=== PATIENT | female | born 1945 | race Caucasian/White ===

== ENCOUNTER 2018-12-11 18:58 | Inpatient (IN) | payer MEDICARE ==
[~2018-12-11] VITALS: Ht 154.9 cm; Wt 41.8 kg
[2018-12-11] MEDS ORDERED: Sodium Chloride 1,400 ML IVLG ONE (19:15)
--- NOTE | 2018-12-11 19:53 | Emergency Room Report ---
History of Present Illness General Chief Complaint: Altered Level of Consciousness Source: Patient Present Illness HPI Patient present from nursing facility with reports of altered mental status Upon arrival the patient is confused Decreased responsiveness After Tony placement and further initial care patient is now awake Asking watch was brought to the emergency room Denies any headache denies any chest pain Patient's medical history is reviewed and shows history of COPD Cardiac disease Paroxysmal nature fibrillation and patient is on Eliquis Allergies: Coded Allergies: CYCLOBENZAPRINE (Verified Allergy, Unknown, 12/11/18) IBUPROFEN (Verified Allergy, Unknown, 12/11/18) MELATONIN (Verified Allergy, Unknown, 12/11/18) SULFA (SULFONAMIDE ANTIBIOTICS) (Verified Allergy, Unknown, 12/11/18) Patient History Limited by: medical condition Past Medical History: see triage record Pertinent Family History: none Now: No - UNK Reviewed Nursing Documentation: PMH: Agreed; PSxH: Agreed Nursing Documentation-PMH Past Medical History: Deferred Review of Systems All Other Systems: limited - Other than the ones mentioned in the history of present illness all others are reviewed however they do stay limited due to the patient's mental status Physical Exam Vital Signs Date Time Temp Pulse Resp B/P (MAP) Pulse Ox O2 Delivery O2 Flow Rate FiO2 12/11/18 19:02 99.0 90 26 110/67 98 Non-Rebreather 15.0 Sp02 EP Interpretation: reviewed, normal General Appearance: moderate distress - Appears short of breath Head: normocephalic, atraumatic Procedures Critical Care Time Critical Care Time 50 minutes for multiple re-evaluations initial critical presentation concerning for respiratory failure not including any procedural time Medical Decision Making Diagnostic Impression: Primary Impression: Hypercapnemia Additional Impressions: Dyspnea Altered level of consciousness ER Course Patient is a fairly complex patient with multiple differential to consideration including but not limited to cardiac cardiopulmonary and vascular emergencies Neurological, infectious, metabolic pathology also entertained Patient appears to have done better on BiPAP Appears to have some signs of CO2 retention as well Patient requires further inpatient care in improved yet serious condition Labs Test 12/11/18 19:32 12/11/18 19:35 12/11/18 19:56 12/11/18 22:20 Arterial Blood pH 7.315 (7.350-7.450) 7.310 (7.350-7.450) Arterial Blood Partial Pressure CO2 65.2 mmHg (35.0-45.0) 56.5 mmHg (35.0-45.0) Arterial Blood Partial Pressure O2 352.3 mmHg (75.0-100.0) 158.1 mmHg (75.0-100.0) Arterial Blood HCO3 32.5 mmol/L (22.0-26.0) 27.8 mmol/L (22.0-26.0) Arterial Blood Oxygen Saturation 99.0 % (95-100) 98.5 % (95-100) Arterial Blood Base Excess 4.8 (-2-2) 0.7 (-2-2) Domingo Test Positive Positive White Blood Count 8.8 K/UL (4.8-10.8) Red Blood Count 3.92 M/UL (4.20-5.40) Hemoglobin 11.4 G/DL (12.0-16.0) Hematocrit 35.6 % (37.0-47.0) Mean Corpuscular Volume 91 FL (80-99) Mean Corpuscular Hemoglobin 28.9 PG (27.0-31.0) Mean Corpuscular Hemoglobin Concent 31.9 G/DL (32.0-36.0) Red Cell Distribution Width 15.7 % (11.6-14.8) Platelet Count 261 K/UL (150-450) Mean Platelet Volume 5.0 FL (6.5-10.1) Neutrophils (%) (Auto) 62.4 % (45.0-75.0) Lymphocytes (%) (Auto) 26.4 % (20.0-45.0) Monocytes (%) (Auto) 9.6 % (1.0-10.0) Eosinophils (%) (Auto) 0.6 % (0.0-3.0) Basophils (%) (Auto) 1.0 % (0.0-2.0) Prothrombin Time 11.5 SEC (9.30-11.50) Prothromb Time International Ratio 1.1 (0.9-1.1) Activated Partial Thromboplast Time 34 SEC (23-33) Sodium Level 140 MMOL/L (136-145) Potassium Level 4.5 MMOL/L (3.5-5.1) Chloride Level 104 MMOL/L (98-107) Carbon Dioxide Level 33 MMOL/L (21-32) Anion Gap 4 mmol/L (5-15) Blood Urea Nitrogen 24 mg/dL (7-18) Creatinine 1.0 MG/DL (0.55-1.30) Estimat Glomerular Filtration Rate mL/min (>60) Glucose Level 106 MG/DL (74-106) Lactic Acid Level 0.80 mmol/L (0.4-2.0) Calcium Level 8.0 MG/DL (8.5-10.1) Total Bilirubin 0.2 MG/DL (0.2-1.0) Aspartate Amino Transf (AST/SGOT) 37 U/L (15-37) Alanine Aminotransferase (ALT/SGPT) 23 U/L (12-78) Alkaline Phosphatase 125 U/L (46-116) Ammonia 21 umol/L (11-32) Total Creatine Kinase 166 U/L (26-308) Creatine Kinase MB 2.7 NG/ML (0.0-3.6) Creatine Kinase MB Relative Index 1.6 Troponin I 0.020 ng/mL (0.000-0.056) Pro-B-Type Natriuretic Peptide 3563 pg/mL (0-125) Total Protein 7.0 G/DL (6.4-8.2) Albumin 2.3 G/DL (3.4-5.0) Globulin 4.7 g/dL Albumin/Globulin Ratio 0.5 (1.0-2.7) Lipase 30 U/L (73-393) Urine Color Yellow Urine Appearance Clear Urine pH 5 (4.5-8.0) Urine Specific [place] 1.015 (1.005-1.035) Urine Protein 3+ (NEGATIVE) Urine Glucose (UA) Negative (NEGATIVE) Urine Ketones Negative (NEGATIVE) Urine Blood 5+ (NEGATIVE) Urine Nitrite Negative (NEGATIVE) Urine Bilirubin Negative (NEGATIVE) Urine Urobilinogen Normal MG/DL (0.0-1.0) Urine Leukocyte Esterase 1+ (NEGATIVE) Urine RBC 5-10 /HPF (0 - 2) Urine WBC 2-4 /HPF (0 - 2) Urine Squamous Epithelial Cells Few /LPF (NONE/OCC) Urine Bacteria Few /HPF (NONE) Test 12/12/18 04:00 12/12/18 07:40 White Blood Count 8.0 K/UL (4.8-10.8) Red Blood Count 3.88 M/UL (4.20-5.40) Hemoglobin 11.0 G/DL (12.0-16.0) Hematocrit 35.8 % (37.0-47.0) Mean Corpuscular Volume 92 FL (80-99) Mean Corpuscular Hemoglobin 28.4 PG (27.0-31.0) Mean Corpuscular Hemoglobin Concent 30.7 G/DL (32.0-36.0) Red Cell Distribution Width 16.4 % (11.6-14.8) Platelet Count 281 K/UL (150-450) Mean Platelet Volume 5.7 FL (6.5-10.1) Neutrophils (%) (Auto) % (45.0-75.0) Lymphocytes (%) (Auto) % (20.0-45.0) Monocytes (%) (Auto) % (1.0-10.0) Eosinophils (%) (Auto) % (0.0-3.0) Basophils (%) (Auto) % (0.0-2.0) Sodium Level 143 MMOL/L (136-145) Potassium Level 4.7 MMOL/L (3.5-5.1) Chloride Level 107 MMOL/L (98-107) Carbon Dioxide Level 31 MMOL/L (21-32) Anion Gap 6 mmol/L (5-15) Blood Urea Nitrogen 22 mg/dL (7-18) Creatinine 0.8 MG/DL (0.55-1.30) Estimat Glomerular Filtration Rate mL/min (>60) Glucose Level 130 MG/DL (74-106) Calcium Level 7.7 MG/DL (8.5-10.1) Arterial Blood pH 7.310 (7.350-7.450) Arterial Blood Partial Pressure CO2 57.4 mmHg (35.0-45.0) Arterial Blood Partial Pressure O2 193.2 mmHg (75.0-100.0) Arterial Blood HCO3 28.7 mmol/L (22.0-26.0) Arterial Blood Oxygen Saturation 98.9 % (95-100) Arterial Blood Base Excess 1.6 (-2-2) Domingo Test Positive Rhythm Strip Diag. Results EP Interpretation: yes Rate: 88 Rhythm: NSR, no PVC's, no ectopy Chest X-Ray Diagnostic Results Chest X-Ray Diagnostic Results : Chest X-Ray Ordered: Yes # of Views/Limited/Complete: 1 View Indication: Shortness of Breath EP Interpretation: Yes Interpretation: no consolidation, no effusion, other - Questionable interstitial disease Impression: No acute disease - questionable interstitial disease Electronically Signed by: Gini Lopez DO Last Vital Signs Date Time Temp Pulse Resp B/P (MAP) Pulse Ox O2 Delivery O2 Flow Rate FiO2 12/11/18 19:02 99.0 90 26 110/67 98 Non-Rebreather 15.0 Status: improved Disposition: ADMITTED INPATIENT Condition: Critical Gini Lopez DO Dec 11, 2018 19:53
[2018-12-11 19:57] LABS: EOSINOPHILS % (AUTO) 0.6 % (0.0-3.0); HEMATOCRIT 35.6 % (37.0-47.0); HEMOGLOBIN 11.4 G/DL (12.0-16.0); LYMPHOCYTES % (AUTO) 26.4 % (20.0-45.0); MEAN CORPUSCULAR VOLUME 91 FL (80-99); MONOCYTES % (AUTO) 9.6 % (1.0-10.0); NEUTROPHILS % (AUTO) 62.4 % (45.0-75.0); PLATELET COUNT 261 K/UL (150-450); RED BLOOD COUNT 3.92 M/UL (4.20-5.40); RED CELL DISTRIBUTION WIDTH 15.7 % (11.6-14.8); WHITE BLOOD COUNT 8.8 K/UL (4.8-10.8)
[2018-12-11 19:58] LABS: ANION GAP 4 mmol/L (5-15); BLOOD UREA NITROGEN 24 mg/dL (7-18); CARBON DIOXIDE 33 MMOL/L (21-32); CHLORIDE 104 MMOL/L (98-107); POTASSIUM 4.5 MMOL/L (3.5-5.1); SODIUM 140 MMOL/L (136-145)
[2018-12-11 20:01] LABS: AMMONIA 21 umol/L (11-32)
[2018-12-11 20:04] LABS: INR 1.1 (0.9-1.1)
[2018-12-11 20:09] LABS: APPEARANCE,URINE CLEAR; BILIRUBIN, URINE NEGATIVE (NEGATIVE); GLUCOSE, URINE (UA) NEGATIVE (NEGATIVE); KETONES,URINE NEGATIVE (NEGATIVE); LEUKOCYTE ESTERASE ,URINE 1+ (NEGATIVE); NITRITE,URINE NEGATIVE (NEGATIVE); PH,URINE 5 (4.5-8.0); PROTEIN,URINE 3+ (NEGATIVE); UROBILINOGEN,URINE NORMAL MG/DL (0.0-1.0)
[2018-12-11 20:12] LABS: ALANINE AMINOTRANSFERASE 23 U/L (12-78); ALBUMIN 2.3 G/DL (3.4-5.0); ALBUMIN/GLOBULIN RATIO 0.5 (1.0-2.7); ALKALINE PHOSPHATASE 125 U/L (46-116); ASPARTATE AMINO TRANSFERASE 37 U/L (15-37); BILIRUBIN,TOTAL 0.2 MG/DL (0.2-1.0); CKMB 2.7 NG/ML (0.0-3.6); CREATINE KINASE 166 U/L (26-308)
[2018-12-11 20:13] LABS: COLOR,URINE YELLOW
[2018-12-11] MEDS ORDERED: Solu-MEDROL 125mg Inj IVP ONE (20:30)
[2018-12-11 20:40] VITALS: BP 110/67
--- NOTE | 2018-12-11 20:59 | NUR ---
ER Nurse Note: Pt [facility] from [facility] c/o resp distress r/t aloc. Pt was at mid 80% at room air. Pt a&ox2 to name and birthday; VSS with 100% on BiPap. Pt was following commands but had episodes of agiation after she took her non-rebreather off. Pt on Bipap, pt is calm, cooperative, no signs of distress. Pt has multiple bruises on arms prior to admission. Pt has full strength in all extremities. Pt has 22 gauge on LT FA SL; started by AM nurse; 20 IV LT lower leg; started by charge nurse. All orders completed per ERMD orders. Will continue to [facility].
[2018-12-11] MEDS ORDERED: GABAPENTIN600 MG ORAL (21:44)
[2018-12-11] MEDS ORDERED: ELIQUIS5 MG PO (21:44)
[2018-12-11] MEDS ORDERED: MULTIVITAMINS1 EAC8 ORAL (21:44)
[2018-12-11] MEDS ORDERED: FLECAINIDE ACET50 M1 PO (21:44)
[2018-12-11] MEDS ORDERED: SPIRIVA INHALE1 PUF1 INH (21:44)
[2018-12-11] MEDS ORDERED: ATORVASTATIN CA20 MG ORAL (21:44)
[2018-12-11] MEDS ORDERED: VENTOLIN HFA18 GM INH (21:44)
[2018-12-11] MEDS ORDERED: ASPIRIN81 MG ORAL (21:44)
[2018-12-11] MEDS ORDERED: MORPHINE S10 MG/5 ML ORAL (21:44)
[2018-12-11] MEDS ORDERED: OMEPRAZOLE40 M1 ORAL (21:44)
[2018-12-11] MEDS ORDERED: NORVASC5 MG ORAL (21:44)
[2018-12-11] MEDS ORDERED: LIDOCAINE700 M1 TP (21:44)
[2018-12-11 21:53] VITALS: BP 123/81
--- NOTE | 2018-12-11 21:55 | NUR ---
ER Nurse Note: Report given to SIVAN Elder in [place] for continuity of care.
--- NOTE | 2018-12-11 22:42 | NUR ---
NURSE NOTES: Patient arrived to SDU, room 243-2 via stretcher accompanied by 2 RNs from ER. Report received from SIVAN Ibrahim at bed side. Patient is alert, verbally responsive, able to make needs known. Denies any pain at this time. Patient is on Bipap with setting of 12/5 at 50%, sp02 is 100%. Noted with burgess cath and intact, urine is draining. Noted IV site to left FA 22G and left leg 20G and is intact. Noted with scatted bruises to BLE, skin remains intact. Bed is in lowest position. Call light is within easy reach while in bed. will continue to monitor.
[2018-12-11 22:45] VITALS: BP 140/70
--- NOTE | 2018-12-11 23:04 | NUR ---
NURSE NOTES: Paged Dr Mancilla for admission order. currently awaiting for call back
[2018-12-12] VITALS: BP 132/72
[2018-12-12] MEDS: Albuterol 90mcg Inhaler 8gm INH SCH ×4 (00:30→19:22)
--- NOTE | 2018-12-12 01:00 | NUR ---
RESPIRATORY NOTE: MDI not in patients cassette, will contact pharmacy.
[2018-12-12 04:00] VITALS: BP 100/65
[2018-12-12 05:05] LABS: HEMATOCRIT 35.8 % (37.0-47.0); MEAN CORPUSCULAR VOLUME 92 FL (80-99); PLATELET COUNT 281 K/UL (150-450); RED BLOOD COUNT 3.88 M/UL (4.20-5.40); RED CELL DISTRIBUTION WIDTH 16.4 % (11.6-14.8)
[2018-12-12 05:17] LABS: ANION GAP 6 mmol/L (5-15); BLOOD UREA NITROGEN 22 mg/dL (7-18); CALCIUM 7.7 MG/DL (8.5-10.1); CARBON DIOXIDE 31 MMOL/L (21-32); CHLORIDE 107 MMOL/L (98-107); CREATININE 0.8 MG/DL (0.55-1.30); POTASSIUM 4.7 MMOL/L (3.5-5.1); SODIUM 143 MMOL/L (136-145)
--- NOTE | 2018-12-12 07:28 | NUR ---
HAND-OFF: Report given to Lucia Stovall RN.
[2018-12-12 08:00] VITALS: BP 109/72
--- NOTE | 2018-12-12 08:15 | NUR ---
NURSE NOTES: received pt in the bed, awake, alert, vital signs stable, no co pain, no SOB, pt on Bipap 15/5, skin warm and dry to touch, Tony catheter with yellow urine, ABG done, PCO2 still high, bed in low position, call light within reach.
[2018-12-12] MEDS ORDERED: Morphine IR 15mg tab ORAL PRN (09:00)
[2018-12-12] MEDS: Metoprolol Succinate XL 25mg tab ORAL SCH (09:20)
[2018-12-12] MEDS: Eliquis 2.5mg tablet ORAL SCH ×2 (09:20→17:51)
[2018-12-12] MEDS: Flonase Nasal Inhaler 16gm NASAL SCH ×2 (09:20→17:49)
[2018-12-12] MEDS: Multivitamin w/Minerals tab ORAL SCH (09:21)
[2018-12-12] MEDS: MS Contin 15mg tab ORAL SCH ×3 (09:56→17:50)
--- NOTE | 2018-12-12 10:53 | NUR ---
RD ASSESSMENT & RECOMMENDATIONS SEE CARE ACTIVITY FOR COMPLETE ASSESSMENT DAILY ESTIMATED NEEDS: Needs based on Underweight, pulmonary 42kg 30-35 kcals/kg 3982-0881 total kcals 1.0-1.5 g protein/kg 42-63 g total protein 25-30 mL/kg 3500-7442 total fluid mLs NUTRITION DIAGNOSIS: Increased kcal and protein needs r/t wasting and underweight status as evidenced by pt is 88% of [place] Body Weight, presents w/ generalized moderate wasting. PO DIET RECOMMENDATIONS: [place] Regular diet (texture per CLINICAL LAB SPECIALIST) ADDITIONAL RECOMMENDATIONS: 1) Obtain a calibrated bed scale wt 2) Non oral feeds if indicated, part of POC 3) Ensure TID w/ meals w/ oral diet 4) CLINICAL LAB SPECIALIST eval for appropriate texture
--- NOTE | 2018-12-12 11:39 | NUR ---
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 HYPERCAPNIA VS: BP 123/81, P 90, T 99.0, RR 26, SpO2 100 on Bi-pap 15.0L O2 FiO2 50 RBC 3.88, Hgb 11.0, Hct 35.8, pCO2 65.2, BUN 24, URINE: Protein 3+, Blood 5+, Bacteria FEW IS:NS x1.4L SOLU-MEDROL 125mg IVP ADMITTED TO SDU DCP: RETURN TO [facility]
[2018-12-12 12:00] VITALS: BP 110/59
--- NOTE | 2018-12-12 12:01 | NUR ---
NURSE NOTES: pt refuse Bipap, now pt on venturi mask 40%, dr Mancilla aware.
--- NOTE | 2018-12-12 15:01 | Diagnostic Imaging Report ---
Indication: Chest pain Technique: XRAY Chest 1v Comparison: None Findings: Heart size within the upper limits for normal. Mediastinal contours are sharp. There are atherosclerotic gastric calcifications. There is evidence of prior median sternotomy. Right sided pacemaker is noted. Increased interstitial markings are noted be some subtle patchy bilateral airspace opacities. There is no pleural effusion or pneumothorax. Surgical clips noted in the upper abdomen. High attenuation material is noted within the lower thoracic spine likely representing bone cement from prior kyphoplasty. IMPRESSION: Increased interstitial markings with areas of peribronchial thickening and some subtle bilateral opacities which may be related to small airway disease/bronchitis. Suspect underlying chronic disease as well.
[2018-12-12 16:00] VITALS: BP 117/77
[2018-12-12] MEDS ORDERED: Albuterol/Ipratropium 3ml neb HHN PRN ×2 (16:00)
[2018-12-12] MEDS ORDERED: traMADol 50mg tab ORAL PRN (16:30)
--- NOTE | 2018-12-12 16:48 | General Progress Note ---
Assessment/Plan Status: stable Assessment: 1. COPD Exacerbation - on Prednisone 40 mg daily and breathing txt. improving. 2, HTN - cont amlodipine 5 mg daily and toprol XL 25 mg one po daily. 3. Paroxysmal A Fib - On eliquis 5 mg one po bid. 4. CAD with hx of [place] 5. HLD 6. Neuropathy 7. Chronic Low Back Pain 8. h/o Lt shoulder rotator cuff tear Subjective Date patient seen: Dec 12, 2018 Time patient seen: 16:00 Constitutional: Reports: weakness HEENT: Reports: no symptoms Cardiovascular: Reports: no symptoms Respiratory: Reports: shortness of breath Gastrointestinal/Abdominal: Reports: no symptoms Genitourinary: Reports: no symptoms Neurologic/Psychiatric: Reports: no symptoms Endocrine: Reports: no symptoms Hematologic/Lymphatic: Reports: no symptoms Allergies: Coded Allergies: CYCLOBENZAPRINE (Verified Allergy, Unknown, 12/11/18) IBUPROFEN (Verified Allergy, Unknown, 12/11/18) MELATONIN (Verified Allergy, Unknown, 12/11/18) SULFA (SULFONAMIDE ANTIBIOTICS) (Verified Allergy, Unknown, 12/11/18) Subjective Patient is in [place]. she is on face mask and confortable. afebrile. No chest pain. Objective Last 24 Hour Vital Signs Date Time Temp Pulse Resp B/P (MAP) Pulse Ox O2 Delivery O2 Flow Rate FiO2 12/12/18 16:00 40 12/12/18 16:00 Venturi Mask 12/12/18 14:38 84 22 97 12/12/18 13:18 97.6 12/12/18 12:48 81 20 96 12/12/18 12:31 75 20 94 Venturi Mask 8.0 40 12/12/18 12:31 75 20 94 Venturi Mask 8.0 40 12/12/18 12:00 40 12/12/18 12:00 69 12/12/18 12:00 97.6 98 16 110/59 (76) 100 12/12/18 12:00 Venturi Mask 12/12/18 11:16 78 20 98 12/12/18 09:20 72 109/72 12/12/18 09:00 78 109/72 12/12/18 08:50 83 20 100 12/12/18 08:49 72 20 100 Bi-pap 40 12/12/18 08:49 72 20 100 Bi-pap 40 12/12/18 08:00 97.6 69 15 109/72 (84) 100 12/12/18 08:00 50 12/12/18 08:00 Bi-pap 12/12/18 08:00 72 12/12/18 07:20 61 14 100 Facial 50 12/12/18 05:20 63 16 100 Facial 50 12/12/18 04:00 50 12/12/18 04:00 97.7 62 16 100/65 (77) 100 12/12/18 04:00 Bi-pap 12/12/18 03:41 76 12/12/18 02:52 66 16 100 Facial 50 12/12/18 01:08 64 17 99 Facial 50 12/12/18 00:00 50 12/12/18 00:00 Bi-pap 12/12/18 00:00 98.0 97 21 132/72 (92) 100 12/11/18 23:50 84 21 100 Facial 50 12/11/18 23:24 98 12/11/18 23:06 Bi-pap 12/11/18 22:45 50 12/11/18 22:45 98.1 105 22 140/70 (93) 100 12/11/18 21:53 99.0 88 17 123/81 100 15.0 50 12/11/18 21:53 99.0 88 17 123/81 100 15.0 50 12/11/18 20:48 80 17 100 Facial 50 12/11/18 20:40 99.0 90 26 110/67 98 Non-Rebreather 15.0 12/11/18 20:40 90 26 Bi-pap 15.0 12/11/18 19:58 105 18 Bi-pap 50 12/11/18 19:58 105 18 100 Facial 50 12/11/18 19:02 99.0 90 26 110/67 98 Non-Rebreather 15.0 Intake and Output 12/11/18 12/12/18 19:00 07:00 Intake Total 2800 ml Output Total 1150 ml Balance 1650 ml Intake Oral 0 ml IV Total 2800 ml Output Urine Total 1150 ml # Voids 1 Laboratory Tests 12/11/18 19:32: Arterial Blood pH 7.315L, Arterial Blood Partial Pressure CO2 65.2*H, Arterial Blood Partial Pressure O2 352.3H, Arterial Blood HCO3 32.5H, Arterial Blood Oxygen Saturation 99.0, Arterial Blood Base Excess 4.8H, Domingo Test Positive 12/11/18 19:35: White Blood Count 8.8, Red Blood Count 3.92L, Hemoglobin 11.4L, Hematocrit 35.6L , Mean Corpuscular Volume 91, Mean Corpuscular Hemoglobin 28.9, Mean Corpuscular Hemoglobin Concent 31.9L, Red Cell Distribution Width 15.7H, Platelet Count 261, Mean Platelet Volume 5.0L, Neutrophils (%) (Auto) 62.4, Lymphocytes (%) (Auto) 26.4, Monocytes (%) (Auto) 9.6, Eosinophils (%) (Auto) 0.6, Basophils (%) (Auto) 1.0, Prothrombin Time 11.5, Prothromb Time International Ratio 1.1, Activated Partial Thromboplast Time 34H, Sodium Level 140, Potassium Level 4.5, Chloride Level 104, Carbon Dioxide Level 33H, Anion Gap 4L, Blood Urea Nitrogen 24H, Creatinine 1.0, Estimat Glomerular Filtration Rate , Glucose Level 106, Lactic Acid Level 0.80, Calcium Level 8.0L, Total Bilirubin 0.2, Aspartate Amino Transf (AST/SGOT) 37, Alanine Aminotransferase ( ALT/SGPT) 23, Alkaline Phosphatase 125H, Ammonia 21, Total Creatine Kinase 166, Creatine Kinase MB 2.7, Creatine Kinase MB Relative Index 1.6, Troponin I 0.020 , Pro-B-Type Natriuretic Peptide 3563H, Total Protein 7.0, Albumin 2.3L, Globulin 4.7, Albumin/Globulin Ratio 0.5L, Lipase 30L 12/11/18 19:56: Urine Color Yellow, Urine Appearance Clear, Urine pH 5, Urine Specific [place] 1.015, Urine Protein 3+H, Urine Glucose (UA) Negative, Urine Ketones Negative, Urine Blood 5+H, Urine Nitrite Negative, Urine Bilirubin Negative, Urine Urobilinogen Normal, Urine Leukocyte Esterase 1+H, Urine RBC 5-10H, Urine WBC 2- 4, Urine Squamous Epithelial Cells Few, Urine Bacteria Few 12/11/18 22:20: Arterial Blood pH 7.310L, Arterial Blood Partial Pressure CO2 56.5*H, Arterial Blood Partial Pressure O2 158.1H, Arterial Blood HCO3 27.8H, Arterial Blood Oxygen Saturation 98.5, Arterial Blood Base Excess 0.7, Domingo Test Positive 4/18/19 04:00: White Blood Count 8.0, Red Blood Count 3.88L, Hemoglobin 11.0L, Hematocrit 35.8L , Mean Corpuscular Volume 92, Mean Corpuscular Hemoglobin 28.4, Mean Corpuscular Hemoglobin Concent 30.7L, Red Cell Distribution Width 16.4H, Platelet Count 281, Mean Platelet Volume 5.7L, Neutrophils (%) (Auto) , Lymphocytes (%) (Auto) , Monocytes (%) (Auto) , Eosinophils (%) (Auto) , Basophils (%) (Auto) , Sodium Level 143, Potassium Level 4.7, Chloride Level 107 , Carbon Dioxide Level 31, Anion Gap 6, Blood Urea Nitrogen 22H, Creatinine 0.8 , Estimat Glomerular Filtration Rate , Glucose Level 130H, Calcium Level 7.7L 12/12/18 07:40: Arterial Blood pH 7.310L, Arterial Blood Partial Pressure CO2 57.4*H, Arterial Blood Partial Pressure O2 193.2H, Arterial Blood HCO3 28.7H, Arterial Blood Oxygen Saturation 98.9, Arterial Blood Base Excess 1.6, Domingo Test Positive Height (Feet): 5 Height (Inches): 1.00 Weight (Pounds): 92 General Appearance: no apparent distress, alert EENT: normal ENT inspection Neck: non-tender, supple Cardiovascular: normal rate, regular rhythm Respiratory/Chest: lungs clear, normal breath sounds Abdomen: normal bowel sounds, non tender, soft Extremities: normal range of motion, non-tender Edema: no edema noted Arm (L), no edema noted Arm (R), no edema noted Leg (L), no edema noted Leg (R), no edema noted Pedal (L), no edema noted Pedal (R), no edema noted Generalized Neurologic: no motor/sensory deficits, alert, responsive Skin: warm/dry Lymphatic: normal anterior cervical (L), normal anterior cervical (R), normal posterior cervical (L), normal posterior cervical (R), normal submandibular (L) , normal submandibular (R), normal supraclavicular (L), normal supraclavicular ( R), normal axillary (L), normal axillary (R), normal inguinal (L), normal inguinal (R), normal other Wally Mancilla MD Dec 12, 2018 16:48
--- NOTE | 2018-12-12 17:00 | NUR ---
NURSE NOTES: pt still on venturi mask 40%, tolerate will, son in the room, dr. Salmon, dr. Valdez saw pt.
--- NOTE | 2018-12-12 19:10 | NUR ---
NURSE NOTES: Report received from Minoo Stovall RN. Patient seen in bed, appears to be sleeping at this time, family member by bedside. Patient is alert, verbally responsive, able to make needs known. Denies any pain at this time. Currently on venturi mask at 40% with sp02 at 98%. IV site is to left FA 22g and right low leg 20G, both is intact. Tony cath is in place and is intact, urine is draining. Bed is in lowest position. call light is within easy reach while in bed. will continue to monitor.
--- NOTE | 2018-12-12 19:19 | NUR ---
HAND-OFF: Report given to ERNESTO FINNEGAN, no distress noted.
[2018-12-12] MEDS: Albuterol/Ipratropium 3ml neb HHN SCH ×2 (19:22→23:26)
--- NOTE | 2018-12-12 19:22 | NUR ---
RESPIRATORY NOTE: PT. RECEIVED ON VENTI MASK @ 8LPM 40% FIO2. ALL VS WNL. HOWEVER; PT. APPEARS CONFUSED AND IS REFUSING TO BE PLACED ON BIPAP. PT'S SON IS AT BEDSIDE. BENEFITS AND RISK OF BIPAP WERE EXPLAINED TO PT AND SON. PT CONTINUES TO REFUSE BIPAP AFTER BENEFITS WERE EXPLAINED. RN. ALSTON WAS NOTIFIED OF PT'S REFUSAL. HHN TX AND MDI TOLERATED WELL. WILL CONTINUE TO MONITOR.
--- NOTE | 2018-12-12 19:30 | History and Physical Report ---
DATE OF ADMISSION: 12/11/2018 CHIEF COMPLAINT: Altered mental status. HISTORY OF PRESENT ILLNESS: This is a 72-year-old female with history of hypertension, chronic obstructive pulmonary disease, SVT, paroxysmal atrial fibrillation, mitral regurgitation, and chronic back and left shoulder pain, who was brought in to the emergency room for chronic obstructive pulmonary disease exacerbation with altered mental status and increased CO2. She also has a history of coronary artery disease and the patient is a current smoker. In the ER, the patient received Solu-Medrol and BiPAP in the emergency room and the patient's breathing improved. The patient was admitted in the [facility] for further treatment of chronic obstructive pulmonary disease exacerbation. PAST MEDICAL HISTORY: Includes history of chronic obstructive pulmonary disease, hypertension, SVT, paroxysmal atrial fibrillation, mitral regurgitation, chronic back and left shoulder pain, coronary artery disease, and chronic pain syndrome. PAST SURGICAL HISTORY: History of back surgery, history of cervical steroid epidural, history of gastric resection, history of hiatal hernia repair, history of pacemaker placement, history of shoulder joint injection, history of left shoulder joint injection under fluoroscopy. ALLERGIES: Include cyclobenzaprine, ibuprofen, melatonin, and sulfa. FAMILY HISTORY: Noncontributory. SOCIAL HISTORY: The patient is a current long-time smoker. No alcohol or drug use. PHYSICAL EXAMINATION: VITAL SIGNS: Temperature 99.0, pulse 90, respirations 26, blood pressure 110/67, and pulse ox 98 percent on non-breather. GENERAL APPEARANCE: Moderate distress. Appears short of breath. HEENT: Normocephalic and normochromic. Extraocular muscles intact. Throat is clear. CARDIOVASCULAR SYSTEM: Regular rate and rhythm. No murmur. No gallop. ABDOMEN: Soft, nontender, and nondistended. LUNGS: Clear to auscultation, but tachypneic. EXTREMITY: No edema, cyanosis, or clubbing. NEUROLOGIC: The patient responds to commands. LABORATORY AND DIAGNOSTIC DATA: Include WBC 8.8, hemoglobin 11.4, hematocrit 35.6, and platelet count 261,000. Neutrophils 62, lymphocytes 26, and mono 9.6. Sodium 140, potassium 4.4, chloride 104, bicarb is 33, BUN 24, creatinine 1, and glucose 106. Lactic acid 0.8. Calcium 8. AST 37, ALT 23, and alkaline phosphatase 125. Ammonia 21. Creatine kinase 166. BNP 3563. Albumin 2.3. Lipase 30. PT 11.5, INR 1.1, and PTT 34. UA showed +3 urine protein and +5 urine blood. Urine rbc is 5 to 10 and urine wbc 2 to 4. Blood gas showed pH of 7.315, pCO2 65, pO2 252, bicarb is 32.5, base excess is 4.8, and O2 saturation 99%. Chest x-ray showed increased interstitial marking, the area of peribronchial thickening, and some septal bronchial opacity, which may be related to small airway disease, and also suspect underlying chronic disease. EKG showed normal sinus rhythm and old Q-wave in the inferior leads. IMPRESSION AND PLAN: 1. Chronic obstructive pulmonary disease exacerbation. We will have the patient continue on Solu-Medrol and we will have Pulmonary see the patient. We will also cover the patient on antibiotics for possible bronchitis based on a chest x-ray. 2. Paroxysmal atrial fibrillation. We will continue the patient on home medication Eliquis 5 mg b.i.d. 3. Hypertension. We will continue on Norvasc 5 mg daily and Toprol 25 daily. 4. Coronary artery disease with history of myocardial infarction. Currently, on beta-blockers. 5. The patient will be admitted for a minimum of 2-night stay for diagnosis of chronic obstructive pulmonary disease exacerbation. Wally Mancilla M.D. DR: TAMIR JOB#: [id number] CC:
[2018-12-12 20:00] VITALS: BP 104/62
[2018-12-12] MEDS: Doxycycline Monohydrate 100mg ORAL SCH (20:40)
--- NOTE | 2018-12-12 21:31 | Pulmonology Progress Note ---
Assessment/Plan Assessment/Plan Pulmonary Consultation Note HPI: Patient is a 72-year-old female with history of chronic obstructive pulmonary disease hypertension, previous SVT, paroxysmal atrial fibrillation (on AC), mitral regurgitation, and chronic back and left shoulder pain, admitted with chronic obstructive pulmonary disease exacerbation with altered mental status and increased CO2. She also has a history of coronary artery disease and the patient is a current smoker. The patient received Solu-Medrol and BiPAP in the emergency room and the patient's breathing improved. PAST MEDICAL HISTORY: Includes history of chronic obstructive pulmonary disease, hypertension, SVT, paroxysmal atrial fibrillation, mitral regurgitation, chronic back and left shoulder pain, coronary artery disease, and chronic pain syndrome. PAST SURGICAL HISTORY: History of back surgery, history of cervical steroid epidural, history of gastric resection, history of hiatal hernia repair, history of pacemaker placement, history of shoulder joint injection, history of left shoulder joint injection under fluoroscopy. ALLERGIES: Include cyclobenzaprine, ibuprofen, melatonin, and sulfa. FAMILY HISTORY: Noncontributory. SOCIAL HISTORY: The patient is a current long-time smoker. No alcohol or drug use. PHYSICAL EXAMINATION: VITAL SIGNS NOTED, on NC O2 GENERAL APPEARANCE: Not distressed. HEENT: Normocephalic and normochromic. Extraocular muscles intact. Throat is clear. CARDIOVASCULAR SYSTEM: Regular rate and rhythm. No murmur. No gallop. ABDOMEN: Soft, nontender, and nondistended. LUNGS: Clear to auscultation, reduced BS. EXTREMITY: No edema, cyanosis, or clubbing. NEUROLOGIC: The patient responds to commands. LABORATORY AND DIAGNOSTIC DATA: Include WBC 8.8, hemoglobin 11.4, hematocrit 35.6, and platelet count 261,000. Neutrophils 62, lymphocytes 26, and mono 9.6. Sodium 140, potassium 4.4, chloride 104, bicarb is 33, BUN 24, creatinine 1, and glucose 106. Lactic acid 0.8. Calcium 8. AST 37, ALT 23, and alkaline phosphatase 125. Ammonia 21. Creatine kinase 166. BNP 3563. Albumin 2.3. Lipase 30. PT 11.5, INR 1.1, and PTT 34. UA showed +3 urine protein and +5 urine blood. Urine rbc is 5 to 10 and urine wbc 2 to 4. Blood gas showed pH of 7.315, pCO2 65, pO2 252, bicarb is 32.5, base excess is 4.8, and O2 saturation 99%. Chest x-ray showed increased interstitial marking, the area of peribronchial thickening, and some septal bronchial opacity, which may be related to small airway disease, and also suspect underlying chronic disease. EKG showed normal sinus rhythm and old Q-wave in the inferior leads. IMPRESSION AND PLAN: 1. Chronic obstructive pulmonary disease exacerbation. Continue HHN, Solu- Medrol, BiPAP PRN . Doxycycline for possible bronchitis. O2 sats 90-94% 2. Paroxysmal atrial fibrillation. Continue the patient on Eliquis 5 mg b.i.d. 3. Hypertension. Norvasc 5 mg daily and Toprol 25 daily. 4. Coronary artery disease with history of myocardial infarction. Currently, on beta-blockers. 5 Subjective ROS Limited/Unobtainable: No Respiratory: Reports: shortness of breath Allergies: Coded Allergies: CYCLOBENZAPRINE (Verified Allergy, Unknown, 12/11/18) IBUPROFEN (Verified Allergy, Unknown, 12/11/18) MELATONIN (Verified Allergy, Unknown, 12/11/18) SULFA (SULFONAMIDE ANTIBIOTICS) (Verified Allergy, Unknown, 12/11/18) Objective Last 24 Hour Vital Signs Date Time Temp Pulse Resp B/P (MAP) Pulse Ox O2 Delivery O2 Flow Rate FiO2 12/12/18 20:00 98.0 87 24 104/62 (76) 96 12/12/18 20:00 Venturi Mask 12/12/18 20:00 40 12/12/18 19:40 80 20 97 Venturi Mask 8.0 40 12/12/18 19:22 82 20 95 12/12/18 19:22 82 20 95 Venturi Mask 8.0 40 12/12/18 19:09 86 12/12/18 18:20 98.2 12/12/18 17:28 89 20 94 12/12/18 16:00 70 12/12/18 16:00 40 12/12/18 16:00 Venturi Mask 12/12/18 16:00 98.2 105 17 117/77 (90) 95 12/12/18 14:38 84 22 97 12/12/18 12:48 81 20 96 12/12/18 12:31 75 20 94 Venturi Mask 8.0 40 12/12/18 12:31 75 20 94 Venturi Mask 8.0 40 12/12/18 12:00 40 12/12/18 12:00 69 12/12/18 12:00 97.6 98 16 110/59 (76) 100 12/12/18 12:00 Venturi Mask 12/12/18 11:16 78 20 98 12/12/18 09:20 72 109/72 12/12/18 09:00 78 109/72 12/12/18 08:50 83 20 100 12/12/18 08:49 72 20 100 Bi-pap 40 12/12/18 08:49 72 20 100 Bi-pap 40 12/12/18 08:00 97.6 69 15 109/72 (84) 100 12/12/18 08:00 50 12/12/18 08:00 Bi-pap 12/12/18 08:00 72 12/12/18 07:20 61 14 100 Facial 50 12/12/18 05:20 63 16 100 Facial 50 12/12/18 04:00 50 12/12/18 04:00 97.7 62 16 100/65 (77) 100 12/12/18 04:00 Bi-pap 12/12/18 03:41 76 12/12/18 02:52 66 16 100 Facial 50 12/12/18 01:08 64 17 99 Facial 50 12/12/18 00:00 50 12/12/18 00:00 Bi-pap 12/12/18 00:00 98.0 97 21 132/72 (92) 100 12/11/18 23:50 84 21 100 Facial 50 12/11/18 23:24 98 12/11/18 23:06 Bi-pap 12/11/18 22:45 50 12/11/18 22:45 98.1 105 22 140/70 (93) 100 12/11/18 21:53 99.0 88 17 123/81 100 15.0 50 12/11/18 21:53 99.0 88 17 123/81 100 15.0 50 Intake and Output 12/11/18 12/12/18 18:59 06:59 Intake Total 2800 ml Output Total 1150 ml Balance 1650 ml Intake Oral 0 ml IV Total 2800 ml Output Urine Total 1150 ml # Voids 1 Microbiology Date/Time Source Procedure Growth Status 12/11/18 19:56 Rectum Received Laboratory Tests 12/11/18 22:20: Arterial Blood pH 7.310L, Arterial Blood Partial Pressure CO2 56.5*H, Arterial Blood Partial Pressure O2 158.1H, Arterial Blood HCO3 27.8H, Arterial Blood Oxygen Saturation 98.5, Arterial Blood Base Excess 0.7, Domingo Test Positive 12/12/18 04:00: White Blood Count 8.0, Red Blood Count 3.88L, Hemoglobin 11.0L, Hematocrit 35.8L , Mean Corpuscular Volume 92, Mean Corpuscular Hemoglobin 28.4, Mean Corpuscular Hemoglobin Concent 30.7L, Red Cell Distribution Width 16.4H, Platelet Count 281, Mean Platelet Volume 5.7L, Neutrophils (%) (Auto) , Lymphocytes (%) (Auto) , Monocytes (%) (Auto) , Eosinophils (%) (Auto) , Basophils (%) (Auto) , Sodium Level 143, Potassium Level 4.7, Chloride Level 107 , Carbon Dioxide Level 31, Anion Gap 6, Blood Urea Nitrogen 22H, Creatinine 0.8 , Estimat Glomerular Filtration Rate , Glucose Level 130H, Calcium Level 7.7L 12/12/18 07:40: Arterial Blood pH 7.310L, Arterial Blood Partial Pressure CO2 57.4*H, Arterial Blood Partial Pressure O2 193.2H, Arterial Blood HCO3 28.7H, Arterial Blood Oxygen Saturation 98.9, Arterial Blood Base Excess 1.6, Domingo Test Positive Current Medications Medications (Trade) Dose Ordered Sig/Sonny Route PRN Reason Start Time Stop Time Status Last Admin Dose Admin Albuterol Sulfate (Proventil MDI) 1 puff Q6H INH 12/12/18 00:30 01/11/19 00:29 12/12/18 19:22 Albuterol/ Ipratropium (Albuterol/ Ipratropium) 3 ml Q4HRT HHN 12/12/18 19:00 12/17/18 18:59 12/12/18 19:22 Albuterol/ Ipratropium (Albuterol/ Ipratropium) 3 ml Q4HRT PRN HHN Shortness of Breath 12/12/18 16:00 12/17/18 00:00 Amlodipine Besylate (Norvasc) 5 mg DAILY ORAL 12/12/18 09:00 01/11/19 08:59 Apixaban (Eliquis) 5 mg BID ORAL 12/12/18 09:00 01/11/19 08:59 12/12/18 17:51 Doxycycline Monohydrate (Vibramycin) 100 mg EVERY 12 HOURS ORAL 12/12/18 21:00 12/19/18 20:59 12/12/18 20:40 Fluticasone Propionate (Flonase) 1 spray TWICE A DAY NASAL 12/12/18 09:00 01/11/19 08:59 12/12/18 17:49 Gabapentin (Neurontin) 900 mg THREE TIMES A DAY ORAL 12/12/18 09:00 01/11/19 08:59 12/12/18 17:50 Metoprolol Succinate (Toprol XL) 25 mg DAILY ORAL 12/12/18 09:00 01/11/19 08:59 12/12/18 09:20 Morphine Sulfate (MS Contin) 45 mg TID ORAL 12/12/18 09:00 12/19/18 08:59 12/12/18 17:50 Multivitamins Therapeutic (Therapeutic Multivitamin) 1 ea DAILY ORAL 12/12/18 09:00 01/11/19 08:59 12/12/18 09:21 Prednisone (predniSONE) 40 mg DAILY ORAL 12/12/18 16:00 01/11/19 15:59 12/12/18 16:19 Tiotropium Andrews (Spiriva Inhaler) 1 puff DAILY INH 12/12/18 09:00 01/11/19 08:59 12/12/18 10:01 Tramadol HCl (Ultram) 50 mg Q8H PRN ORAL Severe Pain (Pain Scale 7-10) 12/12/18 16:30 12/19/18 16:29 Juancho Salmon MD Dec 12, 2018 21:31
[2018-12-13] VITALS (7 sets, daily range): BP systolic 100–110; BP diastolic 58–68
[2018-12-13] MEDS: Albuterol 90mcg Inhaler 8gm INH SCH ×2 (01:36→07:01)
[2018-12-13] MEDS: Albuterol/Ipratropium 3ml neb HHN SCH ×4 (03:34→19:41)
--- NOTE | 2018-12-13 04:56 | NUR ---
RESPIRATORY NOTE: PT. REMAINED STABLE ON BIPAP WITH CURRENT SETTINGS. FOAM TAPE IN PLACE. NO FACIAL WOUNDS NOTED. BIPAP CIRCUIT AND BIPAP MASK SECURE AND OUT OF THE WAY. NO S/S OF RESPIRATORY DISTRESS NOTED AT THIS TIME.
--- NOTE | 2018-12-13 07:10 | NUR ---
NURSE NOTES: Received pt from SIVAN Maldonado. Patient is alert and oriented. Currently on BIPAP 15/5, 50%. Requesting to have BIPAP taken off. Notified RT. labored breathing noted using accessory muscles, SPO2 100%. Right upper chest pacemaker, NSR w/PVC's. Multiple discolorations noted on bilateral arms. C/O of back and shoulder pain 10/10, scheduled pain medication to be given at 0900. Pt is aware. IV on LFA 22G noted, asymptomatic and patent. Bed locked, alarmed and in lowest position. semi cagle's position. Will contine plan of care.
--- NOTE | 2018-12-13 07:26 | NUR ---
HAND-OFF: Report given to Brianne Smith RN.
[2018-12-13] MEDS: Metoprolol Succinate XL 25mg tab ORAL SCH (09:00)
[2018-12-13] MEDS: MS Contin 15mg tab ORAL SCH ×3 (09:00→17:26)
[2018-12-13] MEDS: Doxycycline Monohydrate 100mg ORAL SCH ×2 (09:00→21:47)
[2018-12-13] MEDS: Multivitamin w/Minerals tab ORAL SCH (09:00)
[2018-12-13] MEDS: Eliquis 2.5mg tablet ORAL SCH ×2 (09:00→17:25)
[2018-12-13] MEDS: Flonase Nasal Inhaler 16gm NASAL SCH ×2 (09:00→17:24)
--- NOTE | 2018-12-13 09:00 | NUR ---
NURSE NOTES: Held Toprol XL due to decreased low BP. 100/68, HR 80. Patient refused flonase. risks and benefits explained x3 but pt still refused.
--- NOTE | 2018-12-13 10:54 | NUR ---
SWALLOW/SPEECH THERAPY NOTE: REFERRED BY DR JONES (PRIMARY DR ALFREDO AND DR REYNA WROTE DIET 12/12/18) FOR A SWALLOW EVALUATION. COMPLETED CHART REVIEW, SEE FULL REPORT IN THE CARE ACTIVITY SECTION. DYSPHAGIA RISK FACTORS FOR THIS 72 Y.O.F.: ACUTE ALOC, ENCEPHALOPATHY, COPD EXACERBATION, POSSIBLE BRONCHITIS, DYSPNEA WITH INCREASED C02 BETTER ON BIPAP BUT NOW REFUSING AND ON 3 LITERS 02 NC. LUNGS NEG FOR ACUTE ISSUES BUT HAS CHRONIC INTERSTITIAL INFILTRATE THROUGHOUT LUNGS UNCHANGED AND SUB BILATERAL OPACITIES MAY BE RELATED TO SMALL AIRWAY DZ/BRONCHITIS SUSPECT UNDERLYING CHRONIC DZ. CURRENT RELEVANT MEDS: ALBUTEROL, MORPHINE, WAS ON OMEPRAZOLE FOR GERD AT [facility]). H/O PNA 6 MONTHS AGO PER PATIENT, GERD (AT SNF ON OMEPRAZOLE NOT NOW), GASTRIC RESECTION, HIATAL HERNIA, COPD, OTHER RESP DZ, RETIREMENT SMOKER CURRENT (NO ETOH), SVT, PAROXYSMAL AF, CHRONIC PAIN SYNDROME. POLST STATES OK FOR TUBE FEEDINGS IF NEEDS. AT SNF ON A FORTIFIED REGULAR TEXTURE DIET AND THIN LIQUIDS. CURRENTLY ON SAME DIET AT THE SNF WITH VARIABLE INTAKE REFUSED/25/75/100% W/O OVERT ASPIRATION PER RN. PER RD, LIBERALIZE DIET AND SEND ENSURE TID. PATIENT UNDERWEIGHT. PER PATIENT, SHE DOES SOMETIMES COUGH WITH THIN LIQUIDS BUT DENIES OTHER SWALLOWING PROBLEMS. DOES NOT WANT NECTAR THICK LIQUIDS NOR OTHER DIET DOWNGRADES. ALERT, SOFT VOICE BUT SPEECH IS INTELLIGIBLE. FOLLOW COMMANDS AND ABLE TO COMMUNICATE NEEDS. ON 3 LITERS OF 02 VIA NC. INITIAL IMPRESSIONS: S/S OF A MILD OROPHARYNGEAL DYSPHAGIA WITH MILD INCREASE IN ORAL PREP AND OROPHARYNGEAL TRANSIT TIMES. LIPS AND TONGUE FUNCTIONAL, LOWER JAW TREMOR, VOICE SOFT, AND WEAK COUGH VOLITIONAL AND SPONTANEOUS. RR VARIABLE (HIGHEST 22 BUT INCREASES WITH SEQUENTIAL SIPS AND CHEWING). GROSSLY FUNCTIONAL WITH TSP OF PUREED. S/S OF SOB AND NEEDED TO TAKE A BREATH AFTER DRINKING SEQUENTIAL SIPS OF THIN LIQUIDS VIA CUP ([place]BLEBORO SWALLOW PROTOCOL). ALTHOUGH NO OVERT ASPIRATION HAS RISK DUE TO SOB AND RESPIRATORY/SWALLOW INCOORDINATION (COULD INHALE LIQUIDS). BETTER WITH ONE SIP AT A TIME. GIVEN MASTICATED SOLIDS (1/2 CRACKER), SLOWER CHEWING AND SOME INCREASE IN SOB, NO ORAL RESIDUE NOR OVERT ASPIRATION. QUESTIONABLE SILENT ASPIRATION RISK. RECOMMENDATIONS: MODIFIED BARIUM SWALLOW STUDY TO FURTHER ASSESS SWALLOW, DETERMINE SILENT ASPIRATION RISK/ETIOLOGY, AND ATTEMPT TRIAL TX TECHNIQUES. IF PO CONTINUES FOR QUALITY OF LIFE, CONTINUE WITH CURRENT FORTIFIED REGULAR TEXTURE DIET AND THIN LIQUIDS (NO DOWNGRADES PER PT), WITH POSTED ASPIRATION AND REFLUX PRECAUTIONS WITH SUPERVISION. MEDS TOLERATED (NOT A PROBLEM PER RN) PER RD LIBERALIZE DIET AND SENT ENSURE TID. D/W VIOLETTE CHAWLA. LEFT MESSAGE WITH MD DYSPHAGIA MANAGEMENT/TX (SEE EVAL) SPEECH/COG-COM EVAL/TX IF NEEDS EDUCATED/TRAINED RN (BRIGIDA) AND PATIENT IN POSTED ASP/REFLUX PRECAUTIONS
--- NOTE | 2018-12-13 12:58 | NUR ---
NURSE NOTES: O.K. to transfer to tele per Dr. Mancilla
[2018-12-13] MEDS ORDERED: Albuterol/Ipratropium 3ml neb HHN SCH (13:00)
--- NOTE | 2018-12-13 13:20 | NUR ---
RESPIRATORY NOTE: Duoneb not given at 1300 due to a Duoneb prn given at 1100
--- NOTE | 2018-12-13 14:57 | General Progress Note ---
Assessment/Plan Status: stable Assessment: 1. COPD Exacerbation - on Prednisone 30 mg daily and breathing txt. improving. 2, HTN - cont amlodipine 5 mg daily and toprol XL 25 mg one po daily. 3. Paroxysmal A Fib - On eliquis 5 mg one po bid. 4. CAD with hx of MD 5. HLD 6. Neuropathy 7. Chronic Low Back Pain 8. h/o Lt shoulder rotator cuff tear 9. Pacemaker - will have cardiology eval. Subjective Date patient seen: Dec 13, 2018 Time patient seen: 14:45 Constitutional: Reports: weakness HEENT: Reports: no symptoms Cardiovascular: Reports: no symptoms Respiratory: Reports: no symptoms Gastrointestinal/Abdominal: Reports: no symptoms Genitourinary: Reports: no symptoms Neurologic/Psychiatric: Reports: no symptoms Endocrine: Reports: no symptoms Hematologic/Lymphatic: Reports: no symptoms Allergies: Coded Allergies: CYCLOBENZAPRINE (Verified Allergy, Unknown, 12/11/18) IBUPROFEN (Verified Allergy, Unknown, 12/11/18) MELATONIN (Verified Allergy, Unknown, 12/11/18) SULFA (SULFONAMIDE ANTIBIOTICS) (Verified Allergy, Unknown, 12/11/18) Subjective Patient is in [facility]. she is on NC at 3 liters and comfortable. afebrile. No chest pain. Objective Last 24 Hour Vital Signs Date Time Temp Pulse Resp B/P (MAP) Pulse Ox O2 Delivery O2 Flow Rate FiO2 12/13/18 13:37 97.3 12/13/18 13:16 102 20 99 12/13/18 12:00 77 12/13/18 12:00 3.0 12/13/18 12:00 Nasal Cannula 3.0 12/13/18 12:00 97.3 77 19 110/60 (77) 100 12/13/18 11:09 82 16 100 Nasal Cannula 4.0 36 12/13/18 10:59 71 16 97 12/13/18 10:59 71 16 97 Nasal Cannula 4.0 36 12/13/18 09:01 80 100/67 12/13/18 09:00 80 100/67 12/13/18 08:00 3.0 12/13/18 08:00 98.1 80 22 100/68 (79) 100 12/13/18 08:00 Nasal Cannula 3.0 12/13/18 08:00 80 12/13/18 06:59 76 14 100 Bi-pap 40 12/13/18 06:50 65 15 99 Bi-pap 40 12/13/18 06:50 72 16 98 Facial 40 12/13/18 04:56 73 12 98 Facial 40 12/13/18 04:00 97.6 95 16 110/58 (75) 98 12/13/18 04:00 Venturi Mask 12/13/18 04:00 50 12/13/18 03:39 68 15 98 Bi-pap 40 12/13/18 03:33 75 12/13/18 03:31 64 17 97 Bi-pap 40 12/13/18 03:29 69 16 97 Facial 40 12/13/18 01:29 83 15 95 Facial 40 12/13/18 00:00 Venturi Mask 12/13/18 00:00 97.4 78 24 107/64 (78) 94 12/12/18 23:43 71 12/12/18 23:37 73 18 98 Venturi Mask 8.0 40 12/12/18 23:26 76 16 96 12/12/18 23:26 76 16 96 Venturi Mask 8.0 40 12/12/18 21:08 74 20 94 12/12/18 20:00 98.0 87 24 104/62 (76) 96 12/12/18 20:00 Venturi Mask 12/12/18 20:00 40 12/12/18 19:40 80 20 97 Venturi Mask 8.0 40 12/12/18 19:22 82 20 95 12/12/18 19:22 82 20 95 Venturi Mask 8.0 40 12/12/18 19:09 86 12/12/18 17:28 89 20 94 12/12/18 16:00 70 12/12/18 16:00 40 12/12/18 16:00 Venturi Mask 12/12/18 16:00 98.2 105 17 117/77 (90) 95 Intake and Output 12/12/18 12/13/18 19:00 07:00 Intake Total 220 ml Output Total 375 ml 300 ml Balance -155 ml -300 ml Intake Oral 220 ml Output Urine Total 375 ml 300 ml Height (Feet): 5 Height (Inches): 1.00 Weight (Pounds): 92 Wally Mancilla MD Dec 13, 2018 14:57
--- NOTE | 2018-12-13 15:10 | Cardiac Electrophysiology PN ---
Subjective Subjective [id number] Objective Last 24 Hour Vital Signs Date Time Temp Pulse Resp B/P (MAP) Pulse Ox O2 Delivery O2 Flow Rate FiO2 12/13/18 13:37 97.3 12/13/18 13:16 102 20 99 12/13/18 12:00 77 12/13/18 12:00 3.0 12/13/18 12:00 Nasal Cannula 3.0 12/13/18 12:00 97.3 77 19 110/60 (77) 100 12/13/18 11:09 82 16 100 Nasal Cannula 4.0 36 12/13/18 10:59 71 16 97 12/13/18 10:59 71 16 97 Nasal Cannula 4.0 36 12/13/18 09:01 80 100/67 12/13/18 09:00 80 100/67 12/13/18 08:00 3.0 12/13/18 08:00 98.1 80 22 100/68 (79) 100 12/13/18 08:00 Nasal Cannula 3.0 12/13/18 08:00 80 12/13/18 06:59 76 14 100 Bi-pap 40 12/13/18 06:50 65 15 99 Bi-pap 40 12/13/18 06:50 72 16 98 Facial 40 12/13/18 04:56 73 12 98 Facial 40 12/13/18 04:00 97.6 95 16 110/58 (75) 98 12/13/18 04:00 Venturi Mask 12/13/18 04:00 50 12/13/18 03:39 68 15 98 Bi-pap 40 12/13/18 03:33 75 12/13/18 03:31 64 17 97 Bi-pap 40 12/13/18 03:29 69 16 97 Facial 40 12/13/18 01:29 83 15 95 Facial 40 12/13/18 00:00 Venturi Mask 12/13/18 00:00 97.4 78 24 107/64 (78) 94 12/12/18 23:43 71 12/12/18 23:37 73 18 98 Venturi Mask 8.0 40 12/12/18 23:26 76 16 96 12/12/18 23:26 76 16 96 Venturi Mask 8.0 40 12/12/18 21:08 74 20 94 12/12/18 20:00 98.0 87 24 104/62 (76) 96 12/12/18 20:00 Venturi Mask 12/12/18 20:00 40 12/12/18 19:40 80 20 97 Venturi Mask 8.0 40 12/12/18 19:22 82 20 95 12/12/18 19:22 82 20 95 Venturi Mask 8.0 40 12/12/18 19:09 86 12/12/18 17:28 89 20 94 12/12/18 16:00 70 12/12/18 16:00 40 12/12/18 16:00 Venturi Mask 12/12/18 16:00 98.2 105 17 117/77 (90) 95 Intake and Output 12/12/18 12/13/18 19:00 07:00 Intake Total 220 ml Output Total 375 ml 300 ml Balance -155 ml -300 ml Intake Oral 220 ml Output Urine Total 375 ml 300 ml Microbiology Date/Time Source Procedure Growth Status 12/11/18 19:30 Blood Blood Culture - Preliminary NO GROWTH AFTER 24 HOURS Resulted 12/11/18 19:20 Blood Blood Culture - Preliminary NO GROWTH AFTER 24 HOURS Resulted 12/11/18 19:56 Rectum Received Jarrod Gutierrez MD Dec 13, 2018 15:10
--- NOTE | 2018-12-13 15:33 | NUR ---
HAND-OFF: Report given to Brianne Mancini RN using SBAR.
--- NOTE | 2018-12-13 15:34 | NUR ---
NURSE NOTES: Received patient from Brianne Smith RN. Patient sleeping at this time. Patient is on 4L NC at this time. Patient reported to be alert and oriented times 4 when awake. Patient showing sinus rhythm on the monitor at this time. Patient has burgess for urine retention. Patient in no acute distress. Patient has bruising on bilateral upper extremities. Patient is on eliquis. patient has a right upper extremity pacemaker. Patient has a left forearm 22G PIV that is patent, asymptomatic, and saline locked at this time. Patient has an order to transfer to telemetry. Will follow up when bed available.
--- NOTE | 2018-12-13 16:00 | NUR ---
NURSE NOTES: Patient's son called to check on her. Patient sleeping at this time. I informed the son that the patient would be transferred to telemetry today. I gave him the room number.
[2018-12-13] MEDS ORDERED: Albuterol/Ipratropium 3ml neb HHN PRN (17:53)
--- NOTE | 2018-12-13 17:55 | NUR ---
NURSE NOTES: Patient received from [facility] and report received from Brianne Mancini RN. Patient oriented to the room and the use of the call light. Bed in the lowest position and call light within reach. Nasal canula on the patient and set at 4L. Vital signs are stable. Patient does not display any signs of distress or SOB.
--- NOTE | 2018-12-13 17:56 | NUR ---
TRANSFER TO FLOOR: Patient transferred to Telemetry, per Dr Mancilla. Report given to SIVAN Trevino. Medications given to SIVAN Trevino and belongings remain with patient. Family and or S/O informed of transfer by Brianne FINNEGAN.
--- NOTE | 2018-12-13 18:00 | NUR ---
RESPIRATORY NOTE: Pt received on 4l/min NC. Patient is refusing to be put on BIPAP, Will continue to monitor.
--- NOTE | 2018-12-13 19:07 | NUR ---
NURSE NOTES: Notified Dr Gutierrez regarding the episode of Paroxysmal atrial tachycardia. No new orders at this time.
--- NOTE | 2018-12-13 19:25 | NUR ---
HAND-OFF: Report given to Rebekah Anthony RN.
--- NOTE | 2018-12-13 19:27 | NUR ---
NURSE NOTES: Received report from Lelo Dukes RN. Pt is sitting in the bed eating dinner. No respiratory distress in 4L NC. Endorsed taht she refused Bipap. Tony cath. is applied, patent and draining. Call light and side table are w/in reach. Bed alarm on, bed in lowest position, and breaks are engaged. Will follow plans of care.
--- NOTE | 2018-12-13 19:36 | Pulmonology Progress Note ---
Assessment/Plan Assessment/Plan Pulmonary Consultation Note HPI: Patient is a 72-year-old female with history of chronic obstructive pulmonary disease hypertension, previous SVT, paroxysmal atrial fibrillation (on AC), mitral regurgitation, and chronic back and left shoulder pain, admitted with chronic obstructive pulmonary disease exacerbation with altered mental status and increased CO2. She also has a history of coronary artery disease and the patient is a current smoker. The patient received Solu-Medrol and BiPAP in the emergency room and the patient's breathing improved. PAST MEDICAL HISTORY: Includes history of chronic obstructive pulmonary disease, hypertension, SVT, paroxysmal atrial fibrillation, mitral regurgitation, chronic back and left shoulder pain, coronary artery disease, and chronic pain syndrome. PAST SURGICAL HISTORY: History of back surgery, history of cervical steroid epidural, history of gastric resection, history of hiatal hernia repair, history of pacemaker placement, history of shoulder joint injection, history of left shoulder joint injection under fluoroscopy. ALLERGIES: Include cyclobenzaprine, ibuprofen, melatonin, and sulfa. FAMILY HISTORY: Noncontributory. SOCIAL HISTORY: The patient is a current long-time smoker. No alcohol or drug use. PHYSICAL EXAMINATION: VITAL SIGNS NOTED, on NC O2 GENERAL APPEARANCE: Not distressed. HEENT: Normocephalic and normochromic. Extraocular muscles intact. Throat is clear. CARDIOVASCULAR SYSTEM: Regular rate and rhythm. No murmur. No gallop. ABDOMEN: Soft, nontender, and nondistended. LUNGS: Clear to auscultation, reduced BS. EXTREMITY: No edema, cyanosis, or clubbing. NEUROLOGIC: The patient responds to commands. LABORATORY AND DIAGNOSTIC DATA: Include WBC 8.8, hemoglobin 11.4, hematocrit 35.6, and platelet count 261,000. Neutrophils 62, lymphocytes 26, and mono 9.6. Sodium 140, potassium 4.4, chloride 104, bicarb is 33, BUN 24, creatinine 1, and glucose 106. Lactic acid 0.8. Calcium 8. AST 37, ALT 23, and alkaline phosphatase 125. Ammonia 21. Creatine kinase 166. BNP 3563. Albumin 2.3. Lipase 30. PT 11.5, INR 1.1, and PTT 34. UA showed +3 urine protein and +5 urine blood. Urine rbc is 5 to 10 and urine wbc 2 to 4. Blood gas showed pH of 7.315, pCO2 65, pO2 252, bicarb is 32.5, base excess is 4.8, and O2 saturation 99%. Chest x-ray showed increased interstitial marking, the area of peribronchial thickening, and some septal bronchial opacity, which may be related to small airway disease, and also suspect underlying chronic disease. EKG showed normal sinus rhythm and old Q-wave in the inferior leads. IMPRESSION AND PLAN: 1. Chronic obstructive pulmonary disease exacerbation. Continue HHN, Solu- Medrol, BiPAP PRN . Doxycycline for possible bronchitis. O2 sats 90-94% 2. Paroxysmal atrial fibrillation. Continue the patient on Eliquis 5 mg b.i.d. 3. Hypertension. Norvasc 5 mg daily and Toprol 25 daily. 4. Coronary artery disease with history of myocardial infarction. Currently, on beta-blockers. 5 Subjective ROS Limited/Unobtainable: No Allergies: Coded Allergies: CYCLOBENZAPRINE (Verified Allergy, Unknown, 12/11/18) IBUPROFEN (Verified Allergy, Unknown, 12/11/18) MELATONIN (Verified Allergy, Unknown, 12/11/18) SULFA (SULFONAMIDE ANTIBIOTICS) (Verified Allergy, Unknown, 12/11/18) Objective Last 24 Hour Vital Signs Date Time Temp Pulse Resp B/P (MAP) Pulse Ox O2 Delivery O2 Flow Rate FiO2 12/13/18 17:56 98.2 12/13/18 17:52 98.2 81 19 106/58 (74) 97 12/13/18 16:00 3.0 12/13/18 16:00 97.2 90 18 103/62 (76) 94 12/13/18 16:00 Nasal Cannula 3.0 12/13/18 16:00 96 12/13/18 13:16 102 20 99 12/13/18 12:00 77 12/13/18 12:00 3.0 12/13/18 12:00 Nasal Cannula 3.0 12/13/18 12:00 97.3 77 19 110/60 (77) 100 12/13/18 11:09 82 16 100 Nasal Cannula 4.0 36 12/13/18 10:59 71 16 97 12/13/18 10:59 71 16 97 Nasal Cannula 4.0 36 12/13/18 09:01 80 100/67 12/13/18 09:00 80 100/67 12/13/18 08:00 3.0 12/13/18 08:00 98.1 80 22 100/68 (79) 100 12/13/18 08:00 Nasal Cannula 3.0 12/13/18 08:00 80 12/13/18 06:59 76 14 100 Bi-pap 40 12/13/18 06:50 65 15 99 Bi-pap 40 12/13/18 06:50 72 16 98 Facial 40 12/13/18 04:56 73 12 98 Facial 40 12/13/18 04:00 97.6 95 16 110/58 (75) 98 12/13/18 04:00 Venturi Mask 12/13/18 04:00 50 12/13/18 03:39 68 15 98 Bi-pap 40 12/13/18 03:33 75 12/13/18 03:31 64 17 97 Bi-pap 40 12/13/18 03:29 69 16 97 Facial 40 12/13/18 01:29 83 15 95 Facial 40 12/13/18 00:00 Venturi Mask 12/13/18 00:00 97.4 78 24 107/64 (78) 94 12/12/18 23:43 71 12/12/18 23:37 73 18 98 Venturi Mask 8.0 40 12/12/18 23:26 76 16 96 12/12/18 23:26 76 16 96 Venturi Mask 8.0 40 12/12/18 21:08 74 20 94 12/12/18 20:00 98.0 87 24 104/62 (76) 96 12/12/18 20:00 Venturi Mask 12/12/18 20:00 40 12/12/18 19:40 80 20 97 Venturi Mask 8.0 40 Intake and Output 12/12/18 12/13/18 19:00 07:00 Intake Total 220 ml Output Total 375 ml 300 ml Balance -155 ml -300 ml Intake Oral 220 ml Output Urine Total 375 ml 300 ml Microbiology Date/Time Source Procedure Growth Status 12/11/18 19:30 Blood Blood Culture - Preliminary NO GROWTH AFTER 24 HOURS Resulted 12/11/18 19:20 Blood Blood Culture - Preliminary NO GROWTH AFTER 24 HOURS Resulted 12/11/18 19:56 Rectum Received Current Medications Medications (Trade) Dose Ordered Sig/Sonny Route PRN Reason Start Time Stop Time Status Last Admin Dose Admin Albuterol/ Ipratropium (Albuterol/ Ipratropium) 3 ml Q4H PRN HHN Shortness of Breath 12/13/18 17:53 12/18/18 17:52 Albuterol/ Ipratropium (Albuterol/ Ipratropium) 3 ml Q6HRT HHN 12/13/18 19:00 12/18/18 12:59 Amlodipine Besylate (Norvasc) 5 mg DAILY ORAL 12/14/18 09:00 01/11/19 08:59 Apixaban (Eliquis) 5 mg BID ORAL 12/14/18 09:00 01/13/19 08:59 Doxycycline Monohydrate (Vibramycin) 100 mg EVERY 12 HOURS ORAL 12/13/18 21:00 12/19/18 20:59 Fluticasone Propionate (Flonase) 1 spray TWICE A DAY NASAL 12/14/18 09:00 01/13/19 08:59 Gabapentin (Neurontin) 900 mg THREE TIMES A DAY ORAL 12/14/18 09:00 01/13/19 08:59 Metoprolol Succinate (Toprol XL) 25 mg DAILY ORAL 12/14/18 09:00 01/11/19 08:59 Morphine Sulfate (MS Contin) 45 mg TID ORAL 12/14/18 09:00 12/21/18 08:59 Multivitamins Therapeutic (Therapeutic Multivitamin) 1 ea DAILY ORAL 12/14/18 09:00 01/11/19 08:59 Prednisone (predniSONE) 30 mg DAILY ORAL 12/14/18 09:00 01/13/19 08:59 Tiotropium [place] (Spiriva Inhaler) 1 puff DAILY INH 12/14/18 09:00 01/11/19 08:59 Tramadol HCl (Ultram) 50 mg Q8H PRN ORAL Severe Pain (Pain Scale 7-10) 12/13/18 17:54 12/20/18 17:53 Juancho Salmon MD Dec 13, 2018 19:36
--- NOTE | 2018-12-13 21:00 | Consultation ---
DATE OF CONSULTATION: 12/13/2018 CARDIOLOGY CONSULTATION CONSULTING PHYSICIAN: Jarrod Gutierrez M.D. REFERRING PHYSICIAN: Wally Mancilla M.D. REASON FOR CONSULTATION: Management of hypertension, atrial fibrillation, patient's pacemaker, and mitral regurgitation. HISTORY OF PRESENT ILLNESS: The patient is a 72-year-old lady with history of hypertension, paroxysmal atrial fibrillation, supraventricular tachycardia, mitral regurgitation, as well as history of pacemaker implantation, who was brought to the emergency room for altered mental status. The patient in the ER received Solu-Medrol and BiPAP and subsequently improved. The patient was admitted to [facility] and a Cardiology consultation was obtained for further evaluation and management. REVIEW OF SYSTEMS: Review of systems was negative other than what was mentioned in the history of present illness. PAST MEDICAL HISTORY: As mentioned above. MEDICATION: Per reconciliation. FAMILY HISTORY: Noncontributory. SOCIAL HISTORY: She lives at home. Currently smokes cigarettes. Does not drink alcohol or use any drugs. PHYSICAL EXAMINATION: VITAL SIGNS: Blood pressure is 110/60, pulse is 80, respirations 18, and temperature 97.3. HEAD AND NECK: Shows no JVD. LUNGS: Coarse rhonchi. CARDIOVASCULAR: Shows regular S1 and S2 with 2/6 systolic murmur. The pacemaker in the right subclavian. ABDOMEN: Soft. EXTREMITIES: No pitting edema. LABORATORY DATA: Her labs show white count of 8, hemoglobin of 11, hematocrit of 35.8, and platelet count of 281,000. Sodium 142, potassium 4.7, BUN of 22, creatinine 0.8 and glucose of 130. Troponin is negative. BNP 3563. INR is 1.1. ASSESSMENT AND PLAN: 1. Paroxysmal atrial fibrillation. The patient currently remains in sinus rhythm. The patient is on Eliquis 5 mg b.i.d. and Toprol-XL 25 mg daily. 2. History of hypertension. On Toprol. 3. Status post pacemaker implantation with unknown brand. We will try to find the brand and interrogate the pacemaker for further evaluation. 4. Hypertension. On Norvasc 5 and Toprol-XL 25 mg daily. 5. COPD. On nebulizer and prednisone. 6. Mitral regurgitation. The patient was supposed to have as an outpatient. Her echocardiogram will be repeated for further evaluation. 7. History of SVT. Thank you very much, Dr. Mancilla, for allowing me to participate in the care of this patient. Please do not hesitate to contact me for any questions regarding my evaluation. Jarrod Gutierrez M.D. DR: ANALI JOB#: [id number] CC:
[2018-12-13] MEDS: traMADol 50mg tab ORAL PRN (21:48)
[2018-12-14] VITALS: BP 109/65
[2018-12-14] MEDS: Albuterol/Ipratropium 3ml neb HHN SCH ×4 (00:47→18:55)
--- NOTE | 2018-12-14 02:09 | NUR ---
NURSE NOTES: Pt is sleeping w/o distress in 4L NC, arousable by voice stimuli. SR in the monitor. Will continue to monitor.
[2018-12-14 04:00] VITALS: BP 113/67
--- NOTE | 2018-12-14 05:28 | CDS Physician Query ---
PHYSICIAN DOCUMENTATION QUERY CLARIFICATION OF ALTERATION OF MENTAL STATUS DIAGNOSIS OR CAUSE Dear : azra : Date: MR #: Patient Name: Admit Date: _12/11/18 Documentation clarification is required to meet compliance, accuracy in coding and severity of illness reflection for your patient. There is clinical documentation of AMS with treatment and/or monitoring present in the medical record. Additional documentation is necessary to identify the underlying cause, if known (i.e., structural, cardiovascular, metabolic, environmental, behavioral, etc.) for this condition. Patient present from nursing facility with reports of altered mental status Upon arrival the patient is confused, Decreased responsiveness(ed note) Late in progress note(12/12) Neurologic: no motor/sensory deficits, alert, responsive Lab: Ca:8.1L,7.7L BUN:24,22H Rx: IV hydration and supplemental Oxygen Please document, if known, the appropriate diagnosis (cause of theAMS) on the progress notes or on this form as an addendum. (Sign and date all documentation) [ ] Metabolic Encephalopathy [ ] Toxic Encephalopathy [ ] Hypertensive Encephalopathy [x] other_Hypoxia and COPD exacerbation [ ] Unable to determine MD Signature: Wally Mancilla MD Date: 12/14/18 If you have any questions, please contact the HIM Department . Thank You! This form is a permanent part of the medical record
[2018-12-14] MEDS: traMADol 50mg tab ORAL PRN ×2 (06:12→22:09)
--- NOTE | 2018-12-14 07:10 | NUR ---
HAND-OFF: Report given to Lelo Dukes RN.
--- NOTE | 2018-12-14 07:12 | NUR ---
NURSE NOTES: I received the patient awake and resting in bed. Patient alert and oriented x4. Bed in the lowest position and call light within reach. Patient does not display any signs of distress or SOB.
[2018-12-14 07:58] VITALS: BP 122/73
[2018-12-14] MEDS: Metoprolol Succinate XL 25mg tab ORAL SCH (09:03)
[2018-12-14] MEDS: Multivitamin w/Minerals tab ORAL SCH (09:04)
[2018-12-14] MEDS: Eliquis 2.5mg tablet ORAL SCH ×2 (09:04→17:59)
[2018-12-14] MEDS: Doxycycline Monohydrate 100mg ORAL SCH ×2 (09:05→20:40)
[2018-12-14] MEDS: MS Contin 15mg tab ORAL SCH ×3 (09:05→17:58)
[2018-12-14] MEDS: Flonase Nasal Inhaler 16gm NASAL SCH ×2 (09:09→17:59)
--- NOTE | 2018-12-14 09:45 | General Progress Note ---
Assessment/Plan Status: stable Assessment: 1. COPD Exacerbation - improving. D/C planning to [facility] rehab in 1-2 days. refused bipap. 2, HTN - cont amlodipine 5 mg daily and toprol XL 25 mg one po daily. 3. Paroxysmal A Fib - On eliquis 5 mg one po bid. 4. CAD with hx of [place] 5. HLD 6. Neuropathy 7. Chronic Low Back Pain 8. h/o Lt shoulder rotator cuff tear 9. Pacemaker - cardiology following. 10. Altered mental status due to Hypoxia and COPD exacerbation in ER on - resolved following txt in ER and improvement of patient Oxygen. Subjective Date patient seen: Dec 14, 2018 Time patient seen: 09:00 Constitutional: Reports: weakness HEENT: Reports: no symptoms Cardiovascular: Reports: no symptoms Respiratory: Reports: shortness of breath Gastrointestinal/Abdominal: Reports: no symptoms Genitourinary: Reports: no symptoms Neurologic/Psychiatric: Reports: no symptoms Endocrine: Reports: no symptoms Hematologic/Lymphatic: Reports: no symptoms Allergies: Coded Allergies: CYCLOBENZAPRINE (Verified Allergy, Unknown, 12/11/18) IBUPROFEN (Verified Allergy, Unknown, 12/11/18) MELATONIN (Verified Allergy, Unknown, 12/11/18) SULFA (SULFONAMIDE ANTIBIOTICS) (Verified Allergy, Unknown, 12/11/18) Subjective Patient is in Tele. she is on NC at 4 liters. She refused bipap. afebrile. No chest pain. Objective Last 24 Hour Vital Signs Date Time Temp Pulse Resp B/P (MAP) Pulse Ox O2 Delivery O2 Flow Rate FiO2 12/14/18 09:04 110 122/73 12/14/18 09:03 110 122/73 12/14/18 07:58 97.0 110 22 122/73 (89) 95 12/14/18 06:57 77 18 98 Nasal Cannula 4.0 36 12/14/18 06:48 71 16 98 Nasal Cannula 4.0 36 12/14/18 04:00 97.0 88 18 113/67 (82) 93 12/14/18 04:00 4.0 12/14/18 03:53 82 12/14/18 01:10 80 20 96 12/14/18 00:57 80 18 98 Nasal Cannula 4.0 36 12/14/18 00:47 86 20 94 Nasal Cannula 4.0 36 12/14/18 00:00 97.5 88 18 109/65 (80) 93 12/14/18 00:00 4.0 12/13/18 23:32 86 12/13/18 23:10 73 20 93 12/13/18 21:15 75 20 94 12/13/18 21:00 Nasal Cannula 4.0 12/13/18 20:00 97.9 89 18 107/63 (78) 92 12/13/18 20:00 4.0 12/13/18 19:51 73 18 98 Nasal Cannula 4.0 36 12/13/18 19:41 75 16 98 Nasal Cannula 4.0 36 12/13/18 19:22 94 12/13/18 17:56 98.2 12/13/18 17:52 98.2 81 19 106/58 (74) 97 12/13/18 16:00 3.0 12/13/18 16:00 97.2 90 18 103/62 (76) 94 12/13/18 16:00 Nasal Cannula 3.0 12/13/18 16:00 96 12/13/18 13:16 102 20 99 12/13/18 12:00 77 12/13/18 12:00 3.0 12/13/18 12:00 Nasal Cannula 3.0 12/13/18 12:00 97.3 77 19 110/60 (77) 100 12/13/18 11:09 82 16 100 Nasal Cannula 4.0 36 12/13/18 10:59 71 16 97 12/13/18 10:59 71 16 97 Nasal Cannula 4.0 36 Intake and Output 12/13/18 12/14/18 19:00 07:00 Output Total 300 ml Balance -300 ml Output Urine Total 300 ml Height (Feet): 5 Height (Inches): 1.00 Weight (Pounds): 92 General Appearance: no apparent distress, alert EENT: normal ENT inspection Neck: non-tender, supple Cardiovascular: normal rate, regular rhythm Respiratory/Chest: lungs clear, normal breath sounds Abdomen: non tender, soft Extremities: normal range of motion Edema: no edema noted Arm (L), no edema noted Arm (R), no edema noted Leg (L), no edema noted Leg (R), no edema noted Pedal (L), no edema noted Pedal (R), no edema noted Generalized Neurologic: alert, responsive Skin: warm/dry Lymphatic: normal anterior cervical (L), normal anterior cervical (R), normal posterior cervical (L), normal posterior cervical (R), normal submandibular (L) , normal submandibular (R), normal supraclavicular (L), normal supraclavicular ( R), normal axillary (L), normal axillary (R), normal inguinal (L), normal inguinal (R), normal other Wally Mancilla MD Dec 14, 2018 09:45
[2018-12-14 10:02] LABS: BASOPHILS % (AUTO) 0.5 % (0.0-2.0); HEMATOCRIT 32.4 % (37.0-47.0); HEMOGLOBIN 10.4 G/DL (12.0-16.0); LYMPHOCYTES % (AUTO) 7.4 % (20.0-45.0); MEAN CORPUSCULAR VOLUME 91 FL (80-99); MONOCYTES % (AUTO) 8.3 % (1.0-10.0); NEUTROPHILS % (AUTO) 83.8 % (45.0-75.0); PLATELET COUNT 320 K/UL (150-450); RED BLOOD COUNT 3.57 M/UL (4.20-5.40); RED CELL DISTRIBUTION WIDTH 16.7 % (11.6-14.8); WHITE BLOOD COUNT 14.8 K/UL (4.8-10.8)
[2018-12-14 10:33] LABS: ANION GAP 1 mmol/L (5-15); BLOOD UREA NITROGEN 26 mg/dL (7-18); CALCIUM 8.3 MG/DL (8.5-10.1); CARBON DIOXIDE 32 MMOL/L (21-32); CHLORIDE 101 MMOL/L (98-107); CREATININE 0.8 MG/DL (0.55-1.30); SODIUM 134 MMOL/L (136-145)
[2018-12-14 11:54] VITALS: BP 144/82
--- NOTE | 2018-12-14 13:49 | Cardiac Electrophysiology PN ---
Assessment/Plan Assessment/Plan 1. Paroxysmal atrial fibrillation. Remains in sinus rhythm on Eliquis 5 mg b.i.d. and Toprol-XL 25 mg daily. 2. History of hypertension. On Toprol. 3. Status post pacemaker implantation with unknown brand. We will try to find the brand and interrogate the pacemaker for further evaluation. 4. Hypertension. On Norvasc 5 and Toprol-XL 25 mg daily. 5. COPD. On nebulizer and prednisone. 6. Mitral regurgitation. Echocardiogramm pending 7. History of SVT. Subjective Subjective Feeling better. No CP or SOB. Intermittent pacing Objective Last 24 Hour Vital Signs Date Time Temp Pulse Resp B/P (MAP) Pulse Ox O2 Delivery O2 Flow Rate FiO2 12/14/18 12:12 Nasal Cannula 12/14/18 12:12 Nasal Cannula 12/14/18 11:54 97.2 65 20 144/82 (102) 96 12/14/18 09:35 97.0 12/14/18 09:04 110 122/73 12/14/18 09:03 110 122/73 12/14/18 09:00 Nasal Cannula 4.0 12/14/18 08:00 4.0 12/14/18 07:58 97.0 110 22 122/73 (89) 95 12/14/18 07:36 86 12/14/18 06:57 77 18 98 Nasal Cannula 4.0 36 12/14/18 06:48 71 16 98 Nasal Cannula 4.0 36 12/14/18 04:00 97.0 88 18 113/67 (82) 93 12/14/18 04:00 4.0 12/14/18 03:53 82 12/14/18 01:10 80 20 96 12/14/18 00:57 80 18 98 Nasal Cannula 4.0 36 12/14/18 00:47 86 20 94 Nasal Cannula 4.0 36 12/14/18 00:00 97.5 88 18 109/65 (80) 93 12/14/18 00:00 4.0 12/13/18 23:32 86 12/13/18 23:10 73 20 93 12/13/18 21:15 75 20 94 12/13/18 21:00 Nasal Cannula 4.0 12/13/18 20:00 97.9 89 18 107/63 (78) 92 12/13/18 20:00 4.0 12/13/18 19:51 73 18 98 Nasal Cannula 4.0 36 12/13/18 19:41 75 16 98 Nasal Cannula 4.0 36 12/13/18 19:22 94 12/13/18 17:56 98.2 12/13/18 17:52 98.2 81 19 106/58 (74) 97 12/13/18 16:00 3.0 12/13/18 16:00 97.2 90 18 103/62 (76) 94 12/13/18 16:00 Nasal Cannula 3.0 12/13/18 16:00 96 Intake and Output 12/13/18 12/14/18 19:00 07:00 Output Total 300 ml Balance -300 ml Output Urine Total 300 ml Laboratory Tests Test 12/14/18 09:50 White Blood Count 14.8 K/UL (4.8-10.8) H Red Blood Count 3.57 M/UL (4.20-5.40) L Hemoglobin 10.4 G/DL (12.0-16.0) L Hematocrit 32.4 % (37.0-47.0) L Mean Corpuscular Volume 91 FL (80-99) Mean Corpuscular Hemoglobin 29.3 PG (27.0-31.0) Mean Corpuscular Hemoglobin Concent 32.2 G/DL (32.0-36.0) Red Cell Distribution Width 16.7 % (11.6-14.8) H Platelet Count 320 K/UL (150-450) Mean Platelet Volume 5.4 FL (6.5-10.1) L Neutrophils (%) (Auto) 83.8 % (45.0-75.0) H Lymphocytes (%) (Auto) 7.4 % (20.0-45.0) L Monocytes (%) (Auto) 8.3 % (1.0-10.0) Eosinophils (%) (Auto) 0.0 % (0.0-3.0) Basophils (%) (Auto) 0.5 % (0.0-2.0) Sodium Level 134 MMOL/L (136-145) L Potassium Level 4.0 MMOL/L (3.5-5.1) Chloride Level 101 MMOL/L (98-107) Carbon Dioxide Level 32 MMOL/L (21-32) Anion Gap 1 mmol/L (5-15) L Blood Urea Nitrogen 26 mg/dL (7-18) H Creatinine 0.8 MG/DL (0.55-1.30) Estimat Glomerular Filtration Rate mL/min (>60) Glucose Level 137 MG/DL (74-106) H Calcium Level 8.3 MG/DL (8.5-10.1) L Pro-B-Type Natriuretic Peptide 1805 pg/mL (0-125) H Microbiology Date/Time Source Procedure Growth Status 12/11/18 19:30 Blood Blood Culture - Preliminary NO GROWTH AFTER 48 HOURS Resulted 12/11/18 19:20 Blood Blood Culture - Preliminary NO GROWTH AFTER 48 HOURS Resulted 12/11/18 19:56 Nasal Nares MRSA Culture - Final NO METHICILLIN RESISTANT STAPH AUREUS... Complete 12/11/18 19:56 Rectum - Final NO CARBAPENEM-RESISTANT ENTEROBACTERI... Complete 12/11/18 19:56 Rectum VRE Culture - Final NO VANCOMYCIN RESISTANT ENTEROCOCCUS ... Complete Objective HEAD AND NECK: No JVD. LUNGS: Coarse rhonchi. CARDIOVASCULAR: Shows regular S1 and S2 with 2/6 systolic murmur. The pacemaker in the right subclavian. ABDOMEN: Soft. EXTREMITIES: No pitting edema. Jarrod Gutierrez MD Dec 14, 2018 13:49
--- NOTE | 2018-12-14 14:59 | Infectious Diseases Prog Note ---
Assessment/Plan Problems: (1) Bronchitis, acute, with bronchospasm Assessment & Plan: add cefepime and continue Doxycycline empirically for now, with inhalers. repeat CXR (2) Leukocytosis Assessment & Plan: rule out sepsis , will send blood culture and start wide spectrum antibiotics pending results. taper steroids (3) COPD (chronic obstructive pulmonary disease) Assessment & Plan: with exacerbation, continue antibiotics, inhalers and steroids (4) Altered level of consciousness Assessment & Plan: suspect due to hypercapnia , improved. monitor ABG Subjective Constitutional: Reports: no symptoms Respiratory: Reports: no symptoms, shortness of breath, dry cough Breasts: Reports: no symptoms Cardiovascular: Reports: no symptoms Gastrointestinal/Abdominal: Reports: no symptoms Genitourinary: Reports: no symptoms Neurologic: Reports: no symptoms Psychiatric: Reports: no symptoms Skin: Reports: no symptoms Endocrine: Reports: no symptoms Hematologic: Reports: no symptoms Musculoskeletal: Reports: no symptoms Allergies: Coded Allergies: CYCLOBENZAPRINE (Verified Allergy, Unknown, 12/11/18) IBUPROFEN (Verified Allergy, Unknown, 12/11/18) MELATONIN (Verified Allergy, Unknown, 12/11/18) SULFA (SULFONAMIDE ANTIBIOTICS) (Verified Allergy, Unknown, 12/11/18) Objective Vital Signs Last 24 Hour Vital Signs Date Time Temp Pulse Resp B/P (MAP) Pulse Ox O2 Delivery O2 Flow Rate FiO2 12/14/18 13:33 97.2 12/14/18 12:12 Nasal Cannula 12/14/18 12:12 Nasal Cannula 12/14/18 12:00 4.0 12/14/18 11:59 97 12/14/18 11:54 97.2 65 20 144/82 (102) 96 12/14/18 09:04 110 122/73 12/14/18 09:03 110 122/73 12/14/18 09:00 Nasal Cannula 4.0 12/14/18 08:00 4.0 12/14/18 07:58 97.0 110 22 122/73 (89) 95 12/14/18 07:36 86 12/14/18 06:57 77 18 98 Nasal Cannula 4.0 36 12/14/18 06:48 71 16 98 Nasal Cannula 4.0 36 12/14/18 04:00 97.0 88 18 113/67 (82) 93 12/14/18 04:00 4.0 12/14/18 03:53 82 12/14/18 01:10 80 20 96 12/14/18 00:57 80 18 98 Nasal Cannula 4.0 36 12/14/18 00:47 86 20 94 Nasal Cannula 4.0 36 12/14/18 00:00 97.5 88 18 109/65 (80) 93 12/14/18 00:00 4.0 12/13/18 23:32 86 12/13/18 23:10 73 20 93 12/13/18 21:15 75 20 94 12/13/18 21:00 Nasal Cannula 4.0 12/13/18 20:00 97.9 89 18 107/63 (78) 92 12/13/18 20:00 4.0 12/13/18 19:51 73 18 98 Nasal Cannula 4.0 36 12/13/18 19:41 75 16 98 Nasal Cannula 4.0 36 12/13/18 19:22 94 12/13/18 17:56 98.2 12/13/18 17:52 98.2 81 19 106/58 (74) 97 12/13/18 16:00 3.0 12/13/18 16:00 97.2 90 18 103/62 (76) 94 12/13/18 16:00 Nasal Cannula 3.0 12/13/18 16:00 96 Height (Feet): 5 Height (Inches): 1.00 Weight (Pounds): 92 General Appearance: WD/WN, no acute distress HEENT: normocephalic, atraumatic, anicteric, mucous membranes moist, PERRL Respiratory/Chest: chest wall non-tender, no respiratory distress, no accessory muscle use, decreased breath sounds, expiratory wheezing Breasts: no masses Cardiovascular: normal peripheral pulses, normal rate, regular rhythm, no gallop/murmur, no JVD Abdomen: normal bowel sounds, soft, non tender, no organomegaly, non distended , no mass, no scars Genitourinary: normal external genitalia Extremities: no cyanosis, no clubbing Skin: no rash, no lesions, no ulcers Neurologic/Psychiatric: 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 Complete 12/11/18 19:56 Rectum - Final NO CARBAPENEM-RESISTANT ENTEROBACTERI... Complete 12/11/18 19:56 Rectum VRE Culture - Final NO VANCOMYCIN RESISTANT ENTEROCOCCUS ... Complete Laboratory Tests Test 12/14/18 09:50 White Blood Count 14.8 K/UL (4.8-10.8) H Red Blood Count 3.57 M/UL (4.20-5.40) L Hemoglobin 10.4 G/DL (12.0-16.0) L Hematocrit 32.4 % (37.0-47.0) L Mean Corpuscular Volume 91 FL (80-99) Mean Corpuscular Hemoglobin 29.3 PG (27.0-31.0) Mean Corpuscular Hemoglobin Concent 32.2 G/DL (32.0-36.0) Red Cell Distribution Width 16.7 % (11.6-14.8) H Platelet Count 320 K/UL (150-450) Mean Platelet Volume 5.4 FL (6.5-10.1) L Neutrophils (%) (Auto) 83.8 % (45.0-75.0) H Lymphocytes (%) (Auto) 7.4 % (20.0-45.0) L Monocytes (%) (Auto) 8.3 % (1.0-10.0) Eosinophils (%) (Auto) 0.0 % (0.0-3.0) Basophils (%) (Auto) 0.5 % (0.0-2.0) Sodium Level 134 MMOL/L (136-145) L Potassium Level 4.0 MMOL/L (3.5-5.1) Chloride Level 101 MMOL/L (98-107) Carbon Dioxide Level 32 MMOL/L (21-32) Anion Gap 1 mmol/L (5-15) L Blood Urea Nitrogen 26 mg/dL (7-18) H Creatinine 0.8 MG/DL (0.55-1.30) Estimat Glomerular Filtration Rate mL/min (>60) Glucose Level 137 MG/DL (74-106) H Calcium Level 8.3 MG/DL (8.5-10.1) L Pro-B-Type Natriuretic Peptide 1805 pg/mL (0-125) H Current Medications Medications (Trade) Dose Ordered Sig/Sonny Route PRN Reason Start Time Stop Time Status Last Admin Dose Admin Albuterol/ Ipratropium (Albuterol/ Ipratropium) 3 ml Q4H PRN HHN Shortness of Breath 12/13/18 17:53 12/18/18 17:52 Albuterol/ Ipratropium (Albuterol/ Ipratropium) 3 ml Q6HRT HHN 12/13/18 19:00 12/18/18 12:59 12/14/18 06:48 Amlodipine Besylate (Norvasc) 5 mg DAILY ORAL 12/14/18 09:00 01/11/19 08:59 12/14/18 09:04 Apixaban (Eliquis) 5 mg BID ORAL 12/14/18 09:00 01/13/19 08:59 12/14/18 09:04 Doxycycline Monohydrate (Vibramycin) 100 mg EVERY 12 HOURS ORAL 12/13/18 21:00 12/19/18 20:59 12/14/18 09:05 Fluticasone Propionate (Flonase) 1 spray TWICE A DAY NASAL 12/14/18 09:00 01/13/19 08:59 12/14/18 09:09 Gabapentin (Neurontin) 900 mg THREE TIMES A DAY ORAL 12/14/18 09:00 01/13/19 08:59 12/14/18 13:03 Metoprolol Succinate (Toprol XL) 25 mg DAILY ORAL 12/14/18 09:00 01/11/19 08:59 12/14/18 09:03 Morphine Sulfate (MS Contin) 45 mg TID ORAL 12/14/18 09:00 12/21/18 08:59 12/14/18 13:03 Multivitamins Therapeutic (Therapeutic Multivitamin) 1 ea DAILY ORAL 12/14/18 09:00 01/11/19 08:59 12/14/18 09:04 Prednisone (predniSONE) 30 mg DAILY ORAL 12/14/18 09:00 01/13/19 08:59 12/14/18 09:04 Tiotropium [place] (Spiriva Inhaler) 1 puff DAILY INH 12/14/18 09:00 01/11/19 08:59 Tramadol HCl (Ultram) 50 mg Q8H PRN ORAL Severe Pain (Pain Scale 7-10) 12/13/18 17:54 12/20/18 17:53 12/14/18 06:12 Saravanan Serrato M.D. Dec 14, 2018 14:59
--- NOTE | 2018-12-14 15:10 | Consultation ---
History of Present Illness General Date patient seen: Dec 13, 2018 Chief Complaint: Altered Level of Consciousness, leukocytosis rule out sepsis Referring physician: Wally Moura Reason for Consultation: leukocytosis , acute bronchitis rule out sepsis Present Illness HPI This is a 72-year-old female with history of hypertension, paroxysmal atrial fibrillation, supraventricular tachycardia, S/P pacemaker implantation, who was brought in to the emergency room at [facility] for altered mental status and acute exacerbation of her COPD. She had hypercapnia , CXR showed bronchitis , so she received steroids, and was placed on BIPAP , she was also given antibiotics with nebulizer treatment and she had improvement in her mental status, she was admitted to the [facility] unit for observation and further management . her WBC today was found to be elevated which was concerning for sepsis, so infectious disease consult was requested for antibiotics treatment and further management . Allergies: Coded Allergies: CYCLOBENZAPRINE (Verified Allergy, Unknown, 12/11/18) IBUPROFEN (Verified Allergy, Unknown, 12/11/18) MELATONIN (Verified Allergy, Unknown, 12/11/18) SULFA (SULFONAMIDE ANTIBIOTICS) (Verified Allergy, Unknown, 12/11/18) Medication History Scheduled Albuterol Sulfate (Ventolin Hfa), 1 PUFF INH EVERY 6 HOURS, (Reported) Amlodipine Besylate (Norvasc), 5 MG ORAL DAILY, (Reported) Aspirin* (Aspirin*), 81 MG ORAL DAILY, (Reported) Atorvastatin Calcium* (Atorvastatin Calcium*), 20 MG ORAL BEDTIME, (Reported) Gabapentin* (Gabapentin*), 600 MG ORAL THREE TIMES A DAY, (Reported) Multivitamin With Minerals (Multivitamins With Minerals*), 1 TAB ORAL DAILY, ( Reported) Omeprazole (Omeprazole), 40 MG ORAL DAILY, (Reported) Tiotropium [place] (Spiriva), 1 PUFF INH DAILY, (Reported) Scheduled PRN Morphine 10mg/5ml Oral Soln* (Morphine 10mg/5ml Oral Soln*), 15 MG ORAL for For Pain, (Reported) Miscellaneous Medications Apixaban (Eliquis), 5 MG PO, (Reported) Flecainide Acetate (Flecainide Acetate), 50 MG PO, (Reported) Lidocaine (Lidocaine), 700 MG TP, (Reported) Patient History Limited by: age History Provided By: Medical Record, EMS, PMD Healthcare decision maker Resuscitation status Full Code Advanced Directive on File Past Medical/Surgical History Past Medical/Surgical History: (1) Atrial fibrillation (2) COPD (chronic obstructive pulmonary disease) Review of Systems Constitutional: Reports: malaise, weakness Eye: Reports: no symptoms ENT: Reports: no symptoms Respiratory: Reports: cough, orthopnea, shortness of breath, wheezing Cardiovascular: Reports: no symptoms Gastrointestinal: Reports: no symptoms Genitourinary: Reports: no symptoms Musculoskeletal: Reports: no symptoms Skin: Reports: no symptoms Psychiatric: Reports: no symptoms Neurological: Reports: no symptoms Endocrine: Reports: no symptoms Hematologic/Lymphatic: Reports: no symptoms Physical Exam General Appearance: WD/WN, no apparent distress, alert, cachetic, thin Lines, tubes and drains: peripheral HEENT: normocephalic, atraumatic, anicteric, mucous membranes moist, PERRL, EOMI, pharynx normal, supple, no JVD Neck: non-tender, normal alignment, supple, normal inspection Respiratory/Chest: chest wall non-tender, no respiratory distress, no accessory muscle use, expiratory wheezing, inspiratory wheezing Cardiovascular/Chest: normal peripheral pulses, normal rate, regular rhythm, no gallop/murmur, no JVD Abdomen: normal bowel sounds, non tender, soft, no organomegaly, no mass, abnormal bowel sounds, hyperactive bowel sounds Genitourinary/Rectal: normal genital exam Extremities: normal range of motion, non-tender, normal inspection, no calf tenderness, normal capillary refill Skin Exam: normal pigmentation, warm/dry, cyanotic Neurologic: 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 normal, alert, responsive Musculoskeletal: normal muscle bulk, no effusion Last 24 Hour Vital Signs Date Time Temp Pulse Resp B/P (MAP) Pulse Ox O2 Delivery O2 Flow Rate FiO2 12/14/18 13:33 97.2 12/14/18 12:12 Nasal Cannula 12/14/18 12:12 Nasal Cannula 12/14/18 12:00 4.0 12/14/18 11:59 97 12/14/18 11:54 97.2 65 20 144/82 (102) 96 12/14/18 09:04 110 122/73 12/14/18 09:03 110 122/73 12/14/18 09:00 Nasal Cannula 4.0 12/14/18 08:00 4.0 12/14/18 07:58 97.0 110 22 122/73 (89) 95 12/14/18 07:36 86 12/14/18 06:57 77 18 98 Nasal Cannula 4.0 36 12/14/18 06:48 71 16 98 Nasal Cannula 4.0 36 12/14/18 04:00 97.0 88 18 113/67 (82) 93 12/14/18 04:00 4.0 12/14/18 03:53 82 12/14/18 01:10 80 20 96 12/14/18 00:57 80 18 98 Nasal Cannula 4.0 36 12/14/18 00:47 86 20 94 Nasal Cannula 4.0 36 12/14/18 00:00 97.5 88 18 109/65 (80) 93 12/14/18 00:00 4.0 12/13/18 23:32 86 12/13/18 23:10 73 20 93 12/13/18 21:15 75 20 94 12/13/18 21:00 Nasal Cannula 4.0 12/13/18 20:00 97.9 89 18 107/63 (78) 92 12/13/18 20:00 4.0 12/13/18 19:51 73 18 98 Nasal Cannula 4.0 36 12/13/18 19:41 75 16 98 Nasal Cannula 4.0 36 12/13/18 19:22 94 12/13/18 17:56 98.2 12/13/18 17:52 98.2 81 19 106/58 (74) 97 12/13/18 16:00 3.0 12/13/18 16:00 97.2 90 18 103/62 (76) 94 12/13/18 16:00 Nasal Cannula 3.0 12/13/18 16:00 96 Intake and Output 12/13/18 12/14/18 19:00 07:00 Output Total 300 ml Balance -300 ml Output Urine Total 300 ml Laboratory Tests Test 12/14/18 09:50 White Blood Count 14.8 K/UL (4.8-10.8) H Red Blood Count 3.57 M/UL (4.20-5.40) L Hemoglobin 10.4 G/DL (12.0-16.0) L Hematocrit 32.4 % (37.0-47.0) L Mean Corpuscular Volume 91 FL (80-99) Mean Corpuscular Hemoglobin 29.3 PG (27.0-31.0) Mean Corpuscular Hemoglobin Concent 32.2 G/DL (32.0-36.0) Red Cell Distribution Width 16.7 % (11.6-14.8) H Platelet Count 320 K/UL (150-450) Mean Platelet Volume 5.4 FL (6.5-10.1) L Neutrophils (%) (Auto) 83.8 % (45.0-75.0) H Lymphocytes (%) (Auto) 7.4 % (20.0-45.0) L Monocytes (%) (Auto) 8.3 % (1.0-10.0) Eosinophils (%) (Auto) 0.0 % (0.0-3.0) Basophils (%) (Auto) 0.5 % (0.0-2.0) Sodium Level 134 MMOL/L (136-145) L Potassium Level 4.0 MMOL/L (3.5-5.1) Chloride Level 101 MMOL/L (98-107) Carbon Dioxide Level 32 MMOL/L (21-32) Anion Gap 1 mmol/L (5-15) L Blood Urea Nitrogen 26 mg/dL (7-18) H Creatinine 0.8 MG/DL (0.55-1.30) Estimat Glomerular Filtration Rate mL/min (>60) Glucose Level 137 MG/DL (74-106) H Calcium Level 8.3 MG/DL (8.5-10.1) L Pro-B-Type Natriuretic Peptide 1805 pg/mL (0-125) H Height (Feet): 5 Height (Inches): 1.00 Weight (Pounds): 92 Medications Current Medications Medications (Trade) Dose Ordered Sig/Sonny Route PRN Reason Start Time Stop Time Status Last Admin Dose Admin Albuterol/ Ipratropium (Albuterol/ Ipratropium) 3 ml Q4H PRN HHN Shortness of Breath 12/13/18 17:53 12/18/18 17:52 Albuterol/ Ipratropium (Albuterol/ Ipratropium) 3 ml Q6HRT HHN 12/13/18 19:00 12/18/18 12:59 12/14/18 06:48 Amlodipine Besylate (Norvasc) 5 mg DAILY ORAL 12/14/18 09:00 01/11/19 08:59 12/14/18 09:04 Apixaban (Eliquis) 5 mg BID ORAL 12/14/18 09:00 01/13/19 08:59 12/14/18 09:04 Doxycycline Monohydrate (Vibramycin) 100 mg EVERY 12 HOURS ORAL 12/13/18 21:00 12/19/18 20:59 12/14/18 09:05 Fluticasone Propionate (Flonase) 1 spray TWICE A DAY NASAL 12/14/18 09:00 01/13/19 08:59 12/14/18 09:09 Gabapentin (Neurontin) 900 mg THREE TIMES A DAY ORAL 12/14/18 09:00 01/13/19 08:59 12/14/18 13:03 Metoprolol Succinate (Toprol XL) 25 mg DAILY ORAL 12/14/18 09:00 01/11/19 08:59 12/14/18 09:03 Morphine Sulfate (MS Contin) 45 mg TID ORAL 12/14/18 09:00 12/21/18 08:59 12/14/18 13:03 Multivitamins Therapeutic (Therapeutic Multivitamin) 1 ea DAILY ORAL 12/14/18 09:00 01/11/19 08:59 12/14/18 09:04 Prednisone (predniSONE) 30 mg DAILY ORAL 12/14/18 09:00 01/13/19 08:59 12/14/18 09:04 Tiotropium [place] (Spiriva Inhaler) 1 puff DAILY INH 12/14/18 09:00 01/11/19 08:59 Tramadol HCl (Ultram) 50 mg Q8H PRN ORAL Severe Pain (Pain Scale 7-10) 12/13/18 17:54 12/20/18 17:53 12/14/18 06:12 Assessment/Plan Problem List: (1) Bronchitis, acute, with bronchospasm Assessment & Plan: add cefepime and continue Doxycycline empirically for now, with inhalers. repeat CXR ICD Codes: J20.9 - Acute bronchitis, unspecified SNOMED: 01039495 (2) Leukocytosis Assessment & Plan: rule out sepsis , will send blood culture and start cefepime with doxycycline pending results. will order CXR to rule out new infiltrates, and UA . taper steroids ICD Codes: D72.829 - Elevated white blood cell count, unspecified SNOMED: 429820385, 939900480 (3) COPD (chronic obstructive pulmonary disease) Assessment & Plan: with exacerbation, continue antibiotics, inhalers and steroids ICD Codes: J44.9 - Chronic obstructive pulmonary disease, unspecified SNOMED: 96335187 (4) Altered level of consciousness Assessment & Plan: suspect due to hypercapnia , improved. monitor ABG ICD Codes: R40.4 - Transient alteration of awareness SNOMED: 1555619 Saravanan Serrato M.D. Dec 14, 2018 15:10
[2018-12-14 15:44] VITALS: BP 109/65
--- NOTE | 2018-12-14 15:57 | NUR ---
PT note PT nabeel completed, treatment initiated. Patient was able to take 3 small steps with the FWW. Patient is noted to have SOB with minimal activity and with continuous O2. Patient needs PT services to increase her muscle strength and instructions on proper breathing and energy conservation techniques to improve her functional mobility and gait. Addendum: 12/14/18 at 1558 by MEI BOSCH PT Amended: Links added.
--- NOTE | 2018-12-14 16:08 | Cardiology Report ---
APPROVED REPORT EXAM: Two-dimensional and M-mode echocardiogram with Doppler and color Doppler. INDICATION Atrial Fibrillation M-Mode DIMENSIONS IVSd1.4 (0.7-1.1cm)Left Atrium (MM)3.8 (1.6-4.0cm) LVDd3.8 (3.5-5.6cm)Aortic Root3.4 (2.0-3.7cm) PWd1.1 (0.7-1.1cm)Aortic Cusp Exc.1.7 (1.5-2.0cm) LVDs2.2 (2.5-4.0cm) PWs1.5 cm Normal left ventricular chamber size, systolic function and wall motion. Left ventricular ejection fraction estimated to be 55 %. Mild left ventricular hypertrophy. No evidence of pericardial effusion. All other cardiac chamber sizes are within normal limits. Focal aortic valve sclerosis with adequate cusp excursion. Thickened mitral valve leaflets with normal excursion. Mild mitral annulus and aortic root calcification. Normal pulmonic valve structure. Normal tricuspid valve structure. IVC dilated at 2.8 cm without physiological collapse, suggestive of increased RA pressure. A color flow and spectral Doppler study was performed and revealed: Trace aortic insufficiency. Moderate to severe mitral regurgitation. Mitral inflow velocities indicates possible pseudo normalization pattern implying significant left ventricular diastolic dysfunction (Grade II). Moderate tricuspid regurgitation. Tricuspid systolic velocities suggests peak right ventricular systolic pressure of 62 mmHg, consistent with severe pulmonary hypertension. Trace pulmonic regurgitation present.
[2018-12-14] MEDS: Cefepime HCl 2 GM in D5W 55 ML IVPB SCH (17:45)
--- NOTE | 2018-12-14 18:22 | Diagnostic Imaging Report ---
EXAM: XR Chest, 1 View CLINICAL HISTORY: COPD TECHNIQUE: Frontal view of the chest. COMPARISON: No relevant prior studies available. FINDINGS: Lungs: Accentuation of interstitial markings. Pleural space: Unremarkable. No pneumothorax. Heart: Cardiomegaly and pacemaker. Mediastinum: Unremarkable. Bones/joints: Surgical changes related to the spine. Upper abdomen: Surgical clips in the upper abdomen. IMPRESSION: Accentuation of interstitial markings. Could be from interstitial edema, pneumonia and/or component of chronic interstitial lung disease.
[2018-12-14 19:07] LABS: APPEARANCE,URINE CLEAR; BILIRUBIN, URINE NEGATIVE (NEGATIVE); GLUCOSE, URINE (UA) NEGATIVE (NEGATIVE); KETONES,URINE NEGATIVE (NEGATIVE); LEUKOCYTE ESTERASE ,URINE 1+ (NEGATIVE); NITRITE,URINE POSITIVE (NEGATIVE); PH,URINE 5 (4.5-8.0); PROTEIN,URINE 2+ (NEGATIVE); UROBILINOGEN,URINE NORMAL MG/DL (0.0-1.0)
--- NOTE | 2018-12-14 19:17 | NUR ---
HAND-OFF: Report given to Alonso Cota RN.
[2018-12-14 19:19] LABS: COLOR,URINE YELLOW
--- NOTE | 2018-12-14 19:25 | NUR ---
NURSE NOTES: Received patient from SIVAN Trevino. Will continue plan of care.
[2018-12-14 20:00] VITALS: BP_SYST 105; BP_SYST 97; BP_DIAS 63; BP_DIAS 66
[2018-12-15] VITALS: BP 101/60
--- NOTE | 2018-12-15 00:31 | Pulmonology Progress Note ---
Assessment/Plan Assessment/Plan Pulmonary Progress Note Patient seen 12/14/2018 HPI: Patient is a 72-year-old female with history of chronic obstructive pulmonary disease hypertension, previous SVT, paroxysmal atrial fibrillation (on AC), mitral regurgitation, and chronic back and left shoulder pain, admitted with chronic obstructive pulmonary disease exacerbation with altered mental status and increased CO2. She also has a history of coronary artery disease and the patient is a current smoker. The patient received Solu-Medrol and BiPAP in the emergency room and the patient's breathing improved. PAST MEDICAL HISTORY: Includes history of chronic obstructive pulmonary disease, hypertension, SVT, paroxysmal atrial fibrillation, mitral regurgitation, chronic back and left shoulder pain, coronary artery disease, and chronic pain syndrome. PAST SURGICAL HISTORY: History of back surgery, history of cervical steroid epidural, history of gastric resection, history of hiatal hernia repair, history of pacemaker placement, history of shoulder joint injection, history of left shoulder joint injection under fluoroscopy. ALLERGIES: Include cyclobenzaprine, ibuprofen, melatonin, and sulfa. FAMILY HISTORY: Noncontributory. SOCIAL HISTORY: The patient is a current long-time smoker. No alcohol or drug use. PHYSICAL EXAMINATION: VITAL SIGNS NOTED, on NC O2 GENERAL APPEARANCE: Not distressed. HEENT: Normocephalic and normochromic. Extraocular muscles intact. Throat is clear. CARDIOVASCULAR SYSTEM: Regular rate and rhythm. No murmur. No gallop. ABDOMEN: Soft, nontender, and nondistended. LUNGS: Clear to auscultation, reduced BS. EXTREMITY: No edema, cyanosis, or clubbing. NEUROLOGIC: The patient responds to commands. LABORATORY AND DIAGNOSTIC DATA: Include WBC 8.8, hemoglobin 11.4, hematocrit 35.6, and platelet count 261,000. Neutrophils 62, lymphocytes 26, and mono 9.6. Sodium 140, potassium 4.4, chloride 104, bicarb is 33, BUN 24, creatinine 1, and glucose 106. Lactic acid 0.8. Calcium 8. AST 37, ALT 23, and alkaline phosphatase 125. Ammonia 21. Creatine kinase 166. BNP 3563. Albumin 2.3. Lipase 30. PT 11.5, INR 1.1, and PTT 34. UA showed +3 urine protein and +5 urine blood. Urine rbc is 5 to 10 and urine wbc 2 to 4. Blood gas showed pH of 7.315, pCO2 65, pO2 252, bicarb is 32.5, base excess is 4.8, and O2 saturation 99%. Chest x-ray showed increased interstitial marking, the area of peribronchial thickening, and some septal bronchial opacity, which may be related to small airway disease, and also suspect underlying chronic disease. EKG showed normal sinus rhythm and old Q-wave in the inferior leads. IMPRESSION AND PLAN: 1. Chronic obstructive pulmonary disease exacerbation. Continue HHN, Solu- Medrol, BiPAP PRN . Doxycycline for possible bronchitis. O2 sats 90-94% 2. Paroxysmal atrial fibrillation. Continue the patient on Eliquis 5 mg b.i.d. 3. Hypertension. Norvasc 5 mg daily and Toprol 25 daily. 4. Coronary artery disease with history of myocardial infarction. Currently, on beta-blockers. 5 Subjective ROS Limited/Unobtainable: No Allergies: Coded Allergies: CYCLOBENZAPRINE (Verified Allergy, Unknown, 12/11/18) IBUPROFEN (Verified Allergy, Unknown, 12/11/18) MELATONIN (Verified Allergy, Unknown, 12/11/18) SULFA (SULFONAMIDE ANTIBIOTICS) (Verified Allergy, Unknown, 12/11/18) Objective Last 24 Hour Vital Signs Date Time Temp Pulse Resp B/P (MAP) Pulse Ox O2 Delivery O2 Flow Rate FiO2 12/15/18 00:00 4.0 12/15/18 00:00 98.5 80 18 101/60 (74) 96 12/14/18 21:00 Nasal Cannula 4.0 12/14/18 20:00 4.0 12/14/18 20:00 98.1 84 16 105/66 (79) 93 12/14/18 19:34 83 12/14/18 19:07 73 18 98 Nasal Cannula 4.0 36 12/14/18 18:56 76 18 94 Nasal Cannula 4.0 36 12/14/18 18:28 99.2 12/14/18 16:00 4.0 12/14/18 15:44 99.2 78 18 109/65 (80) 96 12/14/18 15:32 91 12/14/18 12:12 Nasal Cannula 12/14/18 12:12 Nasal Cannula 12/14/18 12:00 4.0 12/14/18 11:59 97 12/14/18 11:54 97.2 65 20 144/82 (102) 96 12/14/18 09:04 110 122/73 12/14/18 09:03 110 122/73 12/14/18 09:00 Nasal Cannula 4.0 12/14/18 08:00 4.0 12/14/18 07:58 97.0 110 22 122/73 (89) 95 12/14/18 07:36 86 12/14/18 06:57 77 18 98 Nasal Cannula 4.0 36 12/14/18 06:48 71 16 98 Nasal Cannula 4.0 36 12/14/18 04:00 97.0 88 18 113/67 (82) 93 12/14/18 04:00 4.0 12/14/18 03:53 82 12/14/18 01:10 80 20 96 12/14/18 00:57 80 18 98 Nasal Cannula 4.0 36 12/14/18 00:47 86 20 94 Nasal Cannula 4.0 36 Intake and Output 12/14/18 12/15/18 19:00 07:00 Intake Total 460 ml Output Total 1000 ml Balance -540 ml Intake Oral 460 ml Output Urine Total 1000 ml Laboratory Tests 12/14/18 09:50: White Blood Count 14.8H, Red Blood Count 3.57L, Hemoglobin 10.4L, Hematocrit 32.4L, Mean Corpuscular Volume 91, Mean Corpuscular Hemoglobin 29.3, Mean Corpuscular Hemoglobin Concent 32.2, Red Cell Distribution Width 16.7H, Platelet Count 320, Mean Platelet Volume 5.4L, Neutrophils (%) (Auto) 83.8H, Lymphocytes (%) (Auto) 7.4L, Monocytes (%) (Auto) 8.3, Eosinophils (%) (Auto) 0.0, Basophils (%) (Auto) 0.5, Sodium Level 134L, Potassium Level 4.0, Chloride Level 101, Carbon Dioxide Level 32, Anion Gap 1L, Blood Urea Nitrogen 26H, Creatinine 0.8, Estimat Glomerular Filtration Rate , Glucose Level 137H, Calcium Level 8.3L, Pro-B-Type Natriuretic Peptide 1805H 12/14/18 18:50: Urine Color Yellow, Urine Appearance Clear, Urine pH 5, Urine Specific [place] 1.010, Urine Protein 2+H, Urine Glucose (UA) Negative, Urine Ketones Negative, Urine Blood 5+H, Urine Nitrite PositiveH, Urine Bilirubin Negative, Urine Urobilinogen Normal, Urine Leukocyte Esterase 1+H, Urine RBC 5-10H, Urine WBC 2- 4, Urine Squamous Epithelial Cells Few, Urine Bacteria Few, Urine Yeast FewH Current Medications Medications (Trade) Dose Ordered Sig/Sonny Route PRN Reason Start Time Stop Time Status Last Admin Dose Admin Albuterol/ Ipratropium (Albuterol/ Ipratropium) 3 ml Q4H PRN HHN Shortness of Breath 12/13/18 17:53 12/18/18 17:52 Albuterol/ Ipratropium (Albuterol/ Ipratropium) 3 ml Q6HRT HHN 12/13/18 19:00 12/18/18 12:59 12/14/18 18:55 Amlodipine Besylate (Norvasc) 5 mg DAILY ORAL 12/14/18 09:00 01/11/19 08:59 12/14/18 09:04 Apixaban (Eliquis) 5 mg BID ORAL 12/14/18 09:00 01/13/19 08:59 12/14/18 17:59 Cefepime HCl 2 gm/ Dextrose 55 ml @ 110 mls/hr EVERY 12 HOURS IVPB 12/14/18 17:00 12/21/18 16:59 12/14/18 17:45 Doxycycline Monohydrate (Vibramycin) 100 mg EVERY 12 HOURS ORAL 12/13/18 21:00 12/19/18 20:59 12/14/18 20:40 Fluticasone Propionate (Flonase) 1 spray TWICE A DAY NASAL 12/14/18 09:00 01/13/19 08:59 12/14/18 17:59 Gabapentin (Neurontin) 900 mg THREE TIMES A DAY ORAL 12/14/18 09:00 01/13/19 08:59 12/14/18 17:58 Metoprolol Succinate (Toprol XL) 25 mg DAILY ORAL 12/14/18 09:00 01/11/19 08:59 12/14/18 09:03 Morphine Sulfate (MS Contin) 45 mg TID ORAL 12/14/18 09:00 12/21/18 08:59 12/14/18 17:58 Multivitamins Therapeutic (Therapeutic Multivitamin) 1 ea DAILY ORAL 12/14/18 09:00 01/11/19 08:59 12/14/18 09:04 Prednisone (predniSONE) 30 mg DAILY ORAL 12/14/18 09:00 01/13/19 08:59 12/14/18 09:04 Tiotropium [place] (Spiriva Inhaler) 1 puff DAILY INH 12/14/18 09:00 01/11/19 08:59 Tramadol HCl (Ultram) 50 mg Q8H PRN ORAL Severe Pain (Pain Scale 7-10) 12/13/18 17:54 12/20/18 17:53 12/14/18 22:09 Juancho Salmon MD Dec 15, 2018 00:31
[2018-12-15] MEDS: Albuterol/Ipratropium 3ml neb HHN SCH ×5 (00:49→23:54)
[2018-12-15 04:00] VITALS: BP 109/63
--- NOTE | 2018-12-15 04:18 | NUR ---
NURSE NOTES: Patient complains of sudden headache that is getting worse. Tramadol 50mg was given at 12/14 2200. Medication is PRN Q8H. Next dose is 0600. Patient request for Tylenol and ask to leave message for MD to prescribe a medication for her current pain. Left message to Dr. Mancilla in urgent mailbox regarding patient's needs. Clam and relaxation measures are done in the mean time while awaiting call back. Patient also request for her son to transfers her to [facility] in the later morning stating that all her doctors are there. Will endorse to AM RN.
[2018-12-15] MEDS: traMADol 50mg tab ORAL PRN ×2 (06:11→15:25)
--- NOTE | 2018-12-15 07:00 | NUR ---
NURSE NOTES: pt awake alert, no distress. no sob. call light within reach. bed in lowest position, locked. will monitor.
--- NOTE | 2018-12-15 07:13 | NUR ---
HAND-OFF: Report given to SIVAN Lerner.
[2018-12-15 08:00] VITALS: BP 127/70
[2018-12-15] MEDS: Cefepime HCl 2 GM in D5W 55 ML IVPB SCH ×2 (08:16→20:25)
[2018-12-15] MEDS: Doxycycline Monohydrate 100mg ORAL SCH ×2 (08:17→20:25)
[2018-12-15] MEDS: Eliquis 2.5mg tablet ORAL SCH ×2 (08:17→17:25)
[2018-12-15] MEDS: Metoprolol Succinate XL 25mg tab ORAL SCH (08:17)
[2018-12-15] MEDS: Flonase Nasal Inhaler 16gm NASAL SCH ×2 (08:18→17:18)
[2018-12-15] MEDS: Multivitamin w/Minerals tab ORAL SCH (08:18)
[2018-12-15] MEDS: MS Contin 15mg tab ORAL SCH ×3 (08:18→17:18)
[2018-12-15 12:00] VITALS: BP 125/82
--- NOTE | 2018-12-15 13:14 | NUR ---
NURSE NOTES: pt awake alert, no distress. no sob. call light within reach. bed in lowest position, locked. will monitor.
--- NOTE | 2018-12-15 13:15 | NUR ---
NURSE NOTES: son visited patient and per son pt has intermittent confusion, reported to dr Mancilla for possible neuro consult, also reported to Dr Mancilla pt req for lidocaine patch on left shoulder for pain chronic (she also gets lidocaine patch applied to left shoulder from retirement) Dr Laurent cabreraayed for the lidocaine patch but no new order re neuro consult. Addendum: 12/15/18 at 1317 by ISABELLA SIMONS RN NURSE NOTES: pt is aox2-3 intermittent forgetfulness
--- NOTE | 2018-12-15 13:26 | Cardiac Electrophysiology PN ---
Assessment/Plan Assessment/Plan 1. Paroxysmal atrial fibrillation.In sinus rhythm on Eliquis 5 mg b.i.d. and Toprol-XL 25 mg daily. 2. History of hypertension. On Toprol. 3. Status post pacemaker implantation with unknown brand. 4. Hypertension. On Norvasc 5 and Toprol-XL 25 mg daily. 5. COPD. On nebulizer and prednisone. 6. Mitral regurgitation. Echo EF 55% 7. History of SVT. Subjective Subjective No CP or SOB.In SR with Intermittent pacing Objective Last 24 Hour Vital Signs Date Time Temp Pulse Resp B/P (MAP) Pulse Ox O2 Delivery O2 Flow Rate FiO2 12/15/18 13:04 72 16 98 Nasal Cannula 4.0 36 12/15/18 12:56 75 16 98 Nasal Cannula 4.0 36 12/15/18 12:00 98.8 92 17 125/82 (96) 96 12/15/18 09:00 Nasal Cannula 4.0 12/15/18 08:48 98.8 12/15/18 08:37 78 18 97 Room Air 21 12/15/18 08:27 76 18 90 Room Air 21 12/15/18 08:18 70 127/70 12/15/18 08:17 70 127/70 12/15/18 08:00 4.0 12/15/18 08:00 98.8 70 17 127/70 (89) 96 12/15/18 07:49 103 12/15/18 04:00 98.8 81 17 109/63 (78) 96 12/15/18 04:00 4.0 12/15/18 03:56 88 12/15/18 01:02 74 18 99 Nasal Cannula 4.0 36 12/15/18 00:49 67 18 95 Nasal Cannula 4.0 36 12/15/18 00:00 4.0 12/15/18 00:00 98.5 80 18 101/60 (74) 96 12/14/18 23:48 70 12/14/18 21:00 Nasal Cannula 4.0 12/14/18 20:00 4.0 12/14/18 20:00 98.1 84 16 105/66 (79) 93 12/14/18 19:34 83 12/14/18 19:07 73 18 98 Nasal Cannula 4.0 36 12/14/18 18:56 76 18 94 Nasal Cannula 4.0 36 12/14/18 16:00 4.0 12/14/18 15:44 99.2 78 18 109/65 (80) 96 12/14/18 15:32 91 Intake and Output 12/14/18 12/15/18 19:00 07:00 Intake Total 460 ml Output Total 1000 ml 500 ml Balance -540 ml -500 ml Intake Oral 460 ml Output Urine Total 1000 ml 500 ml # Voids 1 Laboratory Tests Test 12/14/18 18:50 Urine Color Yellow Urine Appearance Clear Urine pH 5 (4.5-8.0) Urine Specific [place] 1.010 (1.005-1.035) Urine Protein 2+ (NEGATIVE) H Urine Glucose (UA) Negative (NEGATIVE) Urine Ketones Negative (NEGATIVE) Urine Blood 5+ (NEGATIVE) H Urine Nitrite Positive (NEGATIVE) H Urine Bilirubin Negative (NEGATIVE) Urine Urobilinogen Normal MG/DL (0.0-1.0) Urine Leukocyte Esterase 1+ (NEGATIVE) H Urine RBC 5-10 /HPF (0 - 2) H Urine WBC 2-4 /HPF (0 - 2) Urine Squamous Epithelial Cells Few /LPF (NONE/OCC) Urine Bacteria Few /HPF (NONE) Urine Yeast Few /HPF (NONE) H Microbiology Date/Time Source Procedure Growth Status 12/14/18 18:50 Urine,Clean Catch Urine Culture - Preliminary NO GROWTH Resulted Objective HEAD AND NECK: No JVD. LUNGS: Coarse rhonchi. CARDIOVASCULAR: Regular S1 and S2 with 2/6 systolic murmur. The pacemaker in the right subclavian. ABDOMEN: Soft. EXTREMITIES: No pitting edema. Jarrod Gutierrez MD Dec 15, 2018 13:26
--- NOTE | 2018-12-15 14:08 | General Progress Note ---
Assessment/Plan Status: stable Assessment: 1. COPD Exacerbation - improving. cont ABX and prednisone. D/C planning to [facility] rehab tomorrow. refused bipap. 2, HTN - cont amlodipine 5 mg daily and toprol XL 25 mg one po daily. 3. Paroxysmal A Fib - On eliquis 5 mg one po bid. 4. CAD with hx of [place] 5. HLD 6. Neuropathy 7. Chronic Low Back Pain 8. h/o Lt shoulder rotator cuff tear 9. Pacemaker - cardiology following. 10. Altered mental status due to Hypoxia and COPD exacerbation in ER on - resolved following txt in ER and improvement of patient Oxygen. Subjective Date patient seen: Dec 15, 2018 Time patient seen: 14:00 Constitutional: Reports: weakness HEENT: Reports: no symptoms Cardiovascular: Reports: no symptoms Respiratory: Reports: no symptoms Gastrointestinal/Abdominal: Reports: no symptoms Genitourinary: Reports: no symptoms Neurologic/Psychiatric: Reports: no symptoms Endocrine: Reports: no symptoms Hematologic/Lymphatic: Reports: no symptoms Allergies: Coded Allergies: CYCLOBENZAPRINE (Verified Allergy, Unknown, 12/11/18) IBUPROFEN (Verified Allergy, Unknown, 12/11/18) MELATONIN (Verified Allergy, Unknown, 12/11/18) SULFA (SULFONAMIDE ANTIBIOTICS) (Verified Allergy, Unknown, 12/11/18) Subjective Patient is in Tele. . She refused bipap. afebrile. No chest pain. Doing better. Objective Last 24 Hour Vital Signs Date Time Temp Pulse Resp B/P (MAP) Pulse Ox O2 Delivery O2 Flow Rate FiO2 12/15/18 13:20 98.8 12/15/18 13:04 72 16 98 Nasal Cannula 4.0 36 12/15/18 12:56 75 16 98 Nasal Cannula 4.0 36 12/15/18 12:00 98.8 92 17 125/82 (96) 96 12/15/18 12:00 4.0 12/15/18 09:00 Nasal Cannula 4.0 12/15/18 08:37 78 18 97 Room Air 21 12/15/18 08:27 76 18 90 Room Air 21 12/15/18 08:18 70 127/70 12/15/18 08:17 70 127/70 12/15/18 08:00 4.0 12/15/18 08:00 98.8 70 17 127/70 (89) 96 12/15/18 07:49 103 12/15/18 04:00 98.8 81 17 109/63 (78) 96 12/15/18 04:00 4.0 12/15/18 03:56 88 12/15/18 01:02 74 18 99 Nasal Cannula 4.0 36 12/15/18 00:49 67 18 95 Nasal Cannula 4.0 36 12/15/18 00:00 4.0 12/15/18 00:00 98.5 80 18 101/60 (74) 96 12/14/18 23:48 70 12/14/18 21:00 Nasal Cannula 4.0 12/14/18 20:00 4.0 12/14/18 20:00 98.1 84 16 105/66 (79) 93 12/14/18 19:34 83 12/14/18 19:07 73 18 98 Nasal Cannula 4.0 36 12/14/18 18:56 76 18 94 Nasal Cannula 4.0 36 12/14/18 16:00 4.0 12/14/18 15:44 99.2 78 18 109/65 (80) 96 12/14/18 15:32 91 Intake and Output 12/14/18 12/15/18 19:00 07:00 Intake Total 460 ml Output Total 1000 ml 500 ml Balance -540 ml -500 ml Intake Oral 460 ml Output Urine Total 1000 ml 500 ml # Voids 1 Laboratory Tests 12/14/18 18:50: Urine Color Yellow, Urine Appearance Clear, Urine pH 5, Urine Specific [place] 1.010, Urine Protein 2+H, Urine Glucose (UA) Negative, Urine Ketones Negative, Urine Blood 5+H, Urine Nitrite PositiveH, Urine Bilirubin Negative, Urine Urobilinogen Normal, Urine Leukocyte Esterase 1+H, Urine RBC 5-10H, Urine WBC 2- 4, Urine Squamous Epithelial Cells Few, Urine Bacteria Few, Urine Yeast FewH Height (Feet): 5 Height (Inches): 1.00 Weight (Pounds): 92 General Appearance: no apparent distress, alert EENT: normal ENT inspection Neck: non-tender, normal alignment, supple Cardiovascular: normal peripheral pulses, normal rate, regular rhythm Respiratory/Chest: chest wall non-tender, lungs clear, normal breath sounds Abdomen: normal bowel sounds, non tender, soft Extremities: normal range of motion, non-tender Edema: no edema noted Arm (L), no edema noted Arm (R), no edema noted Leg (L), no edema noted Leg (R), no edema noted Pedal (L), no edema noted Pedal (R), no edema noted Generalized Neurologic: alert, responsive Skin: warm/dry Lymphatic: normal anterior cervical (L), normal anterior cervical (R), normal posterior cervical (L), normal posterior cervical (R), normal submandibular (L) , normal submandibular (R), normal supraclavicular (L), normal supraclavicular ( R), normal axillary (L), normal axillary (R), normal inguinal (L), normal inguinal (R), normal other Wally Mancilla MD Dec 15, 2018 14:08
[2018-12-15 16:00] VITALS: BP 116/64
--- NOTE | 2018-12-15 17:49 | Infectious Diseases Prog Note ---
Assessment/Plan Problems: (1) Bronchitis, acute, with bronchospasm Assessment & Plan: possible pneumonia , continue cefepime and Doxycycline empirically for now, with inhalers. monitor in tele (2) Leukocytosis Assessment & Plan: rule out sepsis , await repeated blood culture and continue cefepime with doxycycline pending results. repeated CXR showed interstitial infiltrates concerning for pneumonia . taper steroids (3) COPD (chronic obstructive pulmonary disease) Assessment & Plan: with exacerbation, continue antibiotics, inhalers and steroids (4) Altered level of consciousness Assessment & Plan: suspect due to hypercapnia , improved. monitor ABG (5) UTI (urinary tract infection) Assessment & Plan: already on cefepime pending culture Subjective Constitutional: Reports: no symptoms HEENT: Reports: no symptoms Respiratory: Reports: shortness of breath, dry cough Breasts: Reports: no symptoms Cardiovascular: Reports: no symptoms Gastrointestinal/Abdominal: Reports: no symptoms Genitourinary: Reports: no symptoms Neurologic: Reports: no symptoms Psychiatric: Reports: no symptoms Skin: Reports: no symptoms Endocrine: Reports: no symptoms Hematologic: Reports: no symptoms Musculoskeletal: Reports: no symptoms Allergies: Coded Allergies: CYCLOBENZAPRINE (Verified Allergy, Unknown, 12/11/18) IBUPROFEN (Verified Allergy, Unknown, 12/11/18) MELATONIN (Verified Allergy, Unknown, 12/11/18) SULFA (SULFONAMIDE ANTIBIOTICS) (Verified Allergy, Unknown, 12/11/18) Objective Vital Signs Last 24 Hour Vital Signs Date Time Temp Pulse Resp B/P (MAP) Pulse Ox O2 Delivery O2 Flow Rate FiO2 12/15/18 16:00 98.8 91 17 116/64 (81) 96 12/15/18 16:00 4.0 12/15/18 15:55 98.8 12/15/18 15:07 102 12/15/18 13:20 98.8 12/15/18 13:04 72 16 98 Nasal Cannula 4.0 36 12/15/18 12:56 75 16 98 Nasal Cannula 4.0 36 12/15/18 12:00 98.8 92 17 125/82 (96) 96 12/15/18 12:00 4.0 12/15/18 11:42 93 12/15/18 09:00 Nasal Cannula 4.0 12/15/18 08:37 78 18 97 Room Air 21 4/21/19 08:27 76 18 90 Room Air 21 12/15/18 08:18 70 127/70 12/15/18 08:17 70 127/70 12/15/18 08:00 4.0 12/15/18 08:00 98.8 70 17 127/70 (89) 96 12/15/18 07:49 103 12/15/18 04:00 98.8 81 17 109/63 (78) 96 12/15/18 04:00 4.0 12/15/18 03:56 88 12/15/18 01:02 74 18 99 Nasal Cannula 4.0 36 12/15/18 00:49 67 18 95 Nasal Cannula 4.0 36 12/15/18 00:00 4.0 12/15/18 00:00 98.5 80 18 101/60 (74) 96 12/14/18 23:48 70 12/14/18 21:00 Nasal Cannula 4.0 12/14/18 20:00 4.0 12/14/18 20:00 98.1 84 16 105/66 (79) 93 12/14/18 19:34 83 12/14/18 19:07 73 18 98 Nasal Cannula 4.0 36 12/14/18 18:56 76 18 94 Nasal Cannula 4.0 36 Height (Feet): 5 Height (Inches): 1.00 Weight (Pounds): 92 General Appearance: WD/WN, no acute distress HEENT: normocephalic, atraumatic, anicteric, mucous membranes moist, PERRL Respiratory/Chest: chest wall non-tender, no respiratory distress, no accessory muscle use, decreased breath sounds, crackles/rales, expiratory wheezing Cardiovascular: normal peripheral pulses, normal rate, regular rhythm, no gallop/murmur, no JVD Abdomen: normal bowel sounds, soft, non tender, no organomegaly, no mass, no scars Genitourinary: normal external genitalia Extremities: no cyanosis, no clubbing Skin: no rash, no lesions, no ulcers 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, alert, responsive Lymphatic: no neck adenopathy, no groin adenopathy Musculoskeletal: normal muscle bulk, no effusion Microbiology Date/Time Source Procedure Growth Status 12/14/18 18:50 Urine,Clean Catch Urine Culture - Preliminary NO GROWTH Resulted Laboratory Tests Test 12/14/18 18:50 Urine Color Yellow Urine Appearance Clear Urine pH 5 (4.5-8.0) Urine Specific [place] 1.010 (1.005-1.035) Urine Protein 2+ (NEGATIVE) H Urine Glucose (UA) Negative (NEGATIVE) Urine Ketones Negative (NEGATIVE) Urine Blood 5+ (NEGATIVE) H Urine Nitrite Positive (NEGATIVE) H Urine Bilirubin Negative (NEGATIVE) Urine Urobilinogen Normal MG/DL (0.0-1.0) Urine Leukocyte Esterase 1+ (NEGATIVE) H Urine RBC 5-10 /HPF (0 - 2) H Urine WBC 2-4 /HPF (0 - 2) Urine Squamous Epithelial Cells Few /LPF (NONE/OCC) Urine Bacteria Few /HPF (NONE) Urine Yeast Few /HPF (NONE) H Current Medications Medications (Trade) Dose Ordered Sig/Sonny Route PRN Reason Start Time Stop Time Status Last Admin Dose Admin Acetaminophen (Tylenol) 650 mg Q6H PRN ORAL Mild Pain/Temp > 100.5 12/15/18 05:30 01/14/19 05:29 Al Hydroxide/Mg Hydroxide (Mylanta) 30 ml Q6H PRN ORAL gastric discomfort 12/15/18 15:30 01/14/19 15:29 12/15/18 15:25 Albuterol/ Ipratropium (Albuterol/ Ipratropium) 3 ml Q4H PRN HHN Shortness of Breath 12/13/18 17:53 12/18/18 17:52 Albuterol/ Ipratropium (Albuterol/ Ipratropium) 3 ml Q6HRT HHN 12/13/18 19:00 12/18/18 12:59 12/15/18 12:56 Amlodipine Besylate (Norvasc) 5 mg DAILY ORAL 12/14/18 09:00 01/11/19 08:59 12/15/18 08:18 Apixaban (Eliquis) 5 mg BID ORAL 12/14/18 09:00 01/13/19 08:59 12/15/18 17:25 Cefepime HCl 2 gm/ Dextrose 55 ml @ 110 mls/hr EVERY 12 HOURS IVPB 12/14/18 17:00 12/21/18 16:59 12/15/18 08:16 Doxycycline Monohydrate (Vibramycin) 100 mg EVERY 12 HOURS ORAL 12/13/18 21:00 12/19/18 20:59 12/15/18 08:17 Fluticasone Propionate (Flonase) 1 spray TWICE A DAY NASAL 12/14/18 09:00 01/13/19 08:59 12/15/18 17:18 Gabapentin (Neurontin) 900 mg THREE TIMES A DAY ORAL 12/14/18 09:00 01/13/19 08:59 12/15/18 17:18 Lidocaine (Lidoderm 5% PATCH) 1 patch DAILY TDERMAL 12/15/18 13:00 01/14/19 12:44 12/15/18 12:50 Metoprolol Succinate (Toprol XL) 25 mg DAILY ORAL 12/14/18 09:00 01/11/19 08:59 12/15/18 08:17 Morphine Sulfate (MS Contin) 45 mg TID ORAL 12/14/18 09:00 12/21/18 08:59 12/15/18 17:18 Multivitamins Therapeutic (Therapeutic Multivitamin) 1 ea DAILY ORAL 12/14/18 09:00 01/11/19 08:59 12/15/18 08:18 Pantoprazole (Protonix) 40 mg ACBREAKFAST ORAL 12/15/18 09:15 01/14/19 09:14 12/15/18 09:25 Prednisone (predniSONE) 30 mg DAILY ORAL 12/14/18 09:00 01/13/19 08:59 12/15/18 08:17 Tiotropium [place] (Spiriva Inhaler) 1 puff DAILY INH 12/14/18 09:00 01/11/19 08:59 12/15/18 09:17 Tramadol HCl (Ultram) 50 mg Q8H PRN ORAL Severe Pain (Pain Scale 7-10) 12/13/18 17:54 12/20/18 17:53 12/15/18 15:25 Saravanan Serrato M.D. Dec 15, 2018 17:49
--- NOTE | 2018-12-15 18:02 | Pulmonology Progress Note ---
Assessment/Plan Assessment/Plan Pulmonary Progress Note HPI: Patient is a 72-year-old female with history of chronic obstructive pulmonary disease hypertension, previous SVT, paroxysmal atrial fibrillation (on AC), mitral regurgitation, and chronic back and left shoulder pain, admitted with chronic obstructive pulmonary disease exacerbation with altered mental status and increased CO2. She also has a history of coronary artery disease and the patient is a current smoker. The patient received Solu-Medrol and BiPAP in the emergency room and the patient's breathing improved. Solumedrol being weaned PAST MEDICAL HISTORY: Includes history of chronic obstructive pulmonary disease, hypertension, SVT, paroxysmal atrial fibrillation, mitral regurgitation, chronic back and left shoulder pain, coronary artery disease, and chronic pain syndrome. PAST SURGICAL HISTORY: History of back surgery, history of cervical steroid epidural, history of gastric resection, history of hiatal hernia repair, history of pacemaker placement, history of shoulder joint injection, history of left shoulder joint injection under fluoroscopy. ALLERGIES: Include cyclobenzaprine, ibuprofen, melatonin, and sulfa. FAMILY HISTORY: Noncontributory. SOCIAL HISTORY: The patient is a current long-time smoker. No alcohol or drug use. PHYSICAL EXAMINATION: VITAL SIGNS NOTED, on NC O2 GENERAL APPEARANCE: Not distressed. HEENT: Normocephalic and normochromic. Extraocular muscles intact. Throat is clear. CARDIOVASCULAR SYSTEM: Regular rate and rhythm. No murmur. No gallop. ABDOMEN: Soft, nontender, and nondistended. LUNGS: Clear to auscultation, reduced BS. EXTREMITY: No edema, cyanosis, or clubbing. NEUROLOGIC: The patient responds to commands. LABORATORY AND DIAGNOSTIC DATA NOTED: Include WBC 8.8, hemoglobin 11.4, hematocrit 35.6, and platelet count 261,000. Neutrophils 62, lymphocytes 26, and mono 9.6. Sodium 140, potassium 4.4, chloride 104, bicarb is 33, BUN 24, creatinine 1, and glucose 106. Lactic acid 0.8. Calcium 8. AST 37, ALT 23, and alkaline phosphatase 125. Ammonia 21. Creatine kinase 166. BNP 3563. Albumin 2.3. Lipase 30. PT 11.5, INR 1.1, and PTT 34. UA showed +3 urine protein and +5 urine blood. Urine rbc is 5 to 10 and urine wbc 2 to 4. Blood gas showed pH of 7.315, pCO2 65, pO2 252, bicarb is 32.5, base excess is 4.8, and O2 saturation 99%. Chest x-ray showed increased interstitial marking, the area of peribronchial thickening, and some septal bronchial opacity, which may be related to small airway disease, and also suspect underlying chronic disease. EKG showed normal sinus rhythm and old Q-wave in the inferior leads. IMPRESSION AND PLAN: 1. Chronic obstructive pulmonary disease exacerbation. Continue HHN, Solu- Medrol, BiPAP PRN . Doxycycline for possible bronchitis. O2 sats 90-94% 2. Paroxysmal atrial fibrillation. Continue the patient on Eliquis 5 mg b.i.d. 3. Hypertension. Norvasc 5 mg daily and Toprol 25 daily. 4. Coronary artery disease with history of myocardial infarction. Currently, on beta-blockers. Subjective ROS Limited/Unobtainable: No Allergies: Coded Allergies: CYCLOBENZAPRINE (Verified Allergy, Unknown, 12/11/18) IBUPROFEN (Verified Allergy, Unknown, 12/11/18) MELATONIN (Verified Allergy, Unknown, 12/11/18) SULFA (SULFONAMIDE ANTIBIOTICS) (Verified Allergy, Unknown, 12/11/18) Objective Last 24 Hour Vital Signs Date Time Temp Pulse Resp B/P (MAP) Pulse Ox O2 Delivery O2 Flow Rate FiO2 12/15/18 17:48 98.8 12/15/18 16:00 98.8 91 17 116/64 (81) 96 12/15/18 16:00 4.0 12/15/18 15:55 98.8 12/15/18 15:07 102 12/15/18 13:04 72 16 98 Nasal Cannula 4.0 36 12/15/18 12:56 75 16 98 Nasal Cannula 4.0 36 12/15/18 12:00 98.8 92 17 125/82 (96) 96 12/15/18 12:00 4.0 12/15/18 11:42 93 12/15/18 09:00 Nasal Cannula 4.0 12/15/18 08:37 78 18 97 Room Air 21 12/15/18 08:27 76 18 90 Room Air 21 12/15/18 08:18 70 127/70 12/15/18 08:17 70 127/70 12/15/18 08:00 4.0 12/15/18 08:00 98.8 70 17 127/70 (89) 96 12/15/18 07:49 103 12/15/18 04:00 98.8 81 17 109/63 (78) 96 12/15/18 04:00 4.0 12/15/18 03:56 88 12/15/18 01:02 74 18 99 Nasal Cannula 4.0 36 12/15/18 00:49 67 18 95 Nasal Cannula 4.0 36 12/15/18 00:00 4.0 12/15/18 00:00 98.5 80 18 101/60 (74) 96 12/14/18 23:48 70 12/14/18 21:00 Nasal Cannula 4.0 12/14/18 20:00 4.0 12/14/18 20:00 98.1 84 16 105/66 (79) 93 12/14/18 19:34 83 12/14/18 19:07 73 18 98 Nasal Cannula 4.0 36 12/14/18 18:56 76 18 94 Nasal Cannula 4.0 36 Intake and Output 12/14/18 12/15/18 19:00 07:00 Intake Total 460 ml Output Total 1000 ml 500 ml Balance -540 ml -500 ml Intake Oral 460 ml Output Urine Total 1000 ml 500 ml # Voids 1 Microbiology Date/Time Source Procedure Growth Status 12/14/18 18:50 Urine,Clean Catch Urine Culture - Preliminary NO GROWTH Resulted Laboratory Tests 12/14/18 18:50: Urine Color Yellow, Urine Appearance Clear, Urine pH 5, Urine Specific [place] 1.010, Urine Protein 2+H, Urine Glucose (UA) Negative, Urine Ketones Negative, Urine Blood 5+H, Urine Nitrite PositiveH, Urine Bilirubin Negative, Urine Urobilinogen Normal, Urine Leukocyte Esterase 1+H, Urine RBC 5-10H, Urine WBC 2- 4, Urine Squamous Epithelial Cells Few, Urine Bacteria Few, Urine Yeast FewH Current Medications Medications (Trade) Dose Ordered Sig/Sonny Route PRN Reason Start Time Stop Time Status Last Admin Dose Admin Acetaminophen (Tylenol) 650 mg Q6H PRN ORAL Mild Pain/Temp > 100.5 12/15/18 05:30 01/14/19 05:29 Al Hydroxide/Mg Hydroxide (Mylanta) 30 ml Q6H PRN ORAL gastric discomfort 12/15/18 15:30 01/14/19 15:29 12/15/18 15:25 Albuterol/ Ipratropium (Albuterol/ Ipratropium) 3 ml Q4H PRN HHN Shortness of Breath 12/13/18 17:53 12/18/18 17:52 Albuterol/ Ipratropium (Albuterol/ Ipratropium) 3 ml Q6HRT HHN 12/13/18 19:00 12/18/18 12:59 12/15/18 12:56 Amlodipine Besylate (Norvasc) 5 mg DAILY ORAL 12/14/18 09:00 01/11/19 08:59 12/15/18 08:18 Apixaban (Eliquis) 5 mg BID ORAL 12/14/18 09:00 01/13/19 08:59 12/15/18 17:25 Cefepime HCl 2 gm/ Dextrose 55 ml @ 110 mls/hr EVERY 12 HOURS IVPB 12/14/18 17:00 12/21/18 16:59 12/15/18 08:16 Doxycycline Monohydrate (Vibramycin) 100 mg EVERY 12 HOURS ORAL 12/13/18 21:00 12/19/18 20:59 12/15/18 08:17 Fluticasone Propionate (Flonase) 1 spray TWICE A DAY NASAL 12/14/18 09:00 01/13/19 08:59 12/15/18 17:18 Gabapentin (Neurontin) 900 mg THREE TIMES A DAY ORAL 12/14/18 09:00 01/13/19 08:59 12/15/18 17:18 Lidocaine (Lidoderm 5% PATCH) 1 patch DAILY TDERMAL 12/15/18 13:00 01/14/19 12:44 12/15/18 12:50 Metoprolol Succinate (Toprol XL) 25 mg DAILY ORAL 12/14/18 09:00 01/11/19 08:59 12/15/18 08:17 Morphine Sulfate (MS Contin) 45 mg TID ORAL 12/14/18 09:00 12/21/18 08:59 12/15/18 17:18 Multivitamins Therapeutic (Therapeutic Multivitamin) 1 ea DAILY ORAL 12/14/18 09:00 01/11/19 08:59 12/15/18 08:18 Pantoprazole (Protonix) 40 mg ACBREAKFAST ORAL 12/15/18 09:15 01/14/19 09:14 12/15/18 09:25 Prednisone (predniSONE) 30 mg DAILY ORAL 12/14/18 09:00 01/13/19 08:59 12/15/18 08:17 Tiotropium [place] (Spiriva Inhaler) 1 puff DAILY INH 12/14/18 09:00 01/11/19 08:59 12/15/18 09:17 Tramadol HCl (Ultram) 50 mg Q8H PRN ORAL Severe Pain (Pain Scale 7-10) 12/13/18 17:54 12/20/18 17:53 12/15/18 15:25 Juancho Salmon MD Dec 15, 2018 18:02
--- NOTE | 2018-12-15 19:16 | NUR ---
HAND-OFF: Report given to JOSE FINNEGAN.
--- NOTE | 2018-12-15 19:20 | NUR ---
NURSE NOTES: received pt from dayshift nurse, pt in bed, no SOB, no discomfort noted, no change in condition during the day, safety precautions in place, education provided about using call aid when help needed, pt verbalized understanding.
[2018-12-15 20:00] VITALS: BP 139/85
[2018-12-16] VITALS: BP 130/83
[2018-12-16] MEDS: traMADol 50mg tab ORAL PRN (00:22)
--- NOTE | 2018-12-16 01:12 | NUR ---
NURSE NOTES: pt pulled out the IV access, pt refusing new IV insertion, charge nurse Otis singer. education provided pt still refusing the IV insertion. will continue to monitor
--- NOTE | 2018-12-16 01:22 | NUR ---
NURSE NOTES: called Dr Mancilla. pt requesting more pain medication. left a message, awaiting for callback
--- NOTE | 2018-12-16 01:30 | NUR ---
NURSE NOTES: called back. no new orders for pain medication
--- NOTE | 2018-12-16 03:03 | NUR ---
NURSE NOTES: pt sleeping no s/s of pain at this time. will continue to monitor
[2018-12-16 04:00] VITALS: BP 123/70
--- NOTE | 2018-12-16 06:50 | NUR ---
NURSE NOTES: pt remains in stable condition, no acute distress noted, bed locked and at the lowest position, call light within reach, all needs met during my shift. will endorse pt to incoming Nurse.
--- NOTE | 2018-12-16 07:23 | NUR ---
HAND-OFF: Report given to Belinda FINNEGAN.
--- NOTE | 2018-12-16 07:27 | NUR ---
NURSE NOTES: I received the patient resting in bed. Patient awakes to name. Bed in the lowest position and call light within reach. Patient does not display any signs of distress or SOB.
[2018-12-16] MEDS: Albuterol/Ipratropium 3ml neb HHN SCH ×2 (07:30→13:05)
[2018-12-16 07:40] LABS: BASOPHILS % (AUTO) 0.2 % (0.0-2.0); HEMATOCRIT 32.4 % (37.0-47.0); HEMOGLOBIN 10.3 G/DL (12.0-16.0); MEAN CORPUSCULAR VOLUME 92 FL (80-99); MONOCYTES % (AUTO) 8.1 % (1.0-10.0); NEUTROPHILS % (AUTO) 81.7 % (45.0-75.0); PLATELET COUNT 326 K/UL (150-450); RED BLOOD COUNT 3.54 M/UL (4.20-5.40); RED CELL DISTRIBUTION WIDTH 15.9 % (11.6-14.8); WHITE BLOOD COUNT 8.2 K/UL (4.8-10.8)
[2018-12-16 08:01] VITALS: BP 119/75
[2018-12-16 08:01] LABS: ANION GAP 4 mmol/L (5-15); BLOOD UREA NITROGEN 23 mg/dL (7-18); CALCIUM 8.7 MG/DL (8.5-10.1); CARBON DIOXIDE 34 MMOL/L (21-32); CHLORIDE 99 MMOL/L (98-107); CREATININE 0.8 MG/DL (0.55-1.30); POTASSIUM 4.3 MMOL/L (3.5-5.1); SODIUM 137 MMOL/L (136-145)
--- NOTE | 2018-12-16 08:58 | General Progress Note ---
Assessment/Plan Status: stable Assessment: 1. COPD Exacerbation - improved. D/C planning to [facility] rehab today. refused bipap. 2, HTN - cont amlodipine 5 mg daily and toprol XL 25 mg one po daily. 3. Paroxysmal A Fib - On eliquis 5 mg one po bid. 4. CAD with hx of [place] 5. HLD 6. Neuropathy 7. Chronic Low Back Pain 8. h/o Lt shoulder rotator cuff tear 9. Pacemaker - cardiology following. 10. Altered mental status due to Hypoxia and COPD exacerbation in ER on - resolved following txt in ER and improvement of patient Oxygen. Subjective Date patient seen: Dec 16, 2018 Time patient seen: 08:30 Constitutional: Reports: weakness HEENT: Reports: no symptoms Cardiovascular: Reports: no symptoms Respiratory: Reports: no symptoms Gastrointestinal/Abdominal: Reports: no symptoms Genitourinary: Reports: no symptoms Neurologic/Psychiatric: Reports: no symptoms Endocrine: Reports: no symptoms Hematologic/Lymphatic: Reports: no symptoms Allergies: Coded Allergies: CYCLOBENZAPRINE (Verified Allergy, Unknown, 12/11/18) IBUPROFEN (Verified Allergy, Unknown, 12/11/18) MELATONIN (Verified Allergy, Unknown, 12/11/18) SULFA (SULFONAMIDE ANTIBIOTICS) (Verified Allergy, Unknown, 12/11/18) Subjective Today, she is doing well. Her breathing is better. She refused bipap. Afebrile. No chest pain. Objective Last 24 Hour Vital Signs Date Time Temp Pulse Resp B/P (MAP) Pulse Ox O2 Delivery O2 Flow Rate FiO2 12/16/18 08:01 97.2 83 20 119/75 (90) 95 12/16/18 07:38 82 18 94 Nasal Cannula 4.0 36 12/16/18 07:31 81 18 90 Room Air 21 12/16/18 04:00 80 12/16/18 04:00 98.6 82 19 123/70 (87) 96 12/16/18 00:00 84 12/16/18 00:00 99.0 105 17 130/83 (99) 96 12/15/18 23:55 Nasal Cannula 12/15/18 23:55 Nasal Cannula 12/15/18 21:00 Nasal Cannula 4.0 12/15/18 20:00 88 12/15/18 20:00 99.4 110 17 139/85 (103) 97 12/15/18 19:08 75 16 98 Nasal Cannula 4.0 36 12/15/18 18:58 72 16 98 Nasal Cannula 4.0 36 12/15/18 17:48 98.8 12/15/18 16:00 98.8 91 17 116/64 (81) 96 12/15/18 16:00 4.0 12/15/18 15:55 98.8 12/15/18 15:07 102 12/15/18 13:04 72 16 98 Nasal Cannula 4.0 36 12/15/18 12:56 75 16 98 Nasal Cannula 4.0 36 12/15/18 12:00 98.8 92 17 125/82 (96) 96 12/15/18 12:00 4.0 12/15/18 11:42 93 12/15/18 09:00 Nasal Cannula 4.0 Intake and Output 12/15/18 12/16/18 18:59 06:59 Intake Total 740 ml 480 ml Output Total 600 ml 1200 ml Balance 140 ml -720 ml Intake Oral 740 ml 480 ml Output Urine Total 600 ml 1200 ml # Voids 2 Laboratory Tests 12/16/18 05:43: White Blood Count 8.2, Red Blood Count 3.54L, Hemoglobin 10.3L, Hematocrit 32.4L , Mean Corpuscular Volume 92, Mean Corpuscular Hemoglobin 29.0, Mean Corpuscular Hemoglobin Concent 31.6L, Red Cell Distribution Width 15.9H, Platelet Count 326, Mean Platelet Volume 5.5L, Neutrophils (%) (Auto) 81.7H, Lymphocytes (%) (Auto) 10.0L, Monocytes (%) (Auto) 8.1, Eosinophils (%) (Auto) 0.0, Basophils (%) (Auto) 0.2, Sodium Level 137, Potassium Level 4.3, Chloride Level 99, Carbon Dioxide Level 34H, Anion Gap 4L, Blood Urea Nitrogen 23H, Creatinine 0.8, Estimat Glomerular Filtration Rate , Glucose Level 161H, Calcium Level 8.7 Height (Feet): 5 Height (Inches): 1.00 Weight (Pounds): 92 General Appearance: no apparent distress, alert EENT: normal ENT inspection Neck: non-tender, supple Cardiovascular: normal rate, regular rhythm Respiratory/Chest: chest wall non-tender, lungs clear, normal breath sounds Abdomen: non tender, soft Extremities: normal range of motion, non-tender Edema: no edema noted Arm (L), no edema noted Arm (R), no edema noted Leg (L), no edema noted Leg (R), no edema noted Pedal (L), no edema noted Pedal (R), no edema noted Generalized Neurologic: alert, oriented x 3, responsive Skin: warm/dry Lymphatic: normal anterior cervical (L), normal anterior cervical (R), normal posterior cervical (L), normal posterior cervical (R), normal submandibular (L) , normal submandibular (R), normal supraclavicular (L), normal supraclavicular ( R), normal axillary (L), normal axillary (R), normal inguinal (L), normal inguinal (R), normal other Wally Mancilla MD Dec 16, 2018 08:58
[2018-12-16] MEDS: Cefepime HCl 2 GM in D5W 55 ML IVPB SCH (09:00)
[2018-12-16] MEDS ORDERED: DUONEB 0.5-3(2.53 ML HHN (09:04)
[2018-12-16] MEDS ORDERED: PREDNISONE20 MG ORAL (09:04)
[2018-12-16] MEDS ORDERED: LIDODERM700 M1 TDERMAL (09:04)
[2018-12-16] MEDS ORDERED: PREDNISONE10 MG ORAL (09:08)
[2018-12-16] MEDS ORDERED: PREDNISONE5 MG ORAL (09:09)
[2018-12-16] MEDS: Metoprolol Succinate XL 25mg tab ORAL SCH (09:11)
[2018-12-16] MEDS: Doxycycline Monohydrate 100mg ORAL SCH (09:11)
[2018-12-16] MEDS: Multivitamin w/Minerals tab ORAL SCH (09:11)
[2018-12-16] MEDS: MS Contin 15mg tab ORAL SCH ×2 (09:11→13:15)
[2018-12-16] MEDS ORDERED: VIBRAMYCIN100 MG ORAL (09:17)
[2018-12-16] MEDS ORDERED: CEFEPIME-D2 GM/50 ML IVPB (09:17)
[2018-12-16] MEDS: Eliquis 2.5mg tablet ORAL SCH (09:18)
[2018-12-16] MEDS: Flonase Nasal Inhaler 16gm NASAL SCH (09:18)
--- NOTE | 2018-12-16 11:33 | NUR ---
RD ASSESSMENT & RECOMMENDATIONS SEE CARE ACTIVITY FOR COMPLETE ASSESSMENT DAILY ESTIMATED NEEDS: Needs based on Underweight, pulmonary 42kg 30-35 kcals/kg 1116-0990 total kcals 1.0-1.5 g protein/kg 42-63 g total protein 25-30 mL/kg 6611-3081 total fluid mLs NUTRITION DIAGNOSIS: Increased kcal and protein needs r/t wasting and underweight status as evidenced by pt is 88% of [place] Body Weight, presents w/ generalized moderate wasting. CURRENT DIET: Regular PO DIET RECOMMENDATIONS: [place] Regular diet (texture per UPPER TRIMMER) ADDITIONAL RECOMMENDATIONS: 1) Obtain a calibrated bed scale wt 2) Non oral feeds if indicated, part of POC 3) Ensure TID w/ meals w/ oral diet 4) UPPER TRIMMER eval for appropriate texture 5) Bowel regimen-> last BM recorded on 12/10 6) niss prn, pt on solumedrol
[2018-12-16 12:00] VITALS: BP 129/79
--- NOTE | 2018-12-16 12:05 | Cardiology Report ---
APPROVED REPORT EKG Measurement Heart [id number] Normal sinus rhythm Septal infarct, age undetermined Abnormal ECG
--- NOTE | 2018-12-16 12:07 | Pulmonology Progress Note ---
Assessment/Plan Problems: (1) COPD (chronic obstructive pulmonary disease) (2) Bronchitis, acute, with bronchospasm (3) Atrial fibrillation (4) UTI (urinary tract infection) (5) Dyspnea (6) Hypercapnemia Assessment/Plan Optimize pulmonary hygiene/mobilize as tolerated PRN O2 Refused BiPAP RTC and PRN HHN's Pred 30 and taper Doxy 100 BID to complete 7 days DVT Px: A/C Aspiration precautions Consideration for outpatient pulmonary evaluation, PFT's and CT Stable from a pulmonary standpoint to D/C back to SNF Subjective Allergies: Coded Allergies: CYCLOBENZAPRINE (Verified Allergy, Unknown, 12/11/18) IBUPROFEN (Verified Allergy, Unknown, 12/11/18) MELATONIN (Verified Allergy, Unknown, 12/11/18) SULFA (SULFONAMIDE ANTIBIOTICS) (Verified Allergy, Unknown, 12/11/18) Subjective AFVSS O2 needs stable Denies SOB no cough no wheezing Refused BiPAP Objective Last 24 Hour Vital Signs Date Time Temp Pulse Resp B/P (MAP) Pulse Ox O2 Delivery O2 Flow Rate FiO2 12/16/18 09:11 83 119/75 12/16/18 09:11 83 119/75 12/16/18 09:00 Nasal Cannula 4.0 12/16/18 08:01 97.2 83 20 119/75 (90) 95 12/16/18 07:38 82 18 94 Nasal Cannula 4.0 36 12/16/18 07:35 71 12/16/18 07:31 81 18 90 Room Air 21 12/16/18 04:00 80 12/16/18 04:00 98.6 82 19 123/70 (87) 96 12/16/18 00:00 84 12/16/18 00:00 99.0 105 17 130/83 (99) 96 12/15/18 23:55 Nasal Cannula 12/15/18 23:55 Nasal Cannula 12/15/18 21:00 Nasal Cannula 4.0 12/15/18 20:00 88 12/15/18 20:00 99.4 110 17 139/85 (103) 97 12/15/18 19:08 75 16 98 Nasal Cannula 4.0 36 12/15/18 18:58 72 16 98 Nasal Cannula 4.0 36 12/15/18 17:48 98.8 12/15/18 16:00 98.8 91 17 116/64 (81) 96 12/15/18 16:00 4.0 12/15/18 15:55 98.8 12/15/18 15:07 102 12/15/18 13:04 72 16 98 Nasal Cannula 4.0 36 12/15/18 12:56 75 16 98 Nasal Cannula 4.0 36 Intake and Output 12/15/18 12/16/18 18:59 06:59 Intake Total 740 ml 480 ml Output Total 600 ml 1200 ml Balance 140 ml -720 ml Intake Oral 740 ml 480 ml Output Urine Total 600 ml 1200 ml # Voids 2 General Appearance: no acute distress, cachetic HEENT: normocephalic, atraumatic, anicteric, mucous membranes moist Respiratory/Chest: chest wall non-tender, lungs clear - but distant, no respiratory distress, no accessory muscle use Cardiovascular: normal peripheral pulses, normal rate, regular rhythm Abdomen: normal bowel sounds, soft, non tender, no organomegaly, non distended , no mass Extremities: no cyanosis, no clubbing, no edema Microbiology Date/Time Source Procedure Growth Status 12/14/18 17:15 Blood Blood Culture - Preliminary NO GROWTH AFTER 24 HOURS Resulted 12/14/18 17:00 Blood Blood Culture - Preliminary NO GROWTH AFTER 24 HOURS Resulted 12/14/18 18:50 Urine,Clean Catch Urine Culture - Preliminary Gram Negative Junior Resulted Laboratory Tests 12/16/18 05:43: White Blood Count 8.2, Red Blood Count 3.54L, Hemoglobin 10.3L, Hematocrit 32.4L , Mean Corpuscular Volume 92, Mean Corpuscular Hemoglobin 29.0, Mean Corpuscular Hemoglobin Concent 31.6L, Red Cell Distribution Width 15.9H, Platelet Count 326, Mean Platelet Volume 5.5L, Neutrophils (%) (Auto) 81.7H, Lymphocytes (%) (Auto) 10.0L, Monocytes (%) (Auto) 8.1, Eosinophils (%) (Auto) 0.0, Basophils (%) (Auto) 0.2, Sodium Level 137, Potassium Level 4.3, Chloride Level 99, Carbon Dioxide Level 34H, Anion Gap 4L, Blood Urea Nitrogen 23H, Creatinine 0.8, Estimat Glomerular Filtration Rate , Glucose Level 161H, Calcium Level 8.7 Current Medications Medications (Trade) Dose Ordered Sig/Sonny Route PRN Reason Start Time Stop Time Status Last Admin Dose Admin Acetaminophen (Tylenol) 650 mg Q6H PRN ORAL Mild Pain/Temp > 100.5 12/15/18 05:30 01/14/19 05:29 Al Hydroxide/Mg Hydroxide (Mylanta) 30 ml Q6H PRN ORAL gastric discomfort 12/15/18 15:30 01/14/19 15:29 12/15/18 15:25 Albuterol/ Ipratropium (Albuterol/ Ipratropium) 3 ml Q4H PRN HHN Shortness of Breath 12/13/18 17:53 12/18/18 17:52 Albuterol/ Ipratropium (Albuterol/ Ipratropium) 3 ml Q6HRT HHN 12/13/18 19:00 12/18/18 12:59 12/16/18 07:30 Amlodipine Besylate (Norvasc) 5 mg DAILY ORAL 12/14/18 09:00 01/11/19 08:59 12/16/18 09:11 Apixaban (Eliquis) 5 mg BID ORAL 12/14/18 09:00 01/13/19 08:59 12/16/18 09:18 Cefepime HCl 2 gm/ Dextrose 55 ml @ 110 mls/hr EVERY 12 HOURS IVPB 12/14/18 17:00 12/21/18 16:59 12/15/18 20:25 Doxycycline Monohydrate (Vibramycin) 100 mg EVERY 12 HOURS ORAL 12/13/18 21:00 12/19/18 20:59 12/16/18 09:11 Fluticasone Propionate (Flonase) 1 spray TWICE A DAY NASAL 12/14/18 09:00 01/13/19 08:59 12/16/18 09:18 Gabapentin (Neurontin) 900 mg THREE TIMES A DAY ORAL 12/14/18 09:00 01/13/19 08:59 12/16/18 09:11 Lidocaine (Lidoderm 5% PATCH) 1 patch DAILY TDERMAL 12/15/18 13:00 01/14/19 12:44 12/16/18 09:11 Metoprolol Succinate (Toprol XL) 25 mg DAILY ORAL 12/14/18 09:00 01/11/19 08:59 12/16/18 09:11 Morphine Sulfate (MS Contin) 45 mg TID ORAL 12/14/18 09:00 12/21/18 08:59 12/16/18 09:11 Multivitamins Therapeutic (Therapeutic Multivitamin) 1 ea DAILY ORAL 12/14/18 09:00 01/11/19 08:59 12/16/18 09:11 Pantoprazole (Protonix) 40 mg ACBREAKFAST ORAL 12/15/18 09:15 01/14/19 09:14 12/16/18 05:58 Prednisone (predniSONE) 30 mg DAILY ORAL 12/14/18 09:00 01/13/19 08:59 12/16/18 09:10 Tiotropium [place] (Spiriva Inhaler) 1 puff DAILY INH 12/14/18 09:00 01/11/19 08:59 12/15/18 09:17 Tramadol HCl (Ultram) 50 mg Q8H PRN ORAL Severe Pain (Pain Scale 7-10) 12/13/18 17:54 12/20/18 17:53 12/16/18 00:22 Sánchez Lam MD Dec 16, 2018 12:07
--- NOTE | 2018-12-16 12:09 | NUR ---
[employer] OFFICE NOTES PT ACCEPTED BACK TO [facility] RO[facility] 108 BED A SKILLED. NCM TO ARRANGE TRANSPORTATION.
--- NOTE | 2018-12-16 12:47 | Cardiac Electrophysiology PN ---
Assessment/Plan Assessment/Plan 1. Paroxysmal atrial fibrillation. In sinus rhythm on Eliquis 5 mg bid and Toprol-XL 25 mg daily. 2. History of hypertension. On Toprol. 3. Status post pacemaker implantation with unknown brand. 4. Hypertension. On Norvasc 5 and Toprol-XL 25 mg daily. 5. COPD. On nebulizer and prednisone. 6. Mitral regurgitation. Echo EF 55% 7. History of SVT. DC planning today Subjective Subjective No CP or SOB.In SR . DC planning in progress. Objective Last 24 Hour Vital Signs Date Time Temp Pulse Resp B/P (MAP) Pulse Ox O2 Delivery O2 Flow Rate FiO2 12/16/18 12:00 97.6 84 19 129/79 (96) 97 12/16/18 09:41 97.6 12/16/18 09:11 83 119/75 12/16/18 09:11 83 119/75 12/16/18 09:00 Nasal Cannula 4.0 12/16/18 08:01 97.2 83 20 119/75 (90) 95 12/16/18 07:38 82 18 94 Nasal Cannula 4.0 36 12/16/18 07:35 71 12/16/18 07:31 81 18 90 Room Air 21 12/16/18 04:00 80 12/16/18 04:00 98.6 82 19 123/70 (87) 96 12/16/18 00:00 84 12/16/18 00:00 99.0 105 17 130/83 (99) 96 12/15/18 23:55 Nasal Cannula 12/15/18 23:55 Nasal Cannula 12/15/18 21:00 Nasal Cannula 4.0 12/15/18 20:00 88 12/15/18 20:00 99.4 110 17 139/85 (103) 97 12/15/18 19:08 75 16 98 Nasal Cannula 4.0 36 12/15/18 18:58 72 16 98 Nasal Cannula 4.0 36 12/15/18 16:00 98.8 91 17 116/64 (81) 96 12/15/18 16:00 4.0 12/15/18 15:55 98.8 12/15/18 15:07 102 12/15/18 13:04 72 16 98 Nasal Cannula 4.0 36 12/15/18 12:56 75 16 98 Nasal Cannula 4.0 36 Intake and Output 4/21/19 4/22/19 18:59 06:59 Intake Total 740 ml 480 ml Output Total 600 ml 1200 ml Balance 140 ml -720 ml Intake Oral 740 ml 480 ml Output Urine Total 600 ml 1200 ml # Voids 2 Laboratory Tests Test 12/16/18 05:43 White Blood Count 8.2 K/UL (4.8-10.8) Red Blood Count 3.54 M/UL (4.20-5.40) L Hemoglobin 10.3 G/DL (12.0-16.0) L Hematocrit 32.4 % (37.0-47.0) L Mean Corpuscular Volume 92 FL (80-99) Mean Corpuscular Hemoglobin 29.0 PG (27.0-31.0) Mean Corpuscular Hemoglobin Concent 31.6 G/DL (32.0-36.0) L Red Cell Distribution Width 15.9 % (11.6-14.8) H Platelet Count 326 K/UL (150-450) Mean Platelet Volume 5.5 FL (6.5-10.1) L Neutrophils (%) (Auto) 81.7 % (45.0-75.0) H Lymphocytes (%) (Auto) 10.0 % (20.0-45.0) L Monocytes (%) (Auto) 8.1 % (1.0-10.0) Eosinophils (%) (Auto) 0.0 % (0.0-3.0) Basophils (%) (Auto) 0.2 % (0.0-2.0) Sodium Level 137 MMOL/L (136-145) Potassium Level 4.3 MMOL/L (3.5-5.1) Chloride Level 99 MMOL/L (98-107) Carbon Dioxide Level 34 MMOL/L (21-32) H Anion Gap 4 mmol/L (5-15) L Blood Urea Nitrogen 23 mg/dL (7-18) H Creatinine 0.8 MG/DL (0.55-1.30) Estimat Glomerular Filtration Rate mL/min (>60) Glucose Level 161 MG/DL (74-106) H Calcium Level 8.7 MG/DL (8.5-10.1) Microbiology Date/Time Source Procedure Growth Status 12/14/18 17:15 Blood Blood Culture - Preliminary NO GROWTH AFTER 24 HOURS Resulted 12/14/18 17:00 Blood Blood Culture - Preliminary NO GROWTH AFTER 24 HOURS Resulted 12/14/18 18:50 Urine,Clean Catch Urine Culture - Preliminary Gram Negative Junior Resulted Objective HEAD AND NECK: No JVD. LUNGS: Coarse rhonchi. CARDIOVASCULAR: Regular S1 and S2 with 2/6 systolic murmur. The pacemaker in the right subclavian. ABDOMEN: Soft. EXTREMITIES: No pitting edema. Jarrod Gutierrez MD Dec 16, 2018 12:47
--- NOTE | 2018-12-16 13:53 | NUR ---
NURSE NOTES: Patient discharged in stable condition. Patient's telemetry box removed. Patient IV was discontinued. Patient confirmed she was in possession of all her belongings. Patient transported via ambulance to [facility]. Report given to RN Associate Professor Of Literacy. Patient in stable condition and did not display any signs of distress.
--- NOTE | 2018-12-16 16:45 | Infectious Diseases Prog Note ---
Assessment/Plan Problems: (1) Bronchitis, acute, with bronchospasm Assessment & Plan: possible pneumonia , continue cefepime and Doxycycline empirically for now, with inhalers. monitor in tele (2) Leukocytosis Assessment & Plan: rule out sepsis , await repeated blood culture and continue cefepime with doxycycline pending results. repeated CXR showed interstitial infiltrates concerning for pneumonia . taper steroids (3) COPD (chronic obstructive pulmonary disease) Assessment & Plan: with exacerbation, continue antibiotics, inhalers and steroids (4) Altered level of consciousness Assessment & Plan: suspect due to hypercapnia , improved. monitor ABG (5) UTI (urinary tract infection) Assessment & Plan: already on cefepime pending culture Subjective Constitutional: Reports: no symptoms HEENT: Reports: no symptoms Respiratory: Reports: dry cough Breasts: Reports: no symptoms Cardiovascular: Reports: no symptoms Gastrointestinal/Abdominal: Reports: no symptoms Genitourinary: Reports: no symptoms Neurologic: Reports: no symptoms Psychiatric: Reports: no symptoms Skin: Reports: no symptoms Endocrine: Reports: no symptoms Hematologic: Reports: no symptoms Musculoskeletal: Reports: no symptoms Allergies: Coded Allergies: CYCLOBENZAPRINE (Verified Allergy, Unknown, 12/11/18) IBUPROFEN (Verified Allergy, Unknown, 12/11/18) MELATONIN (Verified Allergy, Unknown, 12/11/18) SULFA (SULFONAMIDE ANTIBIOTICS) (Verified Allergy, Unknown, 12/11/18) Objective Vital Signs Last 24 Hour Vital Signs Date Time Temp Pulse Resp B/P (MAP) Pulse Ox O2 Delivery O2 Flow Rate FiO2 12/16/18 13:45 97.6 12/16/18 13:10 81 20 98 Nasal Cannula 4.0 36 12/16/18 13:06 79 20 97 Nasal Cannula 4.0 36 12/16/18 12:00 97.6 84 19 129/79 (96) 97 12/16/18 09:11 83 119/75 12/16/18 09:11 83 119/75 12/16/18 09:00 Nasal Cannula 4.0 12/16/18 08:01 97.2 83 20 119/75 (90) 95 12/16/18 07:38 82 18 94 Nasal Cannula 4.0 36 12/16/18 07:35 71 12/16/18 07:31 81 18 90 Room Air 21 12/16/18 04:00 80 12/16/18 04:00 98.6 82 19 123/70 (87) 96 12/16/18 00:00 84 12/16/18 00:00 99.0 105 17 130/83 (99) 96 12/15/18 23:55 Nasal Cannula 12/15/18 23:55 Nasal Cannula 12/15/18 21:00 Nasal Cannula 4.0 12/15/18 20:00 88 12/15/18 20:00 99.4 110 17 139/85 (103) 97 12/15/18 19:08 75 16 98 Nasal Cannula 4.0 36 12/15/18 18:58 72 16 98 Nasal Cannula 4.0 36 Height (Feet): 5 Height (Inches): 1.00 Weight (Pounds): 92 General Appearance: WD/WN, no acute distress HEENT: normocephalic, atraumatic, anicteric, mucous membranes moist, PERRL Respiratory/Chest: chest wall non-tender, no respiratory distress, no accessory muscle use, decreased breath sounds, expiratory wheezing Cardiovascular: normal peripheral pulses, normal rate, regular rhythm, no gallop/murmur, no JVD Abdomen: normal bowel sounds, soft, non tender, no organomegaly, non distended , no mass, no scars Genitourinary: normal external genitalia Extremities: no cyanosis, no clubbing Skin: no rash, no lesions, no ulcers Neurologic/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: 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, no motor/sensory deficits, abnormal gait, alert, oriented x 3, responsive Lymphatic: no neck adenopathy, no groin adenopathy Musculoskeletal: normal muscle bulk, no effusion Microbiology Date/Time Source Procedure Growth Status 12/14/18 17:15 Blood Blood Culture - Preliminary NO GROWTH AFTER 24 HOURS Resulted 12/14/18 17:00 Blood Blood Culture - Preliminary NO GROWTH AFTER 24 HOURS Resulted 12/14/18 18:50 Urine,Clean Catch Urine Culture - Preliminary Gram Negative Junior Resulted Laboratory Tests Test 12/16/18 05:43 White Blood Count 8.2 K/UL (4.8-10.8) Red Blood Count 3.54 M/UL (4.20-5.40) L Hemoglobin 10.3 G/DL (12.0-16.0) L Hematocrit 32.4 % (37.0-47.0) L Mean Corpuscular Volume 92 FL (80-99) Mean Corpuscular Hemoglobin 29.0 PG (27.0-31.0) Mean Corpuscular Hemoglobin Concent 31.6 G/DL (32.0-36.0) L Red Cell Distribution Width 15.9 % (11.6-14.8) H Platelet Count 326 K/UL (150-450) Mean Platelet Volume 5.5 FL (6.5-10.1) L Neutrophils (%) (Auto) 81.7 % (45.0-75.0) H Lymphocytes (%) (Auto) 10.0 % (20.0-45.0) L Monocytes (%) (Auto) 8.1 % (1.0-10.0) Eosinophils (%) (Auto) 0.0 % (0.0-3.0) Basophils (%) (Auto) 0.2 % (0.0-2.0) Sodium Level 137 MMOL/L (136-145) Potassium Level 4.3 MMOL/L (3.5-5.1) Chloride Level 99 MMOL/L (98-107) Carbon Dioxide Level 34 MMOL/L (21-32) H Anion Gap 4 mmol/L (5-15) L Blood Urea Nitrogen 23 mg/dL (7-18) H Creatinine 0.8 MG/DL (0.55-1.30) Estimat Glomerular Filtration Rate mL/min (>60) Glucose Level 161 MG/DL (74-106) H Calcium Level 8.7 MG/DL (8.5-10.1) Saravanan Serrato M.D. Dec 16, 2018 16:45
--- NOTE | 2018-12-16 22:30 | Discharge Summary ---
DATE OF ADMISSION: 12/11/2018 DATE OF DISCHARGE: 12/16/2018 HOSPITAL COURSE: This is a 72-year-old female with history of hypertension, COPD, SVT, paroxysmal atrial fibrillation with mitral regurgitation and chronic low back and left shoulder pain, who was brought in for complaint of altered mental status and hypercapnia and chronic obstructive pulmonary disease exacerbation. The patient was treated with BiPAP and steroid and IV antibiotics. She was started on cefepime and doxycycline for bronchitis and UTI with possible pneumonia. The patient responded to treatment and the patient will be transferred back to the [facility] for further IV antibiotics and follow-up care. FINAL DIAGNOSES: Include 1. Acute bronchitis. 2. Chronic obstructive pulmonary disease exacerbation. 3. Urinary tract infection. 4. Hypertension. 5. Paroxysmal atrial fibrillation. 6. Coronary artery disease with history of myocardial infarction. 7. Hyperlipidemia. 8. Neuropathy. 9. Chronic low back pain with radiculopathy. 10. Pacemaker. 11. History of left shoulder rotator cuff tear. DISCHARGE MEDICATIONS: 1. DuoNeb every 4 hours as needed. 2. Lidoderm patch, apply 12 hours on and 12 hours off. 3. Prednisone tapering dose starting with 20 mg daily for a week, then 10 mg for 5 days and 5 mg for 5 days. 4. Amlodipine 5 mg daily. 5. Eliquis 5 mg b.i.d. 6. Aspirin 81 mg daily. 7. Atorvastatin 20 mg at bedtime. 8. Cefepime IV q. 12 h for 7 days. 9. Doxycycline 100 mg p.o. b.i.d. for seven days. 10. Gabapentin 600 mg t.i.d. 11. Morphine 15 mg three times a day as needed. 12. Multivitamin one p.o. daily. 13. Omeprazole 40 mg daily. 14. Spiriva cap one puff Inh daily. DISPOSITION: The patient will be discharged back to the [facility] and I will follow the patient as in the rehab. Wally Mancilla M.D. DR: Sarina JOB#: [id number] CC: MIKEY
== END 2018-12-16 14:00 | DRG 192 ==
LOC: EDBD 18:58 → EMR 19:43 → 2W 20:07 → EDBEDREQSVC 20:35 → EDBEDREQ 20:35 → 2E 12-13 17:40
PROC: 5A09357 Assistance with Respiratory Ventilation, Less than 24 Consecutive Hours, Continuous Positive Airway Pressure (ICD-10-PCS; principal; 2018-12-11)
DX: J44.0 Chronic obstructive pulmonary disease with (acute) lower respiratory infection (principal); J44.1 Chronic obstructive pulmonary disease with (acute) exacerbation; I48.0 Paroxysmal atrial fibrillation; I48.91 Unspecified atrial fibrillation; R09.02 Hypoxemia; Z88.6 Allergy status to analgesic agent; Z88.4 Allergy status to anesthetic agent; Z88.2 Allergy status to sulfonamides; Z88.8 Allergy status to other drugs, medicaments and biological substances; I10 Essential (primary) hypertension; Z95.0 Presence of cardiac pacemaker; I25.10 Atherosclerotic heart disease of native coronary artery without angina pectoris; I25.2 Old myocardial infarction; I34.0 Nonrheumatic mitral (valve) insufficiency; J20.9 Acute bronchitis, unspecified; E78.5 Hyperlipidemia, unspecified; G62.9 Polyneuropathy, unspecified; M54.16 Radiculopathy, lumbar region; G89.4 Chronic pain syndrome; F17.200 Nicotine dependence, unspecified, uncomplicated
CPT/HCPCS: 36415; 36600; 71045; 80048; 80053; 81001; 81003; 82140; 82550; 82553; 82803; 83605; 83690; 83880; 84484; 85025; 85610; 85730; 87040; 87081; 87086; 87181; 93005; 93306; 94640; 94660; 94664; 96361; 96374; 99291; J7620

== ENCOUNTER 2019-04-17 22:17 | Inpatient (IN) | payer MEDICARE, MEDICAID ==
[~2019-04-17] VITALS: Ht 160 cm; Wt 54.9 kg
[~2019-04-17 22:17] MED LIST: ASPIRIN81 MG ORAL; ATORVASTATIN CA20 MG ORAL; CEFEPIME-D2 GM/50 ML IVPB; DUONEB 0.5-3(2.53 ML HHN; ELIQUIS5 MG PO; FLECAINIDE ACET50 M1 PO; GABAPENTIN600 MG ORAL; LIDOCAINE700 M1 TP; LIDODERM700 M1 TDERMAL; MORPHINE S10 MG/5 ML ORAL; MULTIVITAMINS1 EAC8 ORAL; NORVASC5 MG ORAL; OMEPRAZOLE40 M1 ORAL; PREDNISONE10 MG ORAL; PREDNISONE20 MG ORAL; PREDNISONE5 MG ORAL; SPIRIVA INHALE1 PUF1 INH; VENTOLIN HFA18 GM INH; VIBRAMYCIN100 MG ORAL
[2019-04-17] MEDS ORDERED: Ipratropium 0.02% Inh Soln 2.5ml UD HHN ONE (22:30)
[2019-04-17] MEDS ORDERED: Albuterol ud Inhalation HHN ONE (22:30)
[2019-04-17] MEDS ORDERED: Solu-MEDROL 125mg Inj IVP ONE (22:30)
--- NOTE | 2019-04-17 22:30 | NUR ---
ED Nurse Note: RECIEVED PT BIBA FROM SNF WITH C/O INTERMITTENT LOW GRADE FEVERS AND INCREASED AGITATION, PT IS EXTREMELY AGITATED AND RESTLESS, CONSTANTLY MOVING ABOUT, KICKING AND PULLING AT EVERYTHING, PT IS AWAKE AND ALERT, PT SPEAKING AND ORIENTED TO NAME AND PLACE, PT IMMEDIATELY PLACED ON CARDIAC MONITORING, B/P LOW, AWARE, PT HAS IV LINES X 2 PATENT IN BUE, SIZE 24 GAUGE, PT RIGHT ARM WITH SEVERE ECHYMOSIS AND SWELLING, ALSO NOTED WITH SKIN TEAR TO RIGHT ARM, KERLIX DRESSING APPLIED, MD GAVE OK TO PLACE IV LINE IN LOWER EXTREMITY, PLACED IN RIGHT FOOT AREA, WILL RESUME CARE ORDERED AND CONTINUE TO CLOSELY MONITOR.
[2019-04-17] MEDS ORDERED: AMIODARONE HCL100 MG ORAL (22:43)
[2019-04-17] MEDS ORDERED: LACTULOSE10 GM/155 PO (22:43)
[2019-04-17] MEDS ORDERED: BEVESPI AEROSPHERE HHN (22:43)
[2019-04-17] MEDS ORDERED: DOCUSATE SODIU100 M2 ORAL (22:43)
[2019-04-17] MEDS ORDERED: OMEPRAZOLE40 M1 ORAL (22:43)
[2019-04-17] MEDS ORDERED: MIRALAX17 G2 ORAL (22:43)
[2019-04-17] MEDS ORDERED: IPRATROPIU0.2 MG/1 M HHN (22:43)
[2019-04-17] MEDS ORDERED: SENNA8.6 M2 PO (22:43)
[2019-04-17] MEDS ORDERED: NAHCO3650 MG PO (22:43)
[2019-04-17] MEDS ORDERED: ZOFRAN4 M1 ORAL (22:43)
[2019-04-17] MEDS ORDERED: FERROUS GLUCON240 MG PO (22:43)
[2019-04-17] MEDS ORDERED: PREDNISONE5 M3 PO (22:43)
[2019-04-17] MEDS ORDERED: MORPHINE IR15 MG ORAL (22:43)
[2019-04-17] MEDS ORDERED: MULTIVITAMINS1 EA13 ORAL (22:43)
[2019-04-17] MEDS ORDERED: VITAMIN D250000 UNI1 ORAL (22:43)
[2019-04-17] MEDS ORDERED: CALCITRIOL0.25 MCG PO (22:43)
[2019-04-17] MEDS ORDERED: BUPROPION HCL200 MG PO (22:43)
[2019-04-17] MEDS ORDERED: SPIRIVA INHALE1 PUF1 INH (22:43)
[2019-04-17] MEDS ORDERED: XOPENEX0.63 MG/3 HHN (22:43)
[2019-04-17] MEDS ORDERED: CARDIZEM LA180 M1 PO (22:43)
[2019-04-17] MEDS ORDERED: NICODERM CQ1 EAC1 TD (22:43)
[2019-04-17] MEDS ORDERED: BISACODYL10 M1 RC (22:43)
[2019-04-17] MEDS ORDERED: TRAZODONE HCL50 MG ORAL (22:43)
[2019-04-17] MEDS ORDERED: LORazepam Inj 2mg/ml 1ml IV ONE (22:45)
[2019-04-17 23:00] VITALS: BP 90/56
[2019-04-17 23:02] LABS: BASOPHILS % (AUTO) 0.5 % (0.0-2.0); EOSINOPHILS % (AUTO) 0.1 % (0.0-3.0); HEMATOCRIT 26.6 % (37.0-47.0); HEMOGLOBIN 9.4 G/DL (12.0-16.0); MEAN CORPUSCULAR VOLUME 93 FL (80-99); NEUTROPHILS % (AUTO) 80.5 % (45.0-75.0); PLATELET COUNT 224 K/UL (150-450); RED BLOOD COUNT 2.87 M/UL (4.20-5.40); WHITE BLOOD COUNT 7.4 K/UL (4.8-10.8)
[2019-04-17 23:14] LABS: ANION GAP 13 mmol/L (5-15); BLOOD UREA NITROGEN 47 mg/dL (7-18); CALCIUM 7.9 MG/DL (8.5-10.1); CARBON DIOXIDE 26 MMOL/L (21-32); CHLORIDE 98 MMOL/L (98-107); CREATININE 2.7 MG/DL (0.55-1.30); POTASSIUM 3.7 MMOL/L (3.5-5.1); SODIUM 136 MMOL/L (136-145)
[2019-04-17 23:15] LABS: INR 1.3 (0.9-1.1)
[2019-04-17 23:27] LABS: ALANINE AMINOTRANSFERASE 138 U/L (12-78); ALBUMIN 2.3 G/DL (3.4-5.0); ALBUMIN/GLOBULIN RATIO 0.6 (1.0-2.7); ALKALINE PHOSPHATASE 120 U/L (46-116); ASPARTATE AMINO TRANSFERASE 128 U/L (15-37); BILIRUBIN,TOTAL 0.3 MG/DL (0.2-1.0); CKMB 10.3 NG/ML (0.0-3.6); CREATINE KINASE 82 U/L (26-308)
[2019-04-17 23:30] VITALS: BP 92/54
[2019-04-18] MEDS ORDERED: Piperacillin/Tazobactam 3.375 GM in NS 110 ML IVPB ONE ×2
[2019-04-18] MEDS ORDERED: Azithromycin 500 MG in NS 275 ML IV ONE ×2
--- NOTE | 2019-04-18 | NUR ---
ED Nurse Note: PT MEDICATED WITH ATIVAN, MEDS VERY EFFECTIVE, PT SLEEPING, AROUSES EASILY, RESTLESSNESS AND AGITATION RESOLVED, PT REMAINS ON MONITORING, WITH SLIGHTLY LOW B/P, IV FLUIDS INFUSING ORDERED, SWABS COLLECTED, PT ALSO NOTED WITH SEVERE REDNESS TO COCCYX/SACRYL AREA, NO OPEN SKIN, PT REPOSITIONED WITH PILLOWS, GARCIA PLACED ALSO AND URINE SENT, WILL CONTINUE TO MONITOR AND PREPARE FOR ADMISSION.
[2019-04-18 00:16] LABS: APPEARANCE,URINE SLIGHTLY CLOUDY; BILIRUBIN, URINE NEGATIVE (NEGATIVE); GLUCOSE, URINE (UA) NEGATIVE (NEGATIVE); KETONES,URINE 1+ (NEGATIVE); LEUKOCYTE ESTERASE ,URINE 2+ (NEGATIVE); NITRITE,URINE NEGATIVE (NEGATIVE); PH,URINE 5 (4.5-8.0); PROTEIN,URINE 1+ (NEGATIVE); UROBILINOGEN,URINE NORMAL MG/DL (0.0-1.0)
[2019-04-18 00:18] LABS: COLOR,URINE YELLOW
[2019-04-18 00:30] VITALS: BP 102/49
--- NOTE | 2019-04-18 01:20 | NUR ---
ED Nurse Note: PT CONTINUES TO REST IN BED, NO S/S NOTED FROM IV ANTIBIOTICS, TOLERATING WELL, TP REMAINS SEDATED FROM ATIVAN, IS AROUSABLE AND DROWSY, IV SITE INTACT AND PATENT IN RIGHT FOOT, PT B/P INCREASING, O2 BIW=795%, PT HAS ROOM FOR ADMISSION, REPORT CALLED TO SIVAN BLANCO, PT BEING TAKEN TO FLOOR UNIT VIA GUVALE AND SCOUT PROTOCOLS WITH RN X 2.
[2019-04-18 01:30] VITALS: BP 104/58
[2019-04-18 01:45] VITALS: BP 102/54
--- NOTE | 2019-04-18 01:45 | NUR ---
NURSE NOTES: Received patient from SIVAN Kumar, from ED. Patient was transferred via gurney in stable condition, sleeping, responsive to stimuli, on O2@2L n/c, VSS, IV site on right foot G 22, patent, asymptomatic, intact. Right wrist IV G24 infiltrated, removed it and elevated the extremity, Left hand IV on middle finger G24 patent, asymptomatic. Right chest pacemaker, F/C draining to gravity, patent, urine cloudy. Belonging list checked and signed , called Dr Mancilla for admission orders, awaiting call back. Bed low&locked, side rails upx3, will continue to monitor.
[2019-04-18] MEDS ORDERED: Ipratropium 0.02% Inh Soln 2.5ml UD HHN PRN ×2 (03:00→05:30)
[2019-04-18] MEDS ORDERED: TraZODone 50mg tab ORAL PRN ×3 (03:00→21:00)
[2019-04-18] MEDS ORDERED: Sennosides 8.6mg tab ORAL PRN ×3 (03:00→21:00)
[2019-04-18] MEDS ORDERED: Albuterol/Ipratropium 3ml neb HHN PRN ×4 (03:00→16:30)
[2019-04-18] MEDS ORDERED: Lactulose 10gm/15ml UDC ORAL PRN ×3 (03:00→18:00)
[2019-04-18] MEDS ORDERED: Morphine IR 15mg tab ORAL PRN ×2 (03:00→15:30)
--- NOTE | 2019-04-18 03:00 | NUR ---
Received admission orders. Noted and carried out.
--- NOTE | 2019-04-18 03:05 | Emergency Room Report ---
History of Present Illness General Chief Complaint: Fever Source: Medical Record Present Illness HPI 73-year-old female presents ED for evaluation. Brought in by EMS from intermediate facility. Reportedly had fever with shortness of breath x1 day. History of COPD. O2 sats low. Placed on oxygen. Patient has dementia. Unable to provide any additional history at this time. No reported coughing. No other aggravating relieving factors. No other associated symptoms Allergies: Coded Allergies: CYCLOBENZAPRINE (Verified Allergy, Unknown, 12/11/18) IBUPROFEN (Verified Allergy, Unknown, 12/11/18) MELATONIN (Verified Allergy, Unknown, 12/11/18) SULFA (SULFONAMIDE ANTIBIOTICS) (Verified Allergy, Unknown, 12/11/18) SULFUR (Unverified Allergy, Unknown, 04/17/19) Uncoded Allergies: CONTRAST (Allergy, Unknown, 04/17/19) Patient History Past Medical History: HTN, COPD, GI bleed, dementia Past Surgical History: none Pertinent Family History: none Social History: Denies: smoking, alcohol use, drug use Now: No Immunizations: UTD Reviewed Nursing Documentation: PMH: Agreed; PSxH: Agreed Nursing Documentation-PMH Hx Cardiac Problems: Yes - right chest pace maker, CHF, ANEMIA,CAD, AFIB Hx Hypertension: Yes Hx COPD: Yes Hx Cancer: No Hx Gastrointestinal Problems: Yes - GI BLEED Hx Neurological Problems: Yes - DEMENTIA Review of Systems All Other Systems: limited Physical Exam Vital Signs Date Time Temp Pulse Resp B/P (MAP) Pulse Ox O2 Delivery O2 Flow Rate FiO2 04/17/19 22:14 99.9 108 28 100/59 (73) 98 15.0 04/17/19 22:40 Non-Rebreather 100 Sp02 EP Interpretation: reviewed, normal General Appearance: no apparent distress, cachetic, lethargic Head: normocephalic Eyes: bilateral eye normal inspection, bilateral eye PERRL ENT: normal ENT inspection Neck: normal inspection Respiratory: decreased breath sounds, crackles, wheezing Cardiovascular #1: regular rate, rhythm, no edema Gastrointestinal: normal inspection Rectal: deferred Genitourinary: no CVA tenderness Musculoskeletal: normal inspection Neurologic: other - dementia Psychiatric: other - dementia Skin: other - see nursing notes Lymphatic: normal inspection Procedures Critical Care Time Critical Care Time i. I feel this is a highly complex case requiring extensive working including EKG/Rhythm strip, Xray/CT/US, Blood/urine lab work, repeat exams while in ED, and administration of strong opiates/narcotics for pain control, admission to hospital or close patient follow up. Total time: 50 min bedside evaluation and treatment excludes procedures (EKG). Reason for critical care: hypotension, COPD, hypoxia Possible complications: hypotension, hypertension, [place], shock, arrhythmias, metabolic acidosis, end organ damage, respiratory failure. Interventions: labs, EKG, CXR, IVFs, nebulizer treatments, solumedrol, antibotics Course: Presenting with shortness of breath, fever. History of COPD. Chest x- ray shows interstitial disease. Renal insufficiency. EKGnormal sinus rhythm no acute ischemic changes. Patient hypotensive. Placed in Trendelenburg with IV fluids given with BP improved. Antibiotics given. Consultations: nursing staff, EMS, family Performed by: Dr Cook Tolerated well condition = serious j. because of unstable vital signs this patient had a condition that could potentially threaten life or limb. I feel this is a critical patient who required my full attention while patient was considered critical. Total Critical Care Time excluding procedures was greater than 60 minutes Medical Decision Making Diagnostic Impression: Primary Impression: Fever Qualified Codes: R50.9 - Fever, unspecified Additional Impressions: COPD (chronic obstructive pulmonary disease) Qualified Codes: J44.9 - Chronic obstructive pulmonary disease, unspecified UTI (urinary tract infection) Qualified Codes: N39.0 - Urinary tract infection, site not specified Renal insufficiency Hypotension Qualified Codes: I95.9 - Hypotension, unspecified ER Course Hospital Course 73-year-old F presenting to ED with SOB. h/o COPD Differential diagnoses include: Pneumonia, CHF exacerbation, pneumothorax, fluid overload Clinical course Patient placed on stretcher. 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 After initial history and physical, I ordered nebulizer treatments. I ordered labs, IV fluids, EKG, chest x-ray, blood cultures, UA. Labs - no leukocytosis noted, hemoglobin/hematocrit stable, BUN/Cr elevated, trop negative, lactic ok, UA + bacteria CXR - hyperinflated lungs. interstitial disease EKG - NSR, no acute ischemic changes interpreted by me hypotension slowly improved after IV fluid bolus and Trendelenburg. Given broad-spectrum antibiotics. Given Solu-Medrol. Case discussed with Dr. Mancilla and he agreed to the patient to his service for further care and support I feel this is a highly complex case requiring extensive working including EKG/ Rhythm strip, Xray/CT/US, Blood/urine lab work, repeat exams while in ED, and administration of strong opiates/narcotics for pain control, admission to hospital or close patient follow up. Diagnosis - COPD exacerbation, fever, UTI, renal insufficiency, hypotension Patient admitted to telemetry in serious condition Labs Test 04/17/19 22:30 04/18/19 00:00 White Blood Count 7.4 K/UL (4.8-10.8) Red Blood Count 2.87 M/UL (4.20-5.40) Hemoglobin 9.4 G/DL (12.0-16.0) Hematocrit 26.6 % (37.0-47.0) Mean Corpuscular Volume 93 FL (80-99) Mean Corpuscular Hemoglobin 32.6 PG (27.0-31.0) Mean Corpuscular Hemoglobin Concent 35.1 G/DL (32.0-36.0) Red Cell Distribution Width 14.0 % (11.6-14.8) Platelet Count 224 K/UL (150-450) Mean Platelet Volume 5.5 FL (6.5-10.1) Neutrophils (%) (Auto) 80.5 % (45.0-75.0) Lymphocytes (%) (Auto) 10.0 % (20.0-45.0) Monocytes (%) (Auto) 9.0 % (1.0-10.0) Eosinophils (%) (Auto) 0.1 % (0.0-3.0) Basophils (%) (Auto) 0.5 % (0.0-2.0) Prothrombin Time 13.9 SEC (9.30-11.50) Prothromb Time International Ratio 1.3 (0.9-1.1) Activated Partial Thromboplast Time 43 SEC (23-33) Sodium Level 136 MMOL/L (136-145) Potassium Level 3.7 MMOL/L (3.5-5.1) Chloride Level 98 MMOL/L (98-107) Carbon Dioxide Level 26 MMOL/L (21-32) Anion Gap 13 mmol/L (5-15) Blood Urea Nitrogen 47 mg/dL (7-18) Creatinine 2.7 MG/DL (0.55-1.30) Estimat Glomerular Filtration Rate mL/min (>60) Glucose Level 99 MG/DL (74-106) Lactic Acid Level 1.30 mmol/L (0.4-2.0) Calcium Level 7.9 MG/DL (8.5-10.1) Total Bilirubin 0.3 MG/DL (0.2-1.0) Aspartate Amino Transf (AST/SGOT) 128 U/L (15-37) Alanine Aminotransferase (ALT/SGPT) 138 U/L (12-78) Alkaline Phosphatase 120 U/L (46-116) Total Creatine Kinase 82 U/L (26-308) Creatine Kinase MB 10.3 NG/ML (0.0-3.6) Creatine Kinase MB Relative Index 12.5 Troponin I 0.000 ng/mL (0.000-0.056) Pro-B-Type Natriuretic Peptide 2735 pg/mL (0-125) Total Protein 6.4 G/DL (6.4-8.2) Albumin 2.3 G/DL (3.4-5.0) Globulin 4.1 g/dL Albumin/Globulin Ratio 0.6 (1.0-2.7) Urine Color Yellow Urine Appearance Slightly cloudy Urine pH 5 (4.5-8.0) Urine Specific [place] 1.020 (1.005-1.035) Urine Protein 1+ (NEGATIVE) Urine Glucose (UA) Negative (NEGATIVE) Urine Ketones 1+ (NEGATIVE) Urine Blood 3+ (NEGATIVE) Urine Nitrite Negative (NEGATIVE) Urine Bilirubin Negative (NEGATIVE) Urine Urobilinogen Normal MG/DL (0.0-1.0) Urine Leukocyte Esterase 2+ (NEGATIVE) Urine RBC 10-15 /HPF (0 - 2) Urine WBC 10-15 /HPF (0 - 2) Urine Squamous Epithelial Cells Few /LPF (NONE/OCC) Urine Bacteria Many /HPF (NONE) Urine Yeast Many /HPF (NONE) EKG Diagnostic Results Rate: normal Rhythm: NSR ST Segments: no acute changes ASA given to the pt in ED: No Rhythm Strip Diag. Results EP Interpretation: yes Rhythm: NSR, no PVC's, no ectopy Chest X-Ray Diagnostic Results Chest X-Ray Diagnostic Results : Chest X-Ray Ordered: Yes # of Views/Limited/Complete: 1 View Indication: Shortness of Breath EP Interpretation: Yes Interpretation: no effusion, no pneumothorax, other - interstitial disease Impression: Other - interstitial disease, COPD Electronically Signed by: Electronically signed by Manan Cook MD Last Vital Signs Date Time Temp Pulse Resp B/P (MAP) Pulse Ox O2 Delivery O2 Flow Rate FiO2 04/18/19 02:12 62 04/18/19 01:45 96.9 19 102/54 (70) 92 04/18/19 01:30 Nasal Cannula 3.0 32 Status: improved Disposition: ADMITTED INPATIENT Condition: Serious Referrals: YOVANA ALFREDO (PCP) Manan Cook MD Apr 18, 2019 03:05
--- NOTE | 2019-04-18 03:15 | NUR ---
NURSE NOTES: Patient's BP 78/49. Placed patient in Trendelenburg, IV fluids running at 200mL/hr. aware.
--- NOTE | 2019-04-18 03:30 | NUR ---
Patient stable BP 84/53. Per MD if BP is low transfer to [facility]
[2019-04-18 04:00] VITALS: BP 84/53
[2019-04-18 06:45] LABS: HEMATOCRIT 28.4 % (37.0-47.0); HEMOGLOBIN 8.9 G/DL (12.0-16.0); MEAN CORPUSCULAR VOLUME 99 FL (80-99); PLATELET COUNT 228 K/UL (150-450); RED BLOOD COUNT 2.86 M/UL (4.20-5.40); WHITE BLOOD COUNT 5.7 K/UL (4.8-10.8)
[2019-04-18 07:17] LABS: ALANINE AMINOTRANSFERASE 127 U/L (12-78); ALBUMIN/GLOBULIN RATIO 0.5 (1.0-2.7); ALKALINE PHOSPHATASE 109 U/L (46-116); ANION GAP 15 mmol/L (5-15); ASPARTATE AMINO TRANSFERASE 110 U/L (15-37); BILIRUBIN,TOTAL 0.3 MG/DL (0.2-1.0); BLOOD UREA NITROGEN 38 mg/dL (7-18); CALCIUM 6.7 MG/DL (8.5-10.1); CARBON DIOXIDE 19 MMOL/L (21-32); CHLORIDE 106 MMOL/L (98-107); CREATININE 2.1 MG/DL (0.55-1.30); POTASSIUM 3.1 MMOL/L (3.5-5.1); SODIUM 140 MMOL/L (136-145)
--- NOTE | 2019-04-18 07:33 | NUR ---
HAND-OFF: Report given to SIVAN Mir,patient in stable condition, plan of care endorsed.
--- NOTE | 2019-04-18 07:37 | NUR ---
NURSE NOTES: Received patient from Aditya Meléndez. Patient lethargic but arousable. Oriented to self. IVF ongoing. NSS @200 ml/hr via Right foot IV peripheral. Patient denies pain or discomfort at this time. Oxyagen at 2 L/min via Nasal Cannula. Will monitor blood pressure. safety precautions in place. Bed locked to lowest position, Side rails X2 up. call light within patients reach. will follow.
--- NOTE | 2019-04-18 07:53 | NUR ---
CASE MANAGEMENT:REVIEW 73 YR OLD FEMALE BIBA FROM [facility] CC: FEVER SI: COPD. RENAL INSUFF. UTI. HYPOTENSION 99.9 108 28 90/56 98% ON 15L H/H-9.4/26.6 BUN+47 CR+2.7 IS: IV ZOSYN IV AZITHROMYCIN DUONEB HHN 500CC NS BOLUS IV SOLUMEDROL 'IV ATIVAN CXR BLOOD CX : TO TELEMETRY DCP: RETURN TO [facility] INTERQUAL CRITERIA MET
[2019-04-18] MEDS ORDERED: Piperacillin/Tazobactam 3.375 GM in NS 110 ML IVPB SCH ×2 (08:00→20:00)
--- NOTE | 2019-04-18 08:55 | Consultation ---
Consult Note Assessment/Plan DICT # [id number] Sánchez Lam MD Apr 18, 2019 08:55
[2019-04-18] MEDS ORDERED: Eliquis 2.5mg tablet ORAL SCH ×2 (09:00→18:00)
[2019-04-18] MEDS ORDERED: Sodium Bicarbonate 650mg Tab ORAL SCH ×2 (09:00→18:00)
[2019-04-18] MEDS ORDERED: Multivitamin w/Minerals tab ORAL SCH (09:00)
[2019-04-18] MEDS ORDERED: Solu-MEDROL 125mg Inj IVP SCH ×3 (09:00→21:00)
[2019-04-18] MEDS ORDERED: Ferrous Gluconate 324 MG TAB ORAL SCH (09:00)
[2019-04-18] MEDS ORDERED: Calcitriol 0.5mcg Cap ORAL SCH (09:00)
[2019-04-18] MEDS ORDERED: Amiodarone 200mg tab ORAL SCH (09:00)
[2019-04-18] MEDS ORDERED: Miralax 17gm pkt ORAL SCH (09:00)
[2019-04-18] MEDS ORDERED: Aspirin Baby 81mg ORAL SCH (09:00)
--- NOTE | 2019-04-18 10:15 | NUR ---
NURSE NOTES: Dr. Lam made aware of ABG PH result of 7.2 patient on 2L/Min of O2 via nasal canula. Md cochraned place patient on Bipap and to recheck ABG after 2 hours. Respiratory therapist made aware. Patient remains lethargic, arousable to pain. will follow
--- NOTE | 2019-04-18 12:15 | Consultation ---
DATE OF CONSULTATION: 04/18/2019 PULMONARY CONSULTATION CONSULTING PHYSICIAN: Sánchez Lam M.D. REFERRING PHYSICIAN: Wally Mancilla M.D. REASON FOR CONSULTATION: Shortness of breath and COPD exacerbation. HISTORY OF PRESENT ILLNESS: The patient is a 73-year-old female with a history of atrial fibrillation, COPD, hypertension, hyperlipidemia, anemia, CHF, last seen by me during a previous admission. She was here in November of this year. I saw her on 12/16/2018 at which point we treated her for COPD exacerbation. She was refusing BiPAP at that time. I recommended outpatient pulmonary evaluation including PFTs and CT. It does not appear that she ever did any of that. She now presents with shortness of breath. She has been afebrile. Vitals have been stable except for borderline blood pressure this morning. Chest x-ray per report is unfortunately not available on PACS. The patient was admitted for treatment of COPD exacerbation. She was given Solu-Medrol 125 IV in the ER and then started on 125 IV b.i.d. She also has evidence of acute kidney injury and a urinary tract infection. PAST MEDICAL HISTORY: 1. COPD. 2. Paroxysmal atrial fibrillation. 3. UTI. 4. Hypertension. 5. History of CAD and GA. 6. Hyperlipidemia. 7. Neuropathy. 8. Chronic low back pain. 9. Pacemaker. 10. Left shoulder rotator cuff tear. ALLERGIES: Contrast, cyclobenzaprine, Motrin, melatonin, and sulfa. MEDICATIONS: Prior to admission medications, reviewed. It appears as if she is on Bevespi nebulized treatments from a respiratory standpoint. SOCIAL HISTORY: She is a former smoker. No drug or alcohol use. REVIEW OF SYSTEMS: Unobtainable. PHYSICAL EXAMINATION: VITAL SIGNS: Temperature 96.9, pulse 64, blood pressure 84/50, respiratory 18, saturating 98% on two liters. GENERAL: She is elderly, frail female, minimally responsive, but arousable. HEENT: Normocephalic and atraumatic. Oropharynx is clear. NECK: Supple without lymphadenopathy. She is cachectic. CHEST: Clear but distant with scattered coarse. HEART: ABDOMEN: Soft, nontender, and nondistended. EXTREMITIES: No cyanosis, clubbing, or edema. ANCILLARY DATA: White count 5.7, hemoglobin 8.9, and platelet count 228. INR 1.3. Sodium 140, potassium 3.1, chloride 106, bicarbonate 19, BUN 38, creatinine 2.1, glucose 146, calcium 6.7, AST 110, ALT 127, total protein 5.7. Urinalysis positive. Urine culture pending. Chest x-ray per report with just chronic changes. ASSESSMENT: The patient is a 73-year-old female, former smoker with a history of COPD, chronic respiratory failure, paroxysmal atrial fibrillation, CAD, hypertension, hyperlipidemia, presenting with respiratory distress and altered mental status likely secondary to COPD exacerbation as well as UTI with acute kidney injury. PROBLEM LIST: 1. COPD with acute exacerbation. 2. Altered mental status. 3. BASSAM. 4. UTI. 5. Systemic inflammatory response syndrome. 6. CHF, CAD, paroxysmal atrial fibrillation, hypertension, hyperlipidemia. 7. Chronic pain. TREATMENT PLAN: 1. Stat ABG. 2. If ABG is normal, we would pursue imaging of the head and neurologic evaluation. 3. Optimize pulmonary hygiene/mobilize as tolerated. 4. Titrate down FiO2 to keep saturations greater than 92%. 5. Hdobyx-ykb-vthje and p.r.n. DuoNebs. 6. Decrease Solu-Medrol to 60 IV b.i.d. and taper. 7. Continue azithromycin and Zosyn (today is day #1). 8. Monitor volumes and renal function. 9. IV fluid hydration. 10. Swallow evaluation. 11. Aspiration precautions. 12. I will check a noncontrast CT scan of the chest, this was supposed to previously been done, but unfortunately was not. 13. DVT prophylaxis, the patient is on Eliquis. 14. The patient is Full Code. We will continue to discuss goals of care. Dr. Mancilla, thank you for allowing me to assist in the care of your patient. If I may be of any assistance in the future, please do not hesitate to ask. Mick Menchaca JOB#: [id number] CC:
--- NOTE | 2019-04-18 13:06 | Cardiac Electrophysiology PN ---
Subjective Subjective [id number] Objective Last 24 Hour Vital Signs Date Time Temp Pulse Resp B/P (MAP) Pulse Ox O2 Delivery O2 Flow Rate FiO2 04/18/19 11:25 78 19 94 Facial 30 04/18/19 09:49 Nasal Cannula 2.0 28 04/18/19 09:47 Nasal Cannula 2.0 28 04/18/19 08:00 65 04/18/19 04:00 64 04/18/19 04:00 96.9 65 18 84/53 (63) 98 04/18/19 02:46 Nasal Cannula 2.0 04/18/19 02:12 62 04/18/19 01:45 96.9 74 19 102/54 (70) 92 04/18/19 01:30 98.8 69 18 104/58 100 Nasal Cannula 3.0 32 04/18/19 01:30 98.8 69 18 104/58 100 Nasal Cannula 3.0 32 04/18/19 00:30 98.8 76 16 102/49 100 Nasal Cannula 3.0 32 04/17/19 23:30 98.8 76 16 92/54 100 Nasal Cannula 3.0 32 04/17/19 23:00 99.9 16 90/56 100 Nasal Cannula 3.0 32 04/17/19 22:50 80 14 100 Nasal Cannula 3.0 32 04/17/19 22:40 100 04/17/19 22:40 78 16 100 Non-Rebreather 15.0 100 04/17/19 22:40 78 16 100 Non-Rebreather 15.0 100 04/17/19 22:30 108 28 15.0 04/17/19 22:14 99.9 108 28 100/59 (73) 98 15.0 Intake and Output 04/17/19 04/18/19 18:59 06:59 Intake Total 200 ml Output Total 700 ml Balance -500 ml Intake IV Total 200 ml Output Urine Total 700 ml # Voids 2 Laboratory Tests Test 04/17/19 22:30 04/18/19 00:00 04/18/19 06:30 04/18/19 09:10 White Blood Count 7.4 K/UL (4.8-10.8) 5.7 K/UL (4.8-10.8) Red Blood Count 2.87 M/UL (4.20-5.40) L 2.86 M/UL (4.20-5.40) L Hemoglobin 9.4 G/DL (12.0-16.0) L 8.9 G/DL (12.0-16.0) L Hematocrit 26.6 % (37.0-47.0) L 28.4 % (37.0-47.0) L Mean Corpuscular Volume 93 FL (80-99) 99 FL (80-99) Mean Corpuscular Hemoglobin 32.6 PG (27.0-31.0) H 31.3 PG (27.0-31.0) H Mean Corpuscular Hemoglobin Concent 35.1 G/DL (32.0-36.0) 31.5 G/DL (32.0-36.0) L Red Cell Distribution Width 14.0 % (11.6-14.8) 15.0 % (11.6-14.8) H Platelet Count 224 K/UL (150-450) 228 K/UL (150-450) Mean Platelet Volume 5.5 FL (6.5-10.1) L 5.6 FL (6.5-10.1) L Neutrophils (%) (Auto) 80.5 % (45.0-75.0) H % (45.0-75.0) Lymphocytes (%) (Auto) 10.0 % (20.0-45.0) L % (20.0-45.0) Monocytes (%) (Auto) 9.0 % (1.0-10.0) % (1.0-10.0) Eosinophils (%) (Auto) 0.1 % (0.0-3.0) % (0.0-3.0) Basophils (%) (Auto) 0.5 % (0.0-2.0) % (0.0-2.0) Prothrombin Time 13.9 SEC (9.30-11.50) H Prothromb Time International Ratio 1.3 (0.9-1.1) H Activated Partial Thromboplast Time 43 SEC (23-33) H Sodium Level 136 MMOL/L (136-145) 140 MMOL/L (136-145) Potassium Level 3.7 MMOL/L (3.5-5.1) 3.1 MMOL/L (3.5-5.1) L Chloride Level 98 MMOL/L (98-107) 106 MMOL/L (98-107) Carbon Dioxide Level 26 MMOL/L (21-32) 19 MMOL/L (21-32) L Anion Gap 13 mmol/L (5-15) 15 mmol/L (5-15) Blood Urea Nitrogen 47 mg/dL (7-18) H 38 mg/dL (7-18) H Creatinine 2.7 MG/DL (0.55-1.30) H 2.1 MG/DL (0.55-1.30) H Estimat Glomerular Filtration Rate mL/min (>60) mL/min (>60) Glucose Level 99 MG/DL (74-106) 146 MG/DL (74-106) H Lactic Acid Level 1.30 mmol/L (0.4-2.0) Calcium Level 7.9 MG/DL (8.5-10.1) L 6.7 MG/DL (8.5-10.1) L Total Bilirubin 0.3 MG/DL (0.2-1.0) 0.3 MG/DL (0.2-1.0) Aspartate Amino Transf (AST/SGOT) 128 U/L (15-37) H 110 U/L (15-37) H Alanine Aminotransferase (ALT/SGPT) 138 U/L (12-78) H 127 U/L (12-78) H Alkaline Phosphatase 120 U/L (46-116) H 109 U/L (46-116) Total Creatine Kinase 82 U/L (26-308) Creatine Kinase MB 10.3 NG/ML (0.0-3.6) H Creatine Kinase MB Relative Index 12.5 Troponin I 0.000 ng/mL (0.000-0.056) Pro-B-Type Natriuretic Peptide 2735 pg/mL (0-125) H Total Protein 6.4 G/DL (6.4-8.2) 5.8 G/DL (6.4-8.2) L Albumin 2.3 G/DL (3.4-5.0) L 2.0 G/DL (3.4-5.0) L Globulin 4.1 g/dL 3.8 g/dL Albumin/Globulin Ratio 0.6 (1.0-2.7) L 0.5 (1.0-2.7) L Urine Color Yellow Urine Appearance Slightly cloudy Urine pH 5 (4.5-8.0) Urine Specific [place] 1.020 (1.005-1.035) Urine Protein 1+ (NEGATIVE) H Urine Glucose (UA) Negative (NEGATIVE) Urine Ketones 1+ (NEGATIVE) H Urine Blood 3+ (NEGATIVE) H Urine Nitrite Negative (NEGATIVE) Urine Bilirubin Negative (NEGATIVE) Urine Urobilinogen Normal MG/DL (0.0-1.0) Urine Leukocyte Esterase 2+ (NEGATIVE) H Urine RBC 10-15 /HPF (0 - 2) H Urine WBC 10-15 /HPF (0 - 2) H Urine Squamous Epithelial Cells Few /LPF (NONE/OCC) Urine Bacteria Many /HPF (NONE) H Urine Yeast Many /HPF (NONE) H Differential Total Cells Counted 100 Neutrophils % (Manual) 94 % (45-75) H Lymphocytes % (Manual) 4 % (20-45) L Monocytes % (Manual) 2 % (1-10) Eosinophils % (Manual) 0 % (0-3) Basophils % (Manual) 0 % (0-2) Band Neutrophils 0 % (0-8) Platelet Estimate Adequate Platelet Morphology Normal Hypochromasia 1+ Anisocytosis 1+ Arterial Blood pH 7.247 (7.350-7.450) Arterial Blood Partial Pressure CO2 43.4 mmHg (35.0-45.0) Arterial Blood Partial Pressure O2 118.6 mmHg (75.0-100.0) H Arterial Blood HCO3 18.5 mmol/L (22.0-26.0) L Arterial Blood Oxygen Saturation 97.4 % (95-100) Arterial Blood Base Excess -8.2 (-2-2) L Domingo Test Positive Microbiology Date/Time Source Procedure Growth Status 04/17/19 23:30 Rectum Received Jarrod Gutierrez MD Apr 18, 2019 13:06
--- NOTE | 2019-04-18 14:08 | NUR ---
SPEECH PATHOLOGY: BEDSIDE EVALUATION ATTEMPTED, BUT PATIENT NOT CLEARED BY SIVAN PRESTON. PATIENTLY CURRENTLY EXPERIENCING MEDICAL COMPLICATIONS AND IS ON BIPAP FOR 02 SUPPORT EVALUATION DEFERRED TO 04/21
--- NOTE | 2019-04-18 14:11 | NUR ---
NURSE NOTES: Dr. Lam made aware of repeat ABG result. ordered patient to transfer to SDU. Will follow.
--- NOTE | 2019-04-18 14:27 | Diagnostic Imaging Report ---
Clinical Indication: Shortness of breath Technique: Spiral acquisitions obtained through the chest. No IV contrast utilized, per referring physician request. Multiplanar reconstructions generated. Total dose length product 323.29 mGycm. CTDIvol(s) 10.72 mGy. Dose reduction achieved using automated exposure control Comparison: none Findings: There are bilateral small pleural effusions demonstrated. There is extensive diffuse interstitial septal thickening. There are areas of hyperinflation intermixed with areas of groundglass opacity bilaterally, particularly in the lower lobes. There is atelectasis and possibly consolidation of portions of both lower lobes as well as posteriorly within the right upper lobe. There may be some honeycombing within the lower lobes and posterior right upper lobe as well. A few bullae are seen at the lung bases. Parenchymal calcifications are seen within the right lower lobe. Granulomatous andrzej calcifications are seen in the right pulmonary hilum. The heart size is normal. There is a right chest pacemaker. No pericardial effusion demonstrated. The main, right, and left pulmonary arteries are ectatic but not quite dilated, measuring 3.6, 2.8, and 2.9 cm in diameter respectively. No mediastinal or hilar mass or adenopathy. The esophagus is grossly unremarkable. There is diffuse edema of the subcutaneous and mediastinal fat. No axillary or chest wall mass or adenopathy. The bones demonstrate kyphotic deformity. There is evidence of compression fracture deformity and prior vertebral augmentation procedure involving T9 and T10. Numerous surgical clips are seen in the left upper quadrant of the abdomen. There are also cholecystectomy clips noted. A granulomatous calcification is seen within the right hepatic lobe. There is trace ascites fluid present. The spleen is somewhat atrophic, demonstrates granulomatous calcifications Impression: Extensive acute and chronic pulmonary parenchymal disease, with evidence of interstitial septal thickening, COPD changes with some bullous changes, evidence of old granulomatous disease and possibly chronic interstitial fibrosis. There is also atelectasis and possibly consolidation involving the lower lobes and portions of the right upper lobe Bilateral small pleural effusions Ectatic but not frankly dilated pulmonary arteries, suggestive of but not diagnostic for pulmonary arterial hypertension Anasarca, with diffuse edema of the subcutaneous and mediastinal fat and trace ascites, in addition to the pleural fluid Postsurgical changes as described, including evidence of prior vertebral augmentation procedure, pacemaker, cholecystectomy and left upper quadrant abdominal surgery Evidence of old granulomas calcification within the liver and spleen The CT scanner at [facility] is accredited by the [employer] and the scans are performed using protocols designed to limit radiation exposure to as low as reasonably achievable to attain images of sufficient resolution adequate for diagnostic evaluation.
--- NOTE | 2019-04-18 14:38 | NUR ---
RD ASSESSMENT & RECOMMENDATIONS SEE CARE ACTIVITY FOR COMPLETE ASSESSMENT DAILY ESTIMATED NEEDS: Needs based on Underweight, pulmonary 44kg 30-35 kcals/kg 3728-0891 total kcals 1.0-1.5 g protein/kg 44-66 g total protein 25-30 mL/kg 1621-4472 total fluid mLs NUTRITION DIAGNOSIS: * Increased kcal and protein needs R/T underweight status, respiratory status as evidenced by pt is 84% of [place] Body Weight, low BMI per guidelines, admitted w/ COPD w/ acute exacerbation, on BIPAP. CURRENT DIET:NPO PO DIET RECOMMENDATIONS: WHEN SAFE FOR PO-> Liberalized Regular diet (texture per PARTS IDENTIFICATION TECHNICIAN) ADDITIONAL RECOMMENDATIONS: 1) Obtain a calibrated bed scale wt, weekly wt monitoring 2) Consult RD for non oral feeds if indicated, part of POC 3) Ensure TID w/ meals w/ oral diet 4) F/up w/ PARTS IDENTIFICATION TECHNICIAN evaluation . .
--- NOTE | 2019-04-18 15:03 | Infectious Diseases Prog Note ---
Assessment/Plan Problems: (1) Aspiration pneumonia Assessment & Plan: with B/L basal consolidations and fever , continue zosyn , add vancomycin , send sputum culture . aspiration precaution. Keep HOB > 30 DEGREE (2) COPD (chronic obstructive pulmonary disease) Assessment & Plan: continue inhalers , taper steroids (3) UTI (urinary tract infection) Assessment & Plan: already on zosyn, pending culture (4) Fever Assessment & Plan: due to the above, continue wide spectrum antibiotics and tylenol (5) Acute respiratory failure Assessment & Plan: due to the above with severe COPD and lung parenchyma destruction , on BIPAP, monitor ABG, pulmonary is following Subjective Allergies: Coded Allergies: CYCLOBENZAPRINE (Verified Allergy, Unknown, 12/11/18) IBUPROFEN (Verified Allergy, Unknown, 12/11/18) MELATONIN (Verified Allergy, Unknown, 12/11/18) SULFA (SULFONAMIDE ANTIBIOTICS) (Verified Allergy, Unknown, 12/11/18) SULFUR (Unverified Allergy, Unknown, 04/17/19) Uncoded Allergies: CONTRAST (Allergy, Unknown, 04/17/19) Objective Vital Signs Last 24 Hour Vital Signs Date Time Temp Pulse Resp B/P (MAP) Pulse Ox O2 Delivery O2 Flow Rate FiO2 04/18/19 13:23 79 19 95 Facial 30 04/18/19 12:00 63 04/18/19 11:25 78 19 94 Facial 30 04/18/19 09:49 Nasal Cannula 2.0 28 04/18/19 09:47 Nasal Cannula 2.0 28 04/18/19 09:00 Nasal Cannula 2.0 04/18/19 08:00 65 04/18/19 04:00 64 04/18/19 04:00 96.9 65 18 84/53 (63) 98 04/18/19 02:46 Nasal Cannula 2.0 04/18/19 02:12 62 04/18/19 01:45 96.9 74 19 102/54 (70) 92 04/18/19 01:30 98.8 69 18 104/58 100 Nasal Cannula 3.0 32 04/18/19 01:30 98.8 69 18 104/58 100 Nasal Cannula 3.0 32 04/18/19 00:30 98.8 76 16 102/49 100 Nasal Cannula 3.0 32 04/17/19 23:30 98.8 76 16 92/54 100 Nasal Cannula 3.0 32 04/17/19 23:00 99.9 16 90/56 100 Nasal Cannula 3.0 32 04/17/19 22:50 80 14 100 Nasal Cannula 3.0 32 04/17/19 22:40 100 04/17/19 22:40 78 16 100 Non-Rebreather 15.0 100 04/17/19 22:40 78 16 100 Non-Rebreather 15.0 100 04/17/19 22:30 108 28 15.0 04/17/19 22:14 99.9 108 28 100/59 (73) 98 15.0 Height (Feet): 5 Height (Inches): 3.00 Weight (Pounds): 97 Microbiology Date/Time Source Procedure Growth Status 04/17/19 23:30 Rectum Received Laboratory Tests Test 04/17/19 22:30 04/18/19 00:00 04/18/19 06:30 04/18/19 09:10 White Blood Count 7.4 K/UL (4.8-10.8) 5.7 K/UL (4.8-10.8) Red Blood Count 2.87 M/UL (4.20-5.40) L 2.86 M/UL (4.20-5.40) L Hemoglobin 9.4 G/DL (12.0-16.0) L 8.9 G/DL (12.0-16.0) L Hematocrit 26.6 % (37.0-47.0) L 28.4 % (37.0-47.0) L Mean Corpuscular Volume 93 FL (80-99) 99 FL (80-99) Mean Corpuscular Hemoglobin 32.6 PG (27.0-31.0) H 31.3 PG (27.0-31.0) H Mean Corpuscular Hemoglobin Concent 35.1 G/DL (32.0-36.0) 31.5 G/DL (32.0-36.0) L Red Cell Distribution Width 14.0 % (11.6-14.8) 15.0 % (11.6-14.8) H Platelet Count 224 K/UL (150-450) 228 K/UL (150-450) Mean Platelet Volume 5.5 FL (6.5-10.1) L 5.6 FL (6.5-10.1) L Neutrophils (%) (Auto) 80.5 % (45.0-75.0) H % (45.0-75.0) Lymphocytes (%) (Auto) 10.0 % (20.0-45.0) L % (20.0-45.0) Monocytes (%) (Auto) 9.0 % (1.0-10.0) % (1.0-10.0) Eosinophils (%) (Auto) 0.1 % (0.0-3.0) % (0.0-3.0) Basophils (%) (Auto) 0.5 % (0.0-2.0) % (0.0-2.0) Prothrombin Time 13.9 SEC (9.30-11.50) H Prothromb Time International Ratio 1.3 (0.9-1.1) H Activated Partial Thromboplast Time 43 SEC (23-33) H Sodium Level 136 MMOL/L (136-145) 140 MMOL/L (136-145) Potassium Level 3.7 MMOL/L (3.5-5.1) 3.1 MMOL/L (3.5-5.1) L Chloride Level 98 MMOL/L (98-107) 106 MMOL/L (98-107) Carbon Dioxide Level 26 MMOL/L (21-32) 19 MMOL/L (21-32) L Anion Gap 13 mmol/L (5-15) 15 mmol/L (5-15) Blood Urea Nitrogen 47 mg/dL (7-18) H 38 mg/dL (7-18) H Creatinine 2.7 MG/DL (0.55-1.30) H 2.1 MG/DL (0.55-1.30) H Estimat Glomerular Filtration Rate mL/min (>60) mL/min (>60) Glucose Level 99 MG/DL (74-106) 146 MG/DL (74-106) H Lactic Acid Level 1.30 mmol/L (0.4-2.0) Calcium Level 7.9 MG/DL (8.5-10.1) L 6.7 MG/DL (8.5-10.1) L Total Bilirubin 0.3 MG/DL (0.2-1.0) 0.3 MG/DL (0.2-1.0) Aspartate Amino Transf (AST/SGOT) 128 U/L (15-37) H 110 U/L (15-37) H Alanine Aminotransferase (ALT/SGPT) 138 U/L (12-78) H 127 U/L (12-78) H Alkaline Phosphatase 120 U/L (46-116) H 109 U/L (46-116) Total Creatine Kinase 82 U/L (26-308) Creatine Kinase MB 10.3 NG/ML (0.0-3.6) H Creatine Kinase MB Relative Index 12.5 Troponin I 0.000 ng/mL (0.000-0.056) Pro-B-Type Natriuretic Peptide 2735 pg/mL (0-125) H Total Protein 6.4 G/DL (6.4-8.2) 5.8 G/DL (6.4-8.2) L Albumin 2.3 G/DL (3.4-5.0) L 2.0 G/DL (3.4-5.0) L Globulin 4.1 g/dL 3.8 g/dL Albumin/Globulin Ratio 0.6 (1.0-2.7) L 0.5 (1.0-2.7) L Urine Color Yellow Urine Appearance Slightly cloudy Urine pH 5 (4.5-8.0) Urine Specific [place] 1.020 (1.005-1.035) Urine Protein 1+ (NEGATIVE) H Urine Glucose (UA) Negative (NEGATIVE) Urine Ketones 1+ (NEGATIVE) H Urine Blood 3+ (NEGATIVE) H Urine Nitrite Negative (NEGATIVE) Urine Bilirubin Negative (NEGATIVE) Urine Urobilinogen Normal MG/DL (0.0-1.0) Urine Leukocyte Esterase 2+ (NEGATIVE) H Urine RBC 10-15 /HPF (0 - 2) H Urine WBC 10-15 /HPF (0 - 2) H Urine Squamous Epithelial Cells Few /LPF (NONE/OCC) Urine Bacteria Many /HPF (NONE) H Urine Yeast Many /HPF (NONE) H Differential Total Cells Counted 100 Neutrophils % (Manual) 94 % (45-75) H Lymphocytes % (Manual) 4 % (20-45) L Monocytes % (Manual) 2 % (1-10) Eosinophils % (Manual) 0 % (0-3) Basophils % (Manual) 0 % (0-2) Band Neutrophils 0 % (0-8) Platelet Estimate Adequate Platelet Morphology Normal Hypochromasia 1+ Anisocytosis 1+ Arterial Blood pH 7.247 (7.350-7.450) Arterial Blood Partial Pressure CO2 43.4 mmHg (35.0-45.0) Arterial Blood Partial Pressure O2 118.6 mmHg (75.0-100.0) H Arterial Blood HCO3 18.5 mmol/L (22.0-26.0) L Arterial Blood Oxygen Saturation 97.4 % (95-100) Arterial Blood Base Excess -8.2 (-2-2) L Domingo Test Positive Test 04/18/19 13:23 Arterial Blood pH 7.303 (7.350-7.450) Arterial Blood Partial Pressure CO2 35.1 mmHg (35.0-45.0) Arterial Blood Partial Pressure O2 88.5 mmHg (75.0-100.0) Arterial Blood HCO3 17.0 mmol/L (22.0-26.0) *L Arterial Blood Oxygen Saturation 95.8 % (95-100) Arterial Blood Base Excess -8.6 (-2-2) L Domingo Test Positive Current Medications Medications (Trade) Dose Ordered Sig/Sonny Route PRN Reason Start Time Stop Time Status Last Admin Dose Admin Albuterol/ Ipratropium (Albuterol/ Ipratropium) 3 ml Q4H PRN HHN Shortness of Breath 04/18/19 09:00 04/23/19 08:59 Amiodarone HCl (Cordarone) 200 mg DAILY ORAL 04/19/19 09:00 05/18/19 08:59 Apixaban (Eliquis) 2.5 mg BID ORAL 04/18/19 09:00 05/18/19 08:59 Aspirin (ASA) 81 mg DAILY ORAL 04/18/19 09:00 05/18/19 08:59 Atorvastatin Calcium (Lipitor) 20 mg BEDTIME ORAL 04/18/19 21:00 05/18/19 20:59 Azithromycin 500 mg/Dextrose 275 ml @ 275 mls/hr Q24H IV 04/19/19 06:00 04/25/19 06:59 Bisacodyl (Dulcolax) 10 mg DAILY PRN RECTAL Constipation 04/18/19 03:00 05/18/19 02:59 Calcitriol (Rocaltrol) 0.5 mcg DAILY ORAL 04/18/19 09:00 05/18/19 08:59 Ferrous Gluconate (Fergon) 324 mg EVERY OTHER DAY ORAL 04/18/19 09:00 05/18/19 08:59 Gabapentin (Neurontin) 300 mg DAILY ORAL 04/18/19 09:00 05/18/19 08:59 Lactulose (Cephulac) 10 gm TID PRN ORAL Constipation 04/18/19 03:00 05/18/19 02:59 Lidocaine (Lidoderm 5% PATCH) 1 patch DAILY TDERMAL 04/18/19 09:00 05/18/19 08:59 04/18/19 10:28 Methylprednisolone Sodium Succinate (Solu-MEDROL) 60 mg Q12HR IVP 04/18/19 09:00 05/18/19 08:59 04/18/19 10:20 Morphine HCl (Morphine IR) 15 mg Q6H PRN ORAL For Pain 04/18/19 03:00 04/25/19 02:59 Multivitamins Therapeutic (Therapeutic Multivitamin) 1 ea DAILY ORAL 04/18/19 09:00 05/18/19 08:59 Ondansetron HCl (Zofran) 4 mg Q6H PRN ORAL Nausea & Vomiting 04/18/19 03:00 05/18/19 02:59 Piperacillin Sod/ Tazobactam Sod 3.375 gm/Sodium Chloride 110 ml @ 27.5 mls/hr Q12H IVPB 04/18/19 08:00 04/25/19 07:59 04/18/19 10:16 Polyethylene Glycol (Miralax) 17 gm DAILY ORAL 04/18/19 09:00 05/18/19 08:59 Sennosides (Senokot) 17.2 mg BEDTIME PRN ORAL Constipation 04/18/19 03:00 05/18/19 02:59 Sodium Bicarbonate (NaHCO3) 1,300 mg BID ORAL 04/18/19 09:00 05/18/19 08:59 Sodium Chloride 1,000 ml @ 125 mls/hr Q8H IV 04/18/19 08:30 05/18/19 08:29 04/18/19 08:30 Tiotropium [place] (Spiriva Inhaler) 1 puff DAILY INH 04/18/19 09:00 05/18/19 08:59 Trazodone HCl (Desyrel) 50 mg BEDTIME PRN ORAL DEPRESSION 04/18/19 03:00 05/18/19 02:59 Saravanan Serrato M.D. Apr 18, 2019 15:03
--- NOTE | 2019-04-18 15:12 | NUR ---
TRANSFER TO FLOOR: Patient transferred to [facility], per Dr. Lam's order. Report [facility]IV[facility]ing[facility]
--- NOTE | 2019-04-18 16:00 | NUR ---
received patient from [facility]. PATIENT A/O X1. NO S/S OF PAIN NOTED AT THIS TIME. IV INTACT AND PATENT. PATIENT ON BIPAP. ECCHYEMOSIS NOTED IN BOTH HANDS,CALL LIGHT WITH IN REACH, BED AT LOWEST POSITION, ALARM ON FOR SAFETY REASONS.
--- NOTE | 2019-04-18 16:45 | Diagnostic Imaging Report ---
Indication: Shortness of breath Technique: One view of the chest Comparison: 12/14/2018 Findings: There is generalized mild interstitial prominence which appears similar to the previous exam. No focal airspace consolidation. No effusions. Heart size is normal. The aorta is tortuous and calcified. There is a right chest pacemaker there are median sternotomy sutures and evidence of prior vertebral augmentation procedures Impression: Bilateral interstitial disease, acuity indeterminate although suspect chronic as this is similar to previous study of 12/14/2018 Other findings as noted. This agrees with the preliminary interpretation provided by the emergency room physician
--- NOTE | 2019-04-18 16:46 | General Progress Note ---
Assessment/Plan Assessment/Plan: 1. COPD with Acute Exacerbation - cont IV solumedrol and slowly junior off. Pulmonary consult done and she is being seen. cont Nab txt and inhalers. blood gas will be done. 2. UTI - cont IV abx with zosyn and azithromycin. ID following. 3. Possible sepsis - cont above antibiotic and follow cultures. 4. A Fib - cont amioderone 200 mg daily. 5. CAD 6. SSS s/p Pacemaker - cardiology consult done. 7. HLD 8. Chronic Pain Syndrome 9. Acute on Chronic respiratory Failure - Subjective Date patient seen: Apr 18, 2019 Time patient seen: 08:35 Constitutional: Reports: weakness HEENT: Reports: no symptoms Cardiovascular: Reports: no symptoms Respiratory: Reports: shortness of breath, SOB at rest Gastrointestinal/Abdominal: Reports: no symptoms Genitourinary: Reports: no symptoms Neurologic/Psychiatric: Reports: no symptoms Allergies: Coded Allergies: CYCLOBENZAPRINE (Verified Allergy, Unknown, 12/11/18) IBUPROFEN (Verified Allergy, Unknown, 12/11/18) MELATONIN (Verified Allergy, Unknown, 12/11/18) SULFA (SULFONAMIDE ANTIBIOTICS) (Verified Allergy, Unknown, 12/11/18) SULFUR (Unverified Allergy, Unknown, 04/17/19) Uncoded Allergies: CONTRAST (Allergy, Unknown, 04/17/19) Subjective This morning patient is very lethargic but arousable. afebrile now but she had low grade fever at night. Patient is being seen by Pulmonary now. Objective Last 24 Hour Vital Signs Date Time Temp Pulse Resp B/P (MAP) Pulse Ox O2 Delivery O2 Flow Rate FiO2 04/18/19 14:30 80 20 95 2.0 28 04/18/19 13:23 79 19 95 Facial 30 04/18/19 12:00 63 04/18/19 11:25 78 19 94 Facial 30 04/18/19 09:49 Nasal Cannula 2.0 28 04/18/19 09:47 Nasal Cannula 2.0 28 04/18/19 09:00 Nasal Cannula 2.0 04/18/19 08:00 65 04/18/19 04:00 64 04/18/19 04:00 96.9 65 18 84/53 (63) 98 04/18/19 02:46 Nasal Cannula 2.0 04/18/19 02:12 62 04/18/19 01:45 96.9 74 19 102/54 (70) 92 04/18/19 01:30 98.8 69 18 104/58 100 Nasal Cannula 3.0 32 04/18/19 01:30 98.8 69 18 104/58 100 Nasal Cannula 3.0 32 04/18/19 00:30 98.8 76 16 102/49 100 Nasal Cannula 3.0 32 04/17/19 23:30 98.8 76 16 92/54 100 Nasal Cannula 3.0 32 04/17/19 23:00 99.9 16 90/56 100 Nasal Cannula 3.0 32 04/17/19 22:50 80 14 100 Nasal Cannula 3.0 32 04/17/19 22:40 100 04/17/19 22:40 78 16 100 Non-Rebreather 15.0 100 04/17/19 22:40 78 16 100 Non-Rebreather 15.0 100 04/17/19 22:30 108 28 15.0 04/17/19 22:14 99.9 108 28 100/59 (73) 98 15.0 Intake and Output 04/17/19 04/18/19 19:00 07:00 Intake Total 200 ml Output Total 700 ml Balance -500 ml Intake IV Total 200 ml Output Urine Total 700 ml # Voids 2 Laboratory Tests 04/17/19 22:30: White Blood Count 7.4, Red Blood Count 2.87L, Hemoglobin 9.4L, Hematocrit 26.6L , Mean Corpuscular Volume 93, Mean Corpuscular Hemoglobin 32.6H, Mean Corpuscular Hemoglobin Concent 35.1, Red Cell Distribution Width 14.0, Platelet Count 224, Mean Platelet Volume 5.5L, Neutrophils (%) (Auto) 80.5H, Lymphocytes (%) (Auto) 10.0L, Monocytes (%) (Auto) 9.0, Eosinophils (%) (Auto) 0.1, Basophils (%) (Auto) 0.5, Prothrombin Time 13.9H, Prothromb Time International Ratio 1.3H, Activated Partial Thromboplast Time 43H, Sodium Level 136, Potassium Level 3.7, Chloride Level 98, Carbon Dioxide Level 26, Anion Gap 13, Blood Urea Nitrogen 47H, Creatinine 2.7H, Estimat Glomerular Filtration Rate , Glucose Level 99, Lactic Acid Level 1.30, Calcium Level 7.9L, Total Bilirubin 0.3, Aspartate Amino Transf (AST/SGOT) 128H, Alanine Aminotransferase (ALT/SGPT ) 138H, Alkaline Phosphatase 120H, Total Creatine Kinase 82, Creatine Kinase MB 10.3H, Creatine Kinase MB Relative Index 12.5, Troponin I 0.000, Pro-B-Type Natriuretic Peptide 2735H, Total Protein 6.4, Albumin 2.3L, Globulin 4.1, Albumin/Globulin Ratio 0.6L 04/18/19 00:00: Urine Color Yellow, Urine Appearance Slightly cloudy, Urine pH 5, Urine Specific [place] 1.020, Urine Protein 1+H, Urine Glucose (UA) Negative, Urine Ketones 1+H, Urine Blood 3+H, Urine Nitrite Negative, Urine Bilirubin Negative, Urine Urobilinogen Normal, Urine Leukocyte Esterase 2+H, Urine RBC 10-15H, Urine WBC 10-15H, Urine Squamous Epithelial Cells Few, Urine Bacteria ManyH, Urine Yeast ManyH 04/18/19 06:30: White Blood Count 5.7, Red Blood Count 2.86L, Hemoglobin 8.9L, Hematocrit 28.4L , Mean Corpuscular Volume 99, Mean Corpuscular Hemoglobin 31.3H, Mean Corpuscular Hemoglobin Concent 31.5L, Red Cell Distribution Width 15.0H, Platelet Count 228, Mean Platelet Volume 5.6L, Neutrophils (%) (Auto) , Lymphocytes (%) (Auto) , Monocytes (%) (Auto) , Eosinophils (%) (Auto) , Basophils (%) (Auto) , Sodium Level 140, Potassium Level 3.1L, Chloride Level 106, Carbon Dioxide Level 19L, Anion Gap 15, Blood Urea Nitrogen 38H, Creatinine 2.1H, Estimat Glomerular Filtration Rate , Glucose Level 146H, Calcium Level 6.7L, Total Bilirubin 0.3, Aspartate Amino Transf (AST/SGOT) 110H , Alanine Aminotransferase (ALT/SGPT) 127H, Alkaline Phosphatase 109, Total Protein 5.8L, Albumin 2.0L, Globulin 3.8, Albumin/Globulin Ratio 0.5L, Differential Total Cells Counted 100, Neutrophils % (Manual) 94H, Lymphocytes % (Manual) 4L, Monocytes % (Manual) 2, Eosinophils % (Manual) 0, Basophils % ( Manual) 0, Band Neutrophils 0, Platelet Estimate Adequate, Platelet Morphology Normal, Hypochromasia 1+, Anisocytosis 1+ 04/18/19 09:10: Arterial Blood pH 7.247*L, Arterial Blood Partial Pressure CO2 43.4, Arterial Blood Partial Pressure O2 118.6H, Arterial Blood HCO3 18.5L, Arterial Blood Oxygen Saturation 97.4, Arterial Blood Base Excess -8.2L, Domingo Test Positive 04/18/19 13:23: Arterial Blood pH 7.303L, Arterial Blood Partial Pressure CO2 35.1, Arterial Blood Partial Pressure O2 88.5, Arterial Blood HCO3 17.0*L, Arterial Blood Oxygen Saturation 95.8, Arterial Blood Base Excess -8.6L, Domingo Test Positive Height (Feet): 5 Height (Inches): 3.00 Weight (Pounds): 97 General Appearance: lethargic, moderate distress Neck: non-tender, supple Cardiovascular: normal rate, regular rhythm Respiratory/Chest: decreased breath sounds Abdomen: normal bowel sounds, non tender, soft Extremities: normal range of motion, non-tender Edema: no edema noted Arm (L), no edema noted Arm (R), no edema noted Leg (L), no edema noted Leg (R), no edema noted Pedal (L), no edema noted Pedal (R), no edema noted Generalized Neurologic: responsive Skin: warm/dry Wally Mancilla MD Apr 18, 2019 16:46
--- NOTE | 2019-04-18 17:00 | Consultation ---
DATE OF CONSULTATION: 04/18/2019 INFECTIOUS DISEASE CONSULTATION NOTE: INCOMPLETE DICTATION. CONSULTING PHYSICIAN: Saravanan Serrato M.D. REFERRING PHYSICIAN: Wally Mancilla M.D. REASON FOR CONSULTATION: Bilateral aspiration pneumonia and UTI with fever, possible sepsis. Recommendation for antibiotics treatment. HISTORY OF PRESENT ILLNESS: The patient is a 73-year-old female with past medical history significant for extensive COPD, atrial fibrillation, hypertension, hyperlipidemia, congestive heart failure, and anemia, who was sent to the emergency room at [facility] for progressive shortness of breath and fever. The patient was brought in via paramedics from her assisted facility for fever and shortness of breath. INCOMPLETE DICTATION Saravanan Serrato M.D. DR: BENEDICTO JOB#: [id number] CC:
--- NOTE | 2019-04-18 17:30 | Consultation ---
DATE OF CONSULTATION: 04/18/2019 INFECTIOUS DISEASE CONSULTATION ADDENDUM The patient, as I mentioned previously, developed fever and shortness of breath for the last 24 hours. Her oxygen saturation was found to be low. She was placed on oxygen at the longterm facility, but she continued to have difficulty breathing, so she was brought into the emergency room at [facility]. In the ER, she was found to be febrile with temperature of 99.9 and pulse ox of 98% on non-rebreathable Ventimask with FiO2 of 100%. The patient had a chest x-ray, which showed COPD-related changes and consolidation at the bases concerning for aspiration pneumonia and this was confirmed with a CT scan of the chest, which showed severe parenchymal destruction due to COPD and bilateral basal consolidation concerning for pneumonia. So, she was started on Zosyn, Zithromax, and steroids and was placed on BiPAP and Infectious Disease consultation was requested for antibiotics treatment and further management. As of note, the patient is on BiPAP currently and cannot provide any history. History was mainly obtained from the medical record and nursing staff. REVIEW OF SYSTEMS: Unable to obtain, the patient cannot provide any history. PAST MEDICAL HISTORY: Significant for hypertension, COPD, GI bleeding, and dementia. PAST SURGICAL HISTORY: Not on record. FAMILY HISTORY: Unable to obtain. SOCIAL HISTORY: She is a longterm patient. No recent drugs, tobacco, or alcohol. She is unemployed, retired. ALLERGIES: She does have multiple allergies including sulfa, contrast material, melatonin, ibuprofen, and cyclobenzaprine. MEDICATIONS: Currently, she is on Zosyn and Zithromax. For the rest of her medications, please refer to OCT. PHYSICAL EXAMINATION: VITAL SIGNS: Temperature 96.9, pulse 79, respirations 19. Pulse oximetry 95% on BiPAP machine with FiO2 of 30%. GENERAL: An elderly female, cachectic and debilitated, lying in bed, confused on BiPAP, not in acute distress. HEENT: Normocephalic and atraumatic. Pupils are reactive to light. Pale sclerae. Unable to assess oral mucosa due to BiPAP mask. NECK: Supple. No lymphadenopathy. CARDIOVASCULAR: She is tachycardic. S1 and S2 normal. No murmur. LUNGS: She had poor air entry to both lung llanes. Unable to appreciate any wheezing, rales, or rhonchi. ABDOMEN: Soft, nontender, and nondistended. Normal bowel sounds. No hepatosplenomegaly or ascites. EXTREMITIES: No edema or cyanosis. No clubbing. SKIN: No rash. No hives. No ulceration. LABORATORY DATA: Showed white count of 5.7, hemoglobin 8.9, and platelet count 228,000. BUN 38, creatinine 2.1. AST 110, ALT 127. Urinalysis showed +2 leukocyte esterase, wbc's 10 to 15, many bacteria, and many yeast. IMAGING: CT scan of the chest showed extensive acute and chronic pulmonary parenchymal disease with evidence of interstitial septal thickening, COPD changes with some bullous changes. Evidence of old granulomatous disease and possibly chronic interstitial fibrosis. There is also atelectasis and possibly consolidation involving the lower lobes and portion of the right upper lobe with bilateral small pleural effusion. ASSESSMENT AND RECOMMENDATION: 1. Aspiration pneumonia with bilateral basal consolidation and fever. Continue Zosyn, add vancomycin. Send sputum culture. Aspiration precaution and keep head of bed more than 30 degrees. 2. Chronic obstructive pulmonary disease extensive with extensive lung parenchyma damage, with acute exacerbation. Continue inhalers and taper steroid, oxygen as needed. 3. Urinary tract infection, currently on Zosyn pending culture. 4. Fever due to the above. Continue wide spectrum antibiotics and Tylenol. 5. Acute respiratory failure due to extensive chronic obstructive pulmonary disease and lung parenchymal destruction, on BiPAP. For now, monitor ABG and chest x-ray. Pulmonary is following. Thank you for the consult. ID will continue to follow. Saravanan Serrato M.D. DR: BENEDICTO JOB#: [id number] CC:
[2019-04-18] MEDS: Eliquis 2.5mg tablet ORAL SCH (17:41)
[2019-04-18] MEDS: Sodium Bicarbonate 650mg Tab ORAL SCH (17:41)
--- NOTE | 2019-04-18 19:06 | NUR ---
RESPIRATORY NOTE: Pt received on bipap settings /, backup rate 16, 30% FiO2. Alarms on and audible. Tape placed on skin. Pt is disoriented, combative, and on restraints. Saturations at 94%. Will continue to monitor.
--- NOTE | 2019-04-18 19:30 | NUR ---
NURSE NOTES: Received patient from SIVAN Martell. patient is AO x1, no s/sx of pain noted at this time. patient is observed to be agitated and restless. soft wrist restraints placed d/t patient pulling off BiPAP. ecchymosis noted on bilateral upper extremities prior to placement of restraints. peripheral pulses present upon palpation. BiPAP settings are 12/5, FiO2: 30%. no s/sx of respiratory distress noted at this time. F/C is patent and intact, draining well. IV site is patent and intact, running fluids at prescribed rate. bed in lowest position and locked, siderails up X3, call light within reach. will continue to monitor.
--- NOTE | 2019-04-18 19:31 | NUR ---
HAND-OFF: Report given to RAE FINNEGAN.
[2019-04-18] MEDS ORDERED: ROCALTROL0.5 MC1 PO (19:45)
--- NOTE | 2019-04-18 19:45 | History and Physical Report ---
DATE OF ADMISSION: 04/17/2019 CHIEF COMPLAINT: Shortness of breath and COPD exacerbation. HISTORY OF PRESENT ILLNESS: This is a 73-year-old female with a history of COPD, Paroxysmal A Fib, hypertension, hyperlipidemia, anemia, and history of CHF, who was brought in for complaint of acute shortness of breath and COPD exacerbation. The patient presented to the emergency room with hypotension and shortness of breath. She was started on IV fluid and Solu-Medrol 125 mg IV and blood pressure improved. The patient was also noticed to have a urinary tract infection and was started on IV Zosyn and azithromycin in the emergency room. The patient was admitted to the telemetry at night. PAST MEDICAL HISTORY: Includes history of COPD, hypertension, atrial fibrillation, coronary artery disease, PA, history of hyperlipidemia, history of pacemaker placement, neuropathy, history of left shoulder rotator cuff tear, and history of chronic low back pain. ALLERGIES: Allergic to sulfa, Motrin, melatonin, and cyclobenzaprine. MEDICATION: Please review the list of medication from rehabilitation where she came from. SOCIAL HISTORY: The patient with history of former smoker. No drug or alcohol use. REVIEW OF SYSTEMS: The patient is lethargic and unable to get the history from the patient. PHYSICAL EXAMINATION: VITAL SIGNS: Temperature 99.9, pulse 108, respiratory rate 28, blood pressure 100/59, and O2 was 98%. GENERAL APPEARANCE: This is a elderly frail female, lethargic and not responding to command, but is still arousable. HEENT: Normocephalic and normochromic. Extraocular muscles intact. NECK: Supple. No lymphadenopathy. CHEST: Clear, but distant breath sounds. HEART: Regular rate and rhythm. No murmur. No gallop. ABDOMEN: Soft, nontender, nondistended. EXTREMITIES: No edema, cyanosis, or clubbing. NEUROLOGIC: Arousable, but does not respond to commands. LABORATORY AND DIAGNOSTIC DATA: Include WBC 7.4, hemoglobin 9.4, hematocrit 26.6, platelet count 224,000, neutrophils 80, lymphocytes 10. Sodium 136, potassium 3.7, chloride 98, bicarbonate 26, BUN 47, creatinine 2.7, glucose 99, calcium 7.9. AST 128, ALT 138, alkaline phosphatase 120. Troponin is 0. BNP 2735. Albumin 2.3. Lactic acid was 1.3. PT 13.9, INR 1.3, PTT 43. UA showed 10 to 15 rbc's, 10 to 15 wbc's, few squamous epithelial cells, many bacteria, and many yeast. IMPRESSION: This is a 73-year-old female with history of COPD and chronic respiratory failure who was brought in for admission for COPD exacerbation, and urinary tract infection. DIAGNOSES: 1. COPD exacerbation. 2. Urinary tract infection. 3. Acute kidney injury. 4. Dehydration. 5. Coronary artery disease. 6. Paroxysmal atrial fibrillation. 7. Hypertension. 8. Hyperlipidemia. 9. Chronic pain syndrome with chronic low back pain. TREATMENT: 1. The patient will be admitted to telemetry and if the blood pressure drops, we will transfer the patient to either step-down or ICU. The patient will be started on IV fluid and IV Solu-Medrol for COPD exacerbation with DuoNeb inhalers and nebulizer. 2. The patient will be started on IV antibiotic, Zosyn and azithromycin for urinary tract infection. 3. I will have Pulmonary, Cardiology, and ID evaluate the patient for COPD exacerbation and pacemaker and Infectious Disease for urinary tract infection. The patient has been Full Code since the last admission and we will continue to keep the patient Full Code and I will discuss with the family if there are any changes. 4. The patient will be admitted for minimum of two-night stay for diagnoses of COPD acute exacerbation and urinary tract infection. Wally Mancilla M.D. DR: CANDY JOB#: [id number] CC: MIKEY
[2019-04-18 20:00] VITALS: BP 98/58
[2019-04-18] MEDS: Piperacillin/Tazobactam 3.375 GM in NS 110 ML IVPB SCH (20:16)
[2019-04-18] MEDS: Solu-MEDROL 125mg Inj IVP SCH (20:56)
[2019-04-18] MEDS: Atorvastatin 20mg tab ORAL SCH (20:59)
[2019-04-18] MEDS ORDERED: Atorvastatin 20mg tab ORAL SCH ×2 (21:00)
[2019-04-19] VITALS: BP 98/57
--- NOTE | 2019-04-19 03:00 | Consultation ---
DATE OF CONSULTATION: 04/18/2019 CARDIOLOGY CONSULTATION CONSULTING PHYSICIAN: Jarrod Gutierrez M.D. REFERRING PHYSICIAN: Wally Mancilla M.D. REASON FOR CONSULTATION: Management of hypertension, atrial fibrillation, and pacemaker. HISTORY OF PRESENT ILLNESS: The patient is a 73-year-old lady with history of hypertension, hyperlipidemia, paroxysmal atrial fibrillation with history of pacemaker implantation, evaluated in November 2018. The patient had COPD at that time. The patient was admitted. The blood pressure was also low and she was short of breath. EKG showed sinus rhythm with very long SD interval, but the patient was not paced . Cardiology consultation was obtained for further evaluation. REVIEW OF SYSTEMS: Negative other than what was mentioned in the history of present illness. PAST MEDICAL HISTORY: As mentioned above. FAMILY HISTORY: Noncontributory. ALLERGIES: She is allergic to cyclobenzaprine, contrast, sulfa, and Motrin. MEDICATIONS: Per reconciliation. SOCIAL HISTORY: She is a former smoker. Does not smoke or drink alcohol. PHYSICAL EXAMINATION: VITAL SIGNS: Show blood pressure initially was 84/53, pulse 64, respirations 18, and temperature 96.9. HEAD AND NECK: Shows no JVD. LUNGS: Coarse rhonchi. CHEST: The pacemaker is in the left subclavian. ABDOMEN: Soft. EXTREMITIES: No pitting edema. LABORATORY AND DIAGNOSTIC DATA: Her chest x-ray showed flattened diaphragm and right-sided dual-chamber pacemaker. Her labs show white count of 5.7, hemoglobin 8.9, hematocrit 28.5, and platelet count 228,000. Sodium 140, potassium 3.1, BUN 38, creatinine 2.1, and glucose 146. Troponin is negative. BNP 2735. Her echocardiogram in November 2018 showed EF of 55%. ASSESSMENT AND PLAN: 1. Status post pacemaker. The patient, however, has not been paced. We will try to find the brand of the pacemaker. In the last admission in November, we tried to find the brand of pacemaker, checked with multiple companies, we were not successful. I am not sure when was the last time the pacemaker has been checked. The fact that it is not pacing in the ventricle despite such a long SD interval suggests that the battery maybe . 2. Paroxysmal atrial fibrillation, currently in sinus rhythm, currently on Eliquis 2.5 mg b.i.d. The patient is also on amiodarone 200 mg b.i.d. that was switched to 200 mg daily only. 3. Hyperlipidemia, on Lipitor. 4. COPD and pneumonia, on azithromycin and Solu-Medrol. 5. Status post sternotomy. On the chest x-ray and also on physical exam I see on the sternum, but nature of which is not clear at this point. Thank you very much for allowing me to participate in the care of this patient. Please do not hesitate to contact me for any questions regarding my evaluation. Jarrod Gutierrez M.D. DR: BRIDGETTE JOB#: [id number] CC:
[2019-04-19 04:49] VITALS: BP 100/59
[2019-04-19] MEDS ORDERED: Azithromycin 500 MG in D5W 275 ML IV SCH ×4 (06:00)
[2019-04-19] MEDS: Azithromycin 500 MG in D5W 275 ML IV SCH (06:49)
--- NOTE | 2019-04-19 07:00 | NUR ---
RESPIRATORY NOTES: Received Patient on BIPAP / PS 7 Fio2 30%. Patient currently on facial mask with tape in place. No skin breakdown noted. Patient currently restless and agitated. Bilateral diminished breath sounds through all lung llanes. Bipap alarms are on and audible. Bipap plugged into red outlet. Will continue to monitor throughout the day.
[2019-04-19 07:16] LABS: HEMOGLOBIN 8.1 G/DL (12.0-16.0); MEAN CORPUSCULAR VOLUME 98 FL (80-99); PLATELET COUNT 228 K/UL (150-450); RED BLOOD COUNT 2.64 M/UL (4.20-5.40); RED CELL DISTRIBUTION WIDTH 15.3 % (11.6-14.8); WHITE BLOOD COUNT 12.3 K/UL (4.8-10.8)
--- NOTE | 2019-04-19 07:32 | NUR ---
NURSE NOTES: received patient report from tsering beth. patient is on bed asleep. noted to be on bilateral soft restraint. no arrythmias reported during the night. SR to SR with 1st degree AVB. not in acute distress. comfortbale. will follow plan of care.
--- NOTE | 2019-04-19 07:43 | NUR ---
HAND-OFF: Report given to SIVAN Capps. patient is in stable condition.
[2019-04-19 07:48] LABS: ANION GAP 17 mmol/L (5-15); BLOOD UREA NITROGEN 36 mg/dL (7-18); CALCIUM 6.4 MG/DL (8.5-10.1); CARBON DIOXIDE 16 MMOL/L (21-32); CHLORIDE 111 MMOL/L (98-107); CREATININE 2.1 MG/DL (0.55-1.30); SODIUM 144 MMOL/L (136-145)
[2019-04-19 08:00] VITALS: BP 106/72
[2019-04-19] MEDS: Piperacillin/Tazobactam 3.375 GM in NS 110 ML IVPB SCH ×2 (08:27→20:00)
[2019-04-19] MEDS: Solu-MEDROL 125mg Inj IVP SCH ×2 (08:28→20:45)
[2019-04-19] MEDS: Amiodarone 200mg tab ORAL SCH (08:28)
[2019-04-19] MEDS: Calcitriol 0.5mcg Cap ORAL SCH (08:28)
[2019-04-19] MEDS: Miralax 17gm pkt ORAL SCH ×2 (08:29→08:56)
[2019-04-19] MEDS: Sodium Bicarbonate 650mg Tab ORAL SCH ×2 (08:29→17:09)
[2019-04-19] MEDS: Multivitamin w/Minerals tab ORAL SCH (08:29)
[2019-04-19] MEDS: Aspirin Baby 81mg ORAL SCH ×2 (08:29→08:48)
[2019-04-19] MEDS: Eliquis 2.5mg tablet ORAL SCH ×2 (08:30→17:09)
[2019-04-19] MEDS ORDERED: Miralax 17gm pkt ORAL SCH (09:00)
[2019-04-19] MEDS ORDERED: Multivitamin w/Minerals tab ORAL SCH (09:00)
[2019-04-19] MEDS ORDERED: Aspirin Baby 81mg ORAL SCH (09:00)
[2019-04-19] MEDS ORDERED: Calcitriol 0.5mcg Cap ORAL SCH (09:00)
[2019-04-19] MEDS ORDERED: Amiodarone 200mg tab ORAL SCH ×2 (09:00)
--- NOTE | 2019-04-19 09:25 | NUR ---
NURSE NOTES: bilateral restraints were removed per protocol. patients is observed to calm and comfortable. not in acute distress. no injury.on bipap at prescribed rate. will continue to monitor.
--- NOTE | 2019-04-19 10:33 | General Progress Note ---
Assessment/Plan Assessment/Plan: 1. COPD with Acute Exacerbation - cont IV solumedrol and slowly junior off. On Bipap now. cont Nab txt and inhalers. 2. UTI - cont IV abx with zosyn and azithromycin. ID following. 3. Leukocytosis probably 2nd to steroid. 4. Possible sepsis - cont above antibiotic and follow cultures. 5. Paroxysmal A. Fib - cont amioderone 200 mg daily. 5. CAD 6. SSS s/p Pacemaker - cardiology consult done. 7. HLD 8. Chronic Pain Syndrome 9. Acute on Chronic respiratory Failure - slightly better and on Bipap now. Subjective Date patient seen: Apr 19, 2019 Time patient seen: 10:05 Constitutional: Reports: weakness HEENT: Reports: no symptoms Cardiovascular: Reports: no symptoms Respiratory: Reports: shortness of breath Gastrointestinal/Abdominal: Reports: no symptoms Genitourinary: Reports: no symptoms Neurologic/Psychiatric: Reports: weakness Endocrine: Reports: no symptoms Hematologic/Lymphatic: Reports: no symptoms Allergies: Coded Allergies: CYCLOBENZAPRINE (Verified Allergy, Unknown, 12/11/18) IBUPROFEN (Verified Allergy, Unknown, 12/11/18) MELATONIN (Verified Allergy, Unknown, 12/11/18) SULFA (SULFONAMIDE ANTIBIOTICS) (Verified Allergy, Unknown, 12/11/18) SULFUR (Unverified Allergy, Unknown, 04/17/19) Uncoded Allergies: CONTRAST (Allergy, Unknown, 04/17/19) Subjective This morning patient is on Bipap Afebrile but her WBC increased this morning possibly due to steroid. She still slighly drowsy this morning. Objective Last 24 Hour Vital Signs Date Time Temp Pulse Resp B/P (MAP) Pulse Ox O2 Delivery O2 Flow Rate FiO2 04/19/19 09:00 Bi-pap 04/19/19 08:45 91 24 90 Facial 30 Bi-Pap 30 04/19/19 08:00 97.3 77 18 106/72 (83) 97 04/19/19 06:35 96 26 90 Facial 30 04/19/19 05:25 91 17 94 Facial 30 04/19/19 04:49 98.7 90 19 100/59 (73) 97 04/19/19 04:00 84 04/19/19 04:00 Bi-pap 04/19/19 03:09 88 22 95 Facial 30 04/19/19 01:29 93 22 95 Facial 30 04/19/19 00:00 96 04/19/19 00:00 98.3 95 16 98/57 (71) 94 04/19/19 00:00 Bi-pap 04/18/19 23:31 94 20 94 Facial 30 04/18/19 21:23 91 21 94 Facial 30 04/18/19 21:00 Bi-pap 04/18/19 20:00 95 04/18/19 20:00 97.4 98 20 98/58 (71) 95 04/18/19 19:06 101 18 96 Bi-Pap 30 04/18/19 19:06 101 18 96 Facial 30 04/18/19 16:40 82 22 94 Facial 30 04/18/19 16:00 87 04/18/19 14:30 80 20 95 2.0 28 04/18/19 13:23 79 19 95 Facial 30 04/18/19 12:00 63 04/18/19 11:25 78 19 94 Facial 30 Intake and Output 04/18/19 04/19/19 19:00 07:00 Intake Total 1360.000 ml Output Total 550 ml 400 ml Balance -550 ml 960.000 ml Intake IV Total 1360.000 ml Output Urine Total 550 ml 400 ml Laboratory Tests 04/18/19 13:23: Arterial Blood pH 7.303L, Arterial Blood Partial Pressure CO2 35.1, Arterial Blood Partial Pressure O2 88.5, Arterial Blood HCO3 17.0*L, Arterial Blood Oxygen Saturation 95.8, Arterial Blood Base Excess -8.6L, Domingo Test Positive 04/19/19 07:00: White Blood Count 12.3#H, Red Blood Count 2.64L, Hemoglobin 8.1L, Hematocrit 26.0L, Mean Corpuscular Volume 98, Mean Corpuscular Hemoglobin 30.7, Mean Corpuscular Hemoglobin Concent 31.2L, Red Cell Distribution Width 15.3H, Platelet Count 228, Mean Platelet Volume 5.1L, Neutrophils (%) (Auto) , Lymphocytes (%) (Auto) , Monocytes (%) (Auto) , Eosinophils (%) (Auto) , Basophils (%) (Auto) , Differential Total Cells Counted 100, Neutrophils % ( Manual) 96H, Lymphocytes % (Manual) 3L, Monocytes % (Manual) 1, Eosinophils % ( Manual) 0, Basophils % (Manual) 0, Band Neutrophils 0, Platelet Estimate Adequate, Platelet Morphology Normal, Hypochromasia 1+, Anisocytosis 1+, Macrocytosis 1+, Sodium Level 144, Potassium Level 4.0, Chloride Level 111H, Carbon Dioxide Level 16L, Anion Gap 17H, Blood Urea Nitrogen 36H, Creatinine 2.1H, Estimat Glomerular Filtration Rate , Glucose Level 100, Calcium Level 6.4L Height (Feet): 5 Height (Inches): 3.00 Weight (Pounds): 97 General Appearance: lethargic EENT: normal ENT inspection Neck: non-tender, supple Cardiovascular: normal rate, regular rhythm Respiratory/Chest: lungs clear, normal breath sounds Abdomen: normal bowel sounds, non tender, soft Extremities: normal range of motion, non-tender Edema: no edema noted Arm (L), no edema noted Arm (R), no edema noted Leg (L), no edema noted Leg (R), no edema noted Pedal (L), no edema noted Pedal (R), no edema noted Generalized Neurologic: responsive Skin: warm/dry Wally Mancilla MD Apr 19, 2019 10:33
[2019-04-19 12:00] VITALS: BP 98/61
--- NOTE | 2019-04-19 12:34 | Cardiac Electrophysiology PN ---
Assessment/Plan Assessment/Plan 1. Status post [employer] pacemaker. Interrogated and showed Nl Fx with 6 years battery left and longest A trial fib was 01/2019 for 99 hours 2. Paroxysmal atrial fibrillation, currently in sinus rhythm, on Eliquis 2.5 mg b.i.d. and amiodarone 200 mg daily 3. Hyperlipidemia, on Lipitor. 4. Respiratory failure due to COPD and pneumonia, on BIPAP, Abx and Solu-Medrol. 5. Status post sternotomy. On the chest x-ray and also on physical exam but nature of which is not clear at this point. 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 Subjective Subjective Still on BIPAP on abx Objective Last 24 Hour Vital Signs Date Time Temp Pulse Resp B/P (MAP) Pulse Ox O2 Delivery O2 Flow Rate FiO2 04/19/19 11:42 71 04/19/19 11:12 65 17 99 Facial 30 04/19/19 09:00 Bi-pap 04/19/19 08:45 91 24 90 Facial 30 Bi-Pap 30 04/19/19 08:00 97.3 77 18 106/72 (83) 97 04/19/19 07:43 77 04/19/19 06:35 96 26 90 Facial 30 04/19/19 05:25 91 17 94 Facial 30 04/19/19 04:49 98.7 90 19 100/59 (73) 97 04/19/19 04:00 84 04/19/19 04:00 Bi-pap 04/19/19 03:09 88 22 95 Facial 30 04/19/19 01:29 93 22 95 Facial 30 04/19/19 00:00 96 04/19/19 00:00 98.3 95 16 98/57 (71) 94 04/19/19 00:00 Bi-pap 04/18/19 23:31 94 20 94 Facial 30 04/18/19 21:23 91 21 94 Facial 30 04/18/19 21:00 Bi-pap 04/18/19 20:00 95 04/18/19 20:00 97.4 98 20 98/58 (71) 95 04/18/19 19:06 101 18 96 Bi-Pap 30 04/18/19 19:06 101 18 96 Facial 30 04/18/19 16:40 82 22 94 Facial 30 04/18/19 16:00 87 04/18/19 14:30 80 20 95 2.0 28 8/23/19 13:23 79 19 95 Facial 30 Intake and Output 04/18/19 04/19/19 19:00 07:00 Intake Total 1360.000 ml Output Total 550 ml 400 ml Balance -550 ml 960.000 ml Intake IV Total 1360.000 ml Output Urine Total 550 ml 400 ml Laboratory Tests Test 04/18/19 13:23 04/19/19 07:00 Arterial Blood pH 7.303 (7.350-7.450) Arterial Blood Partial Pressure CO2 35.1 mmHg (35.0-45.0) Arterial Blood Partial Pressure O2 88.5 mmHg (75.0-100.0) Arterial Blood HCO3 17.0 mmol/L (22.0-26.0) *L Arterial Blood Oxygen Saturation 95.8 % (95-100) Arterial Blood Base Excess -8.6 (-2-2) L Domingo Test Positive White Blood Count 12.3 K/UL (4.8-10.8) #H Red Blood Count 2.64 M/UL (4.20-5.40) L Hemoglobin 8.1 G/DL (12.0-16.0) L Hematocrit 26.0 % (37.0-47.0) L Mean Corpuscular Volume 98 FL (80-99) Mean Corpuscular Hemoglobin 30.7 PG (27.0-31.0) Mean Corpuscular Hemoglobin Concent 31.2 G/DL (32.0-36.0) L Red Cell Distribution Width 15.3 % (11.6-14.8) H Platelet Count 228 K/UL (150-450) Mean Platelet Volume 5.1 FL (6.5-10.1) L Neutrophils (%) (Auto) % (45.0-75.0) Lymphocytes (%) (Auto) % (20.0-45.0) Monocytes (%) (Auto) % (1.0-10.0) Eosinophils (%) (Auto) % (0.0-3.0) Basophils (%) (Auto) % (0.0-2.0) Differential Total Cells Counted 100 Neutrophils % (Manual) 96 % (45-75) H Lymphocytes % (Manual) 3 % (20-45) L Monocytes % (Manual) 1 % (1-10) Eosinophils % (Manual) 0 % (0-3) Basophils % (Manual) 0 % (0-2) Band Neutrophils 0 % (0-8) Platelet Estimate Adequate Platelet Morphology Normal Hypochromasia 1+ Anisocytosis 1+ Macrocytosis 1+ Sodium Level 144 MMOL/L (136-145) Potassium Level 4.0 MMOL/L (3.5-5.1) Chloride Level 111 MMOL/L (98-107) H Carbon Dioxide Level 16 MMOL/L (21-32) L Anion Gap 17 mmol/L (5-15) H Blood Urea Nitrogen 36 mg/dL (7-18) H Creatinine 2.1 MG/DL (0.55-1.30) H Estimat Glomerular Filtration Rate mL/min (>60) Glucose Level 100 MG/DL (74-106) Calcium Level 6.4 MG/DL (8.5-10.1) L Microbiology Date/Time Source Procedure Growth Status 04/17/19 22:45 Blood Blood Culture - Preliminary NO GROWTH AFTER 24 HOURS Resulted 04/17/19 22:30 Blood Blood Culture - Preliminary NO GROWTH AFTER 24 HOURS Resulted 04/18/19 00:00 Urine,Clean Catch Urine Culture - Preliminary Gram Positive Cocci Resulted 04/17/19 23:30 Rectum Received Objective HEAD AND NECK: Shows no JVD.BIPAP is on LUNGS: Coarse rhonchi. CHEST: The pacemaker is in the left subclavian. ABDOMEN: Soft. EXTREMITIES: No pitting edema. Jarrod Gutierrez MD Apr 19, 2019 12:34
[2019-04-19] MEDS ORDERED: Vancomycin 1gm/D5W 275ml IVPB ONE ×2 (13:00)
--- NOTE | 2019-04-19 13:15 | Infectious Diseases Prog Note ---
Assessment/Plan Problems: (1) Aspiration pneumonia Assessment & Plan: with B/L basal consolidations and fever , continue zosyn , and vancomycin empiric coverage , send sputum culture . aspiration precaution. Keep HOB > 30 DEGREE (2) COPD (chronic obstructive pulmonary disease) Assessment & Plan: continue inhalers , taper steroids (3) UTI (urinary tract infection) Assessment & Plan: with gram positive cocci already on vancomycin pending final culture (4) Fever Assessment & Plan: due to the above, continue wide spectrum antibiotics and tylenol (5) Acute respiratory failure Assessment & Plan: due to the above with severe COPD and lung parenchyma destruction , on BIPAP, monitor ABG, pulmonary is following Subjective ROS Limited/Unobtainable: Yes Allergies: Coded Allergies: CYCLOBENZAPRINE (Verified Allergy, Unknown, 12/11/18) IBUPROFEN (Verified Allergy, Unknown, 12/11/18) MELATONIN (Verified Allergy, Unknown, 12/11/18) SULFA (SULFONAMIDE ANTIBIOTICS) (Verified Allergy, Unknown, 12/11/18) SULFUR (Unverified Allergy, Unknown, 04/17/19) Uncoded Allergies: CONTRAST (Allergy, Unknown, 04/17/19) Subjective she was resting in bed comfortable , still on BIPAP, no cough or phlegm, no SOB , no diarrhea .afebrile Objective Vital Signs Last 24 Hour Vital Signs Date Time Temp Pulse Resp B/P (MAP) Pulse Ox O2 Delivery O2 Flow Rate FiO2 04/19/19 12:00 97.6 65 18 98/61 (73) 98 04/19/19 11:42 71 04/19/19 11:12 65 17 99 Facial 30 04/19/19 09:00 Bi-pap 04/19/19 08:45 91 24 90 Facial 30 Bi-Pap 30 04/19/19 08:00 97.3 77 18 106/72 (83) 97 04/19/19 07:43 77 04/19/19 06:35 96 26 90 Facial 30 04/19/19 05:25 91 17 94 Facial 30 04/19/19 04:49 98.7 90 19 100/59 (73) 97 04/19/19 04:00 84 04/19/19 04:00 Bi-pap 04/19/19 03:09 88 22 95 Facial 30 04/19/19 01:29 93 22 95 Facial 30 04/19/19 00:00 96 8/24/19 00:00 98.3 95 16 98/57 (71) 94 04/19/19 00:00 Bi-pap 04/18/19 23:31 94 20 94 Facial 30 04/18/19 21:23 91 21 94 Facial 30 04/18/19 21:00 Bi-pap 04/18/19 20:00 95 04/18/19 20:00 97.4 98 20 98/58 (71) 95 04/18/19 19:06 101 18 96 Bi-Pap 30 04/18/19 19:06 101 18 96 Facial 30 04/18/19 16:40 82 22 94 Facial 30 04/18/19 16:00 87 04/18/19 14:30 80 20 95 2.0 28 04/18/19 13:23 79 19 95 Facial 30 Height (Feet): 5 Height (Inches): 3.00 Weight (Pounds): 97 General Appearance: no acute distress, cachetic HEENT: normocephalic, atraumatic, anicteric, mucous membranes moist, PERRL Respiratory/Chest: chest wall non-tender, no respiratory distress, no accessory muscle use, decreased breath sounds, expiratory wheezing Cardiovascular: normal peripheral pulses, normal rate, regular rhythm, no gallop/murmur, no JVD Abdomen: normal bowel sounds, soft, non tender, no organomegaly, non distended , no mass, no scars Extremities: no cyanosis, no clubbing Skin: no rash, no lesions, no ulcers Neurologic/Psychiatric: alert, responsive Lymphatic: no neck adenopathy, no groin adenopathy Musculoskeletal: normal muscle bulk, no effusion Microbiology Date/Time Source Procedure Growth Status 04/17/19 22:45 Blood Blood Culture - Preliminary NO GROWTH AFTER 24 HOURS Resulted 04/17/19 22:30 Blood Blood Culture - Preliminary NO GROWTH AFTER 24 HOURS Resulted 04/18/19 00:00 Urine,Clean Catch Urine Culture - Preliminary Gram Positive Cocci Resulted 04/17/19 23:30 Rectum Received Laboratory Tests Test 04/18/19 13:23 04/19/19 07:00 Arterial Blood pH 7.303 (7.350-7.450) Arterial Blood Partial Pressure CO2 35.1 mmHg (35.0-45.0) Arterial Blood Partial Pressure O2 88.5 mmHg (75.0-100.0) Arterial Blood HCO3 17.0 mmol/L (22.0-26.0) *L Arterial Blood Oxygen Saturation 95.8 % (95-100) Arterial Blood Base Excess -8.6 (-2-2) L Domingo Test Positive White Blood Count 12.3 K/UL (4.8-10.8) #H Red Blood Count 2.64 M/UL (4.20-5.40) L Hemoglobin 8.1 G/DL (12.0-16.0) L Hematocrit 26.0 % (37.0-47.0) L Mean Corpuscular Volume 98 FL (80-99) Mean Corpuscular Hemoglobin 30.7 PG (27.0-31.0) Mean Corpuscular Hemoglobin Concent 31.2 G/DL (32.0-36.0) L Red Cell Distribution Width 15.3 % (11.6-14.8) H Platelet Count 228 K/UL (150-450) Mean Platelet Volume 5.1 FL (6.5-10.1) L Neutrophils (%) (Auto) % (45.0-75.0) Lymphocytes (%) (Auto) % (20.0-45.0) Monocytes (%) (Auto) % (1.0-10.0) Eosinophils (%) (Auto) % (0.0-3.0) Basophils (%) (Auto) % (0.0-2.0) Differential Total Cells Counted 100 Neutrophils % (Manual) 96 % (45-75) H Lymphocytes % (Manual) 3 % (20-45) L Monocytes % (Manual) 1 % (1-10) Eosinophils % (Manual) 0 % (0-3) Basophils % (Manual) 0 % (0-2) Band Neutrophils 0 % (0-8) Platelet Estimate Adequate Platelet Morphology Normal Hypochromasia 1+ Anisocytosis 1+ Macrocytosis 1+ Sodium Level 144 MMOL/L (136-145) Potassium Level 4.0 MMOL/L (3.5-5.1) Chloride Level 111 MMOL/L (98-107) H Carbon Dioxide Level 16 MMOL/L (21-32) L Anion Gap 17 mmol/L (5-15) H Blood Urea Nitrogen 36 mg/dL (7-18) H Creatinine 2.1 MG/DL (0.55-1.30) H Estimat Glomerular Filtration Rate mL/min (>60) Glucose Level 100 MG/DL (74-106) Calcium Level 6.4 MG/DL (8.5-10.1) L Current Medications Medications (Trade) Dose Ordered Sig/Sonny Route PRN Reason Start Time Stop Time Status Last Admin Dose Admin Albuterol/ Ipratropium (Albuterol/ Ipratropium) 3 ml Q4H PRN HHN Shortness of Breath 04/18/19 16:30 04/23/19 16:29 Amiodarone HCl (Cordarone) 200 mg DAILY ORAL 04/19/19 09:00 05/18/19 08:59 04/19/19 08:28 Apixaban (Eliquis) 2.5 mg BID ORAL 04/18/19 18:00 05/18/19 08:59 04/18/19 17:41 Aspirin (ASA) 81 mg DAILY ORAL 04/19/19 09:00 05/18/19 08:59 Atorvastatin Calcium (Lipitor) 20 mg BEDTIME ORAL 04/18/19 21:00 05/18/19 20:59 04/18/19 20:59 Azithromycin 500 mg/Dextrose 275 ml @ 275 mls/hr Q24H IV 04/19/19 06:00 04/25/19 06:59 04/19/19 06:49 Bisacodyl (Dulcolax) 10 mg DAILYPRN PRN RECTAL Constipation 04/18/19 16:30 05/18/19 16:29 Calcitriol (Rocaltrol) 0.5 mcg DAILY ORAL 04/19/19 09:00 05/18/19 08:59 04/19/19 08:28 Ferrous Gluconate (Fergon) 324 mg EVERY OTHER DAY ORAL 04/20/19 09:00 05/18/19 08:59 Gabapentin (Neurontin) 300 mg DAILY ORAL 04/19/19 09:00 05/18/19 08:59 04/19/19 08:28 Lactulose (Cephulac) 10 gm TIDPRN PRN ORAL Constipation 04/18/19 18:00 05/18/19 17:59 Lidocaine (Lidoderm 5% PATCH) 1 patch DAILY TDERMAL 04/19/19 09:00 05/18/19 08:59 04/19/19 08:30 Methylprednisolone Sodium Succinate (Solu-MEDROL) 60 mg Q12HR IVP 04/18/19 21:00 05/18/19 08:59 04/19/19 08:28 Morphine HCl (Morphine IR) 15 mg Q6H PRN ORAL For Pain 04/18/19 16:30 04/25/19 16:29 Multivitamins Therapeutic (Therapeutic Multivitamin) 1 ea DAILY ORAL 04/19/19 09:00 05/18/19 08:59 04/19/19 08:29 Ondansetron HCl (Zofran) 4 mg Q6H PRN ORAL Nausea & Vomiting 04/18/19 16:30 05/18/19 16:29 Piperacillin Sod/ Tazobactam Sod 3.375 gm/Sodium Chloride 110 ml @ 27.5 mls/hr Q12H IVPB 04/18/19 20:00 04/25/19 07:59 04/19/19 08:27 Polyethylene Glycol (Miralax) 17 gm DAILY ORAL 04/19/19 09:00 05/18/19 08:59 Sennosides (Senokot) 17.2 mg BEDTIME PRN ORAL Constipation 04/18/19 21:00 05/18/19 02:59 Sodium Bicarbonate (NaHCO3) 1,300 mg BID ORAL 04/18/19 18:00 05/18/19 08:59 04/19/19 08:29 Sodium Chloride 1,000 ml @ 125 mls/hr Q8H IV 04/18/19 16:15 05/18/19 08:29 04/19/19 08:28 Tiotropium [place] (Spiriva Inhaler) 1 puff DAILY INH 04/19/19 09:00 05/18/19 08:59 Trazodone HCl (Desyrel) 50 mg BEDTIME PRN ORAL DEPRESSION 04/18/19 21:00 05/18/19 02:59 Vancomycin HCl (Vanco rx to dose) 1 ea DAILY PRN MISC Per rx protocol 04/19/19 09:00 05/18/19 15:14 Vancomycin HCl 1 gm/Dextrose 275 ml @ 183.708 mls/hr ONCE ONCE IVPB 04/19/19 13:00 04/19/19 14:29 Saravanan Serrato M.D. Apr 19, 2019 13:15
--- NOTE | 2019-04-19 16:00 | NUR ---
NURSE NOTES: patient was removed from bipap, put on 2 LI NC, well tolerated, sating @ 92-96 %. family member in the room.patient is not in acute distress.will continue to monitor.
--- NOTE | 2019-04-19 19:04 | NUR ---
HAND-OFF: Report given to tsering beth.
--- NOTE | 2019-04-19 19:05 | NUR ---
NURSE NOTES: Received patient from SIVAN Capps. patient is AO X1, no s/sx of pain noted at this time. patient is currently on BiPAP with settings of 12/5, FiO2: 30%; no s/sx of respiratory distress noted at this time. F/C is patent and intact, draining well. IV sites are patent and intact, asymptomatic. bed in lowest position and locked, siderails up X3, call light within reach. will continue to monitor.
[2019-04-19 20:00] VITALS: BP 127/75
--- NOTE | 2019-04-19 20:40 | Pulmonology Progress Note ---
Assessment/Plan Assessment/Plan PROBLEM LIST: 1. COPD with acute exacerbation. 2. Altered mental status. 3. BASSAM. 4. UTI. 5. Systemic inflammatory response syndrome. 6. CHF, CAD, paroxysmal atrial fibrillation, hypertension, hyperlipidemia. 7. Chronic pain. TREATMENT PLAN: 1. bipap qhs and prn distress 3. Optimize pulmonary hygiene/mobilize as tolerated. 4. Titrate down FiO2 to keep saturations greater than 92% when off bipap 5. Huvoxd-rdt-qgtdm and p.r.n. DuoNebs. 6. steroids at current dose decrease to 40 q 12 sunday if stable 7. Continue azithromycin and Zosyn 8. Monitor volumes and renal function. 9. IV fluid hydration. 10. Aspiration precautions. 12. DVT prophylaxis, the patient is on Eliquis. 14. The patient is Full Code. We will continue to discuss goals of care. Subjective Constitutional: Reports: no symptoms HEENT: Repors: no symptoms Respiratory: Reports: sputum, shortness of breath Cardiovascular: Reports: no symptoms Gastrointestinal/Abdominal: Reports: no symptoms Neurologic: Reports: no symptoms Psychiatric: Reports: no symptoms Skin: Reports: no symptoms Allergies: Coded Allergies: CYCLOBENZAPRINE (Verified Allergy, Unknown, 12/11/18) IBUPROFEN (Verified Allergy, Unknown, 12/11/18) MELATONIN (Verified Allergy, Unknown, 12/11/18) SULFA (SULFONAMIDE ANTIBIOTICS) (Verified Allergy, Unknown, 12/11/18) SULFUR (Unverified Allergy, Unknown, 04/17/19) Uncoded Allergies: CONTRAST (Allergy, Unknown, 04/17/19) Subjective off bipap for 5 hours today replaced this evening minimal po but no signs of aspiration no reports of cp nv or bleeding not getting oob Objective Last 24 Hour Vital Signs Date Time Temp Pulse Resp B/P (MAP) Pulse Ox O2 Delivery O2 Flow Rate FiO2 04/19/19 20:00 97.9 80 18 127/75 (92) 96 04/19/19 20:00 Bi-pap 04/19/19 17:05 84 21 90 Facial 30 04/19/19 16:00 73 04/19/19 15:07 66 16 98 28 04/19/19 13:14 67 18 98 Facial 30 04/19/19 12:00 97.6 65 18 98/61 (73) 98 8/24/19 11:42 71 04/19/19 11:12 65 17 99 Facial 30 04/19/19 09:00 Bi-pap 04/19/19 08:45 91 24 90 Facial 30 Bi-Pap 30 04/19/19 08:00 97.3 77 18 106/72 (83) 97 04/19/19 07:43 77 04/19/19 06:35 96 26 90 Facial 30 04/19/19 05:25 91 17 94 Facial 30 04/19/19 04:49 98.7 90 19 100/59 (73) 97 04/19/19 04:00 84 04/19/19 04:00 Bi-pap 04/19/19 03:09 88 22 95 Facial 30 04/19/19 01:29 93 22 95 Facial 30 04/19/19 00:00 96 04/19/19 00:00 98.3 95 16 98/57 (71) 94 04/19/19 00:00 Bi-pap 04/18/19 23:31 94 20 94 Facial 30 04/18/19 21:23 91 21 94 Facial 30 04/18/19 21:00 Bi-pap Intake and Output 04/18/19 04/19/19 19:00 07:00 Intake Total 1360.000 ml Output Total 550 ml 400 ml Balance -550 ml 960.000 ml IV Total 1360.000 ml Output Urine Total 550 ml 400 ml General Appearance: cachetic Respiratory/Chest: rhonchi Cardiovascular: normal rate, regular rhythm Abdomen: soft, non tender, no organomegaly Skin: no rash, no lesions Neurologic/Psychiatric: alert, responsive Microbiology Date/Time Source Procedure Growth Status 04/17/19 22:45 Blood Blood Culture - Preliminary NO GROWTH AFTER 24 HOURS Resulted 04/17/19 22:30 Blood Blood Culture - Preliminary NO GROWTH AFTER 24 HOURS Resulted 04/18/19 00:00 Urine,Clean Catch Urine Culture - Preliminary Gram Positive Cocci Resulted 04/17/19 23:30 Rectum Received Laboratory Tests 04/19/19 07:00: White Blood Count 12.3#H, Red Blood Count 2.64L, Hemoglobin 8.1L, Hematocrit 26.0L, Mean Corpuscular Volume 98, Mean Corpuscular Hemoglobin 30.7, Mean Corpuscular Hemoglobin Concent 31.2L, Red Cell Distribution Width 15.3H, Platelet Count 228, Mean Platelet Volume 5.1L, Neutrophils (%) (Auto) , Lymphocytes (%) (Auto) , Monocytes (%) (Auto) , Eosinophils (%) (Auto) , Basophils (%) (Auto) , Differential Total Cells Counted 100, Neutrophils % ( Manual) 96H, Lymphocytes % (Manual) 3L, Monocytes % (Manual) 1, Eosinophils % ( Manual) 0, Basophils % (Manual) 0, Band Neutrophils 0, Platelet Estimate Adequate, Platelet Morphology Normal, Hypochromasia 1+, Anisocytosis 1+, Macrocytosis 1+, Sodium Level 144, Potassium Level 4.0, Chloride Level 111H, Carbon Dioxide Level 16L, Anion Gap 17H, Blood Urea Nitrogen 36H, Creatinine 2.1H, Estimat Glomerular Filtration Rate , Glucose Level 100, Calcium Level 6.4L Current Medications Medications (Trade) Dose Ordered Sig/Sonny Route PRN Reason Start Time Stop Time Status Last Admin Dose Admin Albuterol/ Ipratropium (Albuterol/ Ipratropium) 3 ml Q4H PRN HHN Shortness of Breath 04/18/19 16:30 04/23/19 16:29 Amiodarone HCl (Cordarone) 200 mg DAILY ORAL 04/19/19 09:00 05/18/19 08:59 04/19/19 08:28 Apixaban (Eliquis) 2.5 mg BID ORAL 04/18/19 18:00 05/18/19 08:59 04/18/19 17:41 Aspirin (ASA) 81 mg DAILY ORAL 04/19/19 09:00 05/18/19 08:59 Atorvastatin Calcium (Lipitor) 20 mg BEDTIME ORAL 04/18/19 21:00 05/18/19 20:59 04/18/19 20:59 Azithromycin 500 mg/Dextrose 275 ml @ 275 mls/hr Q24H IV 04/19/19 06:00 04/25/19 06:59 04/19/19 06:49 Bisacodyl (Dulcolax) 10 mg DAILYPRN PRN RECTAL Constipation 04/18/19 16:30 05/18/19 16:29 Calcitriol (Rocaltrol) 0.5 mcg DAILY ORAL 04/19/19 09:00 05/18/19 08:59 04/19/19 08:28 Ferrous Gluconate (Fergon) 324 mg EVERY OTHER DAY ORAL 04/20/19 09:00 05/18/19 08:59 Gabapentin (Neurontin) 300 mg DAILY ORAL 04/19/19 09:00 05/18/19 08:59 04/19/19 08:28 Lactulose (Cephulac) 10 gm TIDPRN PRN ORAL Constipation 04/18/19 18:00 05/18/19 17:59 Lidocaine (Lidoderm 5% PATCH) 1 patch DAILY TDERMAL 04/19/19 09:00 05/18/19 08:59 04/19/19 08:30 Methylprednisolone Sodium Succinate (Solu-MEDROL) 60 mg Q12HR IVP 04/18/19 21:00 05/18/19 08:59 04/19/19 08:28 Morphine HCl (Morphine IR) 15 mg Q6H PRN ORAL For Pain 04/18/19 16:30 04/25/19 16:29 Multivitamins Therapeutic (Therapeutic Multivitamin) 1 ea DAILY ORAL 04/19/19 09:00 05/18/19 08:59 04/19/19 08:29 Ondansetron HCl (Zofran) 4 mg Q6H PRN ORAL Nausea & Vomiting 04/18/19 16:30 05/18/19 16:29 Piperacillin Sod/ Tazobactam Sod 3.375 gm/Sodium Chloride 110 ml @ 27.5 mls/hr Q12H IVPB 04/18/19 20:00 04/25/19 07:59 04/19/19 20:00 Polyethylene Glycol (Miralax) 17 gm DAILY ORAL 04/19/19 09:00 05/18/19 08:59 Sennosides (Senokot) 17.2 mg BEDTIME PRN ORAL Constipation 04/18/19 21:00 05/18/19 02:59 Sodium Bicarbonate (NaHCO3) 1,300 mg BID ORAL 04/18/19 18:00 05/18/19 08:59 04/19/19 17:09 Sodium Chloride 1,000 ml @ 125 mls/hr Q8H IV 04/18/19 16:15 05/18/19 08:29 04/19/19 15:59 Tiotropium [place] (Spiriva Inhaler) 1 puff DAILY INH 04/19/19 09:00 05/18/19 08:59 Trazodone HCl (Desyrel) 50 mg BEDTIME PRN ORAL DEPRESSION 04/18/19 21:00 05/18/19 02:59 Vancomycin HCl (Vanco rx to dose) 1 ea DAILY PRN MISC Per rx protocol 04/19/19 09:00 05/18/19 15:14 Amira Souza DO Apr 19, 2019 20:40
[2019-04-19] MEDS: Atorvastatin 20mg tab ORAL SCH (20:45)
[2019-04-20] VITALS: BP 130/74
[2019-04-20 04:00] VITALS: BP 131/71
[2019-04-20] MEDS: Azithromycin 500 MG in D5W 275 ML IV SCH (05:36)
--- NOTE | 2019-04-20 07:16 | NUR ---
NURSE NOTES: received patient report from tsering beth. patient is on bed asleep. not in acute distress. on 2 LI NC. bipap is now PRN. IV line noted, FC noted. no arrythmias reported during the night. will follow plan of care.
--- NOTE | 2019-04-20 07:20 | NUR ---
HAND-OFF: Report given to SIVAN Capps. patient is in stable condition.
[2019-04-20 08:00] VITALS: BP 125/78
[2019-04-20] MEDS: Amiodarone 200mg tab ORAL SCH (08:39)
[2019-04-20] MEDS: Calcitriol 0.5mcg Cap ORAL SCH (08:39)
[2019-04-20] MEDS: Eliquis 2.5mg tablet ORAL SCH ×3 (08:39→17:14)
[2019-04-20] MEDS: Miralax 17gm pkt ORAL SCH (08:39)
[2019-04-20] MEDS: Aspirin Baby 81mg ORAL SCH (08:40)
[2019-04-20] MEDS: Sodium Bicarbonate 650mg Tab ORAL SCH ×3 (08:40→17:15)
[2019-04-20] MEDS: Ferrous Gluconate 324 MG TAB ORAL SCH (08:40)
[2019-04-20] MEDS: Multivitamin w/Minerals tab ORAL SCH (08:40)
[2019-04-20] MEDS: Solu-MEDROL 125mg Inj IVP SCH ×2 (08:40→21:05)
[2019-04-20] MEDS: Piperacillin/Tazobactam 3.375 GM in NS 110 ML IVPB SCH ×2 (08:44→20:17)
[2019-04-20] MEDS ORDERED: Ferrous Gluconate 324 MG TAB ORAL SCH (09:00)
[2019-04-20 12:00] VITALS: BP 134/77
--- NOTE | 2019-04-20 12:35 | Cardiology Report ---
APPROVED REPORT EXAM: Two-dimensional and M-mode echocardiogram with Doppler and color Doppler. INDICATION Dyspnea M-Mode DIMENSIONS IVSd1.0 (0.7-1.1cm)Left Atrium (MM)3.1 (1.6-4.0cm) LVDd4.4 (3.5-5.6cm)Aortic Root3.4 (2.0-3.7cm) PWd1.0 (0.7-1.1cm)Aortic Cusp Exc.1.6 (1.5-2.0cm) LVDs3.5 (2.5-4.0cm) PWs1.2 cm Technically difficult study due to patient's resistance and patient on ventilation. Normal left ventricular chamber size, systolic function and wall motion to extent visualized. Left ventricular ejection fraction estimated to be 55%. Study quality precludes accurate assessment of regional wall motion. Mild left ventricular hypertrophy. Anterior Echo-free space, may be due to pericardial fat or effusion. Mild left atrial enlargement. Right cardiac chamber sizes are within normal limits. Focal aortic valve sclerosis with adequate cusp excursion. Thickened mitral valve leaflets with normal excursion. Mitral annulus and aortic root calcification. Pulmonic valve not well visualized. Normal tricuspid valve structure. IVC dilated at 2.7 cm with slight physiologic collapse, suggestive of increased RA pressure. Pacemaker wire present in the right side chambers. A color flow and spectral Doppler study was performed and revealed: Trace aortic regurgitation. Mild to moderate mitral regurgitation. Mitral diastolic velocities suggest reduced left ventricular relaxation c/w mild LV diastolic dysfunction (Grade I ). Moderate tricuspid regurgitation. Tricuspid systolic velocities suggests peak right ventricular systolic pressure of 52 mmHg, consistent with moderate pulmonary hypertension.
--- NOTE | 2019-04-20 12:44 | Cardiology Report ---
APPROVED REPORT EKG Measurement Heart [id number] Sinus rhythm with 1st degree AV block Low voltage QRS Septal infarct, age undetermined Prolonged QT Abnormal ECG
--- NOTE | 2019-04-20 13:03 | Cardiology Report ---
APPROVED REPORT EKG Measurement Heart [id number] Sinus rhythm with first degree AV block Prolonged QT Abnormal ECG
[2019-04-20] MEDS: Morphine IR 15mg tab ORAL PRN ×2 (13:21→21:33)
[2019-04-20] MEDS: Linezolid 600mg/300ml (Pre-Mix) IVPB SCH ×2 (14:25→23:09)
[2019-04-20 16:00] VITALS: BP 139/63
[2019-04-20] MEDS ORDERED: NS 275ml ONE (16:06)
--- NOTE | 2019-04-20 18:00 | NUR ---
NURSE NOTES: left a message to dr leahy if he wants to order labs for this patient. awaits callback and new order.
--- NOTE | 2019-04-20 18:55 | Pulmonology Progress Note ---
Assessment/Plan Assessment/Plan PROBLEM LIST: 1. COPD with acute exacerbation. 2. Altered mental status. 3. BASSAM. 4. UTI. 5. Systemic inflammatory response syndrome. 6. CHF, CAD, paroxysmal atrial fibrillation, hypertension, hyperlipidemia. 7. Chronic pain. TREATMENT PLAN: 1. bipap qhs and prn distress 3. Optimize pulmonary hygiene/mobilize as tolerated. 4. Titrate down FiO2 to keep saturations greater than 92% when off bipap 5. Furone-gsv-wejwr and p.r.n. DuoNebs. 6. steroids at current dose decrease to 40 q 12 sunday if stable 7. Continue azithromycin and Zosyn 8. Monitor volumes and renal function. 9. IV fluid hydration. 10. Aspiration precautions. 12. DVT prophylaxis, the patient is on Eliquis. 14. The patient is Full Code. We will continue to discuss goals of care. 15 cxr sunday Subjective ROS Limited/Unobtainable: Yes Allergies: Coded Allergies: CYCLOBENZAPRINE (Verified Allergy, Unknown, 12/11/18) IBUPROFEN (Verified Allergy, Unknown, 12/11/18) MELATONIN (Verified Allergy, Unknown, 12/11/18) SULFA (SULFONAMIDE ANTIBIOTICS) (Verified Allergy, Unknown, 12/11/18) SULFUR (Unverified Allergy, Unknown, 04/17/19) Uncoded Allergies: CONTRAST (Allergy, Unknown, 04/17/19) Subjective off bipap f lethartic not taking po at this time no reports of cp nv or bleeding not getting oob Objective Last 24 Hour Vital Signs Date Time Temp Pulse Resp B/P (MAP) Pulse Ox O2 Delivery O2 Flow Rate FiO2 04/20/19 16:00 97.9 96 20 139/63 (88) 96 04/20/19 16:00 64 04/20/19 12:00 97.7 62 18 134/77 (96) 98 04/20/19 12:00 62 04/20/19 09:55 64 20 97 Nasal Cannula 2.0 28 04/20/19 09:55 64 20 97 Nasal Cannula 2.0 28 04/20/19 09:00 Bi-pap 04/20/19 08:00 97.7 73 18 125/78 (94) 99 04/20/19 08:00 62 04/20/19 05:20 75 18 98 Full Face 40 8/25/19 04:00 77 04/20/19 04:00 98.1 78 20 131/71 (91) 98 04/20/19 02:39 78 21 96 Full Face 40 04/20/19 01:22 84 20 93 Facial 40 04/20/19 00:00 Bi-pap 04/20/19 00:00 77 04/20/19 00:00 98.1 80 23 130/74 (92) 93 04/19/19 23:30 86 21 92 Facial 40 04/19/19 23:30 40 04/19/19 21:30 76 25 94 Facial 30 04/19/19 20:37 78 04/19/19 20:00 30 04/19/19 20:00 97.9 80 18 127/75 (92) 96 04/19/19 20:00 Bi-pap 04/19/19 19:30 82 20 92 Facial 30 Intake and Output 04/19/19 04/20/19 18:59 06:59 Intake Total 1465.0 ml 1440.0 ml Output Total 450 ml 300 ml Balance 1015.0 ml 1140.0 ml Intake Oral 50 ml IV Total 1415.0 ml 1440.0 ml Output Urine Total 450 ml 300 ml General Appearance: cachetic Respiratory/Chest: crackles/rales, rhonchi Cardiovascular: edema Abdomen: soft, non tender, no organomegaly, non distended Neurologic/Psychiatric: disoriented Microbiology Date/Time Source Procedure Growth Status 04/17/19 22:45 Blood Blood Culture - Preliminary NO GROWTH AFTER 24 HOURS Resulted 04/17/19 22:30 Blood Blood Culture - Preliminary NO GROWTH AFTER 24 HOURS Resulted 04/17/19 23:30 Nasal Nares MRSA Culture - Final NO METHICILLIN RESISTANT STAPH AUREUS... Complete 04/18/19 00:00 Urine,Clean Catch Urine Culture - Preliminary Enterococcus Faecium - Vre Resulted 04/17/19 23:30 Rectum - Final NO CARBAPENEM-RESISTANT ENTEROBACTERI... Complete 04/17/19 23:30 Rectum VRE Culture - Final Enterococcus Faecalis - Vre Enterococcus Faecium - Vre Complete Laboratory Tests 04/20/19 12:55: Random Vancomycin Level 10.4 Current Medications Medications (Trade) Dose Ordered Sig/Sonny Route PRN Reason Start Time Stop Time Status Last Admin Dose Admin Albuterol/ Ipratropium (Albuterol/ Ipratropium) 3 ml Q4H PRN N Shortness of Breath 04/18/19 16:30 04/23/19 16:29 Amiodarone HCl (Cordarone) 200 mg DAILY ORAL 04/19/19 09:00 05/18/19 08:59 04/20/19 08:39 Apixaban (Eliquis) 2.5 mg BID ORAL 04/18/19 18:00 05/18/19 08:59 04/20/19 08:39 Aspirin (ASA) 81 mg DAILY ORAL 04/19/19 09:00 05/18/19 08:59 04/20/19 08:40 Atorvastatin Calcium (Lipitor) 20 mg BEDTIME ORAL 04/18/19 21:00 05/18/19 20:59 04/19/19 20:45 Azithromycin 500 mg/Dextrose 275 ml @ 275 mls/hr Q24H IV 04/19/19 06:00 04/25/19 06:59 04/20/19 05:36 Bisacodyl (Dulcolax) 10 mg DAILYPRN PRN RECTAL Constipation 04/18/19 16:30 05/18/19 16:29 Calcitriol (Rocaltrol) 0.5 mcg DAILY ORAL 04/19/19 09:00 05/18/19 08:59 04/20/19 08:39 Ferrous Gluconate (Fergon) 324 mg EVERY OTHER DAY ORAL 04/20/19 09:00 05/18/19 08:59 04/20/19 08:40 Gabapentin (Neurontin) 300 mg DAILY ORAL 04/19/19 09:00 05/18/19 08:59 04/20/19 08:40 Lactulose (Cephulac) 10 gm TIDPRN PRN ORAL Constipation 04/18/19 18:00 05/18/19 17:59 Lidocaine (Lidoderm 5% PATCH) 1 patch DAILY TDERMAL 04/19/19 09:00 05/18/19 08:59 04/20/19 08:41 Linezolid 300 ml @ 300 mls/hr Q12HR IVPB 04/20/19 14:30 04/27/19 14:29 04/20/19 14:25 Methylprednisolone Sodium Succinate (Solu-MEDROL) 60 mg Q12HR IVP 04/18/19 21:00 05/18/19 08:59 04/20/19 08:40 Morphine HCl (Morphine IR) 15 mg Q6H PRN ORAL For Pain 04/18/19 16:30 04/25/19 16:29 04/20/19 13:21 Multivitamins Therapeutic (Therapeutic Multivitamin) 1 ea DAILY ORAL 04/19/19 09:00 05/18/19 08:59 04/20/19 08:40 Ondansetron HCl (Zofran) 4 mg Q6H PRN ORAL Nausea & Vomiting 04/18/19 16:30 05/18/19 16:29 Piperacillin Sod/ Tazobactam Sod 3.375 gm/Sodium Chloride 110 ml @ 27.5 mls/hr Q12H IVPB 04/18/19 20:00 04/25/19 07:59 04/20/19 08:44 Polyethylene Glycol (Miralax) 17 gm DAILY ORAL 04/19/19 09:00 05/18/19 08:59 04/20/19 08:39 Sennosides (Senokot) 17.2 mg BEDTIME PRN ORAL Constipation 04/18/19 21:00 05/18/19 02:59 Sodium Bicarbonate (NaHCO3) 1,300 mg BID ORAL 04/18/19 18:00 05/18/19 08:59 04/20/19 08:40 Sodium Chloride 1,000 ml @ 125 mls/hr Q8H IV 04/18/19 16:15 05/18/19 08:29 04/20/19 15:30 Tiotropium [place] (Spiriva Inhaler) 1 puff DAILY INH 04/19/19 09:00 05/18/19 08:59 04/20/19 09:00 Trazodone HCl (Desyrel) 50 mg BEDTIME PRN ORAL DEPRESSION 04/18/19 21:00 05/18/19 02:59 04/19/19 23:23 Amira Souza DO Apr 20, 2019 18:55
--- NOTE | 2019-04-20 19:30 | NUR ---
NURSE NOTES: Received Pt is sleeping on the bed and no sign of acute distress noted. On O2 2L via nasal cannula and SaO2 99% noted. Iv site intact and no sign of infiltration noted. and NS @ 125cc/hr is running. on Tele monitor with SR w/ 1st AVB. Pt has Tony and patent and drainage well. Pt has pitting edema on both feet and legs. Noted multiple ecchymosis and skin tear noted. Dressing is dry and intact. Placed fall precaution. Will continue to monitor any change of condition.
--- NOTE | 2019-04-20 19:34 | NUR ---
HAND-OFF: Report given to loco beth.
[2019-04-20 20:00] VITALS: BP 133/74
--- NOTE | 2019-04-20 20:57 | Infectious Diseases Prog Note ---
Assessment/Plan Problems: (1) Aspiration pneumonia Assessment & Plan: with B/L basal consolidations and fever , continue zosyn , and switch vancomycin empiric coverage to zyvox to cover her UTI due to VRE . MONITOR sputum culture . aspiration precaution. Keep HOB > 30 DEGREE (2) COPD (chronic obstructive pulmonary disease) Assessment & Plan: continue inhalers , taper steroids (3) UTI (urinary tract infection) Assessment & Plan: with VRE , will switch vancomycin to zyvox , and to cover her pneumonia too (4) Fever Assessment & Plan: due to the above, continue wide spectrum antibiotics and tylenol (5) Acute respiratory failure Assessment & Plan: due to the above with severe COPD and lung parenchyma destruction , on BIPAP, monitor ABG, pulmonary is following Subjective ROS Limited/Unobtainable: Yes Allergies: Coded Allergies: CYCLOBENZAPRINE (Verified Allergy, Unknown, 12/11/18) IBUPROFEN (Verified Allergy, Unknown, 12/11/18) MELATONIN (Verified Allergy, Unknown, 12/11/18) SULFA (SULFONAMIDE ANTIBIOTICS) (Verified Allergy, Unknown, 12/11/18) SULFUR (Unverified Allergy, Unknown, 04/17/19) Uncoded Allergies: CONTRAST (Allergy, Unknown, 04/17/19) Subjective she was resting in bed comfortable , still on BIPAP, no cough or phlegm, no SOB , no diarrhea .afebrile Objective Vital Signs Last 24 Hour Vital Signs Date Time Temp Pulse Resp B/P (MAP) Pulse Ox O2 Delivery O2 Flow Rate FiO2 04/20/19 20:00 62 04/20/19 20:00 98.5 66 20 133/74 (93) 99 04/20/19 16:00 97.9 96 20 139/63 (88) 96 04/20/19 16:00 64 04/20/19 12:00 97.7 62 18 134/77 (96) 98 04/20/19 12:00 62 04/20/19 09:55 64 20 97 Nasal Cannula 2.0 28 04/20/19 09:55 64 20 97 Nasal Cannula 2.0 28 04/20/19 09:00 Bi-pap 04/20/19 08:00 97.7 73 18 125/78 (94) 99 04/20/19 08:00 62 04/20/19 05:20 75 18 98 Full Face 40 04/20/19 04:00 77 04/20/19 04:00 98.1 78 20 131/71 (91) 98 04/20/19 02:39 78 21 96 Full Face 40 04/20/19 01:22 84 20 93 Facial 40 04/20/19 00:00 Bi-pap 04/20/19 00:00 77 04/20/19 00:00 98.1 80 23 130/74 (92) 93 04/19/19 23:30 86 21 92 Facial 40 04/19/19 23:30 40 04/19/19 21:30 76 25 94 Facial 30 Height (Feet): 5 Height (Inches): 3.00 Weight (Pounds): 97 General Appearance: no acute distress, cachetic HEENT: normocephalic, atraumatic, anicteric, mucous membranes moist, PERRL Respiratory/Chest: chest wall non-tender, lungs clear, no respiratory distress , no accessory muscle use, decreased breath sounds Cardiovascular: normal peripheral pulses, normal rate, regular rhythm, no gallop/murmur, no JVD Abdomen: normal bowel sounds, soft, non tender, no organomegaly, non distended , no mass, no scars Genitourinary: normal external genitalia Extremities: no cyanosis, no clubbing Skin: no rash, no lesions, no ulcers Neurologic/Psychiatric: alert Lymphatic: no neck adenopathy, no groin adenopathy Musculoskeletal: normal muscle bulk, no effusion Microbiology Date/Time Source Procedure Growth Status 04/17/19 22:45 Blood Blood Culture - Preliminary NO GROWTH AFTER 24 HOURS Resulted 04/17/19 22:30 Blood Blood Culture - Preliminary NO GROWTH AFTER 24 HOURS Resulted 04/17/19 23:30 Nasal Nares MRSA Culture - Final NO METHICILLIN RESISTANT STAPH AUREUS... Complete 04/18/19 00:00 Urine,Clean Catch Urine Culture - Preliminary Enterococcus Faecium - Vre Resulted 04/17/19 23:30 Rectum - Final NO CARBAPENEM-RESISTANT ENTEROBACTERI... Complete 04/17/19 23:30 Rectum VRE Culture - Final Enterococcus Faecalis - Vre Enterococcus Faecium - Vre Complete Laboratory Tests Test 04/20/19 12:55 Random Vancomycin Level 10.4 ug/mL Current Medications Medications (Trade) Dose Ordered Sig/Sonny Route PRN Reason Start Time Stop Time Status Last Admin Dose Admin Albuterol/ Ipratropium (Albuterol/ Ipratropium) 3 ml Q4H PRN HHN Shortness of Breath 04/18/19 16:30 04/23/19 16:29 Amiodarone HCl (Cordarone) 200 mg DAILY ORAL 04/19/19 09:00 05/18/19 08:59 04/20/19 08:39 Apixaban (Eliquis) 2.5 mg BID ORAL 04/18/19 18:00 05/18/19 08:59 04/20/19 08:39 Aspirin (ASA) 81 mg DAILY ORAL 04/19/19 09:00 05/18/19 08:59 04/20/19 08:40 Atorvastatin Calcium (Lipitor) 20 mg BEDTIME ORAL 04/18/19 21:00 05/18/19 20:59 04/19/19 20:45 Azithromycin 500 mg/Dextrose 275 ml @ 275 mls/hr Q24H IV 04/19/19 06:00 04/25/19 06:59 04/20/19 05:36 Bisacodyl (Dulcolax) 10 mg DAILYPRN PRN RECTAL Constipation 04/18/19 16:30 05/18/19 16:29 Calcitriol (Rocaltrol) 0.5 mcg DAILY ORAL 04/19/19 09:00 05/18/19 08:59 04/20/19 08:39 Ferrous Gluconate (Fergon) 324 mg EVERY OTHER DAY ORAL 04/20/19 09:00 05/18/19 08:59 04/20/19 08:40 Gabapentin (Neurontin) 300 mg DAILY ORAL 04/19/19 09:00 05/18/19 08:59 04/20/19 08:40 Lactulose (Cephulac) 10 gm TIDPRN PRN ORAL Constipation 04/18/19 18:00 05/18/19 17:59 Lidocaine (Lidoderm 5% PATCH) 1 patch DAILY TDERMAL 04/19/19 09:00 05/18/19 08:59 04/20/19 08:41 Linezolid 300 ml @ 300 mls/hr Q12HR IVPB 04/20/19 14:30 04/27/19 14:29 04/20/19 14:25 Methylprednisolone Sodium Succinate (Solu-MEDROL) 60 mg Q12HR IVP 04/18/19 21:00 05/18/19 08:59 04/20/19 08:40 Morphine HCl (Morphine IR) 15 mg Q6H PRN ORAL For Pain 04/18/19 16:30 04/25/19 16:29 04/20/19 13:21 Multivitamins Therapeutic (Therapeutic Multivitamin) 1 ea DAILY ORAL 04/19/19 09:00 05/18/19 08:59 04/20/19 08:40 Ondansetron HCl (Zofran) 4 mg Q6H PRN ORAL Nausea & Vomiting 04/18/19 16:30 05/18/19 16:29 Piperacillin Sod/ Tazobactam Sod 3.375 gm/Sodium Chloride 110 ml @ 27.5 mls/hr Q12H IVPB 04/18/19 20:00 04/25/19 07:59 04/20/19 20:17 Polyethylene Glycol (Miralax) 17 gm DAILY ORAL 04/19/19 09:00 05/18/19 08:59 04/20/19 08:39 Sennosides (Senokot) 17.2 mg BEDTIME PRN ORAL Constipation 04/18/19 21:00 05/18/19 02:59 Sodium Bicarbonate (NaHCO3) 1,300 mg BID ORAL 04/18/19 18:00 05/18/19 08:59 04/20/19 08:40 Sodium Chloride 1,000 ml @ 125 mls/hr Q8H IV 04/18/19 16:15 05/18/19 08:29 04/20/19 15:30 Tiotropium [place] (Spiriva Inhaler) 1 puff DAILY INH 04/19/19 09:00 05/18/19 08:59 04/20/19 09:00 Trazodone HCl (Desyrel) 50 mg BEDTIME PRN ORAL DEPRESSION 04/18/19 21:00 05/18/19 02:59 04/19/19 23:23 Saravanan Serrato M.D. Apr 20, 2019 20:57
[2019-04-20] MEDS: Atorvastatin 20mg tab ORAL SCH (21:06)
[2019-04-21] VITALS: BP 145/84
[2019-04-21 04:00] VITALS: BP 133/83
[2019-04-21 05:22] LABS: HEMOGLOBIN 8.8 G/DL (12.0-16.0); MEAN CORPUSCULAR VOLUME 99 FL (80-99); PLATELET COUNT 229 K/UL (150-450); RED BLOOD COUNT 2.74 M/UL (4.20-5.40); RED CELL DISTRIBUTION WIDTH 16.1 % (11.6-14.8); WHITE BLOOD COUNT 8.4 K/UL (4.8-10.8)
[2019-04-21] MEDS: Azithromycin 500 MG in D5W 275 ML IV SCH (05:24)
[2019-04-21 05:42] LABS: ANION GAP 13 mmol/L (5-15); BLOOD UREA NITROGEN 26 mg/dL (7-18); CALCIUM 6.3 MG/DL (8.5-10.1); CARBON DIOXIDE 15 MMOL/L (21-32); CHLORIDE 114 MMOL/L (98-107); CREATININE 1.4 MG/DL (0.55-1.30); SODIUM 142 MMOL/L (136-145)
--- NOTE | 2019-04-21 06:45 | NUR ---
NURSE NOTES: Noted Her potassium Level is 3.0 today. Left message to Dr. Mancilla and awaiting call back.
--- NOTE | 2019-04-21 06:53 | NUR ---
HAND-OFF: Report given to SIVAN Stovall. Pt is resting on the bed and no sign fo acute distress noted. Get call back from Dr. Mancilla and get new order received.
--- NOTE | 2019-04-21 07:13 | General Progress Note ---
Assessment/Plan Status: stable Assessment/Plan: 1. COPD with Acute Exacerbation - cont IV solumedrol and junior slowly. On Bipap. cont Nab txt and inhalers. 2. UTI - cont IV abx with zosyn and azithromycin. ID following. 3. Leukocytosis probably 2nd to steroid and UTI. 4. Possible sepsis - cont above antibiotic and follow cultures. 5. Paroxysmal A. Fib - cont amioderone 200 mg daily. 5. CAD 6. SSS s/p Pacemaker - cardiology consult done. 7. HLD 8. Chronic Pain Syndrome 9. Acute on Chronic respiratory Failure - improved and on Bipap. 10. Speech therapy eval for swallowing tomorrow. 11. Late entry - The time of the note does not reflect the time patient was seen. Subjective Date patient seen: Apr 21, 2019 Time patient seen: 11:55 Constitutional: Reports: weakness HEENT: Reports: no symptoms Cardiovascular: Reports: no symptoms Respiratory: Reports: shortness of breath Gastrointestinal/Abdominal: Reports: no symptoms Genitourinary: Reports: no symptoms Neurologic/Psychiatric: Reports: no symptoms Endocrine: Reports: no symptoms Hematologic/Lymphatic: Reports: no symptoms Allergies: Coded Allergies: CYCLOBENZAPRINE (Verified Allergy, Unknown, 12/11/18) IBUPROFEN (Verified Allergy, Unknown, 12/11/18) MELATONIN (Verified Allergy, Unknown, 12/11/18) SULFA (SULFONAMIDE ANTIBIOTICS) (Verified Allergy, Unknown, 12/11/18) SULFUR (Unverified Allergy, Unknown, 04/17/19) Uncoded Allergies: CONTRAST (Allergy, Unknown, 04/17/19) Subjective Today, she is slightly better. Afebrile. No abd pain. No chest pain. Objective Last 24 Hour Vital Signs Date Time Temp Pulse Resp B/P (MAP) Pulse Ox O2 Delivery O2 Flow Rate FiO2 04/21/19 05:07 63 25 97 Full Face 30 04/21/19 04:00 97.5 61 20 133/83 (100) 99 04/21/19 04:00 Nasal Cannula 2.0 04/21/19 04:00 67 04/21/19 02:50 66 24 99 Full Face 30 04/21/19 01:05 60 18 98 Full Face 30 04/21/19 00:00 30 04/21/19 00:00 97.7 64 24 145/84 (104) 99 04/21/19 00:00 61 04/21/19 00:00 Nasal Cannula 2.0 04/20/19 23:23 64 16 97 Full Face 30 04/20/19 21:29 68 18 100 Full Face 30 04/20/19 20:00 62 04/20/19 20:00 98.5 66 20 133/74 (93) 99 04/20/19 20:00 Nasal Cannula 2.0 04/20/19 16:00 97.9 96 20 139/63 (88) 96 04/20/19 16:00 64 04/20/19 12:00 97.7 62 18 134/77 (96) 98 04/20/19 12:00 62 04/20/19 09:55 64 20 97 Nasal Cannula 2.0 28 04/20/19 09:55 64 20 97 Nasal Cannula 2.0 28 04/20/19 09:00 Bi-pap 04/20/19 08:00 97.7 73 18 125/78 (94) 99 04/20/19 08:00 62 Intake and Output 04/20/19 04/21/19 19:00 07:00 Intake Total 1797.0 ml 2041.0 ml Output Total 400 ml 800 ml Balance 1397.0 ml 1241.0 ml Intake Oral 200 ml IV Total 1597.0 ml 2041.0 ml Output Urine Total 400 ml 800 ml # Bowel Movements 1 Laboratory Tests 04/20/19 12:55: Random Vancomycin Level 10.4 04/21/19 03:15: White Blood Count 8.4, Red Blood Count 2.74L, Hemoglobin 8.8L, Hematocrit 27.0L , Mean Corpuscular Volume 99, Mean Corpuscular Hemoglobin 32.2H, Mean Corpuscular Hemoglobin Concent 32.6, Red Cell Distribution Width 16.1H, Platelet Count 229, Mean Platelet Volume 5.6L, Neutrophils (%) (Auto) , Lymphocytes (%) (Auto) , Monocytes (%) (Auto) , Eosinophils (%) (Auto) , Basophils (%) (Auto) , Neutrophils % (Manual) [Pending], Lymphocytes % (Manual) [Pending], Platelet Estimate [Pending], Platelet Morphology [Pending], Sodium Level 142, Potassium Level 3.0L, Chloride Level 114H, Carbon Dioxide Level 15L, Anion Gap 13, Blood Urea Nitrogen 26H, Creatinine 1.4H, Estimat Glomerular Filtration Rate , Glucose Level 204H, Calcium Level 6.3L Height (Feet): 5 Height (Inches): 3.00 Weight (Pounds): 122 General Appearance: no apparent distress EENT: normal ENT inspection Neck: non-tender, supple Cardiovascular: normal rate, regular rhythm Respiratory/Chest: lungs clear, decreased breath sounds Abdomen: normal bowel sounds, non tender, soft Extremities: non-tender Edema: no edema noted Arm (L), no edema noted Arm (R), no edema noted Leg (L), no edema noted Leg (R), no edema noted Pedal (L), no edema noted Pedal (R), no edema noted Generalized Neurologic: responsive Skin: warm/dry Wally Mancilla MD Apr 21, 2019 07:13
[2019-04-21] MEDS: Piperacillin/Tazobactam 3.375 GM in NS 110 ML IVPB SCH ×2 (07:54→20:02)
[2019-04-21 08:00] VITALS: BP 141/81
[2019-04-21] MEDS ORDERED: Potassium Chloride 40 MEQ in Sodium Chloride 550 ML IVPB ONE ×2 (08:00→12:00)
--- NOTE | 2019-04-21 08:15 | NUR ---
NURSE NOTES: received pt in the bed, awake, vital signs stable, pt on Bipap at night 12/8, FIO2 30%, no SOB, skin warm and dry to touch,Tony catheter with yellow urine, appetite poor, bed in low position, call light within reach.
[2019-04-21] MEDS: Solu-MEDROL 125mg Inj IVP SCH (08:25)
[2019-04-21] MEDS: Linezolid 600mg/300ml (Pre-Mix) IVPB SCH ×2 (08:26→20:52)
[2019-04-21] MEDS: Multivitamin w/Minerals tab ORAL SCH (08:38)
[2019-04-21] MEDS: Amiodarone 200mg tab ORAL SCH (08:38)
[2019-04-21] MEDS: Calcitriol 0.5mcg Cap ORAL SCH (08:38)
[2019-04-21] MEDS: Aspirin Baby 81mg ORAL SCH (08:39)
[2019-04-21] MEDS: Sodium Bicarbonate 650mg Tab ORAL SCH ×2 (08:39→17:49)
[2019-04-21] MEDS: Eliquis 2.5mg tablet ORAL SCH ×2 (08:39→17:49)
[2019-04-21] MEDS: Miralax 17gm pkt ORAL SCH (08:43)
--- NOTE | 2019-04-21 08:44 | NUR ---
RADIOLOGY DEPT., CHEST X-RAY DONE.-P.DYE
[2019-04-21 12:00] VITALS: BP 140/80
--- NOTE | 2019-04-21 12:12 | Pulmonology Progress Note ---
Assessment/Plan Problems: (1) Acute respiratory failure (2) Aspiration pneumonia (3) Hypotension (4) UTI (urinary tract infection) (5) COPD (chronic obstructive pulmonary disease) (6) Fever (7) Renal insufficiency (8) Atrial fibrillation (9) Bronchitis, acute, with bronchospasm (10) Leukocytosis Assessment/Plan ASSESSMENT: The patient is a 73-year-old female, former smoker with a history of COPD, chronic respiratory failure, paroxysmal atrial fibrillation, CAD, hypertension, hyperlipidemia, presenting with respiratory distress and altered mental status likely secondary to COPD exacerbation as well as UTI with acute kidney injury. PROBLEM LIST: 1. COPD with acute exacerbation. 2. Altered mental status. 3. BASSAM. 4. UTI. 5. Possible PNA 6. Non-anion gap metabolic acidosis 7. Systemic inflammatory response syndrome. 8. CHF, CAD, paroxysmal atrial fibrillation, hypertension, hyperlipidemia. 9. Chronic pain. TREATMENT PLAN: 1. BiPAP PRN and qHS - take breaks off as able 2. CT head 3. Repeat ABG 4. AMS labs 5. Optimize pulmonary hygiene/mobilize as tolerated. 6. Titrate down FiO2 to keep saturations greater than 92%. 7. Yhheub-[id number] and p.r.n. DuoNebs. 8. Decrease Solu-Medrol to 40 IV b.i.d. and taper. 9. Continue Abx (Zosyn, Zyvox, Azithro) per I D. 10. Monitor volumes and renal function. Add Bicitra tabs, lasix 20 IV x 1 today 11. Diet per POWER PLANT MECH[employer]IC with STRICT aspiration precautions. 12. DVT prophylaxis, the patient is on Eliquis. 13. The patient is Full Code. We will continue to discuss goals of care. Subjective Allergies: Coded Allergies: CYCLOBENZAPRINE (Verified Allergy, Unknown, 12/11/18) IBUPROFEN (Verified Allergy, Unknown, 12/11/18) MELATONIN (Verified Allergy, Unknown, 12/11/18) SULFA (SULFONAMIDE ANTIBIOTICS) (Verified Allergy, Unknown, 12/11/18) SULFUR (Unverified Allergy, Unknown, 04/17/19) Uncoded Allergies: CONTRAST (Allergy, Unknown, 04/17/19) Subjective AFVSS on and off BiPAP O2 needs stable Cr better no cough + SOB no FC Objective Last 24 Hour Vital Signs Date Time Temp Pulse Resp B/P (MAP) Pulse Ox O2 Delivery O2 Flow Rate FiO2 04/21/19 09:00 Nasal Cannula 2.0 04/21/19 09:00 70 04/21/19 08:00 97.4 66 29 141/81 (101) 99 04/21/19 07:36 67 28 99 Facial 30 04/21/19 05:07 63 25 97 Facial 30 04/21/19 04:00 97.5 61 20 133/83 (100) 99 04/21/19 04:00 Nasal Cannula 2.0 04/21/19 04:00 67 04/21/19 02:50 66 24 99 Facial 30 04/21/19 01:05 60 18 98 Full Face 30 04/21/19 00:00 30 04/21/19 00:00 97.7 64 24 145/84 (104) 99 04/21/19 00:00 61 04/21/19 00:00 Nasal Cannula 2.0 04/20/19 23:23 64 16 97 Full Face 30 04/20/19 21:29 68 18 100 Full Face 30 04/20/19 20:00 62 04/20/19 20:00 98.5 66 20 133/74 (93) 99 04/20/19 20:00 Nasal Cannula 2.0 04/20/19 16:00 97.9 96 20 139/63 (88) 96 04/20/19 16:00 64 Intake and Output 04/20/19 04/21/19 19:00 07:00 Intake Total 1797.0 ml 2041.0 ml Output Total 400 ml 800 ml Balance 1397.0 ml 1241.0 ml Intake Oral 200 ml IV Total 1597.0 ml 2041.0 ml Output Urine Total 400 ml 800 ml # Bowel Movements 1 General Appearance: no acute distress, cachetic HEENT: normocephalic, atraumatic, anicteric, mucous membranes moist Respiratory/Chest: rhonchi Cardiovascular: normal peripheral pulses, normal rate, regular rhythm Abdomen: normal bowel sounds, soft, non tender, no organomegaly, non distended , no mass Extremities: no cyanosis, no clubbing, no edema Laboratory Tests 04/20/19 12:55: Random Vancomycin Level 10.4 04/21/19 03:15: White Blood Count 8.4, Red Blood Count 2.74L, Hemoglobin 8.8L, Hematocrit 27.0L , Mean Corpuscular Volume 99, Mean Corpuscular Hemoglobin 32.2H, Mean Corpuscular Hemoglobin Concent 32.6, Red Cell Distribution Width 16.1H, Platelet Count 229, Mean Platelet Volume 5.6L, Neutrophils (%) (Auto) , Lymphocytes (%) (Auto) , Monocytes (%) (Auto) , Eosinophils (%) (Auto) , Basophils (%) (Auto) , Differential Total Cells Counted 100, Neutrophils % ( Manual) 92H, Lymphocytes % (Manual) 6L, Monocytes % (Manual) 2, Eosinophils % ( Manual) 0, Basophils % (Manual) 0, Band Neutrophils 0, Platelet Estimate Adequate, Platelet Morphology Normal, Anisocytosis 1+, Sodium Level 142, Potassium Level 3.0L, Chloride Level 114H, Carbon Dioxide Level 15L, Anion Gap 13, Blood Urea Nitrogen 26H, Creatinine 1.4H, Estimat Glomerular Filtration Rate , Glucose Level 204H, Calcium Level 6.3L Current Medications Medications (Trade) Dose Ordered Sig/Sonny Route PRN Reason Start Time Stop Time Status Last Admin Dose Admin Albuterol/ Ipratropium (Albuterol/ Ipratropium) 3 ml Q4H PRN HHN Shortness of Breath 04/18/19 16:30 04/23/19 16:29 Amiodarone HCl (Cordarone) 200 mg DAILY ORAL 04/19/19 09:00 05/18/19 08:59 04/21/19 08:38 Apixaban (Eliquis) 2.5 mg BID ORAL 04/18/19 18:00 05/18/19 08:59 04/21/19 08:39 Aspirin (ASA) 81 mg DAILY ORAL 04/19/19 09:00 05/18/19 08:59 04/21/19 08:39 Atorvastatin Calcium (Lipitor) 20 mg BEDTIME ORAL 04/18/19 21:00 05/18/19 20:59 04/20/19 21:06 Azithromycin 500 mg/Dextrose 275 ml @ 275 mls/hr Q24H IV 04/19/19 06:00 04/25/19 06:59 04/21/19 05:24 Bisacodyl (Dulcolax) 10 mg DAILYPRN PRN RECTAL Constipation 04/18/19 16:30 05/18/19 16:29 Calcitriol (Rocaltrol) 0.5 mcg DAILY ORAL 04/19/19 09:00 05/18/19 08:59 04/21/19 08:38 Ferrous Gluconate (Fergon) 324 mg EVERY OTHER DAY ORAL 04/20/19 09:00 05/18/19 08:59 04/20/19 08:40 Gabapentin (Neurontin) 300 mg DAILY ORAL 04/19/19 09:00 05/18/19 08:59 04/21/19 08:38 Lactulose (Cephulac) 10 gm TIDPRN PRN ORAL Constipation 04/18/19 18:00 05/18/19 17:59 Lidocaine (Lidoderm 5% PATCH) 1 patch DAILY TDERMAL 04/19/19 09:00 05/18/19 08:59 04/21/19 08:42 Linezolid 300 ml @ 300 mls/hr Q12HR IVPB 04/20/19 14:30 04/27/19 14:29 04/21/19 08:26 Methylprednisolone Sodium Succinate (Solu-MEDROL) 60 mg Q12HR IVP 04/18/19 21:00 05/18/19 08:59 04/21/19 08:25 Morphine HCl (Morphine IR) 15 mg Q6H PRN ORAL For Pain 04/18/19 16:30 04/25/19 16:29 04/20/19 21:33 Multivitamins Therapeutic (Therapeutic Multivitamin) 1 ea DAILY ORAL 04/19/19 09:00 05/18/19 08:59 04/21/19 08:38 Ondansetron HCl (Zofran) 4 mg Q6H PRN ORAL Nausea & Vomiting 04/18/19 16:30 05/18/19 16:29 Piperacillin Sod/ Tazobactam Sod 3.375 gm/Sodium Chloride 110 ml @ 27.5 mls/hr Q12H IVPB 04/18/19 20:00 04/25/19 07:59 04/21/19 07:54 Polyethylene Glycol (Miralax) 17 gm DAILY ORAL 04/19/19 09:00 05/18/19 08:59 04/21/19 08:43 Potassium Chloride 40 meq/ Sodium Chloride 570 ml @ 100 mls/hr ONCE ONCE IVPB 04/21/19 12:00 04/21/19 17:41 04/21/19 11:38 Sennosides (Senokot) 17.2 mg BEDTIME PRN ORAL Constipation 04/18/19 21:00 05/18/19 02:59 Sodium Bicarbonate (NaHCO3) 1,300 mg BID ORAL 04/18/19 18:00 05/18/19 08:59 04/21/19 08:39 Sodium Chloride 1,000 ml @ 125 mls/hr Q8H IV 04/18/19 16:15 05/18/19 08:29 04/21/19 06:52 Tiotropium [place] (Spiriva Inhaler) 1 puff DAILY INH 04/19/19 09:00 05/18/19 08:59 04/20/19 09:00 Trazodone HCl (Desyrel) 50 mg BEDTIME PRN ORAL DEPRESSION 04/18/19 21:00 05/18/19 02:59 04/19/19 23:23 Sánchez Lam MD Apr 21, 2019 12:12
--- NOTE | 2019-04-21 13:18 | Infectious Diseases Prog Note ---
Assessment/Plan Problems: (1) Aspiration pneumonia Assessment & Plan: with B/L basal consolidations and fever , continue zosyn , and zyvox to cover her UTI due to VRE too. MONITOR sputum culture . aspiration precaution. Keep HOB > 30 DEGREE (2) COPD (chronic obstructive pulmonary disease) Assessment & Plan: continue inhalers , taper steroids (3) UTI (urinary tract infection) Assessment & Plan: with VRE , continue zyvox to cover her pneumonia too (4) Fever Assessment & Plan: due to the above, continue wide spectrum antibiotics and tylenol (5) Acute respiratory failure Assessment & Plan: due to the above with severe COPD and lung parenchyma destruction , on BIPAP, monitor ABG, pulmonary is following Subjective Constitutional: Reports: no symptoms HEENT: Reports: no symptoms Respiratory: Reports: no symptoms Breasts: Reports: no symptoms Cardiovascular: Reports: no symptoms Gastrointestinal/Abdominal: Reports: no symptoms Genitourinary: Reports: no symptoms Neurologic: Reports: weakness Psychiatric: Reports: no symptoms Skin: Reports: no symptoms Endocrine: Reports: no symptoms Hematologic: Reports: no symptoms Musculoskeletal: Reports: pain Allergies: Coded Allergies: CYCLOBENZAPRINE (Verified Allergy, Unknown, 12/11/18) IBUPROFEN (Verified Allergy, Unknown, 12/11/18) MELATONIN (Verified Allergy, Unknown, 12/11/18) SULFA (SULFONAMIDE ANTIBIOTICS) (Verified Allergy, Unknown, 12/11/18) SULFUR (Unverified Allergy, Unknown, 04/17/19) Uncoded Allergies: CONTRAST (Allergy, Unknown, 04/17/19) Subjective she was resting in bed comfortable , off BIPAP, no cough or phlegm, no SOB, no diarrhea .afebrile Objective Vital Signs Last 24 Hour Vital Signs Date Time Temp Pulse Resp B/P (MAP) Pulse Ox O2 Delivery O2 Flow Rate FiO2 04/21/19 12:00 98.1 65 24 140/80 (100) 97 04/21/19 12:00 70 04/21/19 09:00 Nasal Cannula 2.0 04/21/19 09:00 70 04/21/19 08:00 97.4 66 29 141/81 (101) 99 04/21/19 07:36 67 28 99 Facial 30 04/21/19 05:07 63 25 97 Facial 30 04/21/19 04:00 97.5 61 20 133/83 (100) 99 8/26/19 04:00 Nasal Cannula 2.0 04/21/19 04:00 67 04/21/19 02:50 66 24 99 Facial 30 04/21/19 01:05 60 18 98 Full Face 30 04/21/19 00:00 30 04/21/19 00:00 97.7 64 24 145/84 (104) 99 04/21/19 00:00 61 04/21/19 00:00 Nasal Cannula 2.0 04/20/19 23:23 64 16 97 Full Face 30 04/20/19 21:29 68 18 100 Full Face 30 04/20/19 20:00 62 04/20/19 20:00 98.5 66 20 133/74 (93) 99 04/20/19 20:00 Nasal Cannula 2.0 04/20/19 16:00 97.9 96 20 139/63 (88) 96 04/20/19 16:00 64 Height (Feet): 5 Height (Inches): 3.00 Weight (Pounds): 122 General Appearance: no acute distress, cachetic HEENT: normocephalic, atraumatic, anicteric, mucous membranes moist, PERRL Respiratory/Chest: chest wall non-tender, lungs clear, no respiratory distress , no accessory muscle use, decreased breath sounds Cardiovascular: normal peripheral pulses, normal rate, regular rhythm, no gallop/murmur, no JVD Abdomen: normal bowel sounds, soft, non tender, no organomegaly, non distended , no mass, no scars Extremities: no cyanosis, no clubbing Skin: no rash, no lesions, no ulcers Neurologic/Psychiatric: alert, responsive Lymphatic: no neck adenopathy, no groin adenopathy Musculoskeletal: normal muscle bulk, no effusion Laboratory Tests Test 04/21/19 03:15 White Blood Count 8.4 K/UL (4.8-10.8) Red Blood Count 2.74 M/UL (4.20-5.40) L Hemoglobin 8.8 G/DL (12.0-16.0) L Hematocrit 27.0 % (37.0-47.0) L Mean Corpuscular Volume 99 FL (80-99) Mean Corpuscular Hemoglobin 32.2 PG (27.0-31.0) H Mean Corpuscular Hemoglobin Concent 32.6 G/DL (32.0-36.0) Red Cell Distribution Width 16.1 % (11.6-14.8) H Platelet Count 229 K/UL (150-450) Mean Platelet Volume 5.6 FL (6.5-10.1) L Neutrophils (%) (Auto) % (45.0-75.0) Lymphocytes (%) (Auto) % (20.0-45.0) Monocytes (%) (Auto) % (1.0-10.0) Eosinophils (%) (Auto) % (0.0-3.0) Basophils (%) (Auto) % (0.0-2.0) Differential Total Cells Counted 100 Neutrophils % (Manual) 92 % (45-75) H Lymphocytes % (Manual) 6 % (20-45) L Monocytes % (Manual) 2 % (1-10) Eosinophils % (Manual) 0 % (0-3) Basophils % (Manual) 0 % (0-2) Band Neutrophils 0 % (0-8) Platelet Estimate Adequate Platelet Morphology Normal Anisocytosis 1+ Sodium Level 142 MMOL/L (136-145) Potassium Level 3.0 MMOL/L (3.5-5.1) L Chloride Level 114 MMOL/L (98-107) H Carbon Dioxide Level 15 MMOL/L (21-32) L Anion Gap 13 mmol/L (5-15) Blood Urea Nitrogen 26 mg/dL (7-18) H Creatinine 1.4 MG/DL (0.55-1.30) H Estimat Glomerular Filtration Rate mL/min (>60) Glucose Level 204 MG/DL (74-106) H Calcium Level 6.3 MG/DL (8.5-10.1) L Current Medications Medications (Trade) Dose Ordered Sig/Sonny Route PRN Reason Start Time Stop Time Status Last Admin Dose Admin Albuterol/ Ipratropium (Albuterol/ Ipratropium) 3 ml Q4H PRN HHN Shortness of Breath 04/18/19 16:30 04/23/19 16:29 Albuterol/ Ipratropium (Albuterol/ Ipratropium) 3 ml Q6HRT HHN 04/21/19 13:00 04/26/19 12:59 Amiodarone HCl (Cordarone) 200 mg DAILY ORAL 04/19/19 09:00 05/18/19 08:59 04/21/19 08:38 Apixaban (Eliquis) 2.5 mg BID ORAL 04/18/19 18:00 05/18/19 08:59 04/21/19 08:39 Aspirin (ASA) 81 mg DAILY ORAL 04/19/19 09:00 05/18/19 08:59 04/21/19 08:39 Atorvastatin Calcium (Lipitor) 20 mg BEDTIME ORAL 04/18/19 21:00 05/18/19 20:59 04/20/19 21:06 Azithromycin 500 mg/Dextrose 275 ml @ 275 mls/hr Q24H IV 04/19/19 06:00 04/25/19 06:59 04/21/19 05:24 Bisacodyl (Dulcolax) 10 mg DAILYPRN PRN RECTAL Constipation 04/18/19 16:30 05/18/19 16:29 Calcitriol (Rocaltrol) 0.5 mcg DAILY ORAL 04/19/19 09:00 05/18/19 08:59 04/21/19 08:38 Ferrous Gluconate (Fergon) 324 mg EVERY OTHER DAY ORAL 04/20/19 09:00 05/18/19 08:59 04/20/19 08:40 Gabapentin (Neurontin) 300 mg DAILY ORAL 04/19/19 09:00 05/18/19 08:59 04/21/19 08:38 Lactulose (Cephulac) 10 gm TIDPRN PRN ORAL Constipation 04/18/19 18:00 05/18/19 17:59 Lidocaine (Lidoderm 5% PATCH) 1 patch DAILY TDERMAL 04/19/19 09:00 05/18/19 08:59 04/21/19 08:42 Linezolid 300 ml @ 300 mls/hr Q12HR IVPB 04/20/19 14:30 04/27/19 14:29 04/21/19 08:26 Methylprednisolone Sodium Succinate (Solu-MEDROL) 40 mg Q12HR IVP 04/21/19 21:00 05/18/19 08:59 Morphine HCl (Morphine IR) 15 mg Q6H PRN ORAL For Pain 04/18/19 16:30 04/25/19 16:29 04/20/19 21:33 Multivitamins Therapeutic (Therapeutic Multivitamin) 1 ea DAILY ORAL 04/19/19 09:00 05/18/19 08:59 04/21/19 08:38 Ondansetron HCl (Zofran) 4 mg Q6H PRN ORAL Nausea & Vomiting 04/18/19 16:30 05/18/19 16:29 Piperacillin Sod/ Tazobactam Sod 3.375 gm/Sodium Chloride 110 ml @ 27.5 mls/hr Q12H IVPB 04/18/19 20:00 04/25/19 07:59 04/21/19 07:54 Polyethylene Glycol (Miralax) 17 gm DAILY ORAL 04/19/19 09:00 05/18/19 08:59 04/21/19 08:43 Potassium Chloride 40 meq/ Sodium Chloride 570 ml @ 100 mls/hr ONCE ONCE IVPB 04/21/19 12:00 04/21/19 17:41 04/21/19 11:38 Sennosides (Senokot) 17.2 mg BEDTIME PRN ORAL Constipation 04/18/19 21:00 05/18/19 02:59 Sodium Bicarbonate (NaHCO3) 1,300 mg BID ORAL 04/18/19 18:00 05/18/19 08:59 04/21/19 08:39 Sodium Chloride 1,000 ml @ 125 mls/hr Q8H IV 04/18/19 16:15 05/18/19 08:29 04/21/19 06:52 Sodium Citrate (Bicitra) 30 ml EVERY 6 HOURS ORAL 04/21/19 18:00 05/21/19 17:59 Trazodone HCl (Desyrel) 50 mg BEDTIME PRN ORAL DEPRESSION 04/18/19 21:00 05/18/19 02:59 04/19/19 23:23 Saravanan Serrato M.D. Apr 21, 2019 13:18
[2019-04-21] MEDS: Albuterol/Ipratropium 3ml neb HHN SCH ×2 (13:43→21:14)
--- NOTE | 2019-04-21 13:43 | NUR ---
RD ASSESSMENT & RECOMMENDATIONS SEE CARE ACTIVITY FOR COMPLETE ASSESSMENT DAILY ESTIMATED NEEDS: Needs based on Underweight, pulmonary 44kg 30-35 kcals/kg 0834-1315 total kcals 1.0-1.5 g protein/kg 44-66 g total protein 25-30 mL/kg 1649-5935 total fluid mLs NUTRITION DIAGNOSIS: * Increased kcal and protein needs R/T underweight status, respiratory status as evidenced by pt is 84% of [place] Body Weight, low BMI per guidelines, admitted w/ COPD w/ acute exacerbation, now on BIPAP HS + prn. * Swallowing difficulty R/T dysphagia, decreased cognitive fx as evidenced by pt on pureed moist texture diet, pending SALES ATTENDANT evaluation. CURRENT DIET:CARDIAC, pureed moist PO DIET RECOMMENDATIONS: Liberalized Regular diet (texture per SALES ATTENDANT) ADDITIONAL RECOMMENDATIONS: 1) Obtain a calibrated bed scale wt, weekly wt monitoring 2) Consult RD for non oral feeds if indicated, part of POC 3) HPN TID w/ meals -> Rec Glucerna TID while pt on Solumedrol 4) Consider NISS while on Solumedrol 5) Consider decrease IVF : edematous (4+ @ BL arm and BL foot)
[2019-04-21] MEDS ORDERED: Heparin1,000 units/500ml Premix(Conc:2 units/ml) IV PRN (14:00)
[2019-04-21] MEDS ORDERED: Lidocaine 1% Plain 30 ml INJ PRN (14:00)
[2019-04-21] MEDS: Morphine IR 15mg tab ORAL PRN ×2 (14:47→20:53)
--- NOTE | 2019-04-21 14:56 | NUR ---
NURSE NOTES: CT of the head done as ordered, pt now on O2 2L, tolerate well, son in the room, continue monitoring.
--- NOTE | 2019-04-21 15:13 | NUR ---
SWALLOW/SPEECH THERAPY NOTE: REFERRED BY DR PARRA FOR A SWALLOW EVAL, SEE FULL REPORT TO FOLLOW. PATIENT NOT READY FOR EVAL LAST SUNDAY PER PRIOR OVEN WORKER. DYSPHAGIA RISK FACTORS FOR THIS 73 Y.O.F.: ACUTE ISSUES: ASPIRATION PNA, COPD EXACERBATION, FEVER, NEEDED BIPAP NOW ON 2 LITERS NC RR GOES UP TO 28/29 AND 16, POOR INTAKE (REFUSES 10/30% DISLIKES PUREED AND NECTAR THICK LIQUIDS. H/O DEMENTIA, DYSPHAGIA (SEE [facility] SWALLOW EVAL ON 11/2018 ADMISSION), COPD, PACEMAKER. POLST STATES OK FOR LT TF BUT PATIENT WANTS TO EAT AND DISLIKES PUREED AND NECTAR THICK LIQUIDS. NOW ON CARDIAC PUREED AND THIN LIQUIDS (POOR INTAKE OR REFUSES). INITIAL IMPRESSIONS: S/S OF AT LEAST A MILD MOD OROPHARYNGEAL DYSPHAGIA WITH INCREASED TRANSIT TIMES. UPPER/LOWER DENTURES FIT. TONGUE TREMOR AND SLOWER MOVEMENTS, LIPS FUNCTIONAL, VOICE CLEAR BUT SOFT GIVEN THIN LIQUIDS VIA STRAW, ABLE TO SWALLOW 3 OZ WATER ([place] SWALLOW PROTOCOL) BUT STARTED TO GET SOB, NO OVERT ASPIRATION BUT NEEDED SOME EXTRA SWALLOWS. GIVEN TSP PUREED, SLOWER TRANSIT (4-5 SEC) BUT NO ORAL RESIDUE NOR OVERT ASP WILL HOLD ON MASTICATED SOLIDS FOR NOW, TIRED AND SLOWER INTAKE OF PUREED HOLD ON NECTAR THICK LIQUIDS SHE DISLIKES THEM. ? SILENT ASP RISK RISK FOR POOR INTAKE RECOMMENDATIONS: CONTINUE WITH CURRENT CARDIAC PUREED AND THIN LIQUID DIET BUT SEND HIGH DANG SUP (GLUCERNA CHOCOLATE TID) AND COMPLETE CALORIE COUNT WITH POSTED ASP/REFLUX PRECAUTIONS AND 1 TO 1 FEEDING (SON TO HELP FOR MEALS AND WILL BRING IN INTELLECTUAL PROPERTY MANAGER FOR DENTURES) EDUCATED/TRAINED RN, SON, AND PT IN POSTED PRECAUTIONS. COMPLETE MOD BARIUM SWALLOW STUDY TO FURTHER ASSESS SWALLOW, DETERMINE ASP RISK AND ATTEMPT TRIAL TX. SKILLED DYSPHAGIA MANAGEMENT AND TX, COG-COM EVAL/TX IF NEEDS D/W RN AND
--- NOTE | 2019-04-21 15:34 | Cardiac Electrophysiology PN ---
Assessment/Plan Assessment/Plan 1. 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 Paroxysmal atrial fibrillation, currently in sinus rhythm, on Eliquis 2.5 mg b.i.d. and amiodarone 200 mg daily 3. Hyperlipidemia, on Lipitor. 4. Respiratory failure due to COPD and pneumonia, on BIPAP, Abx and Solu-Medrol. 5. Status post sternotomy. On the chest x-ray and also on physical exam but nature of which is not clear at this point. TIN RN Subjective Subjective Was on BIPAP overnight Objective Last 24 Hour Vital Signs Date Time Temp Pulse Resp B/P (MAP) Pulse Ox O2 Delivery O2 Flow Rate FiO2 04/21/19 13:45 66 16 98 Nasal Cannula 2.0 28 04/21/19 12:00 98.1 65 24 140/80 (100) 97 04/21/19 12:00 70 04/21/19 09:00 Nasal Cannula 2.0 04/21/19 09:00 70 04/21/19 08:30 Nasal Cannula 2.0 28 04/21/19 08:00 97.4 66 29 141/81 (101) 99 04/21/19 07:36 67 28 99 Facial 30 04/21/19 05:07 63 25 97 Facial 30 04/21/19 04:00 97.5 61 20 133/83 (100) 99 04/21/19 04:00 Nasal Cannula 2.0 04/21/19 04:00 67 04/21/19 02:50 66 24 99 Facial 30 04/21/19 01:05 60 18 98 Full Face 30 04/21/19 00:00 30 04/21/19 00:00 97.7 64 24 145/84 (104) 99 04/21/19 00:00 61 04/21/19 00:00 Nasal Cannula 2.0 04/20/19 23:23 64 16 97 Full Face 30 04/20/19 21:29 68 18 100 Full Face 30 04/20/19 20:00 62 04/20/19 20:00 98.5 66 20 133/74 (93) 99 04/20/19 20:00 Nasal Cannula 2.0 04/20/19 16:00 97.9 96 20 139/63 (88) 96 04/20/19 16:00 64 Intake and Output 04/20/19 04/21/19 19:00 07:00 Intake Total 1797.0 ml 2041.0 ml Output Total 400 ml 800 ml Balance 1397.0 ml 1241.0 ml Intake Oral 200 ml IV Total 1597.0 ml 2041.0 ml Output Urine Total 400 ml 800 ml # Bowel Movements 1 Laboratory Tests Test 04/21/19 03:15 04/21/19 13:24 White Blood Count 8.4 K/UL (4.8-10.8) Red Blood Count 2.74 M/UL (4.20-5.40) L Hemoglobin 8.8 G/DL (12.0-16.0) L Hematocrit 27.0 % (37.0-47.0) L Mean Corpuscular Volume 99 FL (80-99) Mean Corpuscular Hemoglobin 32.2 PG (27.0-31.0) H Mean Corpuscular Hemoglobin Concent 32.6 G/DL (32.0-36.0) Red Cell Distribution Width 16.1 % (11.6-14.8) H Platelet Count 229 K/UL (150-450) Mean Platelet Volume 5.6 FL (6.5-10.1) L Neutrophils (%) (Auto) % (45.0-75.0) Lymphocytes (%) (Auto) % (20.0-45.0) Monocytes (%) (Auto) % (1.0-10.0) Eosinophils (%) (Auto) % (0.0-3.0) Basophils (%) (Auto) % (0.0-2.0) Differential Total Cells Counted 100 Neutrophils % (Manual) 92 % (45-75) H Lymphocytes % (Manual) 6 % (20-45) L Monocytes % (Manual) 2 % (1-10) Eosinophils % (Manual) 0 % (0-3) Basophils % (Manual) 0 % (0-2) Band Neutrophils 0 % (0-8) Platelet Estimate Adequate Platelet Morphology Normal Anisocytosis 1+ Sodium Level 142 MMOL/L (136-145) Potassium Level 3.0 MMOL/L (3.5-5.1) L Chloride Level 114 MMOL/L (98-107) H Carbon Dioxide Level 15 MMOL/L (21-32) L Anion Gap 13 mmol/L (5-15) Blood Urea Nitrogen 26 mg/dL (7-18) H Creatinine 1.4 MG/DL (0.55-1.30) H Estimat Glomerular Filtration Rate mL/min (>60) Glucose Level 204 MG/DL (74-106) H Calcium Level 6.3 MG/DL (8.5-10.1) L Arterial Blood pH 7.351 (7.350-7.450) Arterial Blood Partial Pressure CO2 31.0 mmHg (35.0-45.0) L Arterial Blood Partial Pressure O2 75.9 mmHg (75.0-100.0) Arterial Blood HCO3 16.8 mmol/L (22.0-26.0) *L Arterial Blood Oxygen Saturation 95.1 % (95-100) Arterial Blood Base Excess -7.8 (-2-2) L Domingo Test Positive Objective HEAD AND NECK: Shows no JVD.BIPAP is on LUNGS: Coarse rhonchi. CHEST: The pacemaker is in the left subclavian. ABDOMEN: Soft. EXTREMITIES: No pitting edema. Jarrod Gutierrez MD Apr 21, 2019 15:34
[2019-04-21 16:00] VITALS: BP 130/78
[2019-04-21] MEDS: traMADol 50mg tab ORAL PRN (16:40)
--- NOTE | 2019-04-21 17:45 | General Progress Note ---
Assessment/Plan Status: stable Assessment/Plan: 1. COPD with Acute Exacerbation - cont IV solumedrol and junior slowly. On Bipap at night. cont Nab txt and inhalers. 2. UTI - cont IV abx with zosyn and zyvox. ID following. 3. Leukocytosis probably 2nd to steroid and UTI - improved. 4. Possible sepsis - cont above antibiotic and follow cultures. 5. Paroxysmal A. Fib - cont amioderone 200 mg daily and Eliquis. 5. CAD 6. SSS s/p Pacemaker - cardiology following. 7. HLD 8. Chronic Pain Syndrome 9. Acute on Chronic respiratory Failure - improved and on Bipap at night. 10. Dysphagia - on puree diet. Subjective Date patient seen: Apr 21, 2019 Time patient seen: 17:30 Constitutional: Reports: weakness HEENT: Reports: no symptoms Cardiovascular: Reports: no symptoms Respiratory: Reports: shortness of breath Gastrointestinal/Abdominal: Reports: no symptoms Genitourinary: Reports: no symptoms Neurologic/Psychiatric: Reports: no symptoms Endocrine: Reports: no symptoms Hematologic/Lymphatic: Reports: no symptoms Allergies: Coded Allergies: CYCLOBENZAPRINE (Verified Allergy, Unknown, 12/11/18) IBUPROFEN (Verified Allergy, Unknown, 12/11/18) MELATONIN (Verified Allergy, Unknown, 12/11/18) SULFA (SULFONAMIDE ANTIBIOTICS) (Verified Allergy, Unknown, 12/11/18) SULFUR (Unverified Allergy, Unknown, 04/17/19) Uncoded Allergies: CONTRAST (Allergy, Unknown, 04/17/19) Subjective Today, she is much better and able to answer questions. Afebrile. No abd pain. No chest pain. she had swallowing eval and on puree diet. Objective Last 24 Hour Vital Signs Date Time Temp Pulse Resp B/P (MAP) Pulse Ox O2 Delivery O2 Flow Rate FiO2 04/21/19 16:00 98.3 73 22 130/78 (95) 97 04/21/19 16:00 65 04/21/19 15:17 98.1 04/21/19 13:45 66 16 98 Nasal Cannula 2.0 28 04/21/19 12:00 98.1 65 24 140/80 (100) 97 04/21/19 12:00 70 04/21/19 09:00 Nasal Cannula 2.0 04/21/19 09:00 70 04/21/19 08:30 Nasal Cannula 2.0 28 04/21/19 08:00 97.4 66 29 141/81 (101) 99 04/21/19 07:36 67 28 99 Facial 30 04/21/19 05:07 63 25 97 Facial 30 04/21/19 04:00 97.5 61 20 133/83 (100) 99 04/21/19 04:00 Nasal Cannula 2.0 04/21/19 04:00 67 04/21/19 02:50 66 24 99 Facial 30 04/21/19 01:05 60 18 98 Full Face 30 04/21/19 00:00 30 04/21/19 00:00 97.7 64 24 145/84 (104) 99 04/21/19 00:00 61 04/21/19 00:00 Nasal Cannula 2.0 04/20/19 23:23 64 16 97 Full Face 30 04/20/19 21:29 68 18 100 Full Face 30 04/20/19 20:00 62 04/20/19 20:00 98.5 66 20 133/74 (93) 99 04/20/19 20:00 Nasal Cannula 2.0 Intake and Output 04/20/19 04/21/19 18:59 06:59 Intake Total 2025.0 ml 2103.0 ml Output Total 400 ml 800 ml Balance 1625.0 ml 1303.0 ml Intake Oral 200 ml IV Total 1825.0 ml 2103.0 ml Output Urine Total 400 ml 800 ml # Bowel Movements 1 Laboratory Tests 04/21/19 03:15: White Blood Count 8.4, Red Blood Count 2.74L, Hemoglobin 8.8L, Hematocrit 27.0L , Mean Corpuscular Volume 99, Mean Corpuscular Hemoglobin 32.2H, Mean Corpuscular Hemoglobin Concent 32.6, Red Cell Distribution Width 16.1H, Platelet Count 229, Mean Platelet Volume 5.6L, Neutrophils (%) (Auto) , Lymphocytes (%) (Auto) , Monocytes (%) (Auto) , Eosinophils (%) (Auto) , Basophils (%) (Auto) , Differential Total Cells Counted 100, Neutrophils % ( Manual) 92H, Lymphocytes % (Manual) 6L, Monocytes % (Manual) 2, Eosinophils % ( Manual) 0, Basophils % (Manual) 0, Band Neutrophils 0, Platelet Estimate Adequate, Platelet Morphology Normal, Anisocytosis 1+, Sodium Level 142, Potassium Level 3.0L, Chloride Level 114H, Carbon Dioxide Level 15L, Anion Gap 13, Blood Urea Nitrogen 26H, Creatinine 1.4H, Estimat Glomerular Filtration Rate , Glucose Level 204H, Calcium Level 6.3L 04/21/19 13:24: Arterial Blood pH 7.351, Arterial Blood Partial Pressure CO2 31.0L, Arterial Blood Partial Pressure O2 75.9, Arterial Blood HCO3 16.8*L, Arterial Blood Oxygen Saturation 95.1, Arterial Blood Base Excess -7.8L, Domingo Test Positive Height (Feet): 5 Height (Inches): 3.00 Weight (Pounds): 122 General Appearance: alert EENT: normal ENT inspection Neck: non-tender, normal alignment, supple Cardiovascular: normal rate, regular rhythm Respiratory/Chest: no respiratory distress, decreased breath sounds Abdomen: normal bowel sounds, non tender, soft Extremities: non-tender Edema: no edema noted Arm (L), no edema noted Arm (R), no edema noted Leg (L), no edema noted Leg (R), no edema noted Pedal (L), no edema noted Pedal (R), no edema noted Generalized Neurologic: alert, responsive Skin: warm/dry Wally Mancilla MD Apr 21, 2019 17:45
[2019-04-21] MEDS: Sodium Citrate 30ml ORAL SCH (17:49)
--- NOTE | 2019-04-21 19:13 | NUR ---
HAND-OFF: Report given to ANDREW FINNEGAN.
--- NOTE | 2019-04-21 19:30 | NUR ---
NURSE NOTES: Received Pt is resting on the bed and awake and forgetful . Given realty orientation. No sign of acute distress noted. On O2 2L via nasal cannula and SaO2 99% noted. Iv site intact and no sign of infiltration noted. and NS @ 125cc/hr is running. On Tele monitor with SR w/ 1st AVB. Pt has Tony and patent and drainage well. Pt has pitting edema on both feet and legs. Noted multiple ecchymosis and skin tear noted. Noted swelling on Both arms. Placed fall precaution. Will continue to care plan.
[2019-04-21 20:00] VITALS: BP 129/78
[2019-04-21] MEDS: Dyna-Hex 2% Top Sol 2oz TOPIC SCH (20:00)
[2019-04-21] MEDS: Atorvastatin 20mg tab ORAL SCH (20:52)
[2019-04-21] MEDS: Solu-MEDROL 40mg Inj IVP SCH (20:52)
[2019-04-22] VITALS: BP 137/85
[2019-04-22] MEDS: Sodium Citrate 30ml ORAL SCH ×4 (00:05→17:17)
[2019-04-22] MEDS: Albuterol/Ipratropium 3ml neb HHN SCH ×4 (00:50→18:59)
[2019-04-22 04:00] VITALS: BP 142/87
[2019-04-22 04:54] LABS: HEMATOCRIT 27.6 % (37.0-47.0); HEMOGLOBIN 9.2 G/DL (12.0-16.0); MEAN CORPUSCULAR VOLUME 96 FL (80-99); PLATELET COUNT 260 K/UL (150-450); RED BLOOD COUNT 2.88 M/UL (4.20-5.40); RED CELL DISTRIBUTION WIDTH 15.6 % (11.6-14.8); WHITE BLOOD COUNT 14.5 K/UL (4.8-10.8)
[2019-04-22 05:12] LABS: ANION GAP 13 mmol/L (5-15); BLOOD UREA NITROGEN 21 mg/dL (7-18); CALCIUM 6.7 MG/DL (8.5-10.1); CARBON DIOXIDE 18 MMOL/L (21-32); CHLORIDE 114 MMOL/L (98-107); CREATININE 1.3 MG/DL (0.55-1.30); SODIUM 145 MMOL/L (136-145)
[2019-04-22] MEDS: Morphine IR 15mg tab ORAL PRN ×2 (05:26→12:45)
[2019-04-22] MEDS: Azithromycin 500 MG in D5W 275 ML IV SCH (05:26)
--- NOTE | 2019-04-22 07:00 | NUR ---
NURSE NOTES: Noted Her potassium Level is 3.0 and WBC 14.5 today. Noted Rt. and Lt. forearm skin tear area sign of infection. Left message to Dr. Mancilla and awaiting call back.
--- NOTE | 2019-04-22 07:20 | NUR ---
HAND-OFF: Report given to SIVAN Stovall. Pt is resting on the bed and no sign of acute distress noted. Still noted swelling on both arm area. Get call back from Dr. Mancilla and notified pt's condition and new order received. Endorsed incoming nurse and verbally understand.
[2019-04-22] MEDS: Linezolid 600mg/300ml (Pre-Mix) IVPB SCH ×2 (07:54→20:43)
[2019-04-22 08:00] VITALS: BP 138/78
--- NOTE | 2019-04-22 08:00 | NUR ---
NURSE NOTES: received pt in the bed, awake, vital signs stable, no SOB, pt on o2 2L, k 3.0, DR Mancilla aware, skin warm and dry to touch, skin tear on both arms, Tony catheter with yellow urine, both arms swollen, bed in low [position, call light within reach.
[2019-04-22] MEDS: traMADol 50mg tab ORAL PRN ×2 (08:28→17:35)
[2019-04-22] MEDS: Solu-MEDROL 40mg Inj IVP SCH ×3 (08:28→20:16)
[2019-04-22] MEDS: Calcitriol 0.5mcg Cap ORAL SCH (08:29)
[2019-04-22] MEDS: Sodium Bicarbonate 650mg Tab ORAL SCH ×2 (08:29→17:19)
[2019-04-22] MEDS: Ferrous Gluconate 324 MG TAB ORAL SCH ×2 (08:29→17:18)
[2019-04-22] MEDS: Eliquis 2.5mg tablet ORAL SCH ×2 (08:29→17:20)
[2019-04-22] MEDS: Multivitamin w/Minerals tab ORAL SCH ×2 (08:29→17:18)
[2019-04-22] MEDS: Miralax 17gm pkt ORAL SCH (08:30)
[2019-04-22] MEDS: Amiodarone 200mg tab ORAL SCH (08:30)
--- NOTE | 2019-04-22 08:46 | Pulmonology Progress Note ---
Assessment/Plan Problems: (1) Acute respiratory failure (2) Aspiration pneumonia (3) Hypotension (4) UTI (urinary tract infection) (5) COPD (chronic obstructive pulmonary disease) (6) Fever (7) Renal insufficiency (8) Atrial fibrillation (9) Bronchitis, acute, with bronchospasm (10) Leukocytosis Assessment/Plan ASSESSMENT: The patient is a 73-year-old female, former smoker with a history of COPD, chronic respiratory failure, paroxysmal atrial fibrillation, CAD, hypertension, hyperlipidemia, presenting with respiratory distress and altered mental status likely secondary to COPD exacerbation as well as UTI with acute kidney injury. PROBLEM LIST: 1. COPD with acute exacerbation. 2. Altered mental status. 3. BASSAM - RESOLVED 4. UTI. 5. Possible PNA 6. Non-anion gap metabolic acidosis 7. Systemic inflammatory response syndrome. 8. CHF, CAD, paroxysmal atrial fibrillation, hypertension, hyperlipidemia. 9. Chronic pain. TREATMENT PLAN: 1. BiPAP PRN and qHS - take breaks off as able 2. F/U CT head results 3. Monitor gas exchange 4. Awaiting PICC 5. Optimize pulmonary hygiene/mobilize as tolerated. 6. Titrate down FiO2 to keep saturations greater than 92%. 7. Gwtgnw-lss-yuisd and p.r.n. DuoNebs. 8. Decrease Solu-Medrol to 30 IV b.i.d. and taper. 9. Continue Abx (Zosyn, Zyvox, Azithro) per ID. 10. Monitor volumes and renal function. Continue Bicitra tabs, lasix 10 IV x 1 today, replete K 11. Diet per [employer] with STRICT aspiration precautions. 12. DVT prophylaxis, the patient is on Eliquis. 13. The patient is Full Code. We will continue to discuss goals of care. Subjective Allergies: Coded Allergies: CYCLOBENZAPRINE (Verified Allergy, Unknown, 12/11/18) IBUPROFEN (Verified Allergy, Unknown, 12/11/18) MELATONIN (Verified Allergy, Unknown, 12/11/18) SULFA (SULFONAMIDE ANTIBIOTICS) (Verified Allergy, Unknown, 12/11/18) SULFUR (Unverified Allergy, Unknown, 04/17/19) Uncoded Allergies: CONTRAST (Allergy, Unknown, 04/17/19) Subjective AFVSS on and off BiPAP O2 needs stable BASSAM resolved no cough + SOB no FC + back pain WCt inc Edematous getting PICC Objective Last 24 Hour Vital Signs Date Time Temp Pulse Resp B/P (MAP) Pulse Ox O2 Delivery O2 Flow Rate FiO2 04/22/19 08:08 Bi-pap 04/22/19 07:07 76 20 99 Nasal Cannula 2.0 28 71 18 95 04/22/19 04:58 68 16 97 Facial 30 04/22/19 04:00 64 04/22/19 04:00 Bi-pap 04/22/19 04:00 97.9 77 22 142/87 (105) 98 04/22/19 03:14 76 18 98 Facial 30 04/22/19 00:51 72 20 97 Facial 30 04/22/19 00:50 75 20 99 Nasal Cannula 2.0 28 72 20 97 04/22/19 00:00 Bi-pap 04/22/19 00:00 74 04/22/19 00:00 30 04/22/19 00:00 97.3 84 22 137/85 (102) 99 04/21/19 23:00 68 22 99 Facial 30 04/21/19 20:00 70 04/21/19 20:00 97.5 74 22 129/78 (95) 97 04/21/19 20:00 Nasal Cannula 2.0 04/21/19 19:00 90 20 100 Nasal Cannula 2.0 28 88 18 100 04/21/19 17:10 98.1 04/21/19 16:00 98.3 73 22 130/78 (95) 97 04/21/19 16:00 65 04/21/19 15:17 98.1 04/21/19 13:45 66 16 98 Nasal Cannula 2.0 28 04/21/19 12:00 98.1 65 24 140/80 (100) 97 04/21/19 12:00 70 04/21/19 09:00 Nasal Cannula 2.0 04/21/19 09:00 70 Intake and Output 04/21/19 04/22/19 19:00 07:00 Intake Total 955.0 ml 2088.0 ml Output Total 900 ml 450 ml Balance 55.0 ml 1638.0 ml Intake Oral 120 ml 60 ml IV Total 835.0 ml 2028.0 ml Output Urine Total 900 ml 450 ml General Appearance: no acute distress, cachetic HEENT: normocephalic, atraumatic, anicteric, mucous membranes moist Respiratory/Chest: rhonchi Cardiovascular: normal peripheral pulses, normal rate, regular rhythm Abdomen: normal bowel sounds, soft, non tender, no organomegaly, non distended , no mass Extremities: no cyanosis, no clubbing, other - 1+ Laboratory Tests 04/21/19 13:24: Arterial Blood pH 7.351, Arterial Blood Partial Pressure CO2 31.0L, Arterial Blood Partial Pressure O2 75.9, Arterial Blood HCO3 16.8*L, Arterial Blood Oxygen Saturation 95.1, Arterial Blood Base Excess -7.8L, [place] Test Positive 04/22/19 03:55: White Blood Count 14.5#H, Red Blood Count 2.88L, Hemoglobin 9.2L, Hematocrit 27.6L, Mean Corpuscular Volume 96, Mean Corpuscular Hemoglobin 31.8H, Mean Corpuscular Hemoglobin Concent 33.2, Red Cell Distribution Width 15.6H, Platelet Count 260, Mean Platelet Volume 6.0L, Neutrophils (%) (Auto) , Lymphocytes (%) (Auto) , Monocytes (%) (Auto) , Eosinophils (%) (Auto) , Basophils (%) (Auto) , Differential Total Cells Counted 100, Neutrophils % ( Manual) 97H, Lymphocytes % (Manual) 1L, Monocytes % (Manual) 2, Eosinophils % ( Manual) 0, Basophils % (Manual) 0, Band Neutrophils 0, Platelet Estimate Adequate, Platelet Morphology Normal, Sodium Level 145, Potassium Level 3.0L, Chloride Level 114H, Carbon Dioxide Level 18L, Anion Gap 13, Blood Urea Nitrogen 21H, Creatinine 1.3, Estimat Glomerular Filtration Rate , Glucose Level 200H, Calcium Level 6.7L, Ammonia 31, Vitamin B12 Level 595, Folate 11.8, Thyroid Stimulating Hormone (TSH) 6.736H, Rapid Plasma Reagin [Pending] Current Medications Medications (Trade) Dose Ordered Sig/Sonny Route PRN Reason Start Time Stop Time Status Last Admin Dose Admin Albuterol/ Ipratropium (Albuterol/ Ipratropium) 3 ml Q4H PRN HHN Shortness of Breath 04/18/19 16:30 04/23/19 16:29 Albuterol/ Ipratropium (Albuterol/ Ipratropium) 3 ml Q6HRT HHN 04/21/19 13:00 04/26/19 12:59 04/22/19 07:08 Amiodarone HCl (Cordarone) 200 mg DAILY ORAL 04/19/19 09:00 05/18/19 08:59 04/22/19 08:30 Apixaban (Eliquis) 2.5 mg BID ORAL 04/18/19 18:00 05/18/19 08:59 04/22/19 08:29 Aspirin (ASA) 81 mg DAILY ORAL 04/19/19 09:00 05/18/19 08:59 04/21/19 08:39 Atorvastatin Calcium (Lipitor) 20 mg BEDTIME ORAL 04/18/19 21:00 05/18/19 20:59 04/21/19 20:52 Azithromycin 500 mg/Dextrose 275 ml @ 275 mls/hr Q24H IV 04/19/19 06:00 04/25/19 06:59 04/22/19 05:26 Bisacodyl (Dulcolax) 10 mg DAILYPRN PRN RECTAL Constipation 04/18/19 16:30 05/18/19 16:29 Calcitriol (Rocaltrol) 0.5 mcg DAILY ORAL 04/19/19 09:00 05/18/19 08:59 04/22/19 08:29 Chlorhexidine Gluconate (Rose-Hex 2%) 1 applic DAILY@2000 TOPIC 04/21/19 20:00 05/21/19 19:59 Ferrous Gluconate (Fergon) 324 mg EVERY OTHER DAY ORAL 04/20/19 09:00 05/18/19 08:59 04/22/19 08:29 Gabapentin (Neurontin) 300 mg DAILY ORAL 04/19/19 09:00 05/18/19 08:59 04/22/19 08:29 Heparin Sodium/ Sodium Chloride (Heparin 1000 units/500ml Premix) 1,000 unit ONCE PRN IV picc line placement 04/21/19 14:00 04/23/19 13:59 Lactulose (Cephulac) 10 gm TIDPRN PRN ORAL Constipation 04/18/19 18:00 05/18/19 17:59 Lidocaine (Lidoderm 5% PATCH) 1 patch DAILY TDERMAL 04/19/19 09:00 05/18/19 08:59 04/22/19 08:30 Lidocaine HCl (Xylocaine 1% 30ml) 30 ml ONCE PRN INJ picc line placement 04/21/19 14:00 04/23/19 13:59 Linezolid 300 ml @ 300 mls/hr Q12HR IVPB 04/20/19 14:30 04/27/19 14:29 04/22/19 07:54 Methylprednisolone Sodium Succinate (Solu-MEDROL) 40 mg Q12HR IVP 04/21/19 21:00 05/18/19 08:59 04/22/19 08:28 Morphine HCl (Morphine IR) 15 mg Q6H PRN ORAL For Pain 04/18/19 16:30 04/25/19 16:29 04/22/19 05:26 Multivitamins Therapeutic (Therapeutic Multivitamin) 1 ea DAILY ORAL 04/19/19 09:00 05/18/19 08:59 04/22/19 08:29 Ondansetron HCl (Zofran) 4 mg Q6H PRN ORAL Nausea & Vomiting 04/18/19 16:30 05/18/19 16:29 Piperacillin Sod/ Tazobactam Sod 3.375 gm/Sodium Chloride 110 ml @ 27.5 mls/hr Q12H IVPB 04/18/19 20:00 04/25/19 07:59 04/21/19 20:02 Polyethylene Glycol (Miralax) 17 gm DAILY ORAL 04/19/19 09:00 05/18/19 08:59 04/22/19 08:30 Potassium Chloride 100 ml @ 100 mls/hr Q1H IVPB 04/22/19 11:00 04/22/19 14:59 Sennosides (Senokot) 17.2 mg BEDTIME PRN ORAL Constipation 04/18/19 21:00 05/18/19 02:59 04/21/19 20:52 Sodium Bicarbonate (NaHCO3) 1,300 mg BID ORAL 04/18/19 18:00 05/18/19 08:59 04/22/19 08:29 Sodium Chloride 400 ml @ 100 mls/hr Q4H IV 04/22/19 11:00 04/22/19 14:59 Sodium Citrate (Bicitra) 30 ml EVERY 6 HOURS ORAL 04/21/19 18:00 05/21/19 17:59 04/22/19 05:25 Tramadol HCl (Ultram) 50 mg Q8H PRN ORAL Severe Pain (Pain Scale 7-10) 04/21/19 15:45 04/28/19 15:44 04/22/19 08:28 Trazodone HCl (Desyrel) 50 mg BEDTIME PRN ORAL DEPRESSION 04/18/19 21:00 05/18/19 02:59 04/19/19 23:23 Sánchez Lam MD Apr 22, 2019 08:46
--- NOTE | 2019-04-22 10:02 | NUR ---
RADIOLOGY NOTE: LEFT UPPER EXTREMITY PICC PLACED.
[2019-04-22] MEDS: Piperacillin/Tazobactam 3.375 GM in NS 110 ML IVPB SCH ×2 (10:03→20:23)
--- NOTE | 2019-04-22 10:44 | Diagnostic Imaging Report ---
Indication: Altered mental status Technique: Contiguous 5 mm thick transaxial imaging of the head obtained in a Siemens Sensation [address] scanner. Soft tissue and bone windows generated. Automatic Exposure Control was utilized. Total Dose length Product (DLP): 1404.[address] Dose Index Volume (CTDIvol): 70.38 mGy Comparison: none Findings: There is moderate prominence of the ventricles, basal cisterns, and cerebral sulci consistent with atrophy. Moderate, nonspecific, white matter hypoattenuation is noted throughout the brain consistent with chronic small vessel disease. There is no midline shift, edema, acute hemorrhage, mass effect, or abnormal extra-axial fluid collections. Bones are unremarkable. Impression: No acute intracranial bleed, mass effect or edema. Moderate atrophy of the brain. Evidence of chronic small vessel disease involving white matter tracts. The CT scanner at [facility] is accredited by the [employer] and the scans are performed using dose optimization techniques as appropriate to a performed exam including Automatic Exposure control.
[2019-04-22] MEDS: Aspirin Baby 81mg ORAL SCH (10:47)
--- NOTE | 2019-04-22 10:59 | Diagnostic Imaging Report ---
Indications: Needs long-term IV access Technique: Procedure performed at bedside. Procedural timeout performed. Ultrasound confirms patent compressible left basilic vein. Total sterile technique, including sterile probe cover and sterile gel, sterile gloves, hand hygiene, hat, mask,, sterile gown, large sterile drape, and preparation with 2% chlorhexidine utilized. Local anesthesia with 1% lidocaine. Under real-time ultrasound guidance, puncture basilic vein using 21-gauge needle, passage 0.018 guidewire, exchange for 4 Thai peel-away sheath. 4 Thai Bard dual-lumen power PICC cut to 43 cm. It was inserted through the peel-away sheath. Peel-away sheath and guidewire removed. Catheter fixed to the skin. Both catheter ports aspirated and flushed. Patient tolerated procedure well, without immediate complication. Followup chest x-ray obtained, documents catheter tip position at the cavoatrial junction Impression: Successful bedside placement of left arm PICC under sonographic guidance, as described above.
[2019-04-22] MEDS ORDERED: Sodium Chloride for KCL Premix X 4hrs IV SCH (11:00)
--- NOTE | 2019-04-22 11:08 | NUR ---
CASE MANAGEMENT:REVIEW 04/24/19 SI: COPD EXACERBATION. UTI AC/CHR RESPIRATORY FAILURE. DYSPHAGIA 98.0 81 23 138/78 95% ON BIPAP WBC+14.5 H/H-9.2/27.6 K-3.0 IS: IV SOLUMEDROL 30MG Q12 IV LINEZOLID Q12 IV AZITHROMYCIN Q24 IV ZOSYN Q12HRS IV KCL Q1HRS X4 BAGS BICITRA PO Q6HRS ULTRAM PO Q8HRS PRN DUONEB HHN Q6HRS RTC ASA PO QD CALCITROL PO QD NAHCO3 PO BID : STEP DOWN UNIT DCP: FROM [facility]
[2019-04-22 12:00] VITALS: BP 139/81
--- NOTE | 2019-04-22 12:43 | Cardiac Electrophysiology PN ---
Assessment/Plan Assessment/Plan 1. 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 Paroxysmal atrial fibrillation, currently in sinus rhythm, on Eliquis 2.5 mg b.i.d. and amiodarone 200 mg daily 3. Hyperlipidemia, on Lipitor. 4. Respiratory failure due to COPD and pneumonia, on BIPAP, Abx and Solu-Medrol. 5. Status post sternotomy. Per patient due to sternal Fx years ago. 6. Sepsis had PICC line today for Abx DW RN Subjective Subjective Alert in NAD. No CP. Off BIPAP Objective Last 24 Hour Vital Signs Date Time Temp Pulse Resp B/P (MAP) Pulse Ox O2 Delivery O2 Flow Rate FiO2 04/22/19 12:00 Bi-pap 04/22/19 08:58 97.9 04/22/19 08:08 Bi-pap 04/22/19 08:00 98.0 81 23 138/78 (98) 95 04/22/19 08:00 76 04/22/19 07:07 76 20 99 Nasal Cannula 2.0 28 71 18 95 04/22/19 04:58 68 16 97 Facial 30 04/22/19 04:00 64 04/22/19 04:00 Bi-pap 04/22/19 04:00 97.9 77 22 142/87 (105) 98 04/22/19 03:14 76 18 98 Facial 30 04/22/19 00:51 72 20 97 Facial 30 04/22/19 00:50 75 20 99 Nasal Cannula 2.0 28 72 20 97 04/22/19 00:00 Bi-pap 04/22/19 00:00 74 04/22/19 00:00 30 04/22/19 00:00 97.3 84 22 137/85 (102) 99 04/21/19 23:00 68 22 99 Facial 30 04/21/19 20:00 70 04/21/19 20:00 97.5 74 22 129/78 (95) 97 04/21/19 20:00 Nasal Cannula 2.0 04/21/19 19:00 90 20 100 Nasal Cannula 2.0 28 88 18 100 04/21/19 16:00 98.3 73 22 130/78 (95) 97 04/21/19 16:00 65 04/21/19 15:17 98.1 04/21/19 13:45 66 16 98 Nasal Cannula 2.0 28 Intake and Output 04/21/19 04/22/19 19:00 07:00 Intake Total 955.0 ml 2088.0 ml Output Total 900 ml 450 ml Balance 55.0 ml 1638.0 ml Intake Oral 120 ml 60 ml IV Total 835.0 ml 2028.0 ml Output Urine Total 900 ml 450 ml Laboratory Tests Test 04/21/19 13:24 04/22/19 03:55 Arterial Blood pH 7.351 (7.350-7.450) Arterial Blood Partial Pressure CO2 31.0 mmHg (35.0-45.0) L Arterial Blood Partial Pressure O2 75.9 mmHg (75.0-100.0) Arterial Blood HCO3 16.8 mmol/L (22.0-26.0) *L Arterial Blood Oxygen Saturation 95.1 % (95-100) Arterial Blood Base Excess -7.8 (-2-2) L Domingo Test Positive White Blood Count 14.5 K/UL (4.8-10.8) #H Red Blood Count 2.88 M/UL (4.20-5.40) L Hemoglobin 9.2 G/DL (12.0-16.0) L Hematocrit 27.6 % (37.0-47.0) L Mean Corpuscular Volume 96 FL (80-99) Mean Corpuscular Hemoglobin 31.8 PG (27.0-31.0) H Mean Corpuscular Hemoglobin Concent 33.2 G/DL (32.0-36.0) Red Cell Distribution Width 15.6 % (11.6-14.8) H Platelet Count 260 K/UL (150-450) Mean Platelet Volume 6.0 FL (6.5-10.1) L Neutrophils (%) (Auto) % (45.0-75.0) Lymphocytes (%) (Auto) % (20.0-45.0) Monocytes (%) (Auto) % (1.0-10.0) Eosinophils (%) (Auto) % (0.0-3.0) Basophils (%) (Auto) % (0.0-2.0) Differential Total Cells Counted 100 Neutrophils % (Manual) 97 % (45-75) H Lymphocytes % (Manual) 1 % (20-45) L Monocytes % (Manual) 2 % (1-10) Eosinophils % (Manual) 0 % (0-3) Basophils % (Manual) 0 % (0-2) Band Neutrophils 0 % (0-8) Platelet Estimate Adequate Platelet Morphology Normal Sodium Level 145 MMOL/L (136-145) Potassium Level 3.0 MMOL/L (3.5-5.1) L Chloride Level 114 MMOL/L (98-107) H Carbon Dioxide Level 18 MMOL/L (21-32) L Anion Gap 13 mmol/L (5-15) Blood Urea Nitrogen 21 mg/dL (7-18) H Creatinine 1.3 MG/DL (0.55-1.30) Estimat Glomerular Filtration Rate mL/min (>60) Glucose Level 200 MG/DL (74-106) H Calcium Level 6.7 MG/DL (8.5-10.1) L Ammonia 31 umol/L (11-32) Vitamin B12 Level 595 PG/ML (193-986) Folate 11.8 NG/ML (8.6-58.9) Thyroid Stimulating Hormone (TSH) 6.736 uiU/mL (0.358-3.740) Rapid Plasma Reagin Pending Objective HEAD AND NECK: Shows no JVD. Off BIPAP LUNGS: Coarse rhonchi. CHEST: The pacemaker is in the left subclavian. ABDOMEN: Soft. EXTREMITIES: No pitting edema. Jarrod Gutierrez MD Apr 22, 2019 12:43
--- NOTE | 2019-04-22 13:01 | NUR ---
NURSE NOTES: vital signs stable, no SOB, PICC line inserted to left upper arm as ordered, continue monitoring.
--- NOTE | 2019-04-22 14:21 | NUR ---
ST NOTES: SWALLOW STATUS: GOALS FOR INTAKE NOT MET ONLY 25-50% W/O OVERT ASPIRATION. PT TRYING TO DRINK HIGH DANG SUPPLEMENT WHEN SHE DOESN'T EAT ALL OF HER MEAL. GOALS MET FOR NEW STAFF EDUCATED/TRAINED IN ASP PREC NOTED IN SWALLOW EVAL REPORT. UNABLE TO HAVE MOD BARIUM SWALLOW STUDY (MBSS) TODAY DUE TO SCHEDULE CONFLICTS. PLAN: COMPLETE MBSS WHEN ABLE CONTINUE WITH CURRENT DIET/LIQUIDS WITH POSTED PRECAUTIONS.
--- NOTE | 2019-04-22 15:13 | Infectious Diseases Prog Note ---
Assessment/Plan Problems: (1) Aspiration pneumonia Assessment & Plan: with B/L basal consolidations and fever , continue zosyn , and zyvox to cover her UTI due to VRE too. MONITOR sputum culture . aspiration precaution. Keep HOB > 30 DEGREE (2) COPD (chronic obstructive pulmonary disease) Assessment & Plan: continue inhalers , taper steroids (3) UTI (urinary tract infection) Assessment & Plan: with VRE , continue zyvox to cover her pneumonia too (4) Fever Assessment & Plan: due to the above, continue wide spectrum antibiotics and tylenol (5) Acute respiratory failure Assessment & Plan: due to the above with severe COPD and lung parenchyma destruction , on BIPAP, monitor ABG, pulmonary is following Subjective Constitutional: Reports: no symptoms HEENT: Reports: no symptoms Respiratory: Reports: no symptoms Breasts: Reports: no symptoms Cardiovascular: Reports: no symptoms Gastrointestinal/Abdominal: Reports: no symptoms Genitourinary: Reports: no symptoms Neurologic: Reports: no symptoms Psychiatric: Reports: no symptoms Skin: Reports: no symptoms Endocrine: Reports: no symptoms Hematologic: Reports: no symptoms Musculoskeletal: Reports: pain Allergies: Coded Allergies: CYCLOBENZAPRINE (Verified Allergy, Unknown, 12/11/18) IBUPROFEN (Verified Allergy, Unknown, 12/11/18) MELATONIN (Verified Allergy, Unknown, 12/11/18) SULFA (SULFONAMIDE ANTIBIOTICS) (Verified Allergy, Unknown, 12/11/18) SULFUR (Unverified Allergy, Unknown, 04/17/19) Uncoded Allergies: CONTRAST (Allergy, Unknown, 04/17/19) Subjective she was resting in bed comfortable , off BIPAP, no cough or phlegm, no SOB, no diarrhea .afebrile Objective Vital Signs Last 24 Hour Vital Signs Date Time Temp Pulse Resp B/P (MAP) Pulse Ox O2 Delivery O2 Flow Rate FiO2 04/22/19 13:15 97.9 04/22/19 12:00 98.5 81 22 139/81 (100) 95 04/22/19 12:00 Bi-pap 04/22/19 08:58 97.9 04/22/19 08:08 Bi-pap 04/22/19 08:00 98.0 81 23 138/78 (98) 95 04/22/19 08:00 76 04/22/19 07:07 76 20 99 Nasal Cannula 2.0 28 71 18 95 04/22/19 04:58 68 16 97 Facial 30 04/22/19 04:00 64 04/22/19 04:00 Bi-pap 04/22/19 04:00 97.9 77 22 142/87 (105) 98 04/22/19 03:14 76 18 98 Facial 30 04/22/19 00:51 72 20 97 Facial 30 04/22/19 00:50 75 20 99 Nasal Cannula 2.0 28 72 20 97 04/22/19 00:00 Bi-pap 04/22/19 00:00 74 04/22/19 00:00 30 04/22/19 00:00 97.3 84 22 137/85 (102) 99 04/21/19 23:00 68 22 99 Facial 30 04/21/19 20:00 70 04/21/19 20:00 97.5 74 22 129/78 (95) 97 04/21/19 20:00 Nasal Cannula 2.0 04/21/19 19:00 90 20 100 Nasal Cannula 2.0 28 88 18 100 04/21/19 16:00 98.3 73 22 130/78 (95) 97 04/21/19 16:00 65 Height (Feet): 5 Height (Inches): 3.00 Weight (Pounds): 124 General Appearance: no acute distress, cachetic HEENT: normocephalic, atraumatic, anicteric, mucous membranes moist, PERRL, EOMI, pharynx normal, supple, no JVD Respiratory/Chest: chest wall non-tender, lungs clear, normal breath sounds, no respiratory distress, no accessory muscle use Cardiovascular: normal peripheral pulses, normal rate, regular rhythm, no gallop/murmur, no JVD Abdomen: normal bowel sounds, soft, non tender, no organomegaly, non distended , no mass, no scars Extremities: no cyanosis, no clubbing Skin: no rash, no lesions, no ulcers Neurologic/Psychiatric: alert, responsive Lymphatic: no neck adenopathy, no groin adenopathy Musculoskeletal: no effusion, atrophy Laboratory Tests Test 04/22/19 03:55 White Blood Count 14.5 K/UL (4.8-10.8) #H Red Blood Count 2.88 M/UL (4.20-5.40) L Hemoglobin 9.2 G/DL (12.0-16.0) L Hematocrit 27.6 % (37.0-47.0) L Mean Corpuscular Volume 96 FL (80-99) Mean Corpuscular Hemoglobin 31.8 PG (27.0-31.0) H Mean Corpuscular Hemoglobin Concent 33.2 G/DL (32.0-36.0) Red Cell Distribution Width 15.6 % (11.6-14.8) H Platelet Count 260 K/UL (150-450) Mean Platelet Volume 6.0 FL (6.5-10.1) L Neutrophils (%) (Auto) % (45.0-75.0) Lymphocytes (%) (Auto) % (20.0-45.0) Monocytes (%) (Auto) % (1.0-10.0) Eosinophils (%) (Auto) % (0.0-3.0) Basophils (%) (Auto) % (0.0-2.0) Differential Total Cells Counted 100 Neutrophils % (Manual) 97 % (45-75) H Lymphocytes % (Manual) 1 % (20-45) L Monocytes % (Manual) 2 % (1-10) Eosinophils % (Manual) 0 % (0-3) Basophils % (Manual) 0 % (0-2) Band Neutrophils 0 % (0-8) Platelet Estimate Adequate Platelet Morphology Normal Sodium Level 145 MMOL/L (136-145) Potassium Level 3.0 MMOL/L (3.5-5.1) L Chloride Level 114 MMOL/L (98-107) H Carbon Dioxide Level 18 MMOL/L (21-32) L Anion Gap 13 mmol/L (5-15) Blood Urea Nitrogen 21 mg/dL (7-18) H Creatinine 1.3 MG/DL (0.55-1.30) Estimat Glomerular Filtration Rate mL/min (>60) Glucose Level 200 MG/DL (74-106) H Calcium Level 6.7 MG/DL (8.5-10.1) L Ammonia 31 umol/L (11-32) Vitamin B12 Level 595 PG/ML (193-986) Folate 11.8 NG/ML (8.6-58.9) Thyroid Stimulating Hormone (TSH) 6.736 uiU/mL (0.358-3.740) Rapid Plasma Reagin Pending Current Medications Medications (Trade) Dose Ordered Sig/Sonny Route PRN Reason Start Time Stop Time Status Last Admin Dose Admin Albuterol/ Ipratropium (Albuterol/ Ipratropium) 3 ml Q4H PRN HHN Shortness of Breath 04/18/19 16:30 04/23/19 16:29 Albuterol/ Ipratropium (Albuterol/ Ipratropium) 3 ml Q6HRT HHN 04/21/19 13:00 04/26/19 12:59 04/22/19 07:08 Amiodarone HCl (Cordarone) 200 mg DAILY ORAL 04/19/19 09:00 05/18/19 08:59 04/22/19 08:30 Apixaban (Eliquis) 2.5 mg BID ORAL 04/18/19 18:00 05/18/19 08:59 04/22/19 08:29 Aspirin (ASA) 81 mg DAILY ORAL 04/19/19 09:00 05/18/19 08:59 04/22/19 10:47 Atorvastatin Calcium (Lipitor) 20 mg BEDTIME ORAL 04/18/19 21:00 05/18/19 20:59 04/21/19 20:52 Azithromycin 500 mg/Dextrose 275 ml @ 275 mls/hr Q24H IV 04/19/19 06:00 04/25/19 06:59 04/22/19 05:26 Bisacodyl (Dulcolax) 10 mg DAILYPRN PRN RECTAL Constipation 04/18/19 16:30 05/18/19 16:29 Calcitriol (Rocaltrol) 0.5 mcg DAILY ORAL 04/19/19 09:00 05/18/19 08:59 04/22/19 08:29 Chlorhexidine Gluconate (Rose-Hex 2%) 1 applic DAILY@2000 TOPIC 04/21/19 20:00 05/21/19 19:59 Ferrous Gluconate (Fergon) 324 mg EVERY OTHER DAY ORAL 04/20/19 09:00 05/18/19 08:59 04/22/19 08:29 Gabapentin (Neurontin) 300 mg DAILY ORAL 04/19/19 09:00 05/18/19 08:59 04/22/19 08:29 Heparin Sodium/ Sodium Chloride (Heparin 1000 units/500ml Premix) 1,000 unit ONCE PRN IV picc line placement 04/21/19 14:00 04/23/19 13:59 Lactulose (Cephulac) 10 gm TIDPRN PRN ORAL Constipation 04/18/19 18:00 05/18/19 17:59 Lidocaine (Lidoderm 5% PATCH) 1 patch DAILY TDERMAL 04/19/19 09:00 05/18/19 08:59 04/22/19 08:30 Lidocaine HCl (Xylocaine 1% 30ml) 30 ml ONCE PRN INJ picc line placement 04/21/19 14:00 04/23/19 13:59 Linezolid 300 ml @ 300 mls/hr Q12HR IVPB 04/20/19 14:30 04/27/19 14:29 04/22/19 07:54 Methylprednisolone Sodium Succinate (Solu-MEDROL) 30 mg Q12HR IVP 04/22/19 09:00 05/18/19 08:59 04/22/19 10:04 Morphine HCl (Morphine IR) 15 mg Q6H PRN ORAL For Pain 04/18/19 16:30 04/25/19 16:29 04/22/19 12:45 Multivitamins Therapeutic (Therapeutic Multivitamin) 1 ea DAILY ORAL 04/19/19 09:00 05/18/19 08:59 04/22/19 08:29 Ondansetron HCl (Zofran) 4 mg Q6H PRN ORAL Nausea & Vomiting 04/18/19 16:30 05/18/19 16:29 04/22/19 14:57 Piperacillin Sod/ Tazobactam Sod 3.375 gm/Sodium Chloride 110 ml @ 27.5 mls/hr Q12H IVPB 04/18/19 20:00 04/25/19 07:59 04/22/19 10:03 Polyethylene Glycol (Miralax) 17 gm DAILY ORAL 04/19/19 09:00 05/18/19 08:59 04/22/19 08:30 Potassium Chloride 100 ml @ 100 mls/hr Q1H IVPB 04/22/19 15:30 04/22/19 17:29 Sennosides (Senokot) 17.2 mg BEDTIME PRN ORAL Constipation 04/18/19 21:00 05/18/19 02:59 04/21/19 20:52 Sodium Bicarbonate (NaHCO3) 1,300 mg BID ORAL 04/18/19 18:00 05/18/19 08:59 04/22/19 08:29 Sodium Chloride 200 ml @ 100 mls/hr Q2H IV 04/22/19 15:30 04/22/19 17:29 Sodium Citrate (Bicitra) 30 ml EVERY 6 HOURS ORAL 04/21/19 18:00 05/21/19 17:59 04/22/19 12:36 Tramadol HCl (Ultram) 50 mg Q8H PRN ORAL Severe Pain (Pain Scale 7-10) 04/21/19 15:45 04/28/19 15:44 04/22/19 08:28 Trazodone HCl (Desyrel) 50 mg BEDTIME PRN ORAL DEPRESSION 04/18/19 21:00 05/18/19 02:59 04/19/19 23:23 Saravanan Serrato M.D. Apr 22, 2019 15:13
[2019-04-22] MEDS: Sodium Chloride for KCL Premix x 2hrs IV SCH ×2 (15:41→17:18)
--- NOTE | 2019-04-22 15:57 | Diagnostic Imaging Report ---
Indication: Dyspnea Technique: One view of the chest Comparison: none Findings: Again demonstrated is diffuse reticular interstitial disease with areas of honeycombing. This is similar to findings reported on prior chest CT of 04/18/2019. There is increased airspace disease in the right perihilar region, right lung base, and left perihilar region. There is likely a small amount of pleural fluid on the right, not evident previously. Pacemaker, left upper quadrant surgical clips are unchanged. Impression: Background chronic interstitial disease as described, with increased airspace disease present in the right perihilar region, right lung base, and left infrahilar region Increasing small right pleural effusion
[2019-04-22 16:00] VITALS: BP 145/76
--- NOTE | 2019-04-22 17:12 | General Progress Note ---
Assessment/Plan Status: stable Assessment/Plan: 1. COPD with Acute Exacerbation - cont IV solumedrol and junior slowly. On Bipap at night. cont Nab txt and inhalers. Possible transfer to tele tomorrow. 2. UTI - cont IV abx with zosyn and zyvox. ID following. 3. Leukocytosis probably 2nd to steroid and UTI - improved. 4. Possible sepsis - cont above antibiotic and follow cultures. 5. Paroxysmal A. Fib - cont amioderone 200 mg daily and Eliquis. 6. CAD 7. SSS s/p Pacemaker - cardiology following. 8. HLD 9. Chronic Pain Syndrome 10. Acute on Chronic respiratory Failure - improved and on Bipap at night. 11. Dysphagia - on puree diet. Subjective Date patient seen: Apr 22, 2019 Time patient seen: 05:00 Constitutional: Reports: weakness HEENT: Reports: no symptoms Cardiovascular: Reports: no symptoms Respiratory: Reports: no symptoms Gastrointestinal/Abdominal: Reports: no symptoms Genitourinary: Reports: no symptoms Neurologic/Psychiatric: Reports: no symptoms Endocrine: Reports: no symptoms Hematologic/Lymphatic: Reports: no symptoms Allergies: Coded Allergies: CYCLOBENZAPRINE (Verified Allergy, Unknown, 12/11/18) IBUPROFEN (Verified Allergy, Unknown, 12/11/18) MELATONIN (Verified Allergy, Unknown, 12/11/18) SULFA (SULFONAMIDE ANTIBIOTICS) (Verified Allergy, Unknown, 12/11/18) SULFUR (Unverified Allergy, Unknown, 04/17/19) Uncoded Allergies: CONTRAST (Allergy, Unknown, 04/17/19) Subjective Today, she is much better and able to answer questions. Afebrile. No abd pain. No chest pain. Objective Last 24 Hour Vital Signs Date Time Temp Pulse Resp B/P (MAP) Pulse Ox O2 Delivery O2 Flow Rate FiO2 04/22/19 16:00 Bi-pap 04/22/19 13:15 97.9 04/22/19 12:00 98.5 81 22 139/81 (100) 95 04/22/19 12:00 Bi-pap 04/22/19 12:00 67 04/22/19 08:58 97.9 04/22/19 08:08 Bi-pap 04/22/19 08:00 98.0 81 23 138/78 (98) 95 04/22/19 08:00 76 04/22/19 07:07 76 20 99 Nasal Cannula 2.0 28 71 18 95 04/22/19 04:58 68 16 97 Facial 30 04/22/19 04:00 64 04/22/19 04:00 Bi-pap 04/22/19 04:00 97.9 77 22 142/87 (105) 98 04/22/19 03:14 76 18 98 Facial 30 04/22/19 00:51 72 20 97 Facial 30 04/22/19 00:50 75 20 99 Nasal Cannula 2.0 28 72 20 97 04/22/19 00:00 Bi-pap 04/22/19 00:00 74 04/22/19 00:00 30 04/22/19 00:00 97.3 84 22 137/85 (102) 99 04/21/19 23:00 68 22 99 Facial 30 04/21/19 20:00 70 04/21/19 20:00 97.5 74 22 129/78 (95) 97 04/21/19 20:00 Nasal Cannula 2.0 04/21/19 19:00 90 20 100 Nasal Cannula 2.0 28 88 18 100 Intake and Output 04/21/19 04/22/19 19:00 07:00 Intake Total 955.0 ml 2088.0 ml Output Total 900 ml 450 ml Balance 55.0 ml 1638.0 ml Intake Oral 120 ml 60 ml IV Total 835.0 ml 2028.0 ml Output Urine Total 900 ml 450 ml Laboratory Tests 04/22/19 03:55: White Blood Count 14.5#H, Red Blood Count 2.88L, Hemoglobin 9.2L, Hematocrit 27.6L, Mean Corpuscular Volume 96, Mean Corpuscular Hemoglobin 31.8H, Mean Corpuscular Hemoglobin Concent 33.2, Red Cell Distribution Width 15.6H, Platelet Count 260, Mean Platelet Volume 6.0L, Neutrophils (%) (Auto) , Lymphocytes (%) (Auto) , Monocytes (%) (Auto) , Eosinophils (%) (Auto) , Basophils (%) (Auto) , Differential Total Cells Counted 100, Neutrophils % ( Manual) 97H, Lymphocytes % (Manual) 1L, Monocytes % (Manual) 2, Eosinophils % ( Manual) 0, Basophils % (Manual) 0, Band Neutrophils 0, Platelet Estimate Adequate, Platelet Morphology Normal, Sodium Level 145, Potassium Level 3.0L, Chloride Level 114H, Carbon Dioxide Level 18L, Anion Gap 13, Blood Urea Nitrogen 21H, Creatinine 1.3, Estimat Glomerular Filtration Rate , Glucose Level 200H, Calcium Level 6.7L, Ammonia 31, Vitamin B12 Level 595, Folate 11.8, Thyroid Stimulating Hormone (TSH) 6.736H, Rapid Plasma Reagin [Pending] Height (Feet): 5 Height (Inches): 3.00 Weight (Pounds): 124 General Appearance: no apparent distress, alert EENT: normal ENT inspection Neck: non-tender, normal alignment, supple Cardiovascular: normal peripheral pulses, normal rate, regular rhythm Respiratory/Chest: lungs clear, normal breath sounds Abdomen: normal bowel sounds, non tender, soft Extremities: non-tender Edema: no edema noted Arm (L), no edema noted Arm (R), no edema noted Leg (L), no edema noted Leg (R), no edema noted Pedal (L), no edema noted Pedal (R), no edema noted Generalized Neurologic: alert, responsive Skin: warm/dry Lymphatic: normal anterior cervical (L), normal anterior cervical (R), normal posterior cervical (L), normal posterior cervical (R), normal submandibular (L) , normal submandibular (R), normal supraclavicular (L), normal supraclavicular ( R), normal axillary (L), normal axillary (R), normal inguinal (L), normal inguinal (R), normal other Wally Mancilla MD Apr 22, 2019 17:12
--- NOTE | 2019-04-22 19:05 | NUR ---
NURSE NOTES: pt report received from Lucia Larose pt remains stable. will continue plan of care.
--- NOTE | 2019-04-22 19:40 | NUR ---
HAND-OFF: Report given to NEWTON FINNEGAN, NO DISTRESS AT THIS TIME.
[2019-04-22 20:00] VITALS: BP 150/96
[2019-04-22] MEDS: Dyna-Hex 2% Top Sol 2oz TOPIC SCH (20:15)
[2019-04-22] MEDS: Atorvastatin 20mg tab ORAL SCH (20:16)
--- NOTE | 2019-04-22 20:39 | NUR ---
NURSE NOTES: called [facility] pharmacist, stated it is ok to run zosyn and zyvox IV together.
[2019-04-23] VITALS: BP 143/93
[2019-04-23] MEDS: Albuterol/Ipratropium 3ml neb HHN SCH ×4 (00:57→19:00)
[2019-04-23 04:00] VITALS: BP 157/88
[2019-04-23 05:18] LABS: HEMATOCRIT 26.3 % (37.0-47.0); HEMOGLOBIN 8.6 G/DL (12.0-16.0); MEAN CORPUSCULAR VOLUME 96 FL (80-99); PLATELET COUNT 230 K/UL (150-450); RED BLOOD COUNT 2.74 M/UL (4.20-5.40); RED CELL DISTRIBUTION WIDTH 15.3 % (11.6-14.8); WHITE BLOOD COUNT 16.5 K/UL (4.8-10.8)
[2019-04-23] MEDS: Sodium Citrate 30ml ORAL SCH ×4 (05:24→17:29)
[2019-04-23 05:30] LABS: ANION GAP 11 mmol/L (5-15); BLOOD UREA NITROGEN 17 mg/dL (7-18); CALCIUM 6.8 MG/DL (8.5-10.1); CARBON DIOXIDE 22 MMOL/L (21-32); CHLORIDE 110 MMOL/L (98-107); CREATININE 1.3 MG/DL (0.55-1.30); POTASSIUM 3.5 MMOL/L (3.5-5.1); SODIUM 143 MMOL/L (136-145)
[2019-04-23] MEDS: Azithromycin 500 MG in D5W 275 ML IV SCH (05:37)
--- NOTE | 2019-04-23 07:15 | NUR ---
HAND-OFF: Report given to Lucia James Pt remains stable.
--- NOTE | 2019-04-23 07:20 | NUR ---
NURSE NOTES: Report received from Cindy Lowery RN.Pt asleep noted no resp distress still on Bipap 12/5 Fio2 30%,with Tony cath draining yellow urine ,skin warm and dry,with DOUG PICC line intact ,SR up x2 ,HOB elevated,bed lock in lowest position will continue with plans of care.
[2019-04-23 08:00] VITALS: BP 142/83
[2019-04-23] MEDS: Piperacillin/Tazobactam 3.375 GM in NS 110 ML IVPB SCH ×3 (08:19→22:15)
[2019-04-23] MEDS: Solu-MEDROL 40mg Inj IVP SCH ×2 (08:41→22:14)
[2019-04-23] MEDS: Linezolid 600mg/300ml (Pre-Mix) IVPB SCH ×2 (08:41→22:28)
[2019-04-23] MEDS: Aspirin Baby 81mg ORAL SCH (08:42)
[2019-04-23] MEDS: Amiodarone 200mg tab ORAL SCH (08:43)
[2019-04-23] MEDS: Sodium Bicarbonate 650mg Tab ORAL SCH ×2 (08:43→17:29)
[2019-04-23] MEDS: Multivitamin w/Minerals tab ORAL SCH (08:44)
[2019-04-23] MEDS: Eliquis 2.5mg tablet ORAL SCH ×2 (08:44→17:29)
[2019-04-23] MEDS: Calcitriol 0.5mcg Cap ORAL SCH (08:44)
[2019-04-23] MEDS: Miralax 17gm pkt ORAL SCH (08:44)
--- NOTE | 2019-04-23 08:55 | General Progress Note ---
Assessment/Plan Status: stable Assessment/Plan: 1. COPD with Acute Exacerbation - cont IV solumedrol and tappering slowly. On Bipap at night. cont Nab txt and inhalers. Transfer to tele today. 2. UTI - cont IV abx with zosyn and zyvox. ID following. 3. Leukocytosis probably 2nd to steroid and UTI - trending up, will discuss with ID. 4. Possible sepsis - cont above antibiotic and follow cultures. 5. Paroxysmal A. Fib - cont amioderone 200 mg daily and Eliquis. 6. CAD 7. SSS s/p Pacemaker - cardiology following. 8. HLD 9. Chronic Pain Syndrome 10. Acute on Chronic respiratory Failure - improved and on Bipap at night. 11. Dysphagia - on puree diet. Subjective Date patient seen: Apr 23, 2019 Time patient seen: 08:35 Constitutional: Reports: weakness HEENT: Reports: no symptoms Cardiovascular: Reports: no symptoms Respiratory: Reports: no symptoms Gastrointestinal/Abdominal: Reports: no symptoms Genitourinary: Reports: no symptoms Neurologic/Psychiatric: Reports: no symptoms Endocrine: Reports: no symptoms Hematologic/Lymphatic: Reports: no symptoms Allergies: Coded Allergies: CYCLOBENZAPRINE (Verified Allergy, Unknown, 12/11/18) IBUPROFEN (Verified Allergy, Unknown, 12/11/18) MELATONIN (Verified Allergy, Unknown, 12/11/18) SULFA (SULFONAMIDE ANTIBIOTICS) (Verified Allergy, Unknown, 12/11/18) SULFUR (Unverified Allergy, Unknown, 04/17/19) Uncoded Allergies: CONTRAST (Allergy, Unknown, 04/17/19) Subjective Today, she is much better and able to answer questions. Her WBC has increased. Afebrile. No abd pain. No chest pain. Objective Last 24 Hour Vital Signs Date Time Temp Pulse Resp B/P (MAP) Pulse Ox O2 Delivery O2 Flow Rate FiO2 04/23/19 07:15 74 17 98 Full Face 30 04/23/19 04:57 78 20 98 Facial 30 04/23/19 04:00 Bi-pap 04/23/19 04:00 70 04/23/19 04:00 97.6 67 23 157/88 (111) 99 04/23/19 02:43 65 17 99 Facial 30 04/23/19 00:58 68 21 98 Facial 30 71 20 99 Bi-Pap 30 04/23/19 00:57 71 20 99 Bi-Pap 30 68 21 97 04/23/19 00:00 30 04/23/19 00:00 78 04/23/19 00:00 Bi-pap 04/23/19 00:00 97.8 69 24 143/93 (110) 99 04/22/19 22:50 85 19 95 Full Face 30 04/22/19 20:00 80 04/22/19 20:00 98.0 85 24 150/96 (114) 99 04/22/19 20:00 Bi-pap 04/22/19 19:00 77 18 100 Nasal Cannula 2.0 28 73 18 97 04/22/19 18:05 97.9 04/22/19 16:00 Bi-pap 04/22/19 16:00 60 04/22/19 16:00 98.6 74 23 145/76 (99) 98 04/22/19 13:15 97.9 04/22/19 12:00 98.5 81 22 139/81 (100) 95 04/22/19 12:00 Bi-pap 04/22/19 12:00 67 Intake and Output 04/22/19 04/23/19 19:00 07:00 Intake Total 510.0 ml 685.0 ml Output Total 1400 ml 2000 ml Balance -890.0 ml -1315.0 ml Intake Oral 100 ml IV Total 410.0 ml 685.0 ml Output Urine Total 1400 ml 2000 ml Laboratory Tests 04/23/19 03:15: White Blood Count 16.5H, Red Blood Count 2.74L, Hemoglobin 8.6L, Hematocrit 26.3L, Mean Corpuscular Volume 96, Mean Corpuscular Hemoglobin 31.4H, Mean Corpuscular Hemoglobin Concent 32.8, Red Cell Distribution Width 15.3H, Platelet Count 230, Mean Platelet Volume 5.6L, Neutrophils (%) (Auto) , Lymphocytes (%) (Auto) , Monocytes (%) (Auto) , Eosinophils (%) (Auto) , Basophils (%) (Auto) , Differential Total Cells Counted 100, Neutrophils % ( Manual) 97H, Lymphocytes % (Manual) 1L, Monocytes % (Manual) 2, Eosinophils % ( Manual) 0, Basophils % (Manual) 0, Band Neutrophils 0, Platelet Estimate Adequate, Platelet Morphology Normal, Anisocytosis 1+, Schistocytes 1+, Sodium Level 143, Potassium Level 3.5, Chloride Level 110H, Carbon Dioxide Level 22, Anion Gap 11, Blood Urea Nitrogen 17, Creatinine 1.3, Estimat Glomerular Filtration Rate , Glucose Level 136H, Calcium Level 6.8L Height (Feet): 5 Height (Inches): 3.00 Weight (Pounds): 123 General Appearance: no apparent distress, alert EENT: normal ENT inspection Neck: non-tender, normal alignment, supple Cardiovascular: normal rate, regular rhythm Respiratory/Chest: lungs clear, no respiratory distress, decreased breath sounds Abdomen: normal bowel sounds, non tender, soft Extremities: non-tender Edema: 1+ Leg (L), 1+ Leg (R) Neurologic: alert, responsive Skin: warm/dry Lymphatic: normal anterior cervical (L), normal anterior cervical (R), normal posterior cervical (L), normal posterior cervical (R), normal submandibular (L) , normal submandibular (R), normal supraclavicular (L), normal supraclavicular ( R), normal axillary (L), normal axillary (R), normal inguinal (L), normal inguinal (R), normal other Wally Mancilla MD Apr 23, 2019 08:55
[2019-04-23] MEDS ORDERED: Lactulose 20gm/30ml UDC ORAL PRN (09:00)
--- NOTE | 2019-04-23 09:00 | NUR ---
NURSE NOTES: Pt placed on 2L NC by Callie bravo no resp distress presented,medic crushed and given with apple sauce breakfast served ,ate 50% only.
--- NOTE | 2019-04-23 09:25 | NUR ---
NURSE NOTES: Dr Jarrell at bedside,with orders noted.,pt for transfer to Telemetry.
[2019-04-23 12:00] VITALS: BP 128/87
--- NOTE | 2019-04-23 12:00 | NUR ---
NURSE NOTES: Pt with large BM noted ,soft dark stools, x3.pt had no BM x6days,bed bath given,kept dry and clean turned and repositioned.
--- NOTE | 2019-04-23 12:12 | Pulmonology Progress Note ---
Assessment/Plan Problems: (1) Acute respiratory failure (2) Aspiration pneumonia (3) Hypotension (4) UTI (urinary tract infection) (5) COPD (chronic obstructive pulmonary disease) (6) Fever (7) Renal insufficiency (8) Atrial fibrillation (9) Bronchitis, acute, with bronchospasm (10) Leukocytosis Assessment/Plan ASSESSMENT: The patient is a 73-year-old female, former smoker with a history of COPD, chronic respiratory failure, paroxysmal atrial fibrillation, CAD, hypertension, hyperlipidemia, presenting with respiratory distress and altered mental status likely secondary to COPD exacerbation as well as UTI with acute kidney injury. PROBLEM LIST: 1. COPD with acute exacerbation. 2. Altered mental status. 3. BASSAM - RESOLVED 4. UTI. 5. Possible PNA 6. Non-anion gap metabolic acidosis 7. Systemic inflammatory response syndrome. 8. CHF, CAD, paroxysmal atrial fibrillation, hypertension, hyperlipidemia. 9. Chronic pain. TREATMENT PLAN: 1. BiPAP PRN and qHS 2. Titrate FiO2 to keep SaO2 > 90% 3. Optimize pulmonary hygiene/mobilize as tolerated. 4. RTC & PRN DuoNebs. 5. Decrease Solu-Medrol to 20 IV b.i.d. and taper. 6. Abx per ID. 7. Monitor volumes and renal function. Continue Bicitra tabs, PRN lasix 8. 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 9. DVT prophylaxis, the patient is on Eliquis. 10. The patient is Full Code. We will continue to discuss goals of care 11. Transfer to TELE Subjective Allergies: Coded Allergies: CYCLOBENZAPRINE (Verified Allergy, Unknown, 12/11/18) IBUPROFEN (Verified Allergy, Unknown, 12/11/18) MELATONIN (Verified Allergy, Unknown, 12/11/18) SULFA (SULFONAMIDE ANTIBIOTICS) (Verified Allergy, Unknown, 12/11/18) SULFUR (Unverified Allergy, Unknown, 04/17/19) Uncoded Allergies: CONTRAST (Allergy, Unknown, 04/17/19) Subjective AFVSS BiPAP ON O2 needs stable More alert No cough + SOB no FC WCt inc S/P PICC Objective Last 24 Hour Vital Signs Date Time Temp Pulse Resp B/P (MAP) Pulse Ox O2 Delivery O2 Flow Rate FiO2 04/23/19 08:00 Bi-pap 04/23/19 08:00 97.8 74 20 142/83 (102) 98 8/28/19 08:00 64 04/23/19 07:15 74 17 98 Full Face 30 04/23/19 04:57 78 20 98 Facial 30 04/23/19 04:00 Bi-pap 04/23/19 04:00 70 04/23/19 04:00 97.6 67 23 157/88 (111) 99 04/23/19 02:43 65 17 99 Facial 30 04/23/19 00:58 68 21 98 Facial 30 71 20 99 Bi-Pap 30 04/23/19 00:57 71 20 99 Bi-Pap 30 68 21 97 04/23/19 00:00 30 04/23/19 00:00 78 04/23/19 00:00 Bi-pap 04/23/19 00:00 97.8 69 24 143/93 (110) 99 04/22/19 22:50 85 19 95 Full Face 30 04/22/19 20:00 80 04/22/19 20:00 98.0 85 24 150/96 (114) 99 04/22/19 20:00 Bi-pap 04/22/19 19:00 77 18 100 Nasal Cannula 2.0 28 73 18 97 04/22/19 18:05 97.9 04/22/19 16:00 Bi-pap 04/22/19 16:00 60 04/22/19 16:00 98.6 74 23 145/76 (99) 98 04/22/19 13:15 97.9 Intake and Output 04/22/19 04/23/19 19:00 07:00 Intake Total 510.0 ml 685.0 ml Output Total 1400 ml 2000 ml Balance -890.0 ml -1315.0 ml Intake Oral 100 ml IV Total 410.0 ml 685.0 ml Output Urine Total 1400 ml 2000 ml General Appearance: no acute distress, cachetic HEENT: normocephalic, atraumatic, anicteric, mucous membranes moist Respiratory/Chest: chest wall non-tender, rhonchi Cardiovascular: normal peripheral pulses, normal rate, regular rhythm Abdomen: normal bowel sounds, soft, non tender, no organomegaly, non distended , no mass Extremities: no cyanosis, no clubbing, other - 1+ ANDREW Laboratory Tests 04/23/19 03:15: White Blood Count 16.5H, Red Blood Count 2.74L, Hemoglobin 8.6L, Hematocrit 26.3L, Mean Corpuscular Volume 96, Mean Corpuscular Hemoglobin 31.4H, Mean Corpuscular Hemoglobin Concent 32.8, Red Cell Distribution Width 15.3H, Platelet Count 230, Mean Platelet Volume 5.6L, Neutrophils (%) (Auto) , Lymphocytes (%) (Auto) , Monocytes (%) (Auto) , Eosinophils (%) (Auto) , Basophils (%) (Auto) , Differential Total Cells Counted 100, Neutrophils % ( Manual) 97H, Lymphocytes % (Manual) 1L, Monocytes % (Manual) 2, Eosinophils % ( Manual) 0, Basophils % (Manual) 0, Band Neutrophils 0, Platelet Estimate Adequate, Platelet Morphology Normal, Anisocytosis 1+, Schistocytes 1+, Sodium Level 143, Potassium Level 3.5, Chloride Level 110H, Carbon Dioxide Level 22, Anion Gap 11, Blood Urea Nitrogen 17, Creatinine 1.3, Estimat Glomerular Filtration Rate , Glucose Level 136H, Calcium Level 6.8L Current Medications Medications (Trade) Dose Ordered Sig/Sonny Route PRN Reason Start Time Stop Time Status Last Admin Dose Admin Albuterol/ Ipratropium (Albuterol/ Ipratropium) 3 ml Q4H PRN HHN Shortness of Breath 04/18/19 16:30 04/23/19 16:29 Albuterol/ Ipratropium (Albuterol/ Ipratropium) 3 ml Q6HRT HHN 04/21/19 13:00 04/26/19 12:59 04/23/19 00:57 Amiodarone HCl (Cordarone) 200 mg DAILY ORAL 04/19/19 09:00 05/18/19 08:59 04/23/19 08:43 Apixaban (Eliquis) 2.5 mg BID ORAL 04/18/19 18:00 05/18/19 08:59 04/23/19 08:44 Aspirin (ASA) 81 mg DAILY ORAL 04/19/19 09:00 05/18/19 08:59 04/23/19 08:42 Atorvastatin Calcium (Lipitor) 20 mg BEDTIME ORAL 04/18/19 21:00 05/18/19 20:59 04/22/19 20:16 Azithromycin 500 mg/Dextrose 275 ml @ 275 mls/hr Q24H IV 04/19/19 06:00 04/25/19 06:59 04/23/19 05:37 Bisacodyl (Dulcolax) 10 mg DAILYPRN PRN RECTAL Constipation 04/18/19 16:30 05/18/19 16:29 Calcitriol (Rocaltrol) 0.5 mcg DAILY ORAL 04/19/19 09:00 05/18/19 08:59 04/23/19 08:44 Chlorhexidine Gluconate (Rose-Hex 2%) 1 applic DAILY@2000 TOPIC 04/21/19 20:00 05/21/19 19:59 04/22/19 20:15 Ferrous Gluconate (Fergon) 324 mg EVERY OTHER DAY ORAL 04/20/19 09:00 05/18/19 08:59 04/22/19 08:29 Gabapentin (Neurontin) 300 mg DAILY ORAL 04/19/19 09:00 05/18/19 08:59 04/23/19 08:42 Heparin Sodium/ Sodium Chloride (Heparin 1000 units/500ml Premix) 1,000 unit ONCE PRN IV picc line placement 04/21/19 14:00 04/23/19 13:59 Lactulose (Cephulac) 30 gm Q8H PRN ORAL Constipation 04/23/19 09:00 05/23/19 08:59 Lidocaine (Lidoderm 5% PATCH) 1 patch DAILY TDERMAL 04/19/19 09:00 05/18/19 08:59 04/23/19 08:45 Lidocaine HCl (Xylocaine 1% 30ml) 30 ml ONCE PRN INJ picc line placement 04/21/19 14:00 04/23/19 13:59 Linezolid 300 ml @ 300 mls/hr Q12HR IVPB 04/20/19 14:30 04/27/19 14:29 04/23/19 08:41 Methylprednisolone Sodium Succinate (Solu-MEDROL) 30 mg Q12HR IVP 04/22/19 09:00 05/18/19 08:59 04/23/19 08:41 Morphine HCl (Morphine IR) 15 mg Q6H PRN ORAL For Pain 04/18/19 16:30 04/25/19 16:29 04/22/19 12:45 Multivitamins Therapeutic (Therapeutic Multivitamin) 1 ea DAILY ORAL 04/19/19 09:00 05/18/19 08:59 04/23/19 08:44 Ondansetron HCl (Zofran) 4 mg Q6H PRN ORAL Nausea & Vomiting 04/18/19 16:30 05/18/19 16:29 04/22/19 14:57 Piperacillin Sod/ Tazobactam Sod 3.375 gm/Sodium Chloride 110 ml @ 27.5 mls/hr Q8HR IVPB 04/23/19 14:00 04/30/19 13:59 Polyethylene Glycol (Miralax) 17 gm DAILY ORAL 04/19/19 09:00 05/18/19 08:59 04/23/19 08:44 Sennosides (Senokot) 17.2 mg BEDTIME PRN ORAL Constipation 04/18/19 21:00 05/18/19 02:59 04/21/19 20:52 Sodium Bicarbonate (NaHCO3) 1,300 mg BID ORAL 04/18/19 18:00 05/18/19 08:59 04/23/19 08:43 Sodium Citrate (Bicitra) 30 ml EVERY 6 HOURS ORAL 04/21/19 18:00 05/21/19 17:59 04/22/19 17:17 Tramadol HCl (Ultram) 50 mg Q8H PRN ORAL Severe Pain (Pain Scale 7-10) 04/21/19 15:45 04/28/19 15:44 04/22/19 17:35 Trazodone HCl (Desyrel) 50 mg BEDTIME PRN ORAL DEPRESSION 04/18/19 21:00 05/18/19 02:59 04/19/19 23:23 Sánchez Lam MD Apr 23, 2019 12:12
[2019-04-23] MEDS: Morphine IR 15mg tab ORAL PRN ×2 (12:47→20:02)
--- NOTE | 2019-04-23 13:10 | NUR ---
CASE MANAGEMENT:REVIEW 04/23/19 SI: COPD EXACERBATION. UTI AC/CHR RESPIRATORY FAILURE. DYSPHAGIA 97.8 74 20 142/83 98% ON 2L/NC WBC+16.5 H/H-8.6/26.3 IS: IV SOLUMEDROL 30MG Q12 IV ZOSYN Q8HRS IV LINEZOLID Q12 IV AZITHROMYCIN Q24 DUONEB HHN Q6HRS RTC : STEP DOWN UNIT DCP: FROM [facility]
--- NOTE | 2019-04-23 14:52 | NUR ---
NURSE NOTES: Pt resting in bed ,stable,son at bedside,Informed re transfer of pt to Telemetry,verbalized understanding.
--- NOTE | 2019-04-23 15:18 | Cardiac Electrophysiology PN ---
Assessment/Plan Assessment/Plan 1. 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 Paroxysmal atrial fibrillation, currently in sinus rhythm, on Eliquis 2.5 mg b.i.d. and amiodarone 200 mg daily 3. Hyperlipidemia, on Lipitor. 4. Respiratory failure due to COPD and pneumonia, on BIPAP, Abx and Solu-Medrol. 5. Status post sternotomy. Per patient due to sternal Fx years ago. 6. Sepsis had PICC line DW RN and son Subjective Subjective Alert in NAD. No CP. Off BIPAP. Son at bedside Objective Last 24 Hour Vital Signs Date Time Temp Pulse Resp B/P (MAP) Pulse Ox O2 Delivery O2 Flow Rate FiO2 04/23/19 13:11 84 20 99 Nasal Cannula 2.0 28 81 18 93 04/23/19 12:00 Bi-pap 04/23/19 08:00 Bi-pap 04/23/19 08:00 97.8 74 20 142/83 (102) 98 04/23/19 08:00 64 04/23/19 07:15 74 17 98 Full Face 30 04/23/19 04:57 78 20 98 Facial 30 04/23/19 04:00 Bi-pap 04/23/19 04:00 70 04/23/19 04:00 97.6 67 23 157/88 (111) 99 04/23/19 02:43 65 17 99 Facial 30 04/23/19 00:58 68 21 98 Facial 30 71 20 99 Bi-Pap 30 04/23/19 00:57 71 20 99 Bi-Pap 30 68 21 97 04/23/19 00:00 30 04/23/19 00:00 78 04/23/19 00:00 Bi-pap 04/23/19 00:00 97.8 69 24 143/93 (110) 99 04/22/19 22:50 85 19 95 Full Face 30 04/22/19 20:00 80 04/22/19 20:00 98.0 85 24 150/96 (114) 99 04/22/19 20:00 Bi-pap 04/22/19 19:00 77 18 100 Nasal Cannula 2.0 28 73 18 97 04/22/19 18:05 97.9 04/22/19 16:00 Bi-pap 04/22/19 16:00 60 04/22/19 16:00 98.6 74 23 145/76 (99) 98 Intake and Output 04/22/19 04/23/19 19:00 07:00 Intake Total 510.0 ml 685.0 ml Output Total 1400 ml 2000 ml Balance -890.0 ml -1315.0 ml Intake Oral 100 ml IV Total 410.0 ml 685.0 ml Output Urine Total 1400 ml 2000 ml Laboratory Tests Test 04/23/19 03:15 White Blood Count 16.5 K/UL (4.8-10.8) H Red Blood Count 2.74 M/UL (4.20-5.40) L Hemoglobin 8.6 G/DL (12.0-16.0) L Hematocrit 26.3 % (37.0-47.0) L Mean Corpuscular Volume 96 FL (80-99) Mean Corpuscular Hemoglobin 31.4 PG (27.0-31.0) H Mean Corpuscular Hemoglobin Concent 32.8 G/DL (32.0-36.0) Red Cell Distribution Width 15.3 % (11.6-14.8) H Platelet Count 230 K/UL (150-450) Mean Platelet Volume 5.6 FL (6.5-10.1) L Neutrophils (%) (Auto) % (45.0-75.0) Lymphocytes (%) (Auto) % (20.0-45.0) Monocytes (%) (Auto) % (1.0-10.0) Eosinophils (%) (Auto) % (0.0-3.0) Basophils (%) (Auto) % (0.0-2.0) Differential Total Cells Counted 100 Neutrophils % (Manual) 97 % (45-75) H Lymphocytes % (Manual) 1 % (20-45) L Monocytes % (Manual) 2 % (1-10) Eosinophils % (Manual) 0 % (0-3) Basophils % (Manual) 0 % (0-2) Band Neutrophils 0 % (0-8) Platelet Estimate Adequate Platelet Morphology Normal Anisocytosis 1+ Schistocytes 1+ Sodium Level 143 MMOL/L (136-145) Potassium Level 3.5 MMOL/L (3.5-5.1) Chloride Level 110 MMOL/L (98-107) H Carbon Dioxide Level 22 MMOL/L (21-32) Anion Gap 11 mmol/L (5-15) Blood Urea Nitrogen 17 mg/dL (7-18) Creatinine 1.3 MG/DL (0.55-1.30) Estimat Glomerular Filtration Rate mL/min (>60) Glucose Level 136 MG/DL (74-106) H Calcium Level 6.8 MG/DL (8.5-10.1) L Objective HEAD AND NECK: Shows no JVD. Off BIPAP LUNGS: Coarse rhonchi. CHEST: The pacemaker is in the left subclavian. ABDOMEN: Soft. EXTREMITIES: No pitting edema. Jarrod Gutierrez MD Apr 23, 2019 15:18
[2019-04-23 16:00] VITALS: BP 151/89
[2019-04-23] MEDS: traMADol 50mg tab ORAL PRN (16:07)
--- NOTE | 2019-04-23 17:25 | NUR ---
TRANSFER TO FLOOR: Patient transferred to Telemetry r00m 221-2 per bed awake,alert oriented in no resp distress ,Report given to Roxanne FINNEGAN. Belongings and medications given to receiving RN . Family and or S/O informed of transferand at bedside.
--- NOTE | 2019-04-23 18:09 | Infectious Diseases Prog Note ---
Assessment/Plan Problems: (1) Aspiration pneumonia Assessment & Plan: with B/L basal consolidations and fever , continue zosyn , and zyvox to cover her UTI due to VRE too. MONITOR sputum culture . aspiration precaution. Keep HOB > 30 DEGREE (2) COPD (chronic obstructive pulmonary disease) Assessment & Plan: continue inhalers , taper steroids (3) UTI (urinary tract infection) Assessment & Plan: with VRE , continue zyvox to cover her pneumonia too (4) Fever Assessment & Plan: due to the above, continue wide spectrum antibiotics and tylenol (5) Acute respiratory failure Assessment & Plan: due to the above with severe COPD and lung parenchyma destruction , on BIPAP, monitor ABG, pulmonary is following (6) Leukocytosis Assessment & Plan: possibly due to the above and steroids too, already on wide spectrum antibiotics, taper steroids Subjective Constitutional: Reports: no symptoms HEENT: Reports: no symptoms Respiratory: Reports: no symptoms Breasts: Reports: no symptoms Cardiovascular: Reports: no symptoms Gastrointestinal/Abdominal: Reports: no symptoms Genitourinary: Reports: no symptoms Neurologic: Reports: no symptoms Psychiatric: Reports: no symptoms Skin: Reports: no symptoms Endocrine: Reports: no symptoms Hematologic: Reports: no symptoms Musculoskeletal: Reports: no symptoms Allergies: Coded Allergies: CYCLOBENZAPRINE (Verified Allergy, Unknown, 12/11/18) IBUPROFEN (Verified Allergy, Unknown, 12/11/18) MELATONIN (Verified Allergy, Unknown, 12/11/18) SULFA (SULFONAMIDE ANTIBIOTICS) (Verified Allergy, Unknown, 12/11/18) SULFUR (Unverified Allergy, Unknown, 04/17/19) Uncoded Allergies: CONTRAST (Allergy, Unknown, 04/17/19) Subjective she was resting in bed comfortable , off BIPAP, no cough or phlegm, no SOB, no diarrhea .afebrile Objective Vital Signs Last 24 Hour Vital Signs Date Time Temp Pulse Resp B/P (MAP) Pulse Ox O2 Delivery O2 Flow Rate FiO2 04/23/19 16:00 77 04/23/19 16:00 Bi-pap 04/23/19 16:00 97.9 76 20 151/89 (109) 95 04/23/19 13:11 84 20 99 Nasal Cannula 2.0 28 81 18 93 04/23/19 12:00 98.7 77 20 128/87 (101) 93 04/23/19 12:00 65 8/28/19 12:00 Bi-pap 04/23/19 08:00 Bi-pap 04/23/19 08:00 97.8 74 20 142/83 (102) 98 04/23/19 08:00 64 04/23/19 07:15 74 17 98 Full Face 30 04/23/19 04:57 78 20 98 Facial 30 04/23/19 04:00 Bi-pap 04/23/19 04:00 70 04/23/19 04:00 97.6 67 23 157/88 (111) 99 04/23/19 02:43 65 17 99 Facial 30 04/23/19 00:58 68 21 98 Facial 30 71 20 99 Bi-Pap 30 04/23/19 00:57 71 20 99 Bi-Pap 30 68 21 97 04/23/19 00:00 30 04/23/19 00:00 78 04/23/19 00:00 Bi-pap 04/23/19 00:00 97.8 69 24 143/93 (110) 99 04/22/19 22:50 85 19 95 Full Face 30 04/22/19 20:00 80 04/22/19 20:00 98.0 85 24 150/96 (114) 99 04/22/19 20:00 Bi-pap 04/22/19 19:00 77 18 100 Nasal Cannula 2.0 28 73 18 97 Height (Feet): 5 Height (Inches): 3.00 Weight (Pounds): 123 General Appearance: no acute distress, cachetic HEENT: normocephalic, atraumatic, anicteric, mucous membranes moist, PERRL Respiratory/Chest: chest wall non-tender, no respiratory distress, no accessory muscle use, decreased breath sounds Cardiovascular: normal peripheral pulses, normal rate, regular rhythm, no gallop/murmur, no JVD Abdomen: normal bowel sounds, soft, non tender, no organomegaly, non distended , no mass, no scars Genitourinary: normal external genitalia Extremities: no cyanosis, no clubbing Skin: no rash, no lesions Neurologic/Psychiatric: automobile tester II-XII grossly normal, no motor/sensory deficits, alert, responsive Lymphatic: no neck adenopathy, no groin adenopathy Musculoskeletal: no effusion, atrophy Laboratory Tests Test 04/23/19 03:15 White Blood Count 16.5 K/UL (4.8-10.8) H Red Blood Count 2.74 M/UL (4.20-5.40) L Hemoglobin 8.6 G/DL (12.0-16.0) L Hematocrit 26.3 % (37.0-47.0) L Mean Corpuscular Volume 96 FL (80-99) Mean Corpuscular Hemoglobin 31.4 PG (27.0-31.0) H Mean Corpuscular Hemoglobin Concent 32.8 G/DL (32.0-36.0) Red Cell Distribution Width 15.3 % (11.6-14.8) H Platelet Count 230 K/UL (150-450) Mean Platelet Volume 5.6 FL (6.5-10.1) L Neutrophils (%) (Auto) % (45.0-75.0) Lymphocytes (%) (Auto) % (20.0-45.0) Monocytes (%) (Auto) % (1.0-10.0) Eosinophils (%) (Auto) % (0.0-3.0) Basophils (%) (Auto) % (0.0-2.0) Differential Total Cells Counted 100 Neutrophils % (Manual) 97 % (45-75) H Lymphocytes % (Manual) 1 % (20-45) L Monocytes % (Manual) 2 % (1-10) Eosinophils % (Manual) 0 % (0-3) Basophils % (Manual) 0 % (0-2) Band Neutrophils 0 % (0-8) Platelet Estimate Adequate Platelet Morphology Normal Anisocytosis 1+ Schistocytes 1+ Sodium Level 143 MMOL/L (136-145) Potassium Level 3.5 MMOL/L (3.5-5.1) Chloride Level 110 MMOL/L (98-107) H Carbon Dioxide Level 22 MMOL/L (21-32) Anion Gap 11 mmol/L (5-15) Blood Urea Nitrogen 17 mg/dL (7-18) Creatinine 1.3 MG/DL (0.55-1.30) Estimat Glomerular Filtration Rate mL/min (>60) Glucose Level 136 MG/DL (74-106) H Calcium Level 6.8 MG/DL (8.5-10.1) L Current Medications Medications (Trade) Dose Ordered Sig/Sonny Route PRN Reason Start Time Stop Time Status Last Admin Dose Admin Albuterol/ Ipratropium (Albuterol/ Ipratropium) 3 ml Q6HRT HHN 04/21/19 13:00 04/26/19 12:59 04/23/19 13:11 Amiodarone HCl (Cordarone) 200 mg DAILY ORAL 04/19/19 09:00 05/18/19 08:59 04/23/19 08:43 Apixaban (Eliquis) 2.5 mg BID ORAL 04/18/19 18:00 05/18/19 08:59 04/23/19 17:29 Aspirin (ASA) 81 mg DAILY ORAL 04/19/19 09:00 05/18/19 08:59 04/23/19 08:42 Atorvastatin Calcium (Lipitor) 20 mg BEDTIME ORAL 04/18/19 21:00 05/18/19 20:59 04/22/19 20:16 Azithromycin 500 mg/Dextrose 275 ml @ 275 mls/hr Q24H IV 04/19/19 06:00 04/25/19 06:59 04/23/19 05:37 Bisacodyl (Dulcolax) 10 mg DAILYPRN PRN RECTAL Constipation 04/18/19 16:30 05/18/19 16:29 Calcitriol (Rocaltrol) 0.5 mcg DAILY ORAL 04/19/19 09:00 05/18/19 08:59 04/23/19 08:44 Chlorhexidine Gluconate (Rose-Hex 2%) 1 applic DAILY@2000 TOPIC 04/21/19 20:00 05/21/19 19:59 04/22/19 20:15 Ferrous Gluconate (Fergon) 324 mg EVERY OTHER DAY ORAL 04/20/19 09:00 05/18/19 08:59 04/22/19 08:29 Gabapentin (Neurontin) 300 mg DAILY ORAL 04/19/19 09:00 05/18/19 08:59 04/23/19 08:42 Lactulose (Cephulac) 30 gm Q8H PRN ORAL Constipation 04/23/19 09:00 05/23/19 08:59 Lidocaine (Lidoderm 5% PATCH) 1 patch DAILY TDERMAL 04/19/19 09:00 05/18/19 08:59 04/23/19 08:45 Linezolid 300 ml @ 300 mls/hr Q12HR IVPB 04/20/19 14:30 04/27/19 14:29 04/23/19 08:41 Methylprednisolone Sodium Succinate (Solu-MEDROL) 30 mg Q12HR IVP 04/22/19 09:00 05/18/19 08:59 04/23/19 08:41 Morphine HCl (Morphine IR) 15 mg Q6H PRN ORAL For Pain 04/18/19 16:30 04/25/19 16:29 04/23/19 12:47 Multivitamins Therapeutic (Therapeutic Multivitamin) 1 ea DAILY ORAL 04/19/19 09:00 05/18/19 08:59 04/23/19 08:44 Ondansetron HCl (Zofran) 4 mg Q6H PRN ORAL Nausea & Vomiting 04/18/19 16:30 05/18/19 16:29 04/22/19 14:57 Piperacillin Sod/ Tazobactam Sod 3.375 gm/Sodium Chloride 110 ml @ 27.5 mls/hr Q8HR IVPB 04/23/19 14:00 04/30/19 13:59 04/23/19 16:07 Polyethylene Glycol (Miralax) 17 gm DAILY ORAL 04/19/19 09:00 05/18/19 08:59 04/23/19 08:44 Sennosides (Senokot) 17.2 mg BEDTIME PRN ORAL Constipation 04/18/19 21:00 05/18/19 02:59 04/21/19 20:52 Sodium Bicarbonate (NaHCO3) 1,300 mg BID ORAL 04/18/19 18:00 05/18/19 08:59 04/23/19 17:29 Sodium Citrate (Bicitra) 30 ml EVERY 6 HOURS ORAL 04/21/19 18:00 05/21/19 17:59 04/23/19 17:29 Tramadol HCl (Ultram) 50 mg Q8H PRN ORAL Severe Pain (Pain Scale 7-10) 04/21/19 15:45 04/28/19 15:44 04/23/19 16:07 Trazodone HCl (Desyrel) 50 mg BEDTIME PRN ORAL DEPRESSION 04/18/19 21:00 05/18/19 02:59 04/19/19 23:23 Saravanan Serrato M.D. Apr 23, 2019 18:09
--- NOTE | 2019-04-23 19:36 | NUR ---
HAND-OFF: Report given to SIVAN Torres. Plan of care endorsed
--- NOTE | 2019-04-23 19:37 | NUR ---
NURSE NOTES: Received report from SIVAN Oliveira. Pt is awake and resting in bed. In no acute distress. PICC line intact and patent. Bed in lowest position, call light within reach. Will continue plan of care.
[2019-04-23 20:00] VITALS: BP 138/99
[2019-04-23] MEDS ORDERED: Tubing IV Secondary IV ONE (20:37)
[2019-04-23] MEDS ORDERED: NS 275ml ONE (20:37)
[2019-04-23] MEDS: Dyna-Hex 2% Top Sol 2oz TOPIC SCH (20:53)
[2019-04-23] MEDS: Atorvastatin 20mg tab ORAL SCH (22:15)
[2019-04-24] VITALS: BP 158/92
[2019-04-24] MEDS: Sodium Citrate 30ml ORAL SCH ×5 (00:05→23:09)
[2019-04-24] MEDS: Albuterol/Ipratropium 3ml neb HHN SCH ×4 (00:34→22:07)
[2019-04-24] MEDS: traMADol 50mg tab ORAL PRN ×2 (01:55→09:07)
[2019-04-24 04:00] VITALS: BP 141/89
[2019-04-24 05:55] LABS: HEMATOCRIT 23.3 % (37.0-47.0); HEMOGLOBIN 7.7 G/DL (12.0-16.0); MEAN CORPUSCULAR VOLUME 94 FL (80-99); PLATELET COUNT 186 K/UL (150-450); RED BLOOD COUNT 2.47 M/UL (4.20-5.40); RED CELL DISTRIBUTION WIDTH 15.3 % (11.6-14.8); WHITE BLOOD COUNT 9.6 K/UL (4.8-10.8)
[2019-04-24] MEDS: Piperacillin/Tazobactam 3.375 GM in NS 110 ML IVPB SCH ×4 (05:57→22:29)
[2019-04-24] MEDS: Azithromycin 500 MG in D5W 275 ML IV SCH (05:57)
[2019-04-24] MEDS: Morphine IR 15mg tab ORAL PRN ×3 (06:06→21:52)
[2019-04-24 06:23] LABS: ANION GAP 9 mmol/L (5-15); BLOOD UREA NITROGEN 13 mg/dL (7-18); CALCIUM 6.9 MG/DL (8.5-10.1); CARBON DIOXIDE 27 MMOL/L (21-32); CHLORIDE 106 MMOL/L (98-107); CREATININE 1.2 MG/DL (0.55-1.30); POTASSIUM 3.3 MMOL/L (3.5-5.1); SODIUM 142 MMOL/L (136-145)
--- NOTE | 2019-04-24 07:31 | NUR ---
HAND-OFF: Report given to SIVAN Mir.
--- NOTE | 2019-04-24 07:32 | NUR ---
NURSE NOTES: Received patient from Aditya Torres. Patient is awake in bed. VSS. Bipap in place. Denies pain or discomfort. Left arm DL PICC. clean dry and intact. Safety precautions in place. Call tolliver within patients reach. will follow.
[2019-04-24 08:00] VITALS: BP 166/92
--- NOTE | 2019-04-24 08:16 | NUR ---
RESPIRATORY NOTE: pt removed from bipap and placed on 2L NC with etCO2 attached. pt o2 saturation WNL. no resp distress noted. no redness or skin tears visible around facial area and foam tape removed. will cont to monitor.
--- NOTE | 2019-04-24 08:30 | NUR ---
NURSE NOTES: Dr. Mancilla made aware of patients labs today Hgb 7.7, K 3.3. Patient asymptomatic, No active bleeding noted. VSS. stated will monitor H&H no need for blood transfusion,. Hold Eliquis. Kcl 40 meq IV ordered. Repeat labs in am. Will follow
[2019-04-24] MEDS: Miralax 17gm pkt ORAL SCH ×2 (09:00→09:07)
[2019-04-24] MEDS: Sodium Bicarbonate 650mg Tab ORAL SCH ×2 (09:05→17:15)
[2019-04-24] MEDS: Amiodarone 200mg tab ORAL SCH (09:05)
[2019-04-24] MEDS: Calcitriol 0.5mcg Cap ORAL SCH (09:05)
[2019-04-24] MEDS: Multivitamin w/Minerals tab ORAL SCH (09:06)
[2019-04-24] MEDS: Aspirin Baby 81mg ORAL SCH (09:06)
[2019-04-24] MEDS: Ferrous Gluconate 324 MG TAB ORAL SCH (09:06)
[2019-04-24] MEDS: Solu-MEDROL 40mg Inj IVP SCH ×2 (09:06→21:20)
--- NOTE | 2019-04-24 09:14 | Pulmonology Progress Note ---
Assessment/Plan Problems: (1) Acute respiratory failure (2) Aspiration pneumonia (3) Hypotension (4) UTI (urinary tract infection) (5) COPD (chronic obstructive pulmonary disease) (6) Fever (7) Renal insufficiency (8) Atrial fibrillation (9) Bronchitis, acute, with bronchospasm (10) Leukocytosis Assessment/Plan ASSESSMENT: The patient is a 73-year-old female, former smoker with a history of COPD, chronic respiratory failure, paroxysmal atrial fibrillation, CAD, hypertension, hyperlipidemia, presenting with respiratory distress and altered mental status likely secondary to COPD exacerbation as well as UTI with acute kidney injury. PROBLEM LIST: 1. COPD with acute exacerbation. 2. Altered mental status. 3. BASSAM - RESOLVED 4. UTI. 5. Possible PNA 6. Non-anion gap metabolic acidosis 7. Systemic inflammatory response syndrome. 8. CHF, CAD, paroxysmal atrial fibrillation, hypertension, hyperlipidemia. 9. Chronic pain. TREATMENT PLAN: 1. BiPAP PRN and qHS 2. Titrate FiO2 to keep SaO2 > 90% 3. Optimize pulmonary hygiene/mobilize as tolerated. 4. RTC & PRN DuoNebs. 5. D/C Solu-Medrol, start Pred 20 and taper and taper. 6. Abx per ID. 7. Monitor volumes and renal function. Continue Bicitra tabs, PRN lasix - will give 20 IV x 1 today 8. Diet per [employer] with STRICT aspiration precautions. 9. DVT prophylaxis, the patient is on Eliquis. 10. The patient is Full Code. We will continue to discuss goals of care 11. TELE Subjective Allergies: Coded Allergies: CYCLOBENZAPRINE (Verified Allergy, Unknown, 12/11/18) IBUPROFEN (Verified Allergy, Unknown, 12/11/18) MELATONIN (Verified Allergy, Unknown, 12/11/18) SULFA (SULFONAMIDE ANTIBIOTICS) (Verified Allergy, Unknown, 12/11/18) SULFUR (Unverified Allergy, Unknown, 04/17/19) Uncoded Allergies: CONTRAST (Allergy, Unknown, 04/17/19) Subjective AFVSS -1.5L O2 needs stable Awake and alert No cough + SOB no FC + ANDREW Objective Last 24 Hour Vital Signs Date Time Temp Pulse Resp B/P (MAP) Pulse Ox O2 Delivery O2 Flow Rate FiO2 04/24/19 08:12 97 Nasal Cannula 2.0 28 04/24/19 08:10 72 18 98 Nasal Cannula 2.0 28 75 18 97 04/24/19 08:00 98.3 76 20 166/92 (116) 99 04/24/19 05:30 72 19 98 Full Face 30 04/24/19 04:00 65 04/24/19 04:00 98.4 65 18 141/89 (106) 98 04/24/19 03:45 66 18 98 Full Face 30 04/24/19 00:38 64 17 97 Full Face 30 04/24/19 00:35 71 17 99 Bi-Pap 30 68 17 98 04/24/19 00:00 65 04/24/19 00:00 98.4 65 19 158/92 (114) 98 04/24/19 00:00 30 04/23/19 23:00 62 16 96 Full Face 30 04/23/19 21:00 Nasal Cannula 2.0 04/23/19 20:07 94 Nasal Cannula 2.0 28 04/23/19 20:00 98.1 80 20 138/99 (112) 95 04/23/19 20:00 80 04/23/19 19:30 78 18 95 Nasal Cannula 2.0 28 04/23/19 16:00 77 04/23/19 16:00 Bi-pap 04/23/19 16:00 97.9 76 20 151/89 (109) 95 04/23/19 13:11 84 20 99 Nasal Cannula 2.0 28 81 18 93 04/23/19 12:00 98.7 77 20 128/87 (101) 93 04/23/19 12:00 65 04/23/19 12:00 Bi-pap Intake and Output 04/23/19 04/24/19 19:00 07:00 Intake Total 360 ml 530 ml Output Total 1003 ml 1401 ml Balance -643 ml -871 ml Intake Oral 360 ml 120 ml IV Total 410 ml Output Urine Total 1000 ml 1400 ml Stool Total 3 ml 1 ml # Bowel Movements 3 1 General Appearance: no acute distress, cachetic HEENT: normocephalic, atraumatic, anicteric, mucous membranes moist Respiratory/Chest: rhonchi Cardiovascular: normal peripheral pulses, normal rate, regular rhythm Abdomen: normal bowel sounds, soft, non tender, no organomegaly, non distended Extremities: no cyanosis, no clubbing, other - 1+ ANDREW Laboratory Tests 04/24/19 05:00: White Blood Count 9.6, Red Blood Count 2.47L, Hemoglobin 7.7L, Hematocrit 23.3L , Mean Corpuscular Volume 94, Mean Corpuscular Hemoglobin 31.2H, Mean Corpuscular Hemoglobin Concent 33.0, Red Cell Distribution Width 15.3H, Platelet Count 186, Mean Platelet Volume 5.9L, Neutrophils (%) (Auto) , Lymphocytes (%) (Auto) , Monocytes (%) (Auto) , Eosinophils (%) (Auto) , Basophils (%) (Auto) , Sodium Level 142, Potassium Level 3.3L, Chloride Level 106, Carbon Dioxide Level 27, Anion Gap 9, Blood Urea Nitrogen 13, Creatinine 1.2, Estimat Glomerular Filtration Rate , Glucose Level 104, Calcium Level 6.9L Current Medications Medications (Trade) Dose Ordered Sig/Sonny Route PRN Reason Start Time Stop Time Status Last Admin Dose Admin Albuterol/ Ipratropium (Albuterol/ Ipratropium) 3 ml Q6HRT HHN 04/21/19 13:00 04/26/19 12:59 04/24/19 08:09 Amiodarone HCl (Cordarone) 200 mg DAILY ORAL 04/19/19 09:00 05/18/19 08:59 04/24/19 09:05 Aspirin (ASA) 81 mg DAILY ORAL 04/19/19 09:00 05/18/19 08:59 04/24/19 09:06 Atorvastatin Calcium (Lipitor) 20 mg BEDTIME ORAL 04/18/19 21:00 05/18/19 20:59 04/23/19 22:15 Azithromycin 500 mg/Dextrose 275 ml @ 275 mls/hr Q24H IV 04/19/19 06:00 04/25/19 06:59 04/24/19 05:57 Bisacodyl (Dulcolax) 10 mg DAILYPRN PRN RECTAL Constipation 04/18/19 16:30 05/18/19 16:29 Calcitriol (Rocaltrol) 0.5 mcg DAILY ORAL 04/19/19 09:00 05/18/19 08:59 04/24/19 09:05 Chlorhexidine Gluconate (Rose-Hex 2%) 1 applic DAILY@2000 TOPIC 04/21/19 20:00 05/21/19 19:59 04/23/19 20:53 Ferrous Gluconate (Fergon) 324 mg EVERY OTHER DAY ORAL 04/20/19 09:00 05/18/19 08:59 04/24/19 09:06 Gabapentin (Neurontin) 300 mg DAILY ORAL 04/19/19 09:00 05/18/19 08:59 04/24/19 09:05 Lactulose (Cephulac) 30 gm Q8H PRN ORAL Constipation 04/23/19 09:00 05/23/19 08:59 Lidocaine (Lidoderm 5% PATCH) 1 patch DAILY TDERMAL 04/19/19 09:00 05/18/19 08:59 04/23/19 08:45 Linezolid 300 ml @ 300 mls/hr Q12HR IVPB 04/20/19 14:30 04/27/19 14:29 04/23/19 22:28 Methylprednisolone Sodium Succinate (Solu-MEDROL) 30 mg Q12HR IVP 04/22/19 09:00 05/18/19 08:59 04/24/19 09:06 Morphine HCl (Morphine IR) 15 mg Q6H PRN ORAL For Pain 04/18/19 16:30 04/25/19 16:29 04/24/19 06:06 Multivitamins Therapeutic (Therapeutic Multivitamin) 1 ea DAILY ORAL 04/19/19 09:00 05/18/19 08:59 04/24/19 09:06 Ondansetron HCl (Zofran) 4 mg Q6H PRN ORAL Nausea & Vomiting 04/18/19 16:30 05/18/19 16:29 04/22/19 14:57 Piperacillin Sod/ Tazobactam Sod 3.375 gm/Sodium Chloride 110 ml @ 27.5 mls/hr Q8HR IVPB 04/23/19 14:00 04/30/19 13:59 04/24/19 09:07 Polyethylene Glycol (Miralax) 17 gm DAILY ORAL 04/19/19 09:00 05/18/19 08:59 04/24/19 09:07 Potassium Chloride 100 ml @ 50 mls/hr Q2H IVPB 04/24/19 09:00 04/24/19 12:59 04/24/19 09:08 Sennosides (Senokot) 17.2 mg BEDTIME PRN ORAL Constipation 04/18/19 21:00 05/18/19 02:59 04/21/19 20:52 Sodium Bicarbonate (NaHCO3) 1,300 mg BID ORAL 04/18/19 18:00 05/18/19 08:59 04/24/19 09:05 Sodium Citrate (Bicitra) 30 ml EVERY 6 HOURS ORAL 04/21/19 18:00 05/21/19 17:59 04/24/19 05:57 Tramadol HCl (Ultram) 50 mg Q8H PRN ORAL Severe Pain (Pain Scale 7-10) 04/21/19 15:45 04/28/19 15:44 04/24/19 09:07 Trazodone HCl (Desyrel) 50 mg BEDTIME PRN ORAL DEPRESSION 04/18/19 21:00 05/18/19 02:59 04/19/19 23:23 Sánchez Lam MD Apr 24, 2019 09:14
--- NOTE | 2019-04-24 09:17 | General Progress Note ---
Assessment/Plan Status: stable Assessment/Plan: 1. COPD with Acute Exacerbation - cont IV solumedrol and tappering slowly. On Bipap at night and PRN. cont Nab txt and inhalers. D/C planning in 1-2 days back to [facility]. 2. UTI - cont IV abx with zosyn and zyvox. ID following. 3. Leukocytosis probably 2nd to steroid - improved. 4. Possible sepsis - cont above antibiotic and follow cultures. 5. Paroxysmal A. Fib - cont amioderone 200 mg daily and Eliquis. 6. CAD 7. SSS s/p Pacemaker - cardiology following. 8. HLD 9. Chronic Pain Syndrome 10. Acute on Chronic respiratory Failure - improved and on Bipap at night. 11. Dysphagia - improved. advanced diet. Subjective Date patient seen: Apr 24, 2019 Time patient seen: 09:00 Constitutional: Reports: weakness HEENT: Reports: no symptoms Cardiovascular: Reports: no symptoms Respiratory: Reports: no symptoms Gastrointestinal/Abdominal: Reports: no symptoms Genitourinary: Reports: no symptoms Neurologic/Psychiatric: Reports: no symptoms Endocrine: Reports: no symptoms Hematologic/Lymphatic: Reports: no symptoms Allergies: Coded Allergies: CYCLOBENZAPRINE (Verified Allergy, Unknown, 12/11/18) IBUPROFEN (Verified Allergy, Unknown, 12/11/18) MELATONIN (Verified Allergy, Unknown, 12/11/18) SULFA (SULFONAMIDE ANTIBIOTICS) (Verified Allergy, Unknown, 12/11/18) SULFUR (Unverified Allergy, Unknown, 04/17/19) Uncoded Allergies: CONTRAST (Allergy, Unknown, 04/17/19) Subjective Today, she is much better and now in tele. Her WBC has improved and most likely 2nd to steriod. Afebrile. No abd pain. No chest pain. Objective Last 24 Hour Vital Signs Date Time Temp Pulse Resp B/P (MAP) Pulse Ox O2 Delivery O2 Flow Rate FiO2 04/24/19 08:12 97 Nasal Cannula 2.0 28 04/24/19 08:10 72 18 98 Nasal Cannula 2.0 28 75 18 97 04/24/19 08:00 98.3 76 20 166/92 (116) 99 04/24/19 05:30 72 19 98 Full Face 30 04/24/19 04:00 65 04/24/19 04:00 98.4 65 18 141/89 (106) 98 04/24/19 03:45 66 18 98 Full Face 30 04/24/19 00:38 64 17 97 Full Face 30 04/24/19 00:35 71 17 99 Bi-Pap 30 68 17 98 04/24/19 00:00 65 04/24/19 00:00 98.4 65 19 158/92 (114) 98 04/24/19 00:00 30 04/23/19 23:00 62 16 96 Full Face 30 04/23/19 21:00 Nasal Cannula 2.0 04/23/19 20:07 94 Nasal Cannula 2.0 28 04/23/19 20:00 98.1 80 20 138/99 (112) 95 04/23/19 20:00 80 04/23/19 19:30 78 18 95 Nasal Cannula 2.0 28 04/23/19 16:00 77 04/23/19 16:00 Bi-pap 04/23/19 16:00 97.9 76 20 151/89 (109) 95 04/23/19 13:11 84 20 99 Nasal Cannula 2.0 28 81 18 93 04/23/19 12:00 98.7 77 20 128/87 (101) 93 04/23/19 12:00 65 04/23/19 12:00 Bi-pap Intake and Output 04/23/19 04/24/19 19:00 07:00 Intake Total 360 ml 530 ml Output Total 1003 ml 1401 ml Balance -643 ml -871 ml Intake Oral 360 ml 120 ml IV Total 410 ml Output Urine Total 1000 ml 1400 ml Stool Total 3 ml 1 ml # Bowel Movements 3 1 Laboratory Tests 04/24/19 05:00: White Blood Count 9.6, Red Blood Count 2.47L, Hemoglobin 7.7L, Hematocrit 23.3L , Mean Corpuscular Volume 94, Mean Corpuscular Hemoglobin 31.2H, Mean Corpuscular Hemoglobin Concent 33.0, Red Cell Distribution Width 15.3H, Platelet Count 186, Mean Platelet Volume 5.9L, Neutrophils (%) (Auto) , Lymphocytes (%) (Auto) , Monocytes (%) (Auto) , Eosinophils (%) (Auto) , Basophils (%) (Auto) , Sodium Level 142, Potassium Level 3.3L, Chloride Level 106, Carbon Dioxide Level 27, Anion Gap 9, Blood Urea Nitrogen 13, Creatinine 1.2, Estimat Glomerular Filtration Rate , Glucose Level 104, Calcium Level 6.9L Height (Feet): 5 Height (Inches): 3.00 Weight (Pounds): 125 General Appearance: no apparent distress, alert Neck: non-tender, normal alignment, supple Cardiovascular: normal rate, regular rhythm Respiratory/Chest: lungs clear, normal breath sounds Abdomen: normal bowel sounds, non tender, soft Extremities: non-tender Edema: 1+ Leg (L), 1+ Leg (R) Neurologic: alert, responsive Skin: warm/dry Wally Mancilla MD Apr 24, 2019 09:17
--- NOTE | 2019-04-24 09:34 | NUR ---
SWALLOW/SPEECH THERAPY NOTE: SWALLOW STATUS: UPDATES: CT HEAD SCAN: MODERATE BRAIN ATROPHY ALERT AND ABLE TO COMMUNICATE NEEDS. DISLIKES PUREED DIET AND NOW HAS HER UPPER AND LOWER DENTURES IN. GOALS MET FOR NEW STAFF (ON 2E) SIVAN PRESTON AND PRAVIN CALZADA EDUCATED/TRAINED IN POSTED ASPIRATION PRECAUTIONS. GOALS FOR INTAKE NOT MET (0-25% OR 50% BUT MAY BE DUE TO HER DISLIKE OF PUREED FOODS(PLACED ON THIS DIET GIVEN SINCE NO DENTITION AND SOB ISSUES). NOW RR 18-20 AND GOOD 02 SATS ON 2 LITERS O2, WILL UPGRADE TO MASTICATED SOLIDS GIVEN PT PREFERENCE AND IMPROVED BREATHING STATUS. ON LIST TO HAVE A MODIFIED BARIUM SWALLOW STUDY (MBSS) INPT OR OUTPATIENT IF D/C (DO NOT HOLD UP D/C FOR THIS STUDY). PLAN: UPGRADE DIET TO CARDIAC MECH SOFT CHOPPED AND THIN LIQUIDS WITH POSTED ASPIRATION PRECAUTIONS. SKILLED DYSPHAGIA MANAGEMENT/TX (SEE SWALLOW EVAL FOR GOALS AND MBSS RESULTS IF STUDY COMPLETED PRIOR TO D/C) Addendum: 04/24/19 at 1338 by MANISH SON ROLLED GOLD PLATER ADDENDUM: PATIENT DISLIKES MECH SOFT CHOPPED DIET (REFUSED IT) AND WANTS SOFT AND EASY CHEW DIET. HER DENTURES IN BUT SLIGHTLY LOOSE BOTTOMS. PT TO HAVE SON BRING IN INSIDE SALES ADMINISTRATOR AND FIXADENT. PT TOLD TO REMOVE DENTURES WHEN SLEEPING TO AVOID SWALLOWING THEM. SHE DOES NOT WANT TO REMOVE THEM WHEN SHE EATS/DRINKS. UNABLE TO COMPLETE MODIFIED BARIUM SWALLOW STUDY TODAY DUE TO SCHEDULE CONFLICTS. WILL UPGRADE DIET TO SOFT CHEW BUT HAVE WINDOWS LAPTOP TECHNICIAN HELP CUT IT IF SHE NEEDS HELP.
[2019-04-24] MEDS: Linezolid 600mg/300ml (Pre-Mix) IVPB SCH ×2 (09:37→21:21)
--- NOTE | 2019-04-24 11:30 | NUR ---
RD ASSESSMENT & RECOMMENDATIONS SEE CARE ACTIVITY FOR COMPLETE ASSESSMENT DAILY ESTIMATED NEEDS: Needs based on Underweight, pulmonary 44kg 30-35 kcals/kg 8268-5961 total kcals 1.0-1.5 g protein/kg 44-66 g total protein 25-30 mL/kg 3428-7583 total fluid mLs NUTRITION DIAGNOSIS: * Increased kcal and protein needs R/T underweight status, respiratory status as evidenced by pt is 84% of [place] Body Weight, low BMI per guidelines, admitted w/ COPD w/ acute exacerbation, now on BIPAP HS + prn. * Swallowing difficulty R/T dysphagia, decreased cognitive fx as evidenced by pt on ms chopped texture diet, s/p MAIL CALLER evaluation. CURRENT DIET:CARDIAC, now MS chopped PO DIET RECOMMENDATIONS: Liberalized LOW NA diet (texture per MAIL CALLER) ADDITIONAL RECOMMENDATIONS: 1) Obtain a calibrated bed scale wt, weekly wt monitoring 2) Consult RD for non oral feeds if indicated, part of POC 3) HPN TID w/ meals -> Rec Glucerna TID while pt on Solumedrol 4) Consider NISS while on Solumedrol 5) Consider decrease IVF : edematous (4+ @ BL arm and BL foot)
[2019-04-24 11:59] VITALS: BP 150/80
--- NOTE | 2019-04-24 15:22 | Cardiac Electrophysiology PN ---
Assessment/Plan Assessment/Plan 1. Status post Medtronic pacer with Nl Fx with 6 years battery left 2. Paroxysmal atrial fibrillation, currently in sinus rhythm, on Eliquis 2.5 mg b.i.d. and amiodarone 200 mg daily 3. Hyperlipidemia, on Lipitor. 4. Respiratory failure due to COPD and pneumonia, on BIPAP, Abx and Solu-Medrol. 5. Status post sternotomy. Per patient due to sternal Fx years ago. 6. Sepsis had PICC line TIN RN Subjective Subjective Alert in NAD. No CP. On BIPAP at night and nasal cannula during the day Objective Last 24 Hour Vital Signs Date Time Temp Pulse Resp B/P (MAP) Pulse Ox O2 Delivery O2 Flow Rate FiO2 04/24/19 13:00 67 04/24/19 12:53 78 20 95 Nasal Cannula 2.0 28 77 20 94 04/24/19 12:00 2.0 04/24/19 11:59 97.9 64 18 150/80 (103) 97 04/24/19 09:37 98.3 04/24/19 09:00 Nasal Cannula 2.0 04/24/19 08:12 97 Nasal Cannula 2.0 28 04/24/19 08:10 72 18 98 Nasal Cannula 2.0 28 75 18 97 04/24/19 08:00 98.3 76 20 166/92 (116) 99 04/24/19 08:00 73 04/24/19 08:00 2.0 04/24/19 05:30 72 19 98 Full Face 30 04/24/19 04:00 65 04/24/19 04:00 98.4 65 18 141/89 (106) 98 04/24/19 03:45 66 18 98 Full Face 30 04/24/19 00:38 64 17 97 Full Face 30 04/24/19 00:35 71 17 99 Bi-Pap 30 68 17 98 04/24/19 00:00 65 04/24/19 00:00 98.4 65 19 158/92 (114) 98 04/24/19 00:00 30 04/23/19 23:00 62 16 96 Full Face 30 04/23/19 21:00 Nasal Cannula 2.0 04/23/19 20:07 94 Nasal Cannula 2.0 28 04/23/19 20:00 98.1 80 20 138/99 (112) 95 04/23/19 20:00 80 04/23/19 19:30 78 18 95 Nasal Cannula 2.0 28 04/23/19 16:00 77 04/23/19 16:00 Bi-pap 04/23/19 16:00 97.9 76 20 151/89 (109) 95 Intake and Output 04/23/19 04/24/19 19:00 07:00 Intake Total 360 ml 530 ml Output Total 1003 ml 1401 ml Balance -643 ml -871 ml Intake Oral 360 ml 120 ml IV Total 410 ml Output Urine Total 1000 ml 1400 ml Stool Total 3 ml 1 ml # Bowel Movements 3 1 Laboratory Tests Test 04/24/19 05:00 White Blood Count 9.6 K/UL (4.8-10.8) Red Blood Count 2.47 M/UL (4.20-5.40) L Hemoglobin 7.7 G/DL (12.0-16.0) L Hematocrit 23.3 % (37.0-47.0) L Mean Corpuscular Volume 94 FL (80-99) Mean Corpuscular Hemoglobin 31.2 PG (27.0-31.0) H Mean Corpuscular Hemoglobin Concent 33.0 G/DL (32.0-36.0) Red Cell Distribution Width 15.3 % (11.6-14.8) H Platelet Count 186 K/UL (150-450) Mean Platelet Volume 5.9 FL (6.5-10.1) L Neutrophils (%) (Auto) % (45.0-75.0) Lymphocytes (%) (Auto) % (20.0-45.0) Monocytes (%) (Auto) % (1.0-10.0) Eosinophils (%) (Auto) % (0.0-3.0) Basophils (%) (Auto) % (0.0-2.0) Sodium Level 142 MMOL/L (136-145) Potassium Level 3.3 MMOL/L (3.5-5.1) L Chloride Level 106 MMOL/L (98-107) Carbon Dioxide Level 27 MMOL/L (21-32) Anion Gap 9 mmol/L (5-15) Blood Urea Nitrogen 13 mg/dL (7-18) Creatinine 1.2 MG/DL (0.55-1.30) Estimat Glomerular Filtration Rate mL/min (>60) Glucose Level 104 MG/DL (74-106) Calcium Level 6.9 MG/DL (8.5-10.1) L Objective HEAD AND NECK: Shows no JVD. Off BIPAP LUNGS: Coarse rhonchi. CHEST: The pacemaker is in the left subclavian. ABDOMEN: Soft. EXTREMITIES: No pitting edema. Jarrod Gutierrez MD Apr 24, 2019 15:22
[2019-04-24 16:00] VITALS: BP_SYST 146; BP_SYST 148; BP_DIAS 78; BP_DIAS 88
--- NOTE | 2019-04-24 16:12 | NUR ---
DISCHARGE PLANNING IN ANTICIPATION OF POSSIBLE DISCHARGE TOMORROW OR OVER THE WEEKEND [facility]IC[facility] T: [phone] F: [phone]
--- NOTE | 2019-04-24 16:50 | Infectious Diseases Prog Note ---
Assessment/Plan Problems: (1) Aspiration pneumonia Assessment & Plan: with B/L basal consolidations and fever , continue zosyn , and zyvox to cover her UTI due to VRE too for total of 10 days . MONITOR sputum culture . aspiration precaution. Keep HOB > 30 DEGREE (2) COPD (chronic obstructive pulmonary disease) Assessment & Plan: continue inhalers , taper steroids (3) UTI (urinary tract infection) Assessment & Plan: with VRE , continue zyvox to cover her pneumonia too (4) Fever Assessment & Plan: due to the above, improving , continue wide spectrum antibiotics and tylenol (5) Acute respiratory failure Assessment & Plan: due to the above with severe COPD and lung parenchyma destruction , on BIPAP, monitor ABG, pulmonary is following (6) Leukocytosis Assessment & Plan: possibly due to the above and steroids too, already on wide spectrum antibiotics, taper steroids Subjective Constitutional: Reports: no symptoms HEENT: Reports: no symptoms Respiratory: Reports: no symptoms Breasts: Reports: no symptoms Cardiovascular: Reports: no symptoms Gastrointestinal/Abdominal: Reports: no symptoms Genitourinary: Reports: no symptoms Neurologic: Reports: no symptoms Psychiatric: Reports: no symptoms Skin: Reports: no symptoms Endocrine: Reports: no symptoms Hematologic: Reports: no symptoms Musculoskeletal: Reports: no symptoms Allergies: Coded Allergies: CYCLOBENZAPRINE (Verified Allergy, Unknown, 12/11/18) IBUPROFEN (Verified Allergy, Unknown, 12/11/18) MELATONIN (Verified Allergy, Unknown, 12/11/18) SULFA (SULFONAMIDE ANTIBIOTICS) (Verified Allergy, Unknown, 12/11/18) SULFUR (Unverified Allergy, Unknown, 04/17/19) Uncoded Allergies: CONTRAST (Allergy, Unknown, 04/17/19) Subjective she was resting in bed comfortable , off BIPAP, no cough or phlegm, no SOB, no diarrhea .afebrile Objective Vital Signs Last 24 Hour Vital Signs Date Time Temp Pulse Resp B/P (MAP) Pulse Ox O2 Delivery O2 Flow Rate FiO2 04/24/19 16:28 98.4 04/24/19 16:00 81 04/24/19 16:00 98.4 76 20 148/88 (108) 97 04/24/19 13:00 67 04/24/19 12:53 78 20 95 Nasal Cannula 2.0 28 77 20 94 8/29/19 12:00 2.0 04/24/19 11:59 97.9 64 18 150/80 (103) 97 04/24/19 09:37 98.3 04/24/19 09:00 Nasal Cannula 2.0 04/24/19 08:12 97 Nasal Cannula 2.0 28 04/24/19 08:10 72 18 98 Nasal Cannula 2.0 28 75 18 97 04/24/19 08:00 98.3 76 20 166/92 (116) 99 04/24/19 08:00 73 04/24/19 08:00 2.0 04/24/19 05:30 72 19 98 Full Face 30 04/24/19 04:00 65 04/24/19 04:00 98.4 65 18 141/89 (106) 98 04/24/19 03:45 66 18 98 Full Face 30 04/24/19 00:38 64 17 97 Full Face 30 04/24/19 00:35 71 17 99 Bi-Pap 30 68 17 98 04/24/19 00:00 65 04/24/19 00:00 98.4 65 19 158/92 (114) 98 04/24/19 00:00 30 04/23/19 23:00 62 16 96 Full Face 30 04/23/19 21:00 Nasal Cannula 2.0 04/23/19 20:07 94 Nasal Cannula 2.0 28 04/23/19 20:00 98.1 80 20 138/99 (112) 95 04/23/19 20:00 80 04/23/19 19:30 78 18 95 Nasal Cannula 2.0 28 Height (Feet): 5 Height (Inches): 3.00 Weight (Pounds): 125 General Appearance: WD/WN, no acute distress HEENT: normocephalic, atraumatic, anicteric, mucous membranes moist, PERRL Respiratory/Chest: chest wall non-tender, normal breath sounds, no respiratory distress, no accessory muscle use, decreased breath sounds Cardiovascular: normal peripheral pulses, normal rate, regular rhythm, no gallop/murmur, no JVD Abdomen: normal bowel sounds, soft, non tender, no organomegaly, non distended , no mass, no scars Genitourinary: normal external genitalia Extremities: no cyanosis, no clubbing Skin: no rash, no lesions Neurologic/Psychiatric: solar consultant II-XII grossly normal, alert, responsive Lymphatic: no neck adenopathy, no groin adenopathy Musculoskeletal: normal muscle bulk, no effusion Laboratory Tests Test 04/24/19 05:00 White Blood Count 9.6 K/UL (4.8-10.8) Red Blood Count 2.47 M/UL (4.20-5.40) L Hemoglobin 7.7 G/DL (12.0-16.0) L Hematocrit 23.3 % (37.0-47.0) L Mean Corpuscular Volume 94 FL (80-99) Mean Corpuscular Hemoglobin 31.2 PG (27.0-31.0) H Mean Corpuscular Hemoglobin Concent 33.0 G/DL (32.0-36.0) Red Cell Distribution Width 15.3 % (11.6-14.8) H Platelet Count 186 K/UL (150-450) Mean Platelet Volume 5.9 FL (6.5-10.1) L Neutrophils (%) (Auto) % (45.0-75.0) Lymphocytes (%) (Auto) % (20.0-45.0) Monocytes (%) (Auto) % (1.0-10.0) Eosinophils (%) (Auto) % (0.0-3.0) Basophils (%) (Auto) % (0.0-2.0) Sodium Level 142 MMOL/L (136-145) Potassium Level 3.3 MMOL/L (3.5-5.1) L Chloride Level 106 MMOL/L (98-107) Carbon Dioxide Level 27 MMOL/L (21-32) Anion Gap 9 mmol/L (5-15) Blood Urea Nitrogen 13 mg/dL (7-18) Creatinine 1.2 MG/DL (0.55-1.30) Estimat Glomerular Filtration Rate mL/min (>60) Glucose Level 104 MG/DL (74-106) Calcium Level 6.9 MG/DL (8.5-10.1) L Current Medications Medications (Trade) Dose Ordered Sig/Sonny Route PRN Reason Start Time Stop Time Status Last Admin Dose Admin Albuterol/ Ipratropium (Albuterol/ Ipratropium) 3 ml Q6HRT HHN 04/21/19 13:00 04/26/19 12:59 04/24/19 12:53 Amiodarone HCl (Cordarone) 200 mg DAILY ORAL 04/19/19 09:00 05/18/19 08:59 04/24/19 09:05 Aspirin (ASA) 81 mg DAILY ORAL 04/19/19 09:00 05/18/19 08:59 04/24/19 09:06 Atorvastatin Calcium (Lipitor) 20 mg BEDTIME ORAL 04/18/19 21:00 05/18/19 20:59 04/23/19 22:15 Azithromycin 500 mg/Dextrose 275 ml @ 275 mls/hr Q24H IV 04/19/19 06:00 04/25/19 06:59 04/24/19 05:57 Bisacodyl (Dulcolax) 10 mg DAILYPRN PRN RECTAL Constipation 04/18/19 16:30 05/18/19 16:29 Calcitriol (Rocaltrol) 0.5 mcg DAILY ORAL 04/19/19 09:00 05/18/19 08:59 04/24/19 09:05 Chlorhexidine Gluconate (Rose-Hex 2%) 1 applic DAILY@2000 TOPIC 04/21/19 20:00 05/21/19 19:59 04/23/19 20:53 Ferrous Gluconate (Fergon) 324 mg EVERY OTHER DAY ORAL 04/20/19 09:00 05/18/19 08:59 04/24/19 09:06 Gabapentin (Neurontin) 300 mg DAILY ORAL 04/19/19 09:00 05/18/19 08:59 04/24/19 09:05 Lactulose (Cephulac) 30 gm Q8H PRN ORAL Constipation 04/23/19 09:00 05/23/19 08:59 Lidocaine (Lidoderm 5% PATCH) 1 patch DAILY TDERMAL 04/19/19 09:00 05/18/19 08:59 04/24/19 09:13 Linezolid 300 ml @ 300 mls/hr Q12HR IVPB 04/20/19 14:30 04/27/19 14:29 04/24/19 09:37 Methylprednisolone Sodium Succinate (Solu-MEDROL) 30 mg Q12HR IVP 04/22/19 09:00 04/24/19 23:59 04/24/19 09:06 Morphine HCl (Morphine IR) 15 mg Q6H PRN ORAL For Pain 04/18/19 16:30 04/25/19 16:29 04/24/19 15:58 Multivitamins Therapeutic (Therapeutic Multivitamin) 1 ea DAILY ORAL 04/19/19 09:00 05/18/19 08:59 04/24/19 09:06 Ondansetron HCl (Zofran) 4 mg Q6H PRN ORAL Nausea & Vomiting 04/18/19 16:30 05/18/19 16:29 04/22/19 14:57 Piperacillin Sod/ Tazobactam Sod 3.375 gm/Sodium Chloride 110 ml @ 27.5 mls/hr Q8HR IVPB 04/23/19 14:00 04/30/19 13:59 04/24/19 14:31 Polyethylene Glycol (Miralax) 17 gm DAILY ORAL 04/19/19 09:00 05/18/19 08:59 04/23/19 08:44 Prednisone (predniSONE) 20 mg DAILY ORAL 04/25/19 09:00 05/25/19 08:59 Sennosides (Senokot) 17.2 mg BEDTIME PRN ORAL Constipation 04/18/19 21:00 05/18/19 02:59 04/21/19 20:52 Sodium Bicarbonate (NaHCO3) 1,300 mg BID ORAL 04/18/19 18:00 05/18/19 08:59 04/24/19 09:05 Sodium Citrate (Bicitra) 30 ml EVERY 6 HOURS ORAL 04/21/19 18:00 05/21/19 17:59 04/24/19 11:14 Tramadol HCl (Ultram) 50 mg Q8H PRN ORAL Severe Pain (Pain Scale 7-10) 04/21/19 15:45 04/28/19 15:44 04/24/19 09:07 Trazodone HCl (Desyrel) 50 mg BEDTIME PRN ORAL DEPRESSION 04/18/19 21:00 05/18/19 02:59 04/19/19 23:23 Saravanan Serrato M.D. Apr 24, 2019 16:50
--- NOTE | 2019-04-24 19:40 | NUR ---
HAND-OFF: Report given to Aditya Olson. Patient stable. Plan of care endorsed.
[2019-04-24 20:00] VITALS: BP 150/89
[2019-04-24] MEDS: Dyna-Hex 2% Top Sol 2oz TOPIC SCH (21:20)
[2019-04-24] MEDS: Atorvastatin 20mg tab ORAL SCH (21:23)
[2019-04-25] VITALS: BP 161/99
[2019-04-25 00:35] VITALS: BP 140/79
[2019-04-25] MEDS: traMADol 50mg tab ORAL PRN (01:21)
--- NOTE | 2019-04-25 01:23 | NUR ---
RESPIRATORY NOTE: PT PLACED ON NOC. BIPAP PER RESPIRATORY ORDERS. PT DIDN'T WANT TO BE PLACED AT 2200 AND REQUESTED TO BE PLACED AT AT LATER TIME. RN ASH NOTIFIED. PT CURRENTLY ON BIPAP 07/31 RATE OF 16, 30% FIO2. ALARMS AND ON AND AUDIBLE. PT WAS PLACED ON ETCO2 MONITOR VIA BIPAP ADAPTER. FACE WAS TAPED AND NO FACIAL WOUNDS WERE FOUND PRIOR TO TAPING. NO S/S OF RESPIRATORY DISTRESS IS NOTED AT THIS TIME. WILL CONTINUE TO MONITOR.
[2019-04-25] MEDS: Albuterol/Ipratropium 3ml neb HHN SCH ×3 (01:53→13:34)
[2019-04-25 04:00] VITALS: BP 141/82
[2019-04-25] MEDS: Sodium Citrate 30ml ORAL SCH ×2 (05:01→12:11)
[2019-04-25] MEDS: Morphine IR 15mg tab ORAL PRN ×2 (05:01→12:24)
[2019-04-25] MEDS: Azithromycin 500 MG in D5W 275 ML IV SCH (05:02)
--- NOTE | 2019-04-25 05:29 | NUR ---
RESPIRATORY NOTE: PT REMAINED STABLE ON BIPAP WITH CURRENT SETTINGS. PT PLACED ON 2LPM N/C WITH ETCO2 MONITORING. VS WNL.
[2019-04-25] MEDS: Piperacillin/Tazobactam 3.375 GM in NS 110 ML IVPB SCH ×2 (06:14→14:53)
[2019-04-25 06:29] LABS: HEMATOCRIT 24.4 % (37.0-47.0); HEMOGLOBIN 7.9 G/DL (12.0-16.0); MEAN CORPUSCULAR VOLUME 95 FL (80-99); PLATELET COUNT 183 K/UL (150-450); RED BLOOD COUNT 2.56 M/UL (4.20-5.40); RED CELL DISTRIBUTION WIDTH 15.2 % (11.6-14.8); WHITE BLOOD COUNT 10.9 K/UL (4.8-10.8)
[2019-04-25 06:48] LABS: ANION GAP 6 mmol/L (5-15); BLOOD UREA NITROGEN 13 mg/dL (7-18); CALCIUM 7.2 MG/DL (8.5-10.1); CARBON DIOXIDE 31 MMOL/L (21-32); CHLORIDE 104 MMOL/L (98-107); CREATININE 1.3 MG/DL (0.55-1.30); POTASSIUM 3.8 MMOL/L (3.5-5.1); SODIUM 141 MMOL/L (136-145)
[2019-04-25] MEDS: Miralax 17gm pkt ORAL SCH (07:34)
[2019-04-25 08:00] VITALS: BP 131/69
--- NOTE | 2019-04-25 08:30 | NUR ---
Received report from Wesley FINNEGAN. Pt is awake and resting in bed. In no acute distress. PICC line intact and patent. Bed in lowest position, call light within reach. pt c/o diarrhea and refused her stool softener made aware and ordered c.diff stool culture. Will continue plan of care.
[2019-04-25] MEDS: Sodium Bicarbonate 650mg Tab ORAL SCH (08:58)
[2019-04-25] MEDS: Linezolid 600mg/300ml (Pre-Mix) IVPB SCH (08:58)
[2019-04-25] MEDS: Multivitamin w/Minerals tab ORAL SCH (08:59)
[2019-04-25] MEDS: Amiodarone 200mg tab ORAL SCH (08:59)
[2019-04-25] MEDS: Calcitriol 0.5mcg Cap ORAL SCH (08:59)
[2019-04-25] MEDS: Aspirin Baby 81mg ORAL SCH (08:59)
--- NOTE | 2019-04-25 09:15 | General Progress Note ---
Assessment/Plan Status: stable Assessment/Plan: 1. COPD with Acute Exacerbation - cont IV solumedrol and tappering slowly. On Bipap at night and PRN. cont Nab txt and inhalers. [facility] 2. UTI - cont IV abx with zosyn and zyvox. ID following. 3. Leukocytosis probably 2nd to steroid - improved. 4. Possible sepsis - cont above antibiotic and follow cultures. 5. Paroxysmal A. Fib - cont amioderone 200 mg daily and Eliquis. 6. CAD 7. SSS s/p Pacemaker - cardiology following. 8. HLD 9. Chronic Pain Syndrome 10. Acute on Chronic respiratory Failure - improved and on Bipap at night. 11. Dysphagia - improved. advanced diet. 12. Diarrhea - will hold miralax and check for C diff toxin. Subjective Date patient seen: Apr 25, 2019 Time patient seen: 09:00 Constitutional: Reports: weakness HEENT: Reports: no symptoms Cardiovascular: Reports: no symptoms Respiratory: Reports: no symptoms Gastrointestinal/Abdominal: Reports: no symptoms Genitourinary: Reports: no symptoms Neurologic/Psychiatric: Reports: no symptoms Endocrine: Reports: no symptoms Hematologic/Lymphatic: Reports: no symptoms Allergies: Coded Allergies: CYCLOBENZAPRINE (Verified Allergy, Unknown, 12/11/18) IBUPROFEN (Verified Allergy, Unknown, 12/11/18) MELATONIN (Verified Allergy, Unknown, 12/11/18) SULFA (SULFONAMIDE ANTIBIOTICS) (Verified Allergy, Unknown, 12/11/18) SULFUR (Unverified Allergy, Unknown, 04/17/19) Uncoded Allergies: CONTRAST (Allergy, Unknown, 04/17/19) Subjective Today, she is much better and now in tele. She had Diarrhea for two days. Her WBC has improved and most likely 2nd to steriod. Afebrile. No abd pain. No chest pain. Objective Last 24 Hour Vital Signs Date Time Temp Pulse Resp B/P (MAP) Pulse Ox O2 Delivery O2 Flow Rate FiO2 04/25/19 07:48 96 Nasal Cannula 2.0 28 04/25/19 07:46 74 20 97 Nasal Cannula 2.0 28 71 20 96 04/25/19 05:29 79 20 97 04/25/19 04:00 97.6 77 19 141/82 (101) 100 04/25/19 04:00 2.0 04/25/19 04:00 72 04/25/19 03:33 70 17 98 Facial 30 04/25/19 01:53 85 19 94 Facial 30 04/25/19 01:53 77 20 99 Bi-Pap 30 85 19 94 04/25/19 00:35 80 140/79 (99) 04/25/19 00:00 2.0 04/25/19 00:00 75 04/25/19 00:00 98.2 81 18 161/99 (119) 92 04/24/19 22:07 94 Nasal Cannula 2.0 28 04/24/19 22:07 69 16 100 Nasal Cannula 2.0 28 72 12 94 04/24/19 21:00 Nasal Cannula 2.0 04/24/19 20:00 98.3 77 19 150/89 (109) 96 04/24/19 20:00 78 04/24/19 20:00 2.0 04/24/19 16:28 98.4 04/24/19 16:00 81 04/24/19 16:00 98.4 76 20 148/88 (108) 97 04/24/19 13:00 67 04/24/19 12:53 78 20 95 Nasal Cannula 2.0 28 77 20 94 04/24/19 12:00 2.0 04/24/19 11:59 97.9 64 18 150/80 (103) 97 04/24/19 09:37 98.3 Intake and Output 04/24/19 04/25/19 18:59 06:59 Intake Total 240 ml Output Total 1600 ml 725 ml Balance -1360 ml -725 ml Intake Oral 240 ml Output Urine Total 1600 ml 725 ml # Bowel Movements 1 1 Laboratory Tests 04/25/19 05:10: White Blood Count 10.9H, Red Blood Count 2.56L, Hemoglobin 7.9L, Hematocrit 24.4L, Mean Corpuscular Volume 95, Mean Corpuscular Hemoglobin 31.0, Mean Corpuscular Hemoglobin Concent 32.5, Red Cell Distribution Width 15.2H, Platelet Count 183, Mean Platelet Volume 5.9L, Neutrophils (%) (Auto) , Lymphocytes (%) (Auto) , Monocytes (%) (Auto) , Eosinophils (%) (Auto) , Basophils (%) (Auto) , Differential Total Cells Counted 100, Neutrophils % ( Manual) 89H, Lymphocytes % (Manual) 6L, Monocytes % (Manual) 5, Eosinophils % ( Manual) 0, Basophils % (Manual) 0, Band Neutrophils 0, Platelet Estimate Adequate, Platelet Morphology Normal, Hypochromasia 1+, Anisocytosis 1+, Sodium Level 141, Potassium Level 3.8, Chloride Level 104, Carbon Dioxide Level 31, Anion Gap 6, Blood Urea Nitrogen 13, Creatinine 1.3, Estimat Glomerular Filtration Rate , Glucose Level 116H, Calcium Level 7.2L Height (Feet): 5 Height (Inches): 3.00 Weight (Pounds): 121 General Appearance: no apparent distress, alert EENT: normal ENT inspection Neck: non-tender, supple Cardiovascular: normal rate, regular rhythm Respiratory/Chest: lungs clear, normal breath sounds Abdomen: non tender, soft Extremities: non-tender Edema: no edema noted Arm (L), no edema noted Arm (R), no edema noted Leg (L), no edema noted Leg (R), no edema noted Pedal (L), no edema noted Pedal (R), no edema noted Generalized Neurologic: no motor/sensory deficits, alert, responsive Skin: warm/dry Lymphatic: normal anterior cervical (L), normal anterior cervical (R), normal posterior cervical (L), normal posterior cervical (R), normal submandibular (L) , normal submandibular (R), normal supraclavicular (L), normal supraclavicular ( R), normal axillary (L), normal axillary (R), normal inguinal (L), normal inguinal (R), normal other Wally Mancilla MD Apr 25, 2019 09:15
--- NOTE | 2019-04-25 10:12 | NUR ---
NURSE NOTES: stool culture collected and sent lab as ordered.
[2019-04-25] MEDS ORDERED: NS 500ML ONE (10:38)
[2019-04-25] MEDS ORDERED: NS 275ml ONE (10:38)
--- NOTE | 2019-04-25 11:03 | NUR ---
CASE MANAGEMENT:REVIEW 04/25/19 SI: COPD EXACERBATION. UTI AC/CHR RESPIRATORY FAILURE. DYSPHAGIA 97.8 74 20 142/83 98% ON 2L/NC WBC+16.5 H/H-8.6/26. IS: IV SOLUMEDROL 30MG Q12 IV ZOSYN Q8HRS IV LINEZOLID Q12 IV AZITHROMYCIN Q24 DUONEB HHN Q6HRS RTC : STEP DOWN UNIT DCP: FROM [facility]
--- NOTE | 2019-04-25 11:06 | NUR ---
CASE MANAGEMENT:REVIEW 04/25/19 SI: COPD EXACERBATION. UTI AC/CHR RESPIRATORY FAILURE. DYSPHAGIA 96.7 87 18 131/69 94% ON 2L/NC WBC+10.9 H/H-7.9/24.4 IS: PREDNISONE 20MG PO QD IV ZOSYN Q8HRS IV LINEZOLID Q12 DUONEB HHN Q6HRS RTC : STEP DOWN UNIT DCP: FROM [facility] PLAN: LOOSE STOOLS ~SEND STOOL FOR C-DIFF
--- NOTE | 2019-04-25 11:09 | NUR ---
DISCHARGE PLANNINGPLEASE READ CALLED [facility] AND SPOKE WITH JESSICA THEY WILL ACCEPT PATIENT BACK TO ROOM [address] WHENEVER SHE IS READY FOR DISCHARGE THIS IS [facility] PATIENT
[2019-04-25] MEDS ORDERED: Loperamide 2mg cap ORAL SCH (11:45)
--- NOTE | 2019-04-25 11:55 | Pulmonology Progress Note ---
Assessment/Plan Problems: (1) Acute respiratory failure (2) Aspiration pneumonia (3) Hypotension (4) UTI (urinary tract infection) (5) COPD (chronic obstructive pulmonary disease) (6) Fever (7) Renal insufficiency (8) Atrial fibrillation (9) Bronchitis, acute, with bronchospasm (10) Leukocytosis Assessment/Plan ASSESSMENT: The patient is a 73-year-old female, former smoker with a history of COPD, chronic respiratory failure, paroxysmal atrial fibrillation, CAD, hypertension, hyperlipidemia, presenting with respiratory distress and altered mental status likely secondary to COPD exacerbation as well as UTI with acute kidney injury. PROBLEM LIST: 1. COPD with acute exacerbation. 2. Altered mental status. 3. BASSAM - RESOLVED 4. UTI. 5. Possible PNA 6. Non-anion gap metabolic acidosis 7. Systemic inflammatory response syndrome. 8. CHF, CAD, paroxysmal atrial fibrillation, hypertension, hyperlipidemia. 9. Chronic pain. TREATMENT PLAN: 1. BiPAP PRN and qHS 2. Titrate FiO2 to keep SaO2 > 90% 3. Optimize pulmonary hygiene/mobilize as tolerated. 4. RTC & PRN DuoNebs. 5. Dec Pred to 10 and taper and taper. 6. Abx per ID. 7. Monitor volumes and renal function. Continue Bicitra tabs, PRN lasix 8. Diet per [employer] with STRICT aspiration precautions. 9. DVT prophylaxis, the patient is on Eliquis. 10. The patient is Full Code. We will continue to discuss goals of care 11. D/C TELE 12. Dispo planning Subjective Allergies: Coded Allergies: CYCLOBENZAPRINE (Verified Allergy, Unknown, 12/11/18) IBUPROFEN (Verified Allergy, Unknown, 12/11/18) MELATONIN (Verified Allergy, Unknown, 12/11/18) SULFA (SULFONAMIDE ANTIBIOTICS) (Verified Allergy, Unknown, 12/11/18) SULFUR (Unverified Allergy, Unknown, 04/17/19) Uncoded Allergies: CONTRAST (Allergy, Unknown, 04/17/19) Subjective AFVSS O2 needs stable Awake and alert No cough less SOB no FC Less ANDREW Objective Last 24 Hour Vital Signs Date Time Temp Pulse Resp B/P (MAP) Pulse Ox O2 Delivery O2 Flow Rate FiO2 04/25/19 09:43 Nasal Cannula 2.0 04/25/19 08:00 96.7 87 18 131/69 (89) 94 04/25/19 08:00 2.0 04/25/19 07:48 96 Nasal Cannula 2.0 28 04/25/19 07:46 74 20 97 Nasal Cannula 2.0 28 71 20 96 04/25/19 05:29 79 20 97 04/25/19 04:00 97.6 77 19 141/82 (101) 100 04/25/19 04:00 2.0 04/25/19 04:00 72 04/25/19 03:33 70 17 98 Facial 30 04/25/19 01:53 85 19 94 Facial 30 04/25/19 01:53 77 20 99 Bi-Pap 30 85 19 94 04/25/19 00:35 80 140/79 (99) 04/25/19 00:00 2.0 04/25/19 00:00 75 04/25/19 00:00 98.2 81 18 161/99 (119) 92 04/24/19 22:07 94 Nasal Cannula 2.0 28 04/24/19 22:07 69 16 100 Nasal Cannula 2.0 28 72 12 94 04/24/19 21:00 Nasal Cannula 2.0 04/24/19 20:00 98.3 77 19 150/89 (109) 96 04/24/19 20:00 78 04/24/19 20:00 2.0 04/24/19 16:28 98.4 04/24/19 16:00 81 04/24/19 16:00 98.4 76 20 148/88 (108) 97 04/24/19 13:00 67 04/24/19 12:53 78 20 95 Nasal Cannula 2.0 28 77 20 94 04/24/19 12:00 2.0 04/24/19 11:59 97.9 64 18 150/80 (103) 97 Intake and Output 04/24/19 04/25/19 18:59 06:59 Intake Total 240 ml Output Total 1600 ml 725 ml Balance -1360 ml -725 ml Intake Oral 240 ml Output Urine Total 1600 ml 725 ml # Bowel Movements 1 1 General Appearance: no acute distress, cachetic HEENT: normocephalic, atraumatic, anicteric, mucous membranes moist Respiratory/Chest: lungs clear - but distant Cardiovascular: normal peripheral pulses, normal rate, regularly irregular Abdomen: normal bowel sounds, soft, non tender, no organomegaly, non distended , no mass Extremities: no cyanosis, no clubbing, other - trace ANDREW Microbiology Date/Time Source Procedure Growth Status 04/25/19 09:50 Stool Clostridium difficile Toxin Assay - Final Complete Laboratory Tests 04/25/19 05:10: White Blood Count 10.9H, Red Blood Count 2.56L, Hemoglobin 7.9L, Hematocrit 24.4L, Mean Corpuscular Volume 95, Mean Corpuscular Hemoglobin 31.0, Mean Corpuscular Hemoglobin Concent 32.5, Red Cell Distribution Width 15.2H, Platelet Count 183, Mean Platelet Volume 5.9L, Neutrophils (%) (Auto) , Lymphocytes (%) (Auto) , Monocytes (%) (Auto) , Eosinophils (%) (Auto) , Basophils (%) (Auto) , Differential Total Cells Counted 100, Neutrophils % ( Manual) 89H, Lymphocytes % (Manual) 6L, Monocytes % (Manual) 5, Eosinophils % ( Manual) 0, Basophils % (Manual) 0, Band Neutrophils 0, Platelet Estimate Adequate, Platelet Morphology Normal, Hypochromasia 1+, Anisocytosis 1+, Sodium Level 141, Potassium Level 3.8, Chloride Level 104, Carbon Dioxide Level 31, Anion Gap 6, Blood Urea Nitrogen 13, Creatinine 1.3, Estimat Glomerular Filtration Rate , Glucose Level 116H, Calcium Level 7.2L Current Medications Medications (Trade) Dose Ordered Sig/Sonny Route PRN Reason Start Time Stop Time Status Last Admin Dose Admin Albuterol/ Ipratropium (Albuterol/ Ipratropium) 3 ml Q6HRT HHN 04/21/19 13:00 04/26/19 12:59 04/25/19 07:46 Amiodarone HCl (Cordarone) 200 mg DAILY ORAL 04/19/19 09:00 05/18/19 08:59 04/25/19 08:59 Aspirin (ASA) 81 mg DAILY ORAL 04/19/19 09:00 05/18/19 08:59 04/25/19 08:59 Atorvastatin Calcium (Lipitor) 20 mg BEDTIME ORAL 04/18/19 21:00 05/18/19 20:59 04/24/19 21:23 Bisacodyl (Dulcolax) 10 mg DAILYPRN PRN RECTAL Constipation 04/18/19 16:30 05/18/19 16:29 Calcitriol (Rocaltrol) 0.5 mcg DAILY ORAL 04/19/19 09:00 05/18/19 08:59 04/25/19 08:59 Chlorhexidine Gluconate (Rose-Hex 2%) 1 applic DAILY@2000 TOPIC 04/21/19 20:00 05/21/19 19:59 04/24/19 21:20 Ferrous Gluconate (Fergon) 324 mg EVERY OTHER DAY ORAL 04/20/19 09:00 05/18/19 08:59 04/24/19 09:06 Gabapentin (Neurontin) 300 mg DAILY ORAL 04/19/19 09:00 05/18/19 08:59 04/25/19 08:59 Lactulose (Cephulac) 30 gm Q8H PRN ORAL Constipation 04/23/19 09:00 05/23/19 08:59 Lidocaine (Lidoderm 5% PATCH) 1 patch DAILY TDERMAL 04/19/19 09:00 05/18/19 08:59 04/25/19 09:02 Linezolid 300 ml @ 300 mls/hr Q12HR IVPB 04/20/19 14:30 04/30/19 23:59 04/25/19 08:58 Loperamide HCl (Imodium) 2 mg ONCE ORAL 04/25/19 11:45 04/25/19 12:45 Morphine HCl (Morphine IR) 15 mg Q6H PRN ORAL For Pain 04/18/19 16:30 04/25/19 16:29 04/25/19 05:01 Multivitamins Therapeutic (Therapeutic Multivitamin) 1 ea DAILY ORAL 04/19/19 09:00 05/18/19 08:59 04/25/19 08:59 Ondansetron HCl (Zofran) 4 mg Q6H PRN ORAL Nausea & Vomiting 04/18/19 16:30 05/18/19 16:29 04/22/19 14:57 Piperacillin Sod/ Tazobactam Sod 3.375 gm/Sodium Chloride 110 ml @ 27.5 mls/hr Q8HR IVPB 04/23/19 14:00 04/30/19 13:59 04/25/19 06:14 Polyethylene Glycol (Miralax) 17 gm DAILY ORAL 04/19/19 09:00 05/18/19 08:59 04/23/19 08:44 Prednisone (predniSONE) 20 mg DAILY ORAL 04/25/19 09:00 05/25/19 08:59 04/25/19 08:59 Sennosides (Senokot) 17.2 mg BEDTIME PRN ORAL Constipation 04/18/19 21:00 05/18/19 02:59 04/21/19 20:52 Sodium Bicarbonate (NaHCO3) 1,300 mg BID ORAL 04/18/19 18:00 05/18/19 08:59 04/25/19 08:58 Sodium Citrate (Bicitra) 30 ml EVERY 6 HOURS ORAL 04/21/19 18:00 05/21/19 17:59 04/25/19 05:01 Tramadol HCl (Ultram) 50 mg Q8H PRN ORAL Severe Pain (Pain Scale 7-10) 04/21/19 15:45 04/28/19 15:44 04/25/19 01:21 Trazodone HCl (Desyrel) 50 mg BEDTIME PRN ORAL DEPRESSION 04/18/19 21:00 05/18/19 02:59 04/19/19 23:23 Sánchez Lam MD Apr 25, 2019 11:55
[2019-04-25 12:00] VITALS: BP 120/84
[2019-04-25] MEDS ORDERED: NEURONTIN300 MG ORAL (12:07)
[2019-04-25] MEDS ORDERED: LIDODERM700 M1 TDERMAL (12:07)
[2019-04-25] MEDS ORDERED: PACERONE200 MG ORAL (12:07)
[2019-04-25] MEDS ORDERED: DUONEB 0.5-3(2.53 ML HHN (12:07)
[2019-04-25] MEDS ORDERED: MORPHINE IR15 MG ORAL (12:07)
[2019-04-25] MEDS ORDERED: HIBICLENS118 ML TOPIC (12:07)
[2019-04-25] MEDS ORDERED: NAHCO3650 MG ORAL (12:07)
[2019-04-25] MEDS ORDERED: MULTIVITAMINS1 EAC8 ORAL (12:07)
[2019-04-25] MEDS ORDERED: PREDNISONE10 MG ORAL (12:25)
[2019-04-25] MEDS ORDERED: ZOSYN 3.373.375 GM/1 IVPB (12:37)
[2019-04-25] MEDS ORDERED: ZYVOX600 MG IV (12:41)
--- NOTE | 2019-04-25 12:50 | NUR ---
DISCHARGE PLANNED PATIENT IS RETURNING TO [facility] ROOM [address] SKILLED T: [phone] FOR NURSE TO NURSE REPORT [facility] HAS BEEN ARRANGED FOR [address] JUDGE SPOKE WITH SON, TALYA, WHO IS IN AGREEMENT WITH DISCHARGE PLAN
--- NOTE | 2019-04-25 13:03 | Cardiac Electrophysiology PN ---
Assessment/Plan Assessment/Plan 1. Status post Medtronic pacer with Nl Fx and 6 years battery left 2. Paroxysmal atrial fibrillation, currently in sinus rhythm, on Eliquis 2.5 mg b.i.d. and amiodarone 200 mg daily 3. Hyperlipidemia, on Lipitor. 4. Respiratory failure due to COPD and pneumonia, on BIPAP, Abx and Solu-Medrol. 5. Status post sternotomy. Per patient due to sternal Fx years ago. 6. Sepsis has PICC line DW RN and son DC to [facility] today Subjective Subjective Alert in NAD. No CP on nasal cannula during the day. Son at bedside. DC planning back to [facility] today Objective Last 24 Hour Vital Signs Date Time Temp Pulse Resp B/P (MAP) Pulse Ox O2 Delivery O2 Flow Rate FiO2 04/25/19 09:43 Nasal Cannula 2.0 04/25/19 08:00 96.7 87 18 131/69 (89) 94 04/25/19 08:00 2.0 04/25/19 07:48 96 Nasal Cannula 2.0 28 04/25/19 07:46 74 20 97 Nasal Cannula 2.0 28 71 20 96 04/25/19 05:29 79 20 97 04/25/19 04:00 97.6 77 19 141/82 (101) 100 04/25/19 04:00 2.0 04/25/19 04:00 72 04/25/19 03:33 70 17 98 Facial 30 04/25/19 01:53 85 19 94 Facial 30 04/25/19 01:53 77 20 99 Bi-Pap 30 85 19 94 04/25/19 00:35 80 140/79 (99) 04/25/19 00:00 2.0 04/25/19 00:00 75 04/25/19 00:00 98.2 81 18 161/99 (119) 92 04/24/19 22:07 94 Nasal Cannula 2.0 28 04/24/19 22:07 69 16 100 Nasal Cannula 2.0 28 72 12 94 04/24/19 21:00 Nasal Cannula 2.0 04/24/19 20:00 98.3 77 19 150/89 (109) 96 04/24/19 20:00 78 04/24/19 20:00 2.0 04/24/19 16:28 98.4 04/24/19 16:00 81 8/29/19 16:00 98.4 76 20 148/88 (108) 97 Intake and Output 04/24/19 04/25/19 19:00 07:00 Intake Total 240 ml 120 ml Output Total 1600 ml 725 ml Balance -1360 ml -605 ml Intake Oral 240 ml 120 ml Output Urine Total 1600 ml 725 ml # Bowel Movements 1 1 Laboratory Tests Test 04/25/19 05:10 White Blood Count 10.9 K/UL (4.8-10.8) H Red Blood Count 2.56 M/UL (4.20-5.40) L Hemoglobin 7.9 G/DL (12.0-16.0) L Hematocrit 24.4 % (37.0-47.0) L Mean Corpuscular Volume 95 FL (80-99) Mean Corpuscular Hemoglobin 31.0 PG (27.0-31.0) Mean Corpuscular Hemoglobin Concent 32.5 G/DL (32.0-36.0) Red Cell Distribution Width 15.2 % (11.6-14.8) H Platelet Count 183 K/UL (150-450) Mean Platelet Volume 5.9 FL (6.5-10.1) L Neutrophils (%) (Auto) % (45.0-75.0) Lymphocytes (%) (Auto) % (20.0-45.0) Monocytes (%) (Auto) % (1.0-10.0) Eosinophils (%) (Auto) % (0.0-3.0) Basophils (%) (Auto) % (0.0-2.0) Differential Total Cells Counted 100 Neutrophils % (Manual) 89 % (45-75) H Lymphocytes % (Manual) 6 % (20-45) L Monocytes % (Manual) 5 % (1-10) Eosinophils % (Manual) 0 % (0-3) Basophils % (Manual) 0 % (0-2) Band Neutrophils 0 % (0-8) Platelet Estimate Adequate Platelet Morphology Normal Hypochromasia 1+ Anisocytosis 1+ Sodium Level 141 MMOL/L (136-145) Potassium Level 3.8 MMOL/L (3.5-5.1) Chloride Level 104 MMOL/L (98-107) Carbon Dioxide Level 31 MMOL/L (21-32) Anion Gap 6 mmol/L (5-15) Blood Urea Nitrogen 13 mg/dL (7-18) Creatinine 1.3 MG/DL (0.55-1.30) Estimat Glomerular Filtration Rate mL/min (>60) Glucose Level 116 MG/DL (74-106) H Calcium Level 7.2 MG/DL (8.5-10.1) L Microbiology Date/Time Source Procedure Growth Status 04/25/19 09:50 Stool Clostridium difficile Toxin Assay - Final Complete Objective HEAD AND NECK: Shows no JVD. Off BIPAP LUNGS: Coarse rhonchi. CHEST: The pacemaker is in the left subclavian. ABDOMEN: Soft. EXTREMITIES: No pitting edema. Jarrod Gutierrez MD Apr 25, 2019 13:03
--- NOTE | 2019-04-25 14:34 | NUR ---
NURSE NOTES: report given to Catrachito FINNEGAN. Catrachito notified that patient is on Zosyn 3.375 @8 hours(0600,1400,2200)IVPB CONTINUE UNTIL APR 7 AND ZYVOX 600 MG IVPB BID (0900,2100) UNTIL SEPT 4 PATIENT ALSO IS ON PREDNISONE 10MG FOR 3 DAYS AND THEN 5 MG FOR 3 DAYS PER HCP ORDER
--- NOTE | 2019-04-25 14:58 | Infectious Diseases Prog Note ---
Assessment/Plan Problems: (1) Aspiration pneumonia Assessment & Plan: with B/L basal consolidations and fever , continue zosyn , and zyvox to cover her UTI due to VRE too for total of 10 days . MONITOR sputum culture . aspiration precaution. Keep HOB > 30 DEGREE (2) COPD (chronic obstructive pulmonary disease) Assessment & Plan: continue inhalers , taper steroids (3) UTI (urinary tract infection) Assessment & Plan: with VRE , continue zyvox to cover her pneumonia too for total of 10 days (4) Fever Assessment & Plan: due to the above, improving , continue wide spectrum antibiotics and tylenol (5) Acute respiratory failure Assessment & Plan: due to the above with severe COPD and lung parenchyma destruction , on BIPAP, monitor ABG, pulmonary is following (6) Leukocytosis Assessment & Plan: possibly due to the above and steroids too, already on wide spectrum antibiotics, taper steroids Subjective Constitutional: Reports: no symptoms HEENT: Reports: no symptoms Respiratory: Reports: no symptoms Breasts: Reports: no symptoms Cardiovascular: Reports: no symptoms Gastrointestinal/Abdominal: Reports: no symptoms Genitourinary: Reports: no symptoms Neurologic: Reports: no symptoms Psychiatric: Reports: no symptoms Skin: Reports: no symptoms Endocrine: Reports: no symptoms Hematologic: Reports: no symptoms Musculoskeletal: Reports: no symptoms Allergies: Coded Allergies: CYCLOBENZAPRINE (Verified Allergy, Unknown, 12/11/18) IBUPROFEN (Verified Allergy, Unknown, 12/11/18) MELATONIN (Verified Allergy, Unknown, 12/11/18) SULFA (SULFONAMIDE ANTIBIOTICS) (Verified Allergy, Unknown, 12/11/18) SULFUR (Unverified Allergy, Unknown, 04/17/19) Uncoded Allergies: CONTRAST (Allergy, Unknown, 04/17/19) Subjective she was resting in bed comfortable , off BIPAP, no cough or phlegm, no SOB, no diarrhea .afebrile Objective Vital Signs Last 24 Hour Vital Signs Date Time Temp Pulse Resp B/P (MAP) Pulse Ox O2 Delivery O2 Flow Rate FiO2 04/25/19 13:34 81 20 100 Room Air 21 75 20 86 04/25/19 12:54 96.7 04/25/19 09:43 Nasal Cannula 2.0 04/25/19 08:00 96.7 87 18 131/69 (89) 94 04/25/19 08:00 2.0 04/25/19 07:48 96 Nasal Cannula 2.0 28 04/25/19 07:46 74 20 97 Nasal Cannula 2.0 28 71 20 96 04/25/19 05:29 79 20 97 04/25/19 04:00 97.6 77 19 141/82 (101) 100 04/25/19 04:00 2.0 04/25/19 04:00 72 04/25/19 03:33 70 17 98 Facial 30 04/25/19 01:53 85 19 94 Facial 30 04/25/19 01:53 77 20 99 Bi-Pap 30 85 19 94 04/25/19 00:35 80 140/79 (99) 04/25/19 00:00 2.0 04/25/19 00:00 75 04/25/19 00:00 98.2 81 18 161/99 (119) 92 04/24/19 22:07 94 Nasal Cannula 2.0 28 04/24/19 22:07 69 16 100 Nasal Cannula 2.0 28 72 12 94 04/24/19 21:00 Nasal Cannula 2.0 04/24/19 20:00 98.3 77 19 150/89 (109) 96 04/24/19 20:00 78 04/24/19 20:00 2.0 04/24/19 16:00 81 04/24/19 16:00 98.4 76 20 148/88 (108) 97 Height (Feet): 5 Height (Inches): 3.00 Weight (Pounds): 121 General Appearance: WD/WN, no acute distress HEENT: normocephalic, atraumatic, anicteric, mucous membranes moist, PERRL, EOMI, pharynx normal, supple, no JVD Respiratory/Chest: chest wall non-tender, lungs clear, normal breath sounds, no respiratory distress, no accessory muscle use Cardiovascular: normal peripheral pulses, normal rate, regular rhythm, no gallop/murmur, no JVD Abdomen: normal bowel sounds, soft, non tender, no organomegaly, non distended , no mass, no scars Genitourinary: normal external genitalia Extremities: no cyanosis, no clubbing Skin: no rash, no lesions, no ulcers Neurologic/Psychiatric: 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 watchman II-XII grossly normal, alert, responsive Lymphatic: no neck adenopathy, no groin adenopathy Musculoskeletal: normal muscle bulk, no effusion Microbiology Date/Time Source Procedure Growth Status 04/25/19 09:50 Stool Clostridium difficile Toxin Assay - Final Complete Laboratory Tests Test 04/25/19 05:10 White Blood Count 10.9 K/UL (4.8-10.8) H Red Blood Count 2.56 M/UL (4.20-5.40) L Hemoglobin 7.9 G/DL (12.0-16.0) L Hematocrit 24.4 % (37.0-47.0) L Mean Corpuscular Volume 95 FL (80-99) Mean Corpuscular Hemoglobin 31.0 PG (27.0-31.0) Mean Corpuscular Hemoglobin Concent 32.5 G/DL (32.0-36.0) Red Cell Distribution Width 15.2 % (11.6-14.8) H Platelet Count 183 K/UL (150-450) Mean Platelet Volume 5.9 FL (6.5-10.1) L Neutrophils (%) (Auto) % (45.0-75.0) Lymphocytes (%) (Auto) % (20.0-45.0) Monocytes (%) (Auto) % (1.0-10.0) Eosinophils (%) (Auto) % (0.0-3.0) Basophils (%) (Auto) % (0.0-2.0) Differential Total Cells Counted 100 Neutrophils % (Manual) 89 % (45-75) H Lymphocytes % (Manual) 6 % (20-45) L Monocytes % (Manual) 5 % (1-10) Eosinophils % (Manual) 0 % (0-3) Basophils % (Manual) 0 % (0-2) Band Neutrophils 0 % (0-8) Platelet Estimate Adequate Platelet Morphology Normal Hypochromasia 1+ Anisocytosis 1+ Sodium Level 141 MMOL/L (136-145) Potassium Level 3.8 MMOL/L (3.5-5.1) Chloride Level 104 MMOL/L (98-107) Carbon Dioxide Level 31 MMOL/L (21-32) Anion Gap 6 mmol/L (5-15) Blood Urea Nitrogen 13 mg/dL (7-18) Creatinine 1.3 MG/DL (0.55-1.30) Estimat Glomerular Filtration Rate mL/min (>60) Glucose Level 116 MG/DL (74-106) H Calcium Level 7.2 MG/DL (8.5-10.1) L Current Medications Medications (Trade) Dose Ordered Sig/Sonny Route PRN Reason Start Time Stop Time Status Last Admin Dose Admin Albuterol/ Ipratropium (Albuterol/ Ipratropium) 3 ml Q6HRT HHN 04/21/19 13:00 04/26/19 12:59 04/25/19 13:34 Amiodarone HCl (Cordarone) 200 mg DAILY ORAL 04/19/19 09:00 05/18/19 08:59 04/25/19 08:59 Aspirin (ASA) 81 mg DAILY ORAL 04/19/19 09:00 05/18/19 08:59 04/25/19 08:59 Atorvastatin Calcium (Lipitor) 20 mg BEDTIME ORAL 04/18/19 21:00 05/18/19 20:59 04/24/19 21:23 Bisacodyl (Dulcolax) 10 mg DAILYPRN PRN RECTAL Constipation 04/18/19 16:30 05/18/19 16:29 Calcitriol (Rocaltrol) 0.5 mcg DAILY ORAL 04/19/19 09:00 05/18/19 08:59 04/25/19 08:59 Chlorhexidine Gluconate (Rose-Hex 2%) 1 applic DAILY@2000 TOPIC 04/21/19 20:00 05/21/19 19:59 04/24/19 21:20 Ferrous Gluconate (Fergon) 324 mg EVERY OTHER DAY ORAL 04/20/19 09:00 05/18/19 08:59 04/24/19 09:06 Gabapentin (Neurontin) 300 mg DAILY ORAL 04/19/19 09:00 05/18/19 08:59 04/25/19 08:59 Lactulose (Cephulac) 30 gm Q8H PRN ORAL Constipation 04/23/19 09:00 05/23/19 08:59 Lidocaine (Lidoderm 5% PATCH) 1 patch DAILY TDERMAL 04/19/19 09:00 05/18/19 08:59 04/25/19 09:02 Linezolid 300 ml @ 300 mls/hr Q12HR IVPB 04/20/19 14:30 04/30/19 23:59 04/25/19 08:58 Morphine HCl (Morphine IR) 15 mg Q6H PRN ORAL For Pain 04/18/19 16:30 04/25/19 16:29 04/25/19 12:24 Multivitamins Therapeutic (Therapeutic Multivitamin) 1 ea DAILY ORAL 04/19/19 09:00 05/18/19 08:59 04/25/19 08:59 Ondansetron HCl (Zofran) 4 mg Q6H PRN ORAL Nausea & Vomiting 04/18/19 16:30 05/18/19 16:29 04/22/19 14:57 Piperacillin Sod/ Tazobactam Sod 3.375 gm/Sodium Chloride 110 ml @ 27.5 mls/hr Q8HR IVPB 04/23/19 14:00 04/30/19 13:59 04/25/19 14:53 Polyethylene Glycol (Miralax) 17 gm DAILY ORAL 04/19/19 09:00 05/18/19 08:59 04/23/19 08:44 Prednisone (predniSONE) 10 mg DAILY ORAL 04/26/19 09:00 05/26/19 08:59 Sennosides (Senokot) 17.2 mg BEDTIME PRN ORAL Constipation 04/18/19 21:00 05/18/19 02:59 04/21/19 20:52 Sodium Bicarbonate (NaHCO3) 1,300 mg BID ORAL 04/18/19 18:00 05/18/19 08:59 04/25/19 08:58 Sodium Citrate (Bicitra) 30 ml EVERY 6 HOURS ORAL 04/21/19 18:00 05/21/19 17:59 04/25/19 12:11 Tramadol HCl (Ultram) 50 mg Q8H PRN ORAL Severe Pain (Pain Scale 7-10) 04/21/19 15:45 04/28/19 15:44 04/25/19 01:21 Trazodone HCl (Desyrel) 50 mg BEDTIME PRN ORAL DEPRESSION 04/18/19 21:00 05/18/19 02:59 04/19/19 23:23 Saravanan Serrato M.D. Apr 25, 2019 14:58
[2019-04-25 16:00] VITALS: BP 139/70
--- NOTE | 2019-04-25 18:21 | NUR ---
NURSE NOTES: PATIENT D/C WITH PICC LINE AND HER BELONGING ORDERED. VITAL SIGNS STABLE.REPORT GIVEN TO [facility].
--- NOTE | 2019-04-28 10:55 | Discharge Summary ---
Discharge Summary Discharge Summary _ DATE OF ADMISSION: 04/17/2019 DATE OF DISCHARGE: 04/25/2019 DISCHARGED BY: Dr. Wally Mancilla CONSULTANTS: Dr. Sánchez Gutierrez BRIEF HOSPITAL COURSE: Patient is a 73-year-old female, with history of COPD, paroxysmal A. fib, hypertension, hyperlipidemia, anemia and history of CHF, was brought to the hospital for complaints of acute shortness of breath and COPD exacerbation. The patient presented to the emergency room with hypotension and shortness of breath. She was started on IV fluids and Solu-Medrol 125 mg IV and blood pressure improved. The patient was also noted to have urinary tract infection and was started on IV Zosyn and azithromycin. She was then admitted to telemetry. Blood pressure was monitored. She was placed on DuoNeb inhalers and nebulizer. She was started on IV antibiotic and azithromycin for urinary tract infection. Patient was full code. Net Web Developer was consulted. Patient was admitted in November 2018 for COPD exacerbation. At that time, she was recommended outpatient pulmonary evaluation including PFT and CT scan. She was continued on Eliquis for DVT prophylaxis. She was placed on aspiration precautions. CT scan of the chest and ABG were ordered. Patient has a history of atrial fibrillation with pacemaker implantation. EKG showed sinus rhythm with very long OR interval, the patient was not paced. During last admission in November, multiple companies were checked, but was unable to find the brand of pacemaker. The fact that pacemaker was not pacing in the ventricle despite long OR interval, was suggestive that battery may be . Amiodarone 200 mg twice daily was a switch to 200 mg daily. Patient was lethargic but arousable. ABG showed pH 7.2, PCO2 43, O2 118, bicarb 18. Chest CT showed extensive acute and chronic pulmonary parenchymal disease, with evidence of interstitial septal thickening, COPD changes with bullous changes, evidence of old granulomatous disease and possibly chronic interstitial fibrosis. There was atelectasis and consolidation in the lower lobe and portions of the right upper lobe. Patient was placed on BiPAP. ID was consulted. Patient with aspiration pneumonia with bilateral basal consolidation. She had low-grade fever. She was continued on Zosyn. Vancomycin was added. Patient is status post Medtronic pacemaker. He done showed normal function with 6 years of battery left and longest atrial fibrillation was on January 2019 for 99 hours. Steroids were tapered. She had leukocytosis, probably oh secondary to steroid use. Urine showed growth of VRE. Vancomycin was switched to Zyvox to cover VRE UTI and pneumonia. BiPAP was tapered to qhs. Patient had altered mental status. CT scan of the head did not show any acute intracranial bleed, mass-effect or edema. Swallow evaluation done recommended pured diet with thin liquids. Patient was more alert. Diet was upgraded to mechanical soft chopped diet, however patient refused and wanted soft easy chew diet. IV steroid was tapered to be WBC improved and most likely was secondary to steroid use. She had an episode of diarrhea. MiraLAX was placed on hold. C. difficile was negative. She was eventually discharged back to [facility]. FINAL DIAGNOSES: Acute on chronic respiratory failure with BiPAP COPD with acute exacerbation Aspiration pneumonia Urinary tract infection Leukocytosis secondary to steroid use Possible sepsis Paroxysmal atrial fibrillation Coronary artery disease Sinus syndrome status post Medtronic pacer with normal function and 6 years battery life Hyperlipidemia Chronic pain syndrome Dysphagia Altered mental status BASSAM Non-anion gap metabolic acidosis DISPOSITION: Patient was discharged to a SNF. DISCHARGE MEDICATIONS: Refer to Discharge Medication List. I have been assigned to complete a discharge summary on this account, I was not involved with the patient's management.--DANIEL Garcia Jacqueline Robles NP Apr 28, 2019 10:55
== END 2019-04-25 18:32 | DRG 871 ==
LOC: EDBD 22:17 → EMR 22:38 → 2E 23:03 → EDBEDREQ 23:50 → 2E 04-18 01:57 → 2W 04-18 15:02 → 2E 04-23 17:00
PROC: 5A09457 Assistance with Respiratory Ventilation, 24-96 Consecutive Hours, Continuous Positive Airway Pressure (ICD-10-PCS; 2019-04-18)
PROC: 3E03328 Introduction of Oxazolidinones into Peripheral Vein, Percutaneous Approach (ICD-10-PCS; 2019-04-20)
PROC: 02HV33Z Insertion of Infusion Device into Superior Vena Cava, Percutaneous Approach (ICD-10-PCS; principal; 2019-04-22)
DX: A41.9 Sepsis, unspecified organism (principal); J69.0 Pneumonitis due to inhalation of food and vomit; J96.20 Acute and chronic respiratory failure, unspecified whether with hypoxia or hypercapnia; J44.1 Chronic obstructive pulmonary disease with (acute) exacerbation; N39.0 Urinary tract infection, site not specified; N17.9 Acute kidney failure, unspecified; I25.10 Atherosclerotic heart disease of native coronary artery without angina pectoris; I48.0 Paroxysmal atrial fibrillation; I11.0 Hypertensive heart disease with heart failure; I50.9 Heart failure, unspecified; I25.2 Old myocardial infarction; E78.5 Hyperlipidemia, unspecified; Z88.6 Allergy status to analgesic agent; Z88.2 Allergy status to sulfonamides; Z88.8 Allergy status to other drugs, medicaments and biological substances; Z95.0 Presence of cardiac pacemaker; Z87.891 Personal history of nicotine dependence; G89.4 Chronic pain syndrome; M54.5 Low back pain; R13.10 Dysphagia, unspecified; J20.9 Acute bronchitis, unspecified
CPT/HCPCS: 36415; 36569; 36600; 70450; 71045; 71250; 76937; 80048; 80053; 80202; 81003; 82140; 82550; 82553; 82607; 82746; 82803; 83605; 83880; 84443; 84484; 85007; 85025; 85610; 85730; 86592; 86850; 86900; 86901; 87040; 87081; 87086; 87181; 87324; 93005; 93306; 94640; 94660; 94664; 96365; 96368; 96375; 99291; J7620